=== PATIENT | female | born 1970 ===

== ENCOUNTER 2020-01-19 12:47 | Outpatient (REF) | payer MEDICAID, SELFPAY ==
--- NOTE | 2020-01-19 12:59 | US_ITS ---
EXAMINATION: MM DIAGNOSTIC DIGITAL BREAST TOMOSYNTHESIS, BILATERAL US DIAGNOSTIC ULTRASOUND BREAST, LEFT CLINICAL INFORMATION: Due for yearly exam. 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 The lifetime risk of breast cancer based on the Tyrer-Cuzick Model is 6%. COMPARISON: Mammography: 01/14/2019, 07/13/2018, 12/17/2017 (diagnostic, BI-RADS 3); targeted left breast ultrasound 01/14/2019, 07/13/2018, 12/17/2017. TECHNIQUE: Digital breast tomosynthesis is performed in both the craniocaudal and mediolateral oblique views along with computer-aided detection (CAD). Synthesized 2D images are generated from the tomosynthesis. Ultrasound left breast is targeted to the upper outer quadrant. Grayscale imaging and color Doppler are performed without and with harmonics. FINDINGS: The breasts are heterogeneously dense, which may obscure small masses (ACR BI-RADS breast composition Category c). Parenchymal pattern is similar to prior studies. There is no developing density or interval mass or architectural abnormality. No abnormal calcifications. The axilla and skin contours are unremarkable. There is stable nodule left upper outer quadrant. Ultrasound left breast demonstrates the probable fibroadenoma 2:00 position 4 cm from nipple with macrolobulated margins and overall size approximately 1.3 x 1.2 x 1.0 cm. Finding is stable from prior exams and now considered benign. Results are discussed with the patient at time of visit, using an section leader and machine setter. US/US breast LT limited IMPRESSION: 1. No mammographic evidence of malignancy. 2. 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 ASSESSMENT: BI-RADS 2: Benign RECOMMENDATION: Routine annual mammography screening. This patient's information was entered into a reminder system with a target due date for their next mammogram.
== END 2020-01-19 12:48 | disposition home or self-care (01) ==
LOC: HO.MAMMO 12:47
PROVIDERS: PCP Family Medicine; Visit Provider Advanced Practice Midwife
DX: Z12.31 Encounter for screening mammogram for malignant neoplasm of breast (principal)
CPT/HCPCS: 76642; 77062; 77066

== ENCOUNTER 2020-10-08 14:44 | Outpatient (REF) | payer MEDICAID, SELFPAY ==
--- NOTE | ~2020-10-08 | XR_ITS ---
EXAMINATION: XR KNEE, LEFT CLINICAL INFORMATION: Pain left knee. COMPARISON: None TECHNIQUE: Four views of the left knee. FINDINGS: The tricompartment joint space is normal. No visible acute fracture, dislocation or subluxation seen. No abnormal joint effusion seen. The soft tissues are normal. XR/XR knee LT 4V IMPRESSION: Unremarkable left knee exam.
== END 2020-10-08 14:45 | disposition home or self-care (01) ==
LOC: HO.XRAY 14:44
PROVIDERS: PCP Registered Nurse; Visit Provider Registered Nurse
DX: M25.562 Pain in left knee (principal)
CPT/HCPCS: 73564

== ENCOUNTER 2020-12-17 10:22 | Emergency (ER) | payer MEDICAID, SELFPAY ==
--- NOTE | ~2020-12-17 | XR_ITS ---
EXAMINATION: XR CHEST CLINICAL INFORMATION: Cough. COMPARISON: None TECHNIQUE: Frontal view of the chest was obtained. FINDINGS: No significant abnormality is noted involving the heart, lungs, mediastinum, bony thorax or soft tissues. XR/XR chest 1V IMPRESSION: No acute cardiopulmonary process.
--- NOTE | ~2020-12-17 | CT_ITS ---
EXAMINATION: CT ABDOMEN AND PELVIS WITHOUT CONTRAST CLINICAL INFORMATION: Left lower quadrant pain, rule out diverticulitis. COMPARISON: None TECHNIQUE: Multidetector volumetric imaging was performed from the superior aspect of the liver through the pubic symphysis. Sagittal and coronal reformatted images were obtained on the technologist's workstation. Lack of intravenous and oral contrast limits visceral evaluation. This CT examination was performed using dose optimization techniques as appropriate, variously including the following: *Automated exposure control *Adjustment of mA and/or kV according to patient size (this includes techniques or standardized protocols for targeted exams where dose is matched to indication/reason for exam; i.e. extremities or head) *Use of iterative reconstruction technique DLP: 493 mGy-cm FINDINGS: LUNG BASES: The visualized lung bases are unremarkable. LIVER, GALLBLADDER, AND BILIARY TREE: Unremarkable. PANCREAS: Unremarkable. SPLEEN: Unremarkable. ADRENAL GLANDS: Unremarkable. KIDNEYS AND URETERS: A few punctate nonobstructing intrarenal calculi are seen bilaterally. No hydroureteronephrosis. BLADDER: Minimally distended limiting evaluation without overt abnormality. GASTROINTESTINAL TRACT: The stomach, small bowel and appendix are unremarkable. The colon shows mild diverticulosis distally without surrounding abnormality. ABDOMINAL WALL: No significant hernia is appreciated. LYMPH NODES: No lymphadenopathy. VASCULAR: Unremarkable. PELVIC VISCERA: Mild prominence of the uterus is seen without definitive focal abnormality. Small noncalcified ovarian cysts are seen bilaterally. Surgical clips overlie the adnexa bilaterally as well. OSSEOUS STRUCTURES: L3-L4 mild degenerative disc disease and minimal grade [address]rolisthesis[address] No suspicious abnormality. CT/CT abdomen pelvis wo con IMPRESSION: 1. Mild distal colonic diverticulosis without evidence for acute diverticulitis. A causative abnormality for the patient's left lower quadrant pain was not identified. 2. Mild prominence of the uterus without overt focal abnormality. Bilateral ovarian cysts demonstrate benign features and are likely physiologic. 3. A few nonobstructing punctate intrarenal calculi without other significant abnormality. 4. L3-L4 mild spondylolysis.
[2020-12-17 11:12] VITALS: BP 122/69; PULSE 57; RESP 16; TEMP 36.7; O2SAT 96; BMI 27.3
[2020-12-17 13:17] LABS: MANUAL DIFF FLAG NO
[2020-12-17 13:21] LABS: Basophils Percent Auto 0.4 % (0-2); Eosinophils Absolute Auto 0.1 X10*3/uL (0.0-0.4); Eosinophils Percent Auto 1.2 % (0-4); Hematocrit 33.6 % (37-47); Hemoglobin 10.9 g/dl (12.0-16.0); Imm Gran Abs Auto 0.02 X10*3/uL (0.00-0.03); Imm Gran Pct Auto 0.4 % (0.0-0.4); Lymphocytes Absolute Auto 1.7 X10*3/uL (1.2-4.9); Lymphocytes Percent Auto 33.3 % (20-40); Mean Corpuscular HGB Conc 32.4 g/dl (31.0-35.0); Mean Corpuscular Hemoglobin 28.4 pg (27.0-33.0); Mean Corpuscular Volume 87.5 fL (80-98); Mean Platelet Volume 10.9 fL (9.4-12.3); Monocytes Absolute Auto 0.3 X10*3/uL (0.1-1.2); Monocytes Percent Auto 6.4 % (2-11); Neutrophils Absolute Auto 2.9 X10*3/uL (2.0-8.3); Neutrophils Percent Auto 58.3 % (45-73); Platelet Count 327 X10*3/uL (160-400); Red Blood Count 3.84 X10*6/uL (4.20-5.50); Red Cell Distribution Width 13.5 % (11.0-16.0)
[2020-12-17 13:36] LABS: Alanine Aminotransferase 11 U/L (0-31); Alkaline Phosphatase 49 U/L (39-117); Anion Gap 10 (12-20); Aspartate Amino Transferase 18 U/L (5-31); Bilirubin Direct 0.2 mg/dL (0.0-0.5); Bilirubin Total 0.6 mg/dL (0.0-1.0); Blood Urea Nitrogen 11 mg/dL (9-16); Calcium 9.5 mg/dL (8.4-10.2); Carbon Dioxide 26 mmol/L (22-29); Chloride 109 mmol/L (96-108); Creatinine Clr Calc Pharmacy 70.3; Estimated Glomerular Filt Rate > 60; Glucose Random 88 mg/dL (60-115); Lipase 17 U/L (8-78); Potassium 4.3 mmol/L (3.3-5.1); Sodium 141 mmol/L (135-145); Total Protein 7.1 g/dL (6.5-8.0)
--- NOTE | 2020-12-17 14:12 | ED_ITS ---
HPI - Nausea/Vomiting/Diarrhea General Chief complaint: Nausea/Vomiting/Diarrhea Stated complaint: lt lung pain Time Seen by Provider: 12/17/20 14:12 Source: patient and cardiac exercise specialist Mode of arrival: ambulatory Limitations: no limitations History of Present Illness HPI Narrative: 50-year-old female came in for evaluation of abdominal pain/nausea/vomiting. Patient's symptoms started 5 days ago and mostly night time, patient describes the pain as intermittent abdominal pain mostly on the left lower quadrant area, pain is dull aching, 5/10, no pain now, pain was associated with vomiting only at night time, no diarrhea, no relieving factor, no aggravating factor. Never had similar pain in the past. Patient also is complaining of intermittent chest pain for the last 3 days, pain is dull in the mid chest, with no radiation, no other associated symptoms, patient has no pain now. Related Data Home Medications Medication Instructions Recorded Confirmed albuterol sulfate 90 mcg/actuation 2 puff PO Q4-6H PRN 12/17/20 aerosol inhaler (ProAir HFA) ascorbic acid (vitamin C) 250 mg 1 tab PO DAILY 12/17/20 tablet cholecalciferol (vitamin D3) 50 1 cap PO DAILY 12/17/20 mcg (2,000 unit) capsule cyanocobalamin (vitamin B-12) 1 tab PO DAILY 12/17/20 1,000 mcg tablet diclofenac sodium 1 % topical gel 2 g TOPICAL BID 12/17/20 ferrous sulfate 325 mg (65 mg 1 tab PO DAILY 12/17/20 iron) tablet (FeroSul) tramadol 50 mg tablet 1 tab PO Q12H PRN 12/17/20 zolpidem 10 mg tablet 1 tab PO BEDTIME PRN 12/17/20 Previous Rx's Medication Instructions Recorded cefuroxime axetil 250 mg tablet 250 mg PO BID #14 tab 12/17/20 Allergies Allergy/AdvReac Type Severity Reaction Status Date / Time No Known Allergies Allergy Unverified 11/17/19 16:31 [No Known Allergies*] Review of Systems Review of Systems: All other systems are reviewed and are negative Constitutional: Reports as per HPI and Reports no additional constitutional complaints Eyes: Reports as per HPI and Reports no additional eye complaints Reports system reviewed and no additional complaints, except as documented Cardiovascular: Reports as per HPI and Reports no additional cardiovascular complaints Respiratory: Reports as per HPI and Reports no additional respiratory complaints Gastrointestinal: Reports as per HPI and Reports no additional gastrointestinal complaints Genitourinary: Reports no additional female genitourinary complaints Musculoskeletal: Reports no additional musculoskeletal complaints Skin/Breast: Reports system reviewed and no additional complaints, except as docu Psychiatric: Reports no additional psychiatric complaints Endocrine: Reports no additional endocrine complaints Hematologic/Lymphatic: Reports no additional hematologic/lymphatic complaints Allergic/Immunologic: Reports no additional allergic/immunologic complaints Reports system reviewed and no additional complaints, except as documented and Reports Abnormal speech present [facility] Social History Social History Use of substances other than those prescribed or required for medical reasons: No Advance Directives: No Physical Exam Vital Signs: Vital Signs: Last Vital Signs Temp 98.1 F 12/17/20 11:12 Pulse 81 12/17/20 15:07 Resp 18 12/17/20 15:07 BP 102/85 12/17/20 15:07 Pulse Ox 98 12/17/20 15:07 Body Mass Index 27.3 Vital signs have been reviewed as appeared to be correct. Blood pressure normal. Heart rate normal. Respiration rate normal. Temperature normal. Oxygen saturation normal. Appearance: Alert. Oriented X3. No acute distress. Head: Normal external exam. Normocephalic. Atraumatic. No Leigh signs noted. No raccoon eyes noted Eyes: PERRLA. EOMI. Conjunctiva and sclera normal. Eyelids normal. ENT: TM's Normal. Pharynx normal. Uvula midline. Moist mucous membranes. No trismus noted. No drooling noted. No muffled voice noted. Neck: Normal inspection. Neck supple. FROM. No adenopathy. Thyroid Normal. No meningeal signs. No neck mass noted. CVS: Normal heart rate and rhythm. Heart sound normal. No murmurs noted. Pulses normal throughout. Respiratory: No respiratory distress. Painless inspiration. Breath sounds normal. No wheezes/rales/rhonchi noted. Chest nontender. No accessory muscle usage noted or decreased air movement noted. Abdomen: Soft, mild tenderness in the left lower quadrant area, no guarding, no rebound. Bowel sounds normal in all 4 quadrants. No distention noted. No organomegaly noted. No visible injury noted. Back: No CVA tenderness. Full range of motion noted. Skin: Skin warm and dry. Normal skin color. Normal skin turgor. No rashes/lesions/lacerations noted. Extremities: No lower extremity edema. Extremities exhibit normal range of motion. Extremities nontender. Neuro: Oriented X 3. Cranial nerve exam: II-XII are grossly intact No motor deficit. No sensory deficit. Reflexes normal. Course Course Course Narrative: Assessment and plan. 50-year-old female came in with 3 days of left lower quadrant abdominal pain, patient also was complaining of chest pain, physical exam and CT of the abdomen and pelvis and labs are unremarkable for acute abnormality. Patient will be discharged home and follow-up with PCP. UA revealing UTI patient with minimal symptoms will start the patient on cefuroxime for 7 days and encouraged to drink plenty of fluids. MDM - Nausea/Vomiting/Diarrhea Lab Data Attestation: I reviewed the patient's lab results. Result diagrams: 12/17/20 13:12 12/17/20 13:12 Labs: Lab Results 12/17/20 12/17/20 12/17/20 Range/Units 13:12 13:12 14:57 WBC 5.0 (4.8-10.8) X10*3/uL RBC 3.84 L (4.20-5.50) X10*6/uL Hgb 10.9 L (12.0-16.0) g/dl Hct 33.6 L (37-47) % MCV 87.5 (80-98) fL MCH 28.4 (27.0-33.0) pg MCHC 32.4 (31.0-35.0) g/dl RDW 13.5 (11.0-16.0) % Plt Count 327 (160-400) X10*3/uL MPV 10.9 (9.4-12.3) fL Immature Gran % (Auto) 0.4 (0.0-0.4) % Neut % (Auto) 58.3 (45-73) % Lymph % (Auto) 33.3 (20-40) % Wilkinson % (Auto) 6.4 (2-11) % Eos % (Auto) 1.2 (0-4) % Baso % (Auto) 0.4 (0-2) % Lymph # (Auto) 1.7 (1.2-4.9) X10*3/uL Wilkinson # (Auto) 0.3 (0.1-1.2) X10*3/uL Eos # (Auto) 0.1 (0.0-0.4) X10*3/uL Baso # (Auto) 0.0 (0.0-0.2) X10*3/uL Abs Immat Gran (auto) 0.02 (0.00-0.03) X10*3/uL Absolute Neuts (auto) 2.9 (2.0-8.3) X10*3/uL Absolute Nucleated RBC 0.000 (0.0-0.012) X10*3/uL Nucleated RBC % (auto) 0.0 (0.0-0.2) /100WBC Sodium 141 (135-145) mmol/L Potassium 4.3 (3.3-5.1) mmol/L Chloride 109 H (96-108) mmol/L Carbon Dioxide 26 (22-29) mmol/L Anion Gap 10 L (12-20) BUN 11 (9-16) mg/dL Creatinine 0.84 (0.5-1.4) mg/dL Estim Creat Clear Calc 70.3 Estimated GFR > 60 Random Glucose 88 (60-115) mg/dL Calcium 9.5 (8.4-10.2) mg/dL Total Bilirubin 0.6 (0.0-1.0) mg/dL Direct Bilirubin 0.2 (0.0-0.5) mg/dL AST 18 (5-31) U/L ALT 11 (0-31) U/L Alkaline Phosphatase 49 (39-117) U/L Total Protein 7.1 (6.5-8.0) g/dL Albumin 4.0 (3.5-5.0) g/dL Lipase 17 (8-78) U/L Urine Color YELLOW Urine Appearance CLEAR Urine pH 6.0 (5.0-8.0) Ur Specific [employer] 1.020 (1.005-1.025) Urine Protein NEG (NEG-TRACE) MG/DL Urine Glucose (UA) NEG (NEG) MG/DL Urine Ketones 5 (NEG) MG/DL Urine Blood TRACE (NEG) Urine Nitrite POS H (NEG) Ur Leukocyte Esterase NEG (NEG) Urine RBC 0-2 (0) /HPF Urine WBC 5-9 H (0-4) /HPF Ur Squamous Epith Cells 1+ /LPF Urine Bacteria 3+ /LPF Urine Test (NEGATIVE) 12/17/20 Range/Units 14:57 WBC (4.8-10.8) X10*3/uL RBC (4.20-5.50) X10*6/uL Hgb (12.0-16.0) g/dl Hct (37-47) % MCV (80-98) fL MCH (27.0-33.0) pg MCHC (31.0-35.0) g/dl RDW (11.0-16.0) % Plt Count (160-400) X10*3/uL MPV (9.4-12.3) fL Immature Gran % (Auto) (0.0-0.4) % Neut % (Auto) (45-73) % Lymph % (Auto) (20-40) % Wilkinson % (Auto) (2-11) % Eos % (Auto) (0-4) % Baso % (Auto) (0-2) % Lymph # (Auto) (1.2-4.9) X10*3/uL Wilkinson # (Auto) (0.1-1.2) X10*3/uL Eos # (Auto) (0.0-0.4) X10*3/uL Baso # (Auto) (0.0-0.2) X10*3/uL Abs Immat Gran (auto) (0.00-0.03) X10*3/uL Absolute Neuts (auto) (2.0-8.3) X10*3/uL Absolute Nucleated RBC (0.0-0.012) X10*3/uL Nucleated RBC % (auto) (0.0-0.2) /100WBC Sodium (135-145) mmol/L Potassium (3.3-5.1) mmol/L Chloride (96-108) mmol/L Carbon Dioxide (22-29) mmol/L Anion Gap (12-20) BUN (9-16) mg/dL Creatinine (0.5-1.4) mg/dL Estim Creat Clear Calc Estimated GFR Random Glucose (60-115) mg/dL Calcium (8.4-10.2) mg/dL Total Bilirubin (0.0-1.0) mg/dL Direct Bilirubin (0.0-0.5) mg/dL AST (5-31) U/L ALT (0-31) U/L Alkaline Phosphatase (39-117) U/L Total Protein (6.5-8.0) g/dL Albumin (3.5-5.0) g/dL Lipase (8-78) U/L Urine Color Urine Appearance Urine pH (5.0-8.0) Ur Specific [employer] (1.005-1.025) Urine Protein (NEG-TRACE) MG/DL Urine Glucose (UA) (NEG) MG/DL Urine Ketones (NEG) MG/DL Urine Blood (NEG) Urine Nitrite (NEG) Ur Leukocyte Esterase (NEG) Urine RBC (0) /HPF Urine WBC (0-4) /HPF Ur Squamous Epith Cells /LPF Urine Bacteria /LPF Urine Test NEGATIVE (NEGATIVE) Imaging Data CT scan - abdomen: Radiologist's impression: 1. Mild distal colonic diverticulosis without evidence for acute diverticulitis. A causative abnormality for the patient's left lower quadrant pain was not identified. 2. Mild prominence of the uterus without overt focal abnormality. Bilateral ovarian cysts demonstrate benign features and are likely physiologic. 3. A few nonobstructing punctate intrarenal calculi without other significant abnormality. 4. L3-L4 mild spondylolysis. Chest x-ray: Radiologist's impression: No acute cardiopulmonary pathology. Discharge Plan Discharge Clinical Impression: Abdominal pain, UTI (urinary tract infection) Patient Disposition: Home, Self-Care Instructions: Abdominal Pain (ED) Prescriptions: New cefuroxime axetil 250 mg tablet 250 mg PO BID Qty: 14 RF: 0 No Action cyanocobalamin (vitamin B-12) 1,000 mcg tablet 1 tab PO DAILY RF: 0 tramadol 50 mg tablet 1 tab PO Q12H PRN (Reason: Pain) RF: 0 ascorbic acid (vitamin C) 250 mg tablet 1 tab PO DAILY RF: 0 ferrous sulfate [FeroSul] 325 mg (65 mg iron) tablet 1 tab PO DAILY RF: 0 zolpidem 10 mg tablet 1 tab PO BEDTIME PRN (Reason: insomnia) RF: 0 albuterol sulfate [ProAir HFA] 90 mcg/actuation HFA aerosol inhaler 2 puff PO Q4-6H PRN (Reason: Wheezing) RF: 0 diclofenac sodium 1 % gel 2 g topical BID RF: 0 cholecalciferol (vitamin D3) 50 mcg (2,000 unit) capsule 1 cap PO DAILY RF: 0 Referrals: [facility] [Primary Care Provider] - 2 days
[2020-12-17] MEDS: 0.9 % Sodium Chloride 1,000 ML 999 ML IVCONT (14:51)
[2020-12-17 15:06] LABS: Appearance Urine CLEAR; Color Urine YELLOW; Glucose Urine UA NEG (NEG); Leukocyte Esterase Urine NEG (NEG); Nitrite Urine POS (NEG); UACC Culture Trigger YES; Urine Blood TRACE (NEG); Urine Ketones 5 MG/DL (NEG); Urine Protein NEG (NEG-TRACE)
[2020-12-17 15:07] VITALS: BP 102/85; PULSE 81; RESP 18; O2SAT 98
[2020-12-17 15:08] LABS: UPreg QC Valid YES; Urine Pregnancy NEGATIVE (NEGATIVE)
[2020-12-17 15:26] LABS: Bacteria Urine 3+ /LPF; RBC Urine 0-2 /HPF (0); Squamous Epithelial Cell Urine 1+ /LPF
== END 2020-12-17 16:45 | disposition home or self-care (01) ==
PROVIDERS: Emergency Provider Emergency Medicine
DX: N39.0 Urinary tract infection, site not specified (principal); R11.2 Nausea with vomiting, unspecified; R10.9 Unspecified abdominal pain; Z79.899 Other long term (current) drug therapy
CPT/HCPCS: 36415; 71045; 74176; 80048; 80076; 81001; 81025; 83690; 85025; 87086; 96360; 99284

== ENCOUNTER 2021-01-23 15:37 | Outpatient (REF) | payer MEDICAID, SELFPAY ==
--- NOTE | ~2021-01-23 | MM_ITS ---
EXAMINATION: MM SCREENING DIGITAL BREAST TOMOSYNTHESIS, BILATERAL CLINICAL INFORMATION: Screening. Asymptomatic. The lifetime risk of breast cancer based on the Tyrer-Cuzick Model is 6%. COMPARISON: Mammography: 01/19/2020, 01/14/2019, 07/13/2018, 12/17/2017 (new baseline); ultrasound left breast 01/19/2020, 01/14/2019, 07/13/2018, 12/17/2017. TECHNIQUE: Digital breast tomosynthesis is performed in both the craniocaudal and mediolateral oblique views along with computer-aided detection (CAD). Synthesized 2D images are generated from the tomosynthesis. FINDINGS: The breasts are heterogeneously dense, which may obscure small masses (ACR BI-RADS breast composition Category c). Parenchymal pattern is similar to prior exams. There is no developing density or interval mass or architectural abnormality or abnormal calcifications. There is a stable solid macrolobulated mass upper outer quadrant left breast, likely fibroadenoma. The axilla and skin contours are unremarkable. MM/MM tomosynthesis screening BI IMPRESSION: No significant changes from prior studies. ASSESSMENT: BI-RADS 2: Benign RECOMMENDATION: Routine annual mammography screening. This patient's information was entered into a reminder system with a target due date for their next mammogram.
== END 2021-01-23 15:38 | disposition home or self-care (01) ==
LOC: HO.MAMMO 15:37
PROVIDERS: Visit Provider Nurse Practitioner Family
DX: Z12.31 Encounter for screening mammogram for malignant neoplasm of breast (principal)
CPT/HCPCS: 77063; 77067

== ENCOUNTER 2022-02-04 11:45 | Outpatient (REF) | payer MEDICAID, SELFPAY ==
--- NOTE | ~2022-02-04 | MM_ITS ---
EXAMINATION: MM SCREENING DIGITAL BREAST TOMOSYNTHESIS, BILATERAL CLINICAL INFORMATION: Screening. Asymptomatic. The lifetime risk of breast cancer based on the Tyrer-Cuzick Model is 9%. COMPARISON: Mammography: 01/23/2021, 01/19/2020, 01/14/2019, 07/13/2018, 12/17/2017 (new baseline). Ultrasound left breast 01/19/2020, 01/14/2019, 07/13/2018, 12/17/2017. TECHNIQUE: Digital breast tomosynthesis is performed in both the craniocaudal and mediolateral oblique views along with computer-aided detection (CAD). Synthesized 2D images are generated from the tomosynthesis. FINDINGS: The breasts are heterogeneously dense, which may obscure small masses (ACR BI-RADS breast composition Category c). There are no significant masses, abnormal calcifications, or other abnormalities. There are scattered shifting fibroglandular parenchymal densities related to variation in positioning. No developing density or architectural abnormality. Again, there is stable nodule mid upper outer left breast previously under ultrasound surveillance, likely fibroadenoma. The axilla and skin contours are unremarkable. No significant changes. MM/MM tomosynthesis screening BI IMPRESSION: No significant changes from prior exams. ASSESSMENT: BI-RADS 2: Benign RECOMMENDATION: Routine annual mammography screening. This patient's information was entered into a reminder system with a target due date for their next mammogram.
== END 2022-02-04 11:46 | disposition home or self-care (01) ==
LOC: HO.MAMMO 11:45
PROVIDERS: PCP Family Medicine; Visit Provider Family Medicine
DX: Z12.31 Encounter for screening mammogram for malignant neoplasm of breast (principal)
CPT/HCPCS: 77063; 77067

== ENCOUNTER 2023-02-10 11:33 | Outpatient (REF) | payer MEDICAID, SELFPAY | END 2023-02-10 11:34 | disposition home or self-care (01) | LOC: HO.MAMMO 11:33 | PROVIDERS: PCP Family Medicine; Visit Provider Family Medicine | DX: Z12.31 Encounter for screening mammogram for malignant neoplasm of breast (principal) | CPT/HCPCS: 77063; 77067 ==

== ENCOUNTER → 2023-02-10 12:00 | Outpatient (BNV) | payer MEDICAID, SELFPAY | PROVIDERS: PCP Family Medicine; Visit Provider Radiology Diagnostic Radiology | DX: Z12.31 Encounter for screening mammogram for malignant neoplasm of breast (principal) | CPT/HCPCS: 77063; 77067 ==

== ENCOUNTER 2023-02-20 09:41 | Outpatient (REF) | payer MEDICAID, SELFPAY ==
[2023-02-20 14:42] LABS: MANUAL DIFF FLAG NO
[2023-02-20 14:46] LABS: Basophils Absolute Auto 0.1 X10*3/uL (0.0-0.2); Basophils Percent Auto 1.2 % (0-2); Eosinophils Absolute Auto 0.3 X10*3/uL (0.0-0.4); Eosinophils Percent Auto 5.6 % (0-4); Hematocrit 35.2 % (37.0-47.0); Hemoglobin 11.2 g/dl (12.0-16.0); Imm Gran Abs Auto 0.01 X10*3/uL (0.00-0.03); Imm Gran Pct Auto 0.2 % (0.0-0.4); Lymphocytes Absolute Auto 1.3 X10*3/uL (1.2-4.9); Lymphocytes Percent Auto 25.7 % (20-40); Mean Corpuscular HGB Conc 31.8 g/dl (31.0-35.0); Mean Corpuscular Hemoglobin 28.1 pg (27.0-33.0); Mean Corpuscular Volume 88.4 fL (80.0-98.0); Mean Platelet Volume 12.2 fL (9.4-12.3); Monocytes Absolute Auto 0.3 X10*3/uL (0.1-1.2); Monocytes Percent Auto 6.6 % (2-11); Neutrophils Absolute Auto 3.1 x10*3/uL (2.0-8.3); Neutrophils Percent Auto 60.7 % (45-73); Platelet Count 303 X10*3/uL (160-400); Red Blood Count 3.98 X10*6/uL (4.20-5.50); Red Cell Distribution Width 14.5 % (11.0-16.0); White Blood Count 5.2 X10*3/uL (4.8-10.8)
[2023-02-20 15:10] LABS: Alanine Aminotransferase 13 U/L (0-31); Albumin Level 4.1 g/dL (3.5-5.0); Alkaline Phosphatase 51 U/L (39-117); Anion Gap 11 (12-20); Aspartate Amino Transferase 18 U/L (5-31); Bilirubin Total 0.3 mg/dL (0.0-1.0); Blood Urea Nitrogen 13 mg/dL (9-16); Calcium 9.7 mg/dL (8.4-10.2); Carbon Dioxide 24 mmol/L (22-29); Chloride 108 mmol/L (96-108); Cholesterol 184 mg/dL (<200); Estimated Glomerular Filt Rate > 60; Glucose Fasting 81 mg/dL (60-99); HDL Cholesterol 52 mg/dL (>40); Iron 113 mcg/dL (30-160); LDL Cholesterol Calculated 110 mg/dL (<100); Percent Iron Saturation 34 % (15-50); Sodium 139 mmol/L (135-145); Total Iron Binding Capacity 332 mcg/dL (228-428); Total Protein 7.5 g/dL (6.5-8.0); Triglycerides 111 mg/dL (<150); Unsaturated Iron Binding 219 ug/dL
[2023-02-20 15:16] LABS: Syphilis Screen Nonreactive (Nonreactive)
[2023-02-20 15:27] LABS: Estimated Average Glucose 105 mg/dL; Hemoglobin A1c % 5.3 % (<6.0)
[2023-02-20 15:28] LABS: Ferritin 16 ng/mL (10-250); TSH reflex Free T4 0.79 uIU/mL (0.32-4.0)
[2023-02-20 16:30] LABS: CT PCR NOT DETECTED (Not Detect.); NG PCR NOT DETECTED (Not Detect.)
[2023-02-24 19:33] LABS: HCV Log PCR <1.18 NOT DETECTED Log IU/mL (NOT DETECTED); HepC Viral Load <15 NOT DETECTED IU/mL (NOT DETECTED)
[2023-02-25 17:09] LABS: HIV RNA PCR Qn Copies Not Detected Copies/mL; HIV RNA PCR Qn Log Copies Not Detected Log cps/mL
== END 2023-02-20 09:42 | disposition home or self-care (01) ==
LOC: HO.CHCLDS 09:41
PROVIDERS: Visit Provider Registered Nurse
DX: Z00.00 Encounter for general adult medical examination without abnormal findings (principal); Z11.4 Encounter for screening for human immunodeficiency virus [HIV]
CPT/HCPCS: 0353U; 80053; 80061; 82728; 83036; 83540; 84443; 85025; 86780; 87522; 87536; 87900

== ENCOUNTER 2023-03-25 08:53 | Outpatient (AMB) | payer MEDICAID, SELFPAY ==
--- NOTE | 2023-03-25 09:04 | MHC.OFFVIS ---
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 Patient reports intermittent pain for about nine years with no previous tx. States pain is worse with getting up from a sitting position, at night with sleeping and prolong standing. Her pain is located around the anterior and posterior aspect of knee. Finds relief with lidocaine patches. 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 She states she has intermittent pain at the anterior and posterior aspect of her left knee which radiates down to her leg. Her pain is aggravated with stair use, getting up from a sitting position, prolonged standing and at night with sleeping. She finds relief with lidocaine patches. She has not had any treatment in the past. [facility] Social History (Updated 03/25/23 @ 09:20 by Mary Cardenas Raisa) Alcohol intake: never Patient Tobacco Use Status: Never used Tobacco Review of Systems Const All systems reviewed & are unremarkable except as noted in HPI and below Physical Exam Vital Signs: BMI result Body Mass Index 30.2 Const General: cooperative, healthy appearing, comfortable, no acute distress, well developed and alert Orientation/consciousness: patient oriented x3 HEENT Head: Yes normal to inspection, Yes normocephalic and Yes atraumatic Eyes General: appearance normal, both eyes and all related structures Resp Effort & Inspection: normal respiratory effort and able to speak in complete sentences Cardio Rate: regular rate Peripheral pulses: Peripheral pulses 2+ throughout GI Palpation (GI): Soft to palpation Skin Lesions: no lesions Rashes: no rashes Neuro General: patient oriented x3 Extrem Other: Left knee: Skin intact, no erythema or joint effusion. Lateral retropatellar tenderness present. Full ROM with crepitus. Negative Marianne?s. No ligamentous laxity. NVI. Results Reviewed Results Reviewed: Xrays were obtained in the office today and personally reviewed by me show mild pf and medial compartment oa Assessment & Plan Assessment & Plan (1) Patellofemoral arthritis of left knee: Code(s): M17.12 - Unilateral primary osteoarthritis, left knee (2) Valgus deformity, not elsewhere classified, left knee: Code(s): M21.062 - Valgus deformity, not elsewhere classified, left knee Plan We discussed options which include PT, NSAIDs and injections. The patient will defer on the injection today and proceed with PT and NSAIDs. If symptoms persist, the patient will contact me for an injection, otherwise, PRN. Orders: Orders XR knee standing BI Today M25.561 - Pain in right knee, M25.562 - Pain in left knee XR knee LT 2V Today M25.562 - Pain in left knee PT Evaluation and Treatment Today M17.12 - Unilateral primary osteoarthritis, left knee, M21.062 - Valgus deformity, not elsewhere classified, left knee Patient Instructions: Scribed for Alexia Garibay PA-C, by Bravo Padilla medical scientific officer, on 03/25/2023 at 9:00 AM EST. I, Alexia Garibay PA-C, have personally reviewed and agree with the information entered by the scribe. Coding Level of Care Code New Pt Level 3 (83491) Diagnoses Patellofemoral arthritis of left knee M17.12 Valgus deformity, not elsewhere classified, left knee M21.062
[2023-03-25 09:19] VITALS: BMI 30.2
== END 2023-03-25 09:46 | disposition home or self-care (01) ==
PROVIDERS: PCP Family Medicine; Visit Provider Physician Assistant
DX: M17.12 Unilateral primary osteoarthritis, left knee (principal); M21.062 Valgus deformity, not elsewhere classified, left knee
CPT/HCPCS: 99203

== ENCOUNTER 2023-03-25 13:40 | Outpatient (REF) | payer MEDICAID, SELFPAY ==
--- NOTE | ~2023-03-25 | XR_ITS ---
EXAMINATION: XR KNEE, LEFT XR KNEE AP STANDING CLINICAL INFORMATION: Pain. COMPARISON: Radiographs dated 10/08/2020. TECHNIQUE: Four views of the left knee. AP bilateral standing view of the knees was obtained. FINDINGS: No fracture or joint effusion. Alignment is anatomic. Joint spaces are maintained. No abnormal soft tissue calcification. XR/XR knee standing BI IMPRESSION: Normal left knee and AP bilateral knee radiographs.
--- NOTE | ~2023-03-25 | XR_ITS ---
EXAMINATION: XR KNEE, LEFT XR KNEE AP STANDING CLINICAL INFORMATION: Pain. COMPARISON: Radiographs dated 10/08/2020. TECHNIQUE: Four views of the left knee. AP bilateral standing view of the knees was obtained. FINDINGS: No fracture or joint effusion. Alignment is anatomic. Joint spaces are maintained. No abnormal soft tissue calcification. XR/XR knee LT 2V IMPRESSION: Normal left knee and AP bilateral knee radiographs.
== END 2023-03-25 13:41 | disposition home or self-care (01) ==
LOC: HO.HOSX 13:40
PROVIDERS: Visit Provider Physician Assistant
DX: M17.12 Unilateral primary osteoarthritis, left knee (principal); M21.062 Valgus deformity, not elsewhere classified, left knee; M25.561 Pain in right knee
CPT/HCPCS: 73560; 73565; 99212

== ENCOUNTER → 2023-03-27 13:31 | Outpatient (BNV) | payer MEDICAID, SELFPAY | PROVIDERS: PCP Registered Nurse; Visit Provider Internal Medicine Medical Oncology | DX: D64.9 Anemia, unspecified (principal) | CPT/HCPCS: 99204; 99213 ==

== ENCOUNTER 2023-04-07 09:55 | Outpatient (REF) | payer MEDICAID, SELFPAY | END 2023-04-07 09:56 | disposition home or self-care (01) | LOC: HO.MDS 09:55 | PROVIDERS: Visit Provider Internal Medicine Medical Oncology | DX: D50.9 Iron deficiency anemia, unspecified (principal) | CPT/HCPCS: 96365; J1756 ==

== ENCOUNTER 2023-04-21 13:56 | Outpatient (AMB) | payer MEDICAID, SELFPAY ==
--- NOTE | 2023-04-21 14:17 | MHC.OFFVIS ---
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 Intake Note: New Patient presents for initial visit for Renal Cyst Urology Medications: none Blood Thinner: none Coutierier Required: No Coutierier Name: ANNI ORTIZHAO Accompanied by: Self / Same As Patient Allergies tizanidine Adverse Reaction (Severe, Uncoded 04/21/23 15:21) Shakiness Medication List - Last Reconciled 04/21/23 by JARRETT Call- albuterol sulfate 90 mcg/actuation (ProAir HFA) 2 puffs PO Q4-6H PRN diclofenac sodium 1% 2 grams topical BID hydrocortisone 0.5% 0.5 appl topical BID ketotifen fumarate 0.025%(0.035%) (Eye Itch Relief) 1 drp ophthalmic (eye) BID PRN lidocaine 5% 5 patches topical DAILY naloxone 4 mg/actuation 4 mg intranasal DAILY triamcinolone acetonide 0.1% 0.1 appl topical BID zolpidem 5 mg PO BEDTIME PRN HPI HPI Comments History of Present Illness Details Ever is a very pleasant 53-year-old Ukrainian-speaking female patient of Dr. Oden. She has a PMH of hyperlipidemia and renal cyst. She presents to the office today as a new patient for renal cyst. In discussion with the patient today she reports previously following up here over 5 years agot for her longstanding history of avrenal cyst. In review of patient's chart it appears last renal ultrasound was in 2019 noting right kidney with no calculi, lesions, and or hydronephrosis. Left kidney with upper pole 1.1 x 1.2 x 1.7 cm mildly complex Bosniak 2 cyst with 3 mm wall calcification. It does not appear there is any recent renal imaging. When asked she denies having had any recent renal imaging either. Discussed at length potential causes of renal cysts and discussed further workup. She is agreeable. She otherwise denies any bothersome urinary issues or concerns. She denies urinary urgency, urinary frequency, incontinence, nocturia, hematuria, dysuria, foul smelling urine, changes to urinary stream, flank pain, fever, and or chills. She is happy with her current voiding parameters. In office urinalysis results reviewed with the patient today. She does discussed to be following up with PCP regarding ongoing bilateral hand dryness she has been experiencing. She otherwise offers no other issues or concerns at this time. [facility] Medical History High cholesterol Family History Father Prostate cancer Social History Household Members: Family Alcohol intake: never Patient Tobacco Use Status: Never used Tobacco service: No Current occupational status: unemployed Review of Systems Const All systems reviewed & are unremarkable except as noted in HPI and below Reports no additional complaints Eyes Reports no additional complaints ENT Reports no additional complaints Card Reports as per HPI Resp Reports no additional complaints GI Reports no additional complaints Reports as per HPI Musc Reports no additional complaints Skin/Breast Reports as per HPI Neuro Reports no additional complaints Psych Reports no additional complaints Endo Reports no additional complaints Blue/Lymph Reports no additional complaints Aller/Immun Reports no additional complaints Physical Exam Const General: cooperative, healthy appearing, comfortable, no acute distress, well developed, alert and awake Orientation/consciousness: patient oriented x3 Limitations: no limitations HEENT Head: Yes normal to inspection, Yes normocephalic and Yes atraumatic Ears: hearing grossly normal bilaterally Eyes General: appearance normal, both eyes and all related structures Neck Neck: Yes normal visual inspection and Yes trachea midline Chest Chest palpation & inspection: normal inspection of the chest Resp Effort & Inspection: normal respiratory effort and able to speak in complete sentences Cardio Rate: regular rate GI Inspection: Yes normal to inspection General: Yes no CVA tenderness Back/Spine/Pelvis Back: no CVA tenderness Skin General skin exam: no rashes or lesions noted Neuro General: patient oriented x3 Extrem General: Yes normal to inspection Psych Appearance: grossly normal and well kempt Mental Status: mental status grossly normal Speech and movement: Normal speech and movement present and Clear speech present Affect: normal affect Attitude: cooperative Thought process: Normal thought process present Thought content: Normal thought content present Insight: Fair insight present (Psych) Judgement: Fair judgement present (Psych) Results AMB Urinalysis, Automated UA Leukoctes 70 Miguel/uL Last Edit by Lynnette Villa CMA on 04/21/23 14:26 UA Nitrite Negative Last Edit by Lynnette Villa CMA on 04/21/23 14:26 UA Urobilinogen 0.2 mg/dL Last [facility], [facility] on 04/21/23 14:26 UA Protein 15 mg/dL Last Edit [facility], [facility] on 04/21/23 14:26 UA pH 6.0 Last Edit [facility], [facility] on 04/21/23 14:26 UA Blood 10 Silvestre/uL Last Edit by [facility], [facility] on 04/21/23 14:26 UA Specific Hemphill 1.025 Last Edit by [facility], [facility] on 04/21/23 14:26 UA Ketone Negative Last Edit by [facility], [facility] on 04/21/23 14:26 UA Bilirubin 0 mg/dL Last Edit by [facility], [facility] on 04/21/23 14:26 UA Glucose 0 mg/dL Last Edit [facility], [facility] on 04/21/23 14:26 Results Reviewed Results Reviewed: Laboratory Last Values Urine pH (Auto) 6.0 04/21/23 14:23 Specific Hemphill (Auto) 1.025 04/21/23 14:23 Urine Protein (Auto) 15 mg/dL 04/21/23 14:23 Glucose (UA)(Auto) 0 mg/dL 04/21/23 14:23 Urine Ketones (Auto) Negative 04/21/23 14:23 Urine Blood (Auto) 10 Silvestre/uL 04/21/23 14:23 Urine Nitrite (Auto) Negative 04/21/23 14:23 Urine Bilirubin (Auto) 0 mg/dL 04/21/23 14:23 Urine Urobilinogen (Auto) 0.2 mg/dL 04/21/23 14:23 Leukocyte Esterase (Auto) 70 Miguel/uL 04/21/23 14:23 Assessment & Plan Assessment & Plan (1) Renal cyst: Code(s): N28.1 - Cyst of kidney, acquired Plan In office urinalysis results reviewed with the patient today; as noted above; will send for urine cytology. Patient currently denies any bothersome urinary issues or concerns. She reports be happy with current voiding parameters. Discussed at length potential causes of renal cysts. Will obtain renal ultrasound for further assessment evaluation. Follow-up in 1-3 months with imaging to be completed prior; or sooner with any issues, concerns, and or questions. Orders: Orders AMB Urinalysis Automated Today R33.9 - Retention of urine, unspecified Urine Cytology Today N28.1 - Cyst of kidney, acquired, N39.0 - Urinary tract infection, site not specified US renal BI Today N28.1 - Cyst of kidney, acquired Patient Instructions: The patient had an opportunity to ask questions regarding the treatment plan. All questions were answered. Physical exam, labs, and imaging were discussed and reviewed in detail. As well as risks, benefits, and discussion of treatment choices. No major barriers to understanding were identified. The patient expressed understanding and agreement with the above treatment plan. The patient was made aware they should contact our office by phone for worsening of their current condition, the appearance of new symptoms, or with any questions or concerns. Compliance is encouraged with any medications and follow up testing that is ordered. It is a privilege to be allowed the opportunity to participate in? your urological care.? Again, if you have any questions or concerns If you have any questions or concerns please do not hesitate to contact me. The office is [phone]. This note is constructed using voice recognition software. While every effort has been made to ensure accuracy dramatic coach errors may have been included. Yours sincerely, POLA Call Coding Level of Care Code New Pt Level 3 (27956) Diagnoses Renal cyst N28.1
== END 2023-04-21 14:32 | disposition home or self-care (01) ==
PROVIDERS: PCP Family Medicine; Visit Provider Nurse Practitioner Family
DX: R33.9 Retention of urine, unspecified (principal); N28.1 Cyst of kidney, acquired
CPT/HCPCS: 99203

== ENCOUNTER 2023-04-21 13:56 | Outpatient (REF) | payer MEDICAID, SELFPAY ==
[2023-04-21 16:35] LABS: Urine Cytology See Pathology rpt
== END 2023-04-21 13:57 | disposition home or self-care (01) ==
LOC: HO.LAB 13:56
PROVIDERS: PCP Family Medicine; Visit Provider Nurse Practitioner Family
DX: N39.0 Urinary tract infection, site not specified (principal); N28.1 Cyst of kidney, acquired; R33.9 Retention of urine, unspecified; Z79.899 Other long term (current) drug therapy
CPT/HCPCS: 81003; 88112; 99212

== ENCOUNTER 2023-05-14 13:24 | Outpatient (REF) | payer MEDICAID, SELFPAY ==
[2023-05-23 09:18] LABS: HPV mRNA E6/E7 rflx Not Detected (Not Detected)
== END 2023-05-14 13:25 | disposition home or self-care (01) ==
LOC: HO.LNP 13:24
PROVIDERS: PCP Registered Nurse; Visit Provider Obstetrics & Gynecology
DX: Z12.4 Encounter for screening for malignant neoplasm of cervix (principal); Z11.51 Encounter for screening for human papillomavirus (HPV); N93.9 Abnormal uterine and vaginal bleeding, unspecified
CPT/HCPCS: 0353U; 83001; 83002; 84146; 84443; 84702; 85027; 87624; 88142; 99202

== ENCOUNTER 2023-05-14 13:24 | Outpatient (AMB) | payer MEDICAID, SELFPAY ==
--- NOTE | 2023-05-14 13:27 | MHC.OFFVIS ---
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 Last mammogram was in 02/21 BI-RADS 1 Last co testing was in 12/17 ascus/HPV negative PFSH Medical History Hx of tendinitis High cholesterol Surgical History Hx of tubal ligation Family History Father Prostate cancer Social History Household Members: Family Alcohol intake: never Patient Tobacco Use Status: Never used Tobacco service: No Current occupational status: unemployed Female Reproductive History Menstrual Age of Menarche: 12 Duration of menses: 8-10 days Date of last menstrual period: 04/15/23 control method: permanent sterilization Total pregnancies: 7 Full term: 7 Number of Living Children: 7 Date of last pap smear: 12/16/17 (ASCUS) History of abnormal pap smear: Yes Date of Mammogram: 02/10/23 Review of Systems Const All systems reviewed & are unremarkable except as noted in HPI and below Card Reports as per HPI Resp Reports as per HPI GI Reports as per HPI and Reports no additional complaints Reports as per HPI Physical Exam Vital Signs: BMI result Body Mass Index 29.9 Const General: cooperative, healthy appearing and comfortable Chest Chest palpation & inspection: normal inspection of the chest and normal palpation of entire chest wall Breast/axilla inspection: normal inspection of the breasts and normal inspection of the axillae Breast/axilla palpation: normal palpation of the breasts, normal palpation of the axillae and no axillary lymphadenopathy Resp Effort & Inspection: normal respiratory effort Auscultation: clear to auscultation bilaterally Percussion: percussion normal Cardio Palpation: normal PMI Rate: regular rate Rhythm: regular rhythm Heart sounds: no murmurs and no rubs Peripheral pulses: Peripheral pulses 2+ throughout GI Inspection: Yes normal to inspection Palpation (GI): Soft to palpation, nontender, no guarding, not rigid and No hepatosplenomegaly present Percussion: Yes normal to percussion Auscultation: normal bowel sounds Rectal Exam - Female: deferred General: Yes bladder normal to palpation External Female Exam: No lesion Speculum Exam - Vagina: normal appearance of the vagina, normal palpation, normal vaginal discharge and not erythematous Speculum Exam - Cervix: normal appearance of the cervix and normal palpation Bimanual exam- vagina & uterus: normal bimanual exam, normal palpation, uterine size normal, bladder normal to palpation, consistency normal and normal palpation Bimanual Exam- Adnexa, other: normal adnexae, no masses and no tenderness Assessment & Plan Assessment & Plan (1) Abnormal uterine bleeding (AUB): Code(s): N93.9 - Abnormal uterine and vaginal bleeding, unspecified Plan: Co testing done, GC and chlamydia taken CBC, TSH, prolactin, FSH/LH, HCG, and pelvic ultrasound ordered. Discussed with the patient the different causes of abnormal bleeding including thyroid disorders, uterine and ovarian pathology, endometrial hyperplasia, carcinoma and other potential causes. Discussed with the patient the work up including CBC (to r/o anemia), TSH, pelvic Ultrasound, endometrial biopsy to r/o endometrial pathology. All questions answered and the patient verbalized understanding. Instructed the patient to schedule an appointment for an endometrial biopsy in 2 weeks. Orders: Orders US pelvic and transvaginal Today N93.9 - Abnormal uterine and vaginal bleeding, unspecified TSH reflex Free T4 Today N93.9 - Abnormal uterine and vaginal bleeding, unspecified Prolactin Today N93.9 - Abnormal uterine and vaginal bleeding, unspecified Complete Blood Count no Diff Today N93.9 - Abnormal uterine and vaginal bleeding, unspecified HCG Quantitative Today N93.9 - Abnormal uterine and vaginal bleeding, unspecified Lutenizing Hormone Today N93.9 - Abnormal uterine and vaginal bleeding, unspecified Follicle Stimulating Hormone Today N93.9 - Abnormal uterine and vaginal bleeding, unspecified Coding Level of Care Code New Pt Level 3 (27816) Diagnoses Abnormal uterine bleeding (AUB) N93.9
[2023-05-14 13:39] VITALS: BP 100/66; BMI 29.9
== END 2023-05-14 15:00 | disposition home or self-care (01) ==
PROVIDERS: PCP Registered Nurse; Visit Provider Obstetrics & Gynecology
DX: N93.9 Abnormal uterine and vaginal bleeding, unspecified (principal)
CPT/HCPCS: 99203

== ENCOUNTER 2023-05-14 14:34 | Outpatient (REF) | payer MEDICAID, SELFPAY ==
[2023-05-14 15:35] LABS: Hematocrit 35.5 % (37.0-47.0); Hemoglobin 11.6 g/dl (12.0-16.0); Mean Corpuscular HGB Conc 32.7 g/dl (31.0-35.0); Mean Corpuscular Hemoglobin 28.2 pg (27.0-33.0); Mean Corpuscular Volume 86.4 fL (80.0-98.0); Mean Platelet Volume 11.3 fL (9.4-12.3); Platelet Count 298 X10*3/uL (160-400); Red Blood Count 4.11 X10*6/uL (4.20-5.50); Red Cell Distribution Width 13.3 % (11.0-16.0); White Blood Count 4.8 X10*3/uL (4.8-10.8)
[2023-05-14 16:27] LABS: HCG Quantitative < 2 mIU/mL; TSH reflex Free T4 0.97 uIU/mL (0.32-4.0)
[2023-05-14 18:34] LABS: CT PCR NOT DETECTED (Not Detect.); NG PCR NOT DETECTED (Not Detect.)
[2023-05-15 10:28] LABS: Follicle Stimulating Hormone 2.9 mIU/mL; Lutenizing Hormone 2.2 mIU/mL; Prolactin 13.2 ng/mL
== END 2023-05-14 14:35 | disposition home or self-care (01) ==
LOC: HO.LAB 14:34
PROVIDERS: Visit Provider Obstetrics & Gynecology
DX: N93.9 Abnormal uterine and vaginal bleeding, unspecified (principal)
CPT/HCPCS: 0353U; 83001; 83002; 84146; 84443; 84702; 85027

== ENCOUNTER 2023-05-21 12:22 | Outpatient (REF) | payer MEDICAID, SELFPAY | END 2023-05-21 12:23 | disposition home or self-care (01) | LOC: HO.US 12:22 | PROVIDERS: PCP Registered Nurse; Visit Provider Obstetrics & Gynecology | DX: Z13.89 Encounter for screening for other disorder (principal) ==

== ENCOUNTER 2023-06-03 12:41 | Outpatient (REF) | payer MEDICAID, SELFPAY ==
--- NOTE | ~2023-06-03 | US_ITS ---
EXAMINATION: US RETROPERITONEAL LIMITED (RENAL ONLY) CLINICAL INFORMATION: Cyst of kidney, acquired. COMPARISON: CT abdomen and pelvis 12/17/2020. Renal ultrasound 06/30/2018. Ultrasound abdomen complete 11/26/2017. TECHNIQUE: Real-time imaging of the kidneys. Limited visualization due to bowel gas. FINDINGS: RIGHT KIDNEY: 11.4 x 5.2 x 4.6 cm (SAG x AP x TRV). No hydronephrosis. No renal calculi. Renal cortical thickness is normal. Limited visualization. LEFT KIDNEY: 11.4 x 4.5 x 4.8 cm (SAG x AP x TRV). No hydronephrosis. No renal calculi. Renal cortical thickness is normal. Limited visualization. US/US renal BI IMPRESSION: No hydronephrosis. No renal calculi. Renal cortical thickness is normal. Limited visualization.
--- NOTE | ~2023-06-03 | US_ITS ---
EXAMINATION: US PELVIS CLINICAL INFORMATION: Abnormal uterine bleeding, last menstrual period one week. COMPARISON: CT abdomen and pelvis 12/17/2020. TECHNIQUE: Ultrasound of the pelvis is performed using both transabdominal and transvaginal transducers along with Doppler. Transvaginal imaging is performed due to inadequate visualization transabdominally. FINDINGS: The uterus is anteverted and measures 10.1 x 4.6 x 5.4 cm. A 0.9 x 0.6 x 0.8 cm hypoechoic uterine mass is characteristic of a fibroid. Right ovary measures 2.0 x 1.9 x 2.1 cm, volume 4.1 mL. A 0.8 x 1.0 x 0.8 cm right ovarian cyst is difficult to characterize due to limited visualization. Left ovary measures 3.2 x 2.4 x 1.4 cm, volume 5.6 mL and is best seen on transabdominal ultrasound images. Left ovarian 2.0 x 1.9 x 1.4 cm cyst difficult to fully characterize due to limited visualization, but appears simple on transabdominal ultrasound images. Nabothian cysts. Endometrial thickness is 13 mm. Endometrium appears irregular and heterogeneous in echotexture with 0.8 x 0.5 x 0.7 cm anechoic collection, possibly an endometrial cyst. US/US pelvic and transvaginal IMPRESSION: 1. Endometrial thickness is 13 mm. Endometrium appears irregular and heterogeneous in echotexture with 0.8 x 0.5 x 0.7 cm anechoic collection, possibly an endometrial cyst. Gynecologic consultation recommended to determine further management. 2. Bilateral ovarian cysts are difficult to fully characterize due to limited visualization. Recommend follow-up ultrasound in 6-8 weeks. 3. A 0.9 cm hypoechoic uterine mass is characteristic of a fibroid.
== END 2023-06-03 12:42 | disposition home or self-care (01) ==
LOC: HO.US 12:41
PROVIDERS: PCP Family Medicine; Visit Provider Nurse Practitioner Family
DX: N93.9 Abnormal uterine and vaginal bleeding, unspecified (principal); N28.1 Cyst of kidney, acquired
CPT/HCPCS: 76775; 76830; 76856

== ENCOUNTER 2023-06-24 10:46 | Outpatient (AMB) | payer MEDICAID, SELFPAY ==
--- NOTE | 2023-06-24 10:51 | MHC.OFFVIS ---
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 Follow up Mold Car Pusher Required: Yes Mold Car Pusher Language: Organ Installer Name: Michelle LAINEZ Information Interpreted: non-clinical & clinical Operating Room Surgical Technologist: Operating Room Surgical Technologist Present Accompanied by: Self / Same As Patient Allergies tizanidine Adverse Reaction (Severe, Uncoded 06/24/23 10:57) Shakiness Is last menstrual period known: Yes Last menstrual period: 12/29/19 Post menopausal: No Patient : No Do you need a note to return to daycare/school/sports/work: Yes (for surgery on thursday) HPI Comments Details: Presenting for ultrasound follow-up. Pelvic ultrasound done recently showed the following: The uterus is anteverted and measures 10.1 x 4.6 x 5.4 cm. A 0.9 x 0.6 x 0.8 cm hypoechoic uterine mass is characteristic of a fibroid. Right ovary measures 2.0 x 1.9 x 2.1 cm, volume 4.1 mL. A 0.8 x 1.0 x 0.8 cm right ovarian cyst is difficult to characterize due to limited visualization. Left ovary measures 3.2 x 2.4 x 1.4 cm, volume 5.6 mL and is best seen on transabdominal ultrasound images. Left ovarian 2.0 x 1.9 x 1.4 cm cyst difficult to fully characterize due to limited visualization, but appears simple on transabdominal ultrasound images. Nabothian cysts. Endometrial thickness is 13 mm. Endometrium appears irregular and heterogeneous in echotexture with 0.8 x 0.5 x 0.7 cm anechoic collection, possibly an endometrial cyst. [facility] Medical History Hx of tendinitis High cholesterol Surgical History Hx of tubal ligation Family History Father Prostate cancer Social History Household Members: Family Alcohol intake: never Patient Tobacco Use Status: Never used Tobacco service: No Current occupational status: unemployed Female Reproductive History Menstrual Age of Menarche: 12 Date of last menstrual period: 12/29/19 Total pregnancies: 2 Full term: 2 Review of Systems Card Reports as per HPI and Reports no additional complaints Resp Reports as per HPI and Reports no additional complaints GI Reports as per HPI and Reports no additional complaints Reports as per HPI Physical Exam Vital Signs: BMI result Body Mass Index 28.6 Const General: cooperative, healthy appearing and comfortable Resp Effort & Inspection: normal respiratory effort Auscultation: clear to auscultation bilaterally Percussion: percussion normal Cardio Palpation: normal PMI Rate: regular rate Rhythm: regular rhythm Heart sounds: no murmurs and no rubs Peripheral pulses: Peripheral pulses 2+ throughout GI Inspection: Yes normal to inspection Palpation (GI): Soft to palpation, nontender, no guarding, not rigid and No hepatosplenomegaly present Percussion: Yes normal to percussion Auscultation: normal bowel sounds Rectal Exam - Female: deferred Assessment & Plan Assessment & Plan (1) Abnormal uterine bleeding (AUB): Comment: myoma abnormal endometrium by US Code(s): N93.9 - Abnormal uterine and vaginal bleeding, unspecified Category: Medical Plan: Discussed with the patient the results of ultrasound showing abnormal irregular and heterogenous endometrium with possible endometrial cyst. Recommended to the patient that the next step is an endometrial sampling via hysteroscopy D&C possible polypectomy versus endometrial biopsy to r/o endometrial pathology including hyperplasia or cancer. All the pros and cons risks and benefits of each approach were discussed with the patient, endometrial biopsy being less invasive, office procedure with less sensitivity and inability diagnose a polyp and removal versus hysteroscopy done under anesthesia more invasive more sensitive to endometrial cancer and possibility of diagnosing and endometrial polyp with the possibility of polypectomy. All questions were answered pt verbalized understanding and decided to proceed with hysteroscopy D&C possible polypectomy/myomectomy. Discussed with the patient the procedure , all benefits and risks including but not limited to inability to complete the procedure , insufficient endometrial tissue for a complete evaluation of the endometrial cavity , bleeding, infection, possible need for blood transfusion with all its risk ( HIV,syphilis, Hepatitis, anaphylaxis shock, others..), injury to bladder, rectum, possible need for laparoscopy/laparotomy or hysterectomy. The patient verbalized understanding and signed the consent. Instructions given the patient to schedule a 2 week postoperative appointment (2) Ovarian cyst: Comment: bilateral with limited visualization by US Code(s): N83.209 - Unspecified ovarian cyst, unspecified side Category: Medical Plan: Discussed with the patient the finding on ultrasound with limited visualization of bilateral ovarian cyst, will repeat ultrasound in 6 weeks. Instructions given the patient to schedule ultrasound follow-up appointment Orders: Orders US pelvic and transvaginal 6 Weeks N93.9 - Abnormal uterine and vaginal bleeding, unspecified Coding Level of Care Code Est Pt Level 3 (26188) Diagnoses Abnormal uterine bleeding (AUB) N93.9 Ovarian cyst N83.209
[2023-06-24 10:56] VITALS: BMI 28.6
== END 2023-06-24 11:21 | disposition home or self-care (01) ==
LOC: HO.HWS 10:46
PROVIDERS: PCP Registered Nurse; Referring Provider Registered Nurse; Visit Provider Obstetrics & Gynecology
DX: N93.9 Abnormal uterine and vaginal bleeding, unspecified (principal); N83.209 Unspecified ovarian cyst, unspecified side
CPT/HCPCS: 99213

== ENCOUNTER → 2023-06-24 10:46 | Outpatient (BNVA) | payer MEDICAID, SELFPAY | PROVIDERS: PCP Registered Nurse; Visit Provider Obstetrics & Gynecology | DX: N93.9 Abnormal uterine and vaginal bleeding, unspecified (principal); N83.209 Unspecified ovarian cyst, unspecified side | CPT/HCPCS: 99212 ==

== ENCOUNTER 2023-06-29 13:27 | Outpatient (REF) | payer MEDICAID, SELFPAY | END 2023-06-29 13:28 | disposition home or self-care (01) | LOC: HO.LNP 13:27 | PROVIDERS: PCP Family Medicine; Visit Provider Nurse Practitioner Family | DX: N39.0 Urinary tract infection, site not specified (principal); N28.1 Cyst of kidney, acquired | CPT/HCPCS: 81003; 87086; 99212 ==

== ENCOUNTER 2023-06-29 13:27 | Outpatient (AMB) | payer MEDICAID, SELFPAY ==
--- NOTE | 2023-06-29 13:46 | MHC.OFFVIS ---
Intake Visit Reasons: 2m/US(set) Intake Note: Patient presents for follow up visit for Renal Cyst and ultrasound results Imagin06/03/23 Urology Medications: none Blood Thinner: none Sales And Service Technician Required: Yes Sales And Service Technician Name: ANNI ORTIZHAO Accompanied by: Self / Same As Patient Allergies tizanidine Adverse Reaction (Severe, Uncoded 06/29/23 14:22) Shakiness Medication List - Last Reconciled 06/29/23 by JARRETT Call- albuterol sulfate 90 mcg/actuation (ProAir HFA) 2 puffs PO Q4-6H PRN diclofenac sodium 1% 2 grams topical BID hydrocortisone 0.5% 0.5 appl topical BID ketotifen fumarate 0.025%(0.035%) (Eye Itch Relief) 1 drp ophthalmic (eye) BID PRN lidocaine 5% 5 patches topical DAILY naloxone 4 mg/actuation 4 mg intranasal DAILY sulfamethoxazole-trimethoprim 800-160 mg (Bactrim DS) 1 tab PO BID 7 days triamcinolone acetonide 0.1% 0.1 appl topical BID zolpidem 5 mg PO BEDTIME PRN HPI Comments Details: Ever is a very pleasant 53-year-old Slovenian-speaking female patient of Dr. Oden. She has a PMH of hyperlipidemia and renal cyst. She presents to the office today for follow-up. Of note, patient was seen approximately 2 months ago as a new patient for renal cyst at which time a renal ultrasound was ordered for further assessment evaluation. These results were reviewed with the patient today. Bilateral kidneys with no calculi or hydronephrosis noted. No renal cysts noted. In discussion with the patient today she reports to be doing and feeling well. She reports having followed up with technical writing lead/mgr recently for her abnormal bleeding and is undergoing surgical intervention with Dr. Sage patterson next week. In office urinalysis results reviewed with the patient today. 1+ leukocytes positive nitrates and microscopic hematuria noted. When asked she does report noting foul-smelling urine over the last week. Discussed sending urine today for urine culture for further assessment evaluation. She otherwise denies any bothersome urinary issues or concerns. She denies urinary urgency, urinary frequency, incontinence, nocturia, hematuria, dysuria, urine, changes to urinary stream, flank pain, fever, and or chills. She is happy with her current voiding parameters. She otherwise offers no other issues or concerns at this time. [facility]LY [facility] Medical History Hx of tendinitis High cholesterol Surgical History Hx of tubal ligation Family History Father Prostate cancer Social History Household Members: Family Alcohol intake: never Patient Tobacco Use Status: Never used Tobacco service: No Current occupational status: unemployed Female Reproductive History Menstrual Age of Menarche: 12 Review of Systems Const All systems reviewed & are unremarkable except as noted in HPI and below Reports no additional complaints Eyes Reports no additional complaints ENT Reports no additional complaints Card Reports as per HPI Resp Reports no additional complaints GI Reports no additional complaints Reports as per HPI Musc Reports no additional complaints Skin/Breast Reports as per HPI Neuro Reports no additional complaints Psych Reports no additional complaints Endo Reports no additional complaints Blue/Lymph Reports no additional complaints Aller/Immun Reports no additional complaints Physical Exam Const General: cooperative, healthy appearing, comfortable, no acute distress, well developed, alert and awake Orientation/consciousness: patient oriented x3 Limitations: no limitations HEENT Head: Yes normal to inspection, Yes normocephalic and Yes atraumatic Ears: hearing grossly normal bilaterally Eyes General: appearance normal, both eyes and all related structures Neck Neck: Yes normal visual inspection and Yes trachea midline Chest Chest palpation & inspection: normal inspection of the chest Resp Effort & Inspection: normal respiratory effort and able to speak in complete sentences Cardio Rate: regular rate GI Inspection: Yes normal to inspection General: Yes no CVA tenderness Back/Spine/Pelvis Back: no CVA tenderness Skin General skin exam: no rashes or lesions noted Neuro General: patient oriented x3 Extrem General: Yes normal to inspection Psych Appearance: grossly normal and well kempt Mental Status: mental status grossly normal Speech and movement: Normal speech and movement present and Clear speech present Affect: normal affect Attitude: cooperative Thought process: Normal thought process present Thought content: Normal thought content present Insight: Fair insight present (Psych) Judgement: Fair judgement present (Psych) Results AMB Urinalysis, Automated UA Leukoctes 70 Miguel/uL Last Edit by Gauragn Grimaldo on 06/29/23 14:00 UA Nitrite Positive Last Edit by Gaurang Grimaldo on 06/29/23 14:00 UA Urobilinogen 0.2 mg/dL Last Edit by Gaurang Grimaldo on 06/29/23 14:00 UA Protein 15 mg/dL Last Edit by Gaurang Grimaldo on 06/29/23 14:00 UA pH 6.0 Last Edit by Gaurang Grimaldo on 06/29/23 14:00 UA Blood 80 Silvestre/uL Last Edit by Gaurang Grimaldo on 06/29/23 14:00 UA Specific Hamilton 1.030 Last Edit by Gaurang Grimaldo on 06/29/23 14:00 UA Ketone Negative Last Edit by Gaurang Grimaldo on 06/29/23 14:00 UA Bilirubin 1 mg/dL Last Edit by Gaurang Grimaldo on 06/29/23 14:00 UA Glucose 0 mg/dL Last Edit by Gaurang Grimaldo on 06/29/23 14:00 Results Reviewed Results Reviewed: Laboratory Last Values Urine pH (Auto) 6.0 06/29/23 13:47 Specific Hamilton (Auto) 1.030 06/29/23 13:47 Urine Protein (Auto) 15 mg/dL 06/29/23 13:47 Glucose (UA)(Auto) 0 mg/dL 06/29/23 13:47 Urine Ketones (Auto) Negative 06/29/23 13:47 Urine Blood (Auto) 80 Silvestre/uL 06/29/23 13:47 Urine Nitrite (Auto) Positive 06/29/23 13:47 Urine Bilirubin (Auto) 1 mg/dL 06/29/23 13:47 Urine Urobilinogen (Auto) 0.2 mg/dL 06/29/23 13:47 Leukocyte Esterase (Auto) 70 Miguel/uL 06/29/23 13:47 Date of Service: 06/03/23 EXAMINATION: US RETROPERITONEAL LIMITED (RENAL ONLY) FINDINGS: RIGHT KIDNEY: 11.4 x 5.2 x 4.6 cm (SAG x AP x TRV). No hydronephrosis. No renal calculi. Renal cortical thickness is normal. Limited visualization. LEFT KIDNEY: 11.4 x 4.5 x 4.8 cm (SAG x AP x TRV). No hydronephrosis. No renal calculi. Renal cortical thickness is normal. Limited visualization. IMPRESSION: No hydronephrosis. No renal calculi. Renal cortical thickness is normal. Limited visualization. Assessment & Plan Assessment & Plan (1) Renal cyst: Code(s): N28.1 - Cyst of kidney, acquired Category: Medical (2) Complicated urinary tract infection: Code(s): N39.0 - Urinary tract infection, site not specified Category: Medical Plan In office urinalysis results reviewed with the patient today; as noted above; will send for urine culture. Call to Dr. Cazares's office message left for FYI regarding urinary tract infection as patient is scheduled for upcoming surgical procedure. Discussed, educated, and stressed the importance of drinking plenty of water daily. Start Bactrim as discussed and prescribed. Recent renal ultrasound results reviewed with the patient today; as noted above. Discussed UTI prevention with D mannose supplement, vitamin-C, increasing fluid intake, behavioral therapy with timed voiding, perineal hygiene and postcoital voiding, and management of constipation with stool softeners and increased fiber intake. Follow-up in 1 month with [facility]; or sooner with any issues, concerns, and or questions. Orders: Orders AMB Urinalysis Automated Today Z13.9 - Encounter for screening, unspecified Urine Culture Today N39.0 - Urinary tract infection, site not specified Medications: New sulfamethoxazole-trimethoprim 800-160 mg (Bactrim DS) 1 tab PO BID 14 tabs 0RF 7 days N32.81 - Overactive bladder Patient Instructions: The patient had an opportunity to ask questions regarding the treatment plan. All questions were answered. Physical exam, labs, and imaging were discussed and reviewed in detail. As well as risks, benefits, and discussion of treatment choices. No major barriers to understanding were identified. The patient expressed understanding and agreement with the above treatment plan. The patient was made aware they should contact our office by phone for worsening of their current condition, the appearance of new symptoms, or with any questions or concerns. Compliance is encouraged with any medications and follow up testing that is ordered. It is a privilege to be allowed the opportunity to participate in? your urological care.? Again, if you have any questions or concerns If you have any questions or concerns please do not hesitate to contact me. The office is [phone]. This note is constructed using voice recognition software. While every effort has been made to ensure accuracy interactive marketing strategist errors may have been included. Yours sincerely, JARRETT Call-BC Coding Level of Care Code Est Pt Level 4 (74628) Diagnoses Renal cyst N28.1 Complicated urinary tract infection N39.0
== END 2023-06-29 14:19 | disposition home or self-care (01) ==
PROVIDERS: PCP Family Medicine; Visit Provider Nurse Practitioner Family
DX: N28.1 Cyst of kidney, acquired (principal); N39.0 Urinary tract infection, site not specified
CPT/HCPCS: 99214

== ENCOUNTER 2023-07-06 11:45 | Day surgery (SDC) | payer MEDICAID, SELFPAY ==
[2023-07-02 10:05] VITALS: BMI 28.5
[2023-07-06] VITALS (8 sets, daily range): BP systolic 119–150; BP diastolic 67–86; PULSE 54–80; RESP 12–18; TEMP 36.1–36.4; O2SAT 97–100; BMI 29.3
[2023-07-06 12:43] LABS: UPreg QC Valid YES; Urine Pregnancy NEGATIVE (NEGATIVE)
[2023-07-06] MEDS: Lactated Ringers 1,000 ML 100 ML IVCONT (12:43)
--- NOTE | 2023-07-06 13:50 | P.CONAN_ITS ---
Documented by User: Tita Eric NP 07/02/23 14:04 HPI - Anesthesia Eval Consult details Narrative: 53yo F for D&C Hysteroscopy,possible myomectomy,possible polypectomy, PMFSH Active Problems Active Problems: All Active Problems Complicated urinary tract infection (Acute) Ovarian cyst (Acute) Abnormal uterine bleeding (AUB) (Acute) Renal cyst (Acute) Anemia (Acute) Valgus deformity, not elsewhere classified, left knee (Acute) Patellofemoral arthritis of left knee (Acute) Past Medical History Medical History Hx of tendinitis High cholesterol Family History Family History Father Prostate cancer Surgical History Surgical History Hx of tubal ligation Social History Social History Household Members: Family Alcohol intake: never Patient Tobacco Use Status: Never used Tobacco Use of substances other than those prescribed or required for medical reasons: No Are you DNR?: No Advance Directives: No Advance Directives Information Provided: Yes service: No Current occupational status: unemployed Meds Allergies Allergy/AdvReac Type Severity Reaction Status Date / Time tizanidine AdvReac Severe Shakiness Uncoded 07/06/23 12:16 Home Medications ?Medication ?Instructions ?Recorded ?Confirmed ?Last Taken ?Type albuterol sulfate 90 mcg/actuation 2 puff PO Q4-6H PRN Wheezing 12/17/20 05/29/23 Unknown History aerosol inhaler (ProAir HFA) naloxone 4 mg/actuation nasal spray 4 mg intranasal DAILY 03/25/23 05/29/23 Unknown History triamcinolone acetonide 0.1 % 0.1 appl topical BID 03/25/23 05/29/23 Unknown History topical cream zolpidem 5 mg tablet 5 mg PO BEDTIME PRN insomnia 03/25/23 07/06/23 07/04/23 History cetirizine 10 mg tablet 10 mg PO QAM 07/06/23 07/06/23 Unknown History Exam Height,Weight and Vital Signs: Height 5 ft 2 in Weight 70.76 kg Pertinent Lab Results Pertinent Lab Results: Laboratory Tests 05/29/23 06/17/23 12:47 12:29 WBC 4.7 L Hgb 10.6 L Hct 32.4 L Plt Count 292 Sodium 140 Potassium 3.9 Chloride 106 Carbon Dioxide 28 BUN 11 Creatinine 0.94 Assessment and Plan Assessment Anesthesia Assessment: Chart Reviewed Documented by User: Rabia Cortes DO 07/06/23 13:53 PMFSH Past Medical History Medical History Hx of tendinitis High cholesterol Family History Family History Father Prostate cancer Family history of problems with anesthesia: No Surgical History Surgical History Hx of tubal ligation History of Problems with Anesthesia: No Social History Social History Household Members: Family Alcohol intake: never Patient Tobacco Use Status: Never used Tobacco Use of substances other than those prescribed or required for medical reasons: No Are you DNR?: No Advance Directives: No Advance Directives Information Provided: Yes service: No Current occupational status: unemployed Meds Allergies Allergy/AdvReac Type Severity Reaction Status Date / Time tizanidine AdvReac Severe Shakiness Uncoded 07/06/23 12:16 Home Medications ?Medication ?Instructions ?Recorded ?Confirmed ?Last Taken ?Type albuterol sulfate 90 mcg/actuation 2 puff PO Q4-6H PRN Wheezing 12/17/20 05/29/23 Unknown History aerosol inhaler (ProAir HFA) naloxone 4 mg/actuation nasal spray 4 mg intranasal DAILY 03/25/23 05/29/23 Unknown History triamcinolone acetonide 0.1 % 0.1 appl topical BID 03/25/23 05/29/23 Unknown History topical cream zolpidem 5 mg tablet 5 mg PO BEDTIME PRN insomnia 03/25/23 07/06/23 07/04/23 History cetirizine 10 mg tablet 10 mg PO QAM 07/06/23 07/06/23 Unknown History Exam Exam Date and Time: July 06, 2023 1350 Height,Weight and Vital Signs: Height 5 ft 2 in Weight 70.76 kg Height 5 ft 2 in Weight 72.575 kg Vital Signs Temperature 97.2 F 07/06/23 12:41 Pulse Rate 67 07/06/23 12:41 Respiratory Rate 16 07/06/23 12:41 Blood Pressure 126/86 07/06/23 12:41 Pulse Oximetry 98 07/06/23 12:41 Oxygen Delivery Method Room Air 07/06/23 12:41 Temperature 97.2 F 07/06/23 12:41 Pulse Rate 67 07/06/23 12:41 Respiratory Rate 16 07/06/23 12:41 Blood Pressure 126/86 07/06/23 12:41 Pulse Oximetry 98 07/06/23 12:41 Oxygen Delivery Method Room Air 07/06/23 12:41 Airway Mallampati Class: II TM Dist: >3cm Neck ROM: Full Loose/Missing/Broken Teeth: No (fillings in multiple teeth but no loose or broken teeth) Heart: S1S2 Lungs: CTAB Assessment and Plan Assessment Anesthesia Assessment: Anesthesia Plan Discussed and Chart Reviewed Final Anesthetic Review Family History of Problems with Anesthesia: No History of Problems with Anesthesia: No NPO: Yes ASA Class: II Final Preanesthetic Review: No Changes in Pt Med Stat, Meds/Allgs Chart Reviewed, Consent Obtained/Reviewed (respiratory therapy aide at bedside for translation) and Anes Risks/Benef Reviewed Patient Risk: Low Procedure Risk: Low Anesthetic Plan Anesthetic Plan: GA and Agree w/ Assess. and Plan Disposition: Standard PACU
--- NOTE | 2023-07-06 13:58 | MHC.SHP ---
Pre-Procedural Eval Section A - 24 Hr Update-Section A only Date of Service: 07/06/23 The patient is an INPATIENT: No Changes since office visit: No Cold of Flu in the past 2 weeks, No New Medical Problems, No Changes in Medication and No Patient answered all questions The patient has been examined within 24 hours of the surgical procedure. The History & Physical has been completed within 30 days and I have reviewed it.: Yes Section B - Complete if H&P > 30 days Chief Complaint: Abnormal uterine and vaginal bleeding, unspecified Allergies: Allergies Allergy/AdvReac Type Severity Reaction Status Date / Time tizanidine AdvReac Severe Shakiness Uncoded 07/06/23 12:16 Plan Diagnosis/Plan: Unchanged I have reviewed the history and physical and performed a pertinent physical examination on my patient. No changes have occurred unless specified. Time Spent With Patient Time: Total time managing care of this patient today ____ minutes.
--- NOTE | 2023-07-06 14:31 | PM.OP ---
Brief Operative Note Date of Service: 07/06/23 Pre-op diagnosis: Abnormal uterine bleeding and abnormal endometrium by ultrasound Post-op diagnosis: same (Normal endometrial cavity) Procedure: Hysteroscopy D&C Surgeon: Duc Cazares MD Anesthesia: GLMA Was an Pin Machine Tender used for this Procedure?: No Estimated blood loss (mL): 0 Pathology: other (Endometrial Scrapping. ) Condition: stable Disposition: PACU
--- NOTE | 2023-07-06 14:32 | W.PM.OPN ---
Operative Note Operative Note Date of Service: 07/06/23 Narrative: Preop Diagnosis: Abnormal uterine bleeding and abnormal endometrium by ultrasound Operation: Diagnostic Hysteroscopy, Dilataion & Curettage Post Op Diagnosis: Normal endometrial and endocervical cavity, no evidence of pathology QBL: Minimal Anesthesia: GLMA Surgeon: Duc Cazares MD Forensic Photographer: None Complication: None Pathology: Endometrial Scrapings Procedure: The patient was put in the dorsal lithotomy position, scrubbed, and draped in the usual manner. A sterile speculum was inserted in the patient's vagina. The anterior lip of the cervix was grasped with a single tooth tenaculum. The cervix was dilated up to 5 mm, then the scope was inserted in the patient's uterus. Inspection revealed normal endocervical & endometrial cavity with no evidence of pathology. The scope was taken out of the uterine cavity , then sharp curetting was carried on with no complications. At the end of the procedure, all instruments were taken out of the patient uterine and vaginal cavity. The single tooth tenaculum was removed and homeostasis was assured using pressure. The patient tolerated the procedure well and was transferred to the PACU in a stable condition.
== END 2023-07-06 16:08 | disposition home or self-care (01) ==
PROVIDERS: PCP Registered Nurse; Visit Provider Obstetrics & Gynecology
PROC: 0UDB8ZZ Extraction of Endometrium, Via Natural or Artificial Opening Endoscopic (ICD-10-PCS; CPT 58558; principal; 2023-07-06 14:00)
DX: N93.9 Abnormal uterine and vaginal bleeding, unspecified (principal); N83.209 Unspecified ovarian cyst, unspecified side; E78.00 Pure hypercholesterolemia, unspecified; Z79.899 Other long term (current) drug therapy; Z88.8 Allergy status to other drugs, medicaments and biological substances; Z98.51 Tubal ligation status; Z56.0 Unemployment, unspecified
CPT/HCPCS: 58558; 81025; 88305; J1100; J1885; J2405; J2704; J3010

== ENCOUNTER → 2023-07-06 11:45 | Outpatient (BNV) | payer MEDICAID, SELFPAY | PROVIDERS: PCP Registered Nurse; Visit Provider Obstetrics & Gynecology | DX: N93.9 Abnormal uterine and vaginal bleeding, unspecified (principal) | CPT/HCPCS: 58558 ==

== ENCOUNTER 2023-07-15 12:00 | Outpatient (RCR) | payer MEDICAID, SELFPAY ==
[2023-06-02 13:17] VITALS: BP 131/79; PULSE 72; RESP 18; TEMP 36.6; O2SAT 100
[2023-06-02] MEDS: Iron Sucrose Complex 200 MG in 0.9 % Sodium Chloride 100 ML 440 MG IV (13:28)
[2023-06-02] MEDS: 0.9 % Sodium Chloride Flush 10 ML SYRINGE 5 ML IVFLUSH (13:46)
[2023-06-10 11:46] VITALS: BP 99/63; PULSE 77; RESP 16; TEMP 36.6; O2SAT 98
[2023-06-10] MEDS: Iron Sucrose Complex 200 MG in 0.9 % Sodium Chloride 100 ML 440 MG IV (11:56)
[2023-06-17 11:57] VITALS: BMI 28.9
[2023-06-17 11:58] VITALS: BP 105/64; PULSE 68; RESP 16; TEMP 36.6; O2SAT 98
[2023-06-17] MEDS: Iron Sucrose Complex 200 MG in 0.9 % Sodium Chloride 100 ML 440 MG IV (12:22)
--- NOTE | 2023-06-17 12:24 | HO.INF ---
Addendum entered by Lary Dumont RN 06/17/23 12:28: 12;30PM- LAB IN - BLOOD WORK DRAWN. Original Note: 12:00pm lab work in computer and lab called
[2023-06-17 12:37] LABS: Baso%MD 0.9 %; Eos%MD 3.4 %; Hematocrit 32.4 % (37.0-47.0); Hemoglobin 10.6 g/dl (12.0-16.0); IG%MD 0.2 %; Lymph%MD 28.1 %; Mean Corpuscular HGB Conc 32.7 g/dl (31.0-35.0); Mean Corpuscular Hemoglobin 28.7 pg (27.0-33.0); Mean Corpuscular Volume 87.8 fL (80.0-98.0); Mean Platelet Volume 10.9 fL (9.4-12.3); Mono%MD 5.1 %; Neut%MD 62.3 %; Platelet Count 292 X10*3/uL (160-400); Red Blood Count 3.69 X10*6/uL (4.20-5.50); Red Cell Distribution Width 13.7 % (11.0-16.0); White Blood Count 4.7 X10*3/uL (4.8-10.8)
[2023-06-17 13:18] LABS: Ferritin 203 ng/mL (10-250)
[2023-06-17 13:46] LABS: Eosinophils Absolute Manual 0.1 X10*3/uL (0.0-0.4); Eosinophils Percent Manual 3 % (0-4); Lymphocytes Absolute Manual 1.4 X10*3/uL (1.2-4.9); Lymphocytes Percent Manual 29 % (20-40); Monocytes Absolute Manual 0.1 X10*3/uL (0.1-1.2); Monocytes Percent Manual 2 % (2-11); Neutrophils Percent Manual 66 % (45-73)
[2023-06-17 13:47] LABS: Band Neutrophils Percent 0 % (3-5); Neutrophils Absolute Manual 3.1 X10*3/uL (2.0-8.3)
[2023-06-17 13:49] LABS: Platelet Estimate NORMAL (NORMAL); Platelet Morphology Comment NORMAL; RBC Morphology NORMAL
[2023-06-24] MEDS: Iron Sucrose Complex 200 MG in 0.9 % Sodium Chloride 100 ML 440 MG IV (12:37)
[2023-06-24 12:39] VITALS: BP 115/80; PULSE 68; RESP 16; TEMP 37.3; O2SAT 100
[2023-07-01 11:58] VITALS: BP 105/74; PULSE 69; RESP 18; TEMP 36.6; O2SAT 97
[2023-07-01] MEDS: Iron Sucrose Complex 200 MG in 0.9 % Sodium Chloride 100 ML 440 MG IV (12:01)
[2023-07-01] MEDS: 0.9 % Sodium Chloride Flush 10 ML SYRINGE 5 ML IVFLUSH (12:02)
[2023-07-08 12:03] VITALS: BP 122/77; PULSE 62; RESP 18; TEMP 36.2; O2SAT 99
[2023-07-08] MEDS: Iron Sucrose Complex 200 MG in 0.9 % Sodium Chloride 100 ML 440 MG IV (12:17)
[2023-07-15 11:56] VITALS: BP 121/73; PULSE 77; RESP 20; TEMP 36.6; O2SAT 98
[2023-07-15] MEDS: Iron Sucrose Complex 200 MG in 0.9 % Sodium Chloride 100 ML 440 MG IV (12:05)
[2023-07-15] MEDS: 0.9 % Sodium Chloride Flush 10 ML SYRINGE 5 ML IVFLUSH (12:21)
[2023-07-15 12:47] LABS: MANUAL DIFF FLAG NO
[2023-07-15 12:55] LABS: Basophils Percent Auto 0.9 % (0-2); Eosinophils Absolute Auto 0.2 X10*3/uL (0.0-0.4); Eosinophils Percent Auto 4.7 % (0-4); Hematocrit 32.8 % (37.0-47.0); Hemoglobin 10.7 g/dl (12.0-16.0); Imm Gran Abs Auto 0.01 X10*3/uL (0.00-0.03); Imm Gran Pct Auto 0.3 % (0.0-0.4); Lymphocytes Absolute Auto 1.1 X10*3/uL (1.2-4.9); Lymphocytes Percent Auto 31.2 % (20-40); Mean Corpuscular HGB Conc 32.6 g/dl (31.0-35.0); Mean Corpuscular Hemoglobin 28.8 pg (27.0-33.0); Mean Corpuscular Volume 88.2 fL (80.0-98.0); Mean Platelet Volume 10.9 fL (9.4-12.3); Monocytes Absolute Auto 0.2 X10*3/uL (0.1-1.2); Monocytes Percent Auto 4.7 % (2-11); Neutrophils Percent Auto 58.2 % (45-73); Platelet Count 308 X10*3/uL (160-400); Red Blood Count 3.72 X10*6/uL (4.20-5.50); Red Cell Distribution Width 13.3 % (11.0-16.0); White Blood Count 3.4 X10*3/uL (4.8-10.8)
== END 2023-07-15 13:39 | disposition home or self-care (01) ==
LOC: HO.INF 12:00
PROVIDERS: Visit Provider Internal Medicine Medical Oncology
DX: D50.9 Iron deficiency anemia, unspecified (principal)
CPT/HCPCS: 36415; 82728; 85007; 85025; 85027; 96365; 96374; J1756

== ENCOUNTER 2023-08-05 15:20 | Outpatient (REF) | payer MEDICAID, SELFPAY ==
--- NOTE | ~2023-08-05 | US_ITS ---
EXAMINATION: US PELVIS CLINICAL INFORMATION: Abnormal uterine bleeding. COMPARISON: Pelvic ultrasound 06/03/2023. TECHNIQUE: Ultrasound of the pelvis is performed using both transabdominal and transvaginal transducers along with Doppler. Transvaginal imaging is performed due to inadequate visualization transabdominally. FINDINGS: Uterus: The uterus is anteverted and measures 9.0 x 3.8 x 5.2 cm. The double wall endometrial thickness is 15 mm. The uterus is smooth in contour and has normal myometrial echogenicity. Previously seen uterine fibroid not identified on the current study. Nabothian cysts are present as is some fluid in the endometrial cavity. Adnexa: Both ovaries are visualized. There is normal color flow to the adnexa. There is no ovarian torsion. There is no pelvic ascites or fluid collection. Right ovary measures 2.7 x 2.6 x 1.8 cm for a volume of 6.6 mL. Follicular cysts are noted the largest measuring 1.7 cm. Left ovary measures 2.2 x 1.5 x 1.1 cm for a volume of 1.9 mL. US/US pelvic and transvaginal IMPRESSION: No significant abnormality is seen.
== END 2023-08-05 15:21 | disposition home or self-care (01) ==
LOC: HO.US 15:20
PROVIDERS: PCP Registered Nurse; Visit Provider Obstetrics & Gynecology
DX: N93.9 Abnormal uterine and vaginal bleeding, unspecified (principal)
CPT/HCPCS: 76830; 76856

== ENCOUNTER 2023-08-24 15:17 | Outpatient (REF) | payer MEDICAID, SELFPAY ==
[2023-08-24 17:31] LABS: Urine Cytology See Pathology rpt
== END 2023-08-24 15:18 | disposition home or self-care (01) ==
LOC: HO.LNP 15:17
PROVIDERS: PCP Family Medicine; Visit Provider Nurse Practitioner Family
DX: N28.1 Cyst of kidney, acquired (principal); N39.0 Urinary tract infection, site not specified; R31.29 Other microscopic hematuria
CPT/HCPCS: 51798; 81003; 88112; 99212

== ENCOUNTER 2023-08-24 15:17 | Outpatient (AMB) | payer MEDICAID, SELFPAY ==
--- NOTE | 2023-08-24 15:27 | A.OFFVIS_ITS ---
Intake Visit Reasons: 2m follow up Intake Note: Patient presents for follow up visit on: uti Urology Medications: none Blood Thinner: none PVR: 0ml's Payroll And Benefits Coordinator Required: Yes Payroll And Benefits Coordinator Name: [id number] Accompanied by: Self / Same As Patient Allergies tizanidine Adverse Reaction (Severe, Uncoded 08/24/23 16:44) Shakiness Medication List - Last Reconciled 08/24/23 by JARRETT Call- albuterol sulfate 90 mcg/actuation (ProAir HFA) 2 puffs PO Q4-6H PRN cetirizine 10 mg PO QAM naloxone 4 mg/actuation 4 mg intranasal DAILY triamcinolone acetonide 0.1% 0.1 appl topical BID zolpidem 5 mg PO BEDTIME PRN HPI Comments Details: Ever is a very pleasant 53-year-old German-speaking female patient of Dr. Oden. She has a PMH of hyperlipidemia and renal cyst. She presents to the office today for follow-up of her renal cysts and urinary tract infection. Of note, patient was seen approximately 2 months ago at which time urinalysis noted 1+ leukocytes and positive nitrates therefore urine was sent for urine culture. These results were reviewed with the patient today. Urine culture 06/23 100,000 cfu/ml Mixed bacterial yael characteristic of urogenital contamination. She reports having completed antibiotic therapy as prescribed during last office visit. In office urinalysis results reviewed with the patient today negative leukocytes negative nitrates. She reports in discusses at length her most recent surgical intervention with Dr. Cazares for ongoing abnormal uterine bleeding she had been experiencing. She reports to currently be on her menses however feels bleeding is significantly less than what she had been experiencing. She currently denies any bothersome urinary issues or concerns. Patient with a history of a renal cyst however most recent renal ultrasound 06/23 noted bilateral kidneys with no calculi or hydronephrosis noted. No renal cysts noted. In discussion with the patient today she reports to be doing and feeling well. In office urinalysis results reviewed with the patient today. She reports foul-smelling urine she had been experiencing has since subsided. She denies urinary urgency, urinary frequency, incontinence, nocturia, hematuria, dysuria, urine, changes to urinary stream, flank pain, fever, and or chills. She is happy with her current voiding parameters. She otherwise offers no other issues or concerns at this time. [facility] Medical History Hx of tendinitis High cholesterol Surgical History Hx of tubal ligation Family History Father Prostate cancer Social History Household Members: Family Alcohol intake: never Patient Tobacco Use Status: Never used Tobacco service: No Current occupational status: unemployed Female Reproductive History Menstrual Age of Menarche: 12 Review of Systems Const All systems reviewed & are unremarkable except as noted in HPI and below Reports no additional complaints Eyes Reports no additional complaints ENT Reports no additional complaints Card Reports as per HPI Resp Reports no additional complaints GI Reports no additional complaints Reports as per HPI Musc Reports no additional complaints Skin/Breast Reports as per HPI Neuro Reports no additional complaints Psych Reports no additional complaints Endo Reports no additional complaints Blue/Lymph Reports no additional complaints Aller/Immun Reports no additional complaints Physical Exam Const General: cooperative, healthy appearing, comfortable, no acute distress, well developed, alert and awake Orientation/consciousness: patient oriented x3 Limitations: no limitations HEENT Head: Yes normal to inspection, Yes normocephalic and Yes atraumatic Ears: hearing grossly normal bilaterally Eyes General: appearance normal, both eyes and all related structures Neck Neck: Yes normal visual inspection and Yes trachea midline Chest Chest palpation & inspection: normal inspection of the chest Resp Effort & Inspection: normal respiratory effort and able to speak in complete sentences Cardio Rate: regular rate GI Inspection: Yes normal to inspection General: Yes no CVA tenderness Back/Spine/Pelvis Back: no CVA tenderness Skin General skin exam: no rashes or lesions noted Neuro General: patient oriented x3 Extrem General: Yes normal to inspection Psych Appearance: grossly normal and well kempt Mental Status: mental status grossly normal Speech and movement: Normal speech and movement present and Clear speech present Affect: normal affect Attitude: cooperative Thought process: Normal thought process present Thought content: Normal thought content present Insight: Fair insight present (Psych) Judgement: Fair judgement present (Psych) Office Procedures Post Void Residual Post Residual Void Post Void Residual (PVR): 0 [id number] Void Residual by ultrasound Results AMB Urinalysis, Automated UA Leukoctes 0 Miguel/uL Last Edit by Gaurang Grimaldo on 08/24/23 15:55 UA Nitrite Negative Last Edit by [employer] Grimaldo on 08/24/23 15:55 UA Urobilinogen 0.2 mg/dL Last Edit by Gaurang Grimaldo on 08/24/23 15:55 UA Protein 15 mg/dL Last Edit by [employer] Grimaldo on 08/24/23 15:55 UA pH 7.5 Last Edit by [employer] on 08/24/23 15:55 UA Blood 80 Silvestre/uL Last Edit by [employer] on 08/24/23 15:55 UA Specific [place] 1.010 Last Edit by [employer]ina [employer] on 08/24/23 15:55 UA Ketone Negative Last Edit by [employer] on 08/24/23 15:55 UA Bilirubin 0 mg/dL Last Edit by [employer] on 08/24/23 15:55 UA Glucose 0 mg/dL Last Edit by [employer] on 08/24/23 15:55 Results Reviewed Results Reviewed: Laboratory Last Values Urine pH (Auto) 7.5 08/24/23 15:50 Specific [place] (Auto) 1.010 08/24/23 15:50 Urine Protein (Auto) 15 mg/dL 08/24/23 15:50 Glucose (UA)(Auto) 0 mg/dL 08/24/23 15:50 Urine Ketones (Auto) Negative 08/24/23 15:50 Urine Blood (Auto) 80 Silvestre/uL 08/24/23 15:50 Urine Nitrite (Auto) Negative 08/24/23 15:50 Urine Bilirubin (Auto) 0 mg/dL 08/24/23 15:50 Urine Urobilinogen (Auto) 0.2 mg/dL 08/24/23 15:50 Leukocyte Esterase (Auto) 0 Miguel/uL 08/24/23 15:50 Assessment & Plan Assessment & Plan (1) Complicated urinary tract infection: Code(s): N39.0 - Urinary tract infection, site not specified Category: Medical (2) Renal cyst: Code(s): N28.1 - Cyst of kidney, acquired Category: Medical (3) Microscopic hematuria: Code(s): R31.29 - Other microscopic hematuria Category: Medical Plan In office urinalysis results reviewed with the patient today; as noted above; will send for urine cytology. Discussed at length potential causes of microscopic hematuria however patient reports currently being on her menses. She currently denies any bothersome urinary issues or concerns. PVR 0 mL. Discussed UTI prevention with D mannose supplement, vitamin-C, increasing fluid intake, behavioral therapy with timed voiding, perineal hygiene and postcoital voiding, and management of constipation with stool softeners and increased fiber intake. She is happy with her current voiding parameters. Continue to follow-up with manager web. Follow-up in 3 months; or sooner with any issues, concerns, and or questions. Orders: Orders Urine Cytology Today N28.1 - Cyst of kidney, acquired, N39.0 - Urinary tract infection, site not specified, Z13.9 - Encounter for screening, unspecified AMB Urinalysis Automated Today Z13.9 - Encounter for screening, unspecified AMB Post Void Residual by ultrasound Today N39.0 - Urinary tract infection, site not specified Patient Instructions: The patient had an opportunity to ask questions regarding the treatment plan. All questions were answered. Physical exam, labs, and imaging were discussed and reviewed in detail. As well as risks, benefits, and discussion of treatment choices. No major barriers to understanding were identified. The patient expressed understanding and agreement with the above treatment plan. The patient was made aware they should contact our office by phone for worsening of their current condition, the appearance of new symptoms, or with any questions or concerns. Compliance is encouraged with any medications and follow up testing that is ordered. It is a privilege to be allowed the opportunity to participate in? your urological care.? Again, if you have any questions or concerns If you have any questions or concerns please do not hesitate to contact me. The office is [phone]. This note is constructed using voice recognition software. While every effort has been made to ensure accuracy corner bead operator errors may have been included. Yours sincerely, POLA Call Coding Level of Care Code Est Pt Level 4 (27947) Diagnoses Complicated urinary tract infection N39.0 Renal cyst N28.1 Microscopic hematuria R31.29 CPT Codes Post Residual Void - PVR CPT Code: 73084-Hayf Void Residual by ultrasound ([id number]) Time Spent (min) 25
== END 2023-08-24 16:18 | disposition home or self-care (01) ==
PROVIDERS: PCP Family Medicine; Visit Provider Nurse Practitioner Family
DX: N39.0 Urinary tract infection, site not specified (principal); N28.1 Cyst of kidney, acquired; R31.29 Other microscopic hematuria; Z13.9 Encounter for screening, unspecified
CPT/HCPCS: 99214

== ENCOUNTER 2023-09-24 14:07 | Outpatient (AMB) | payer MEDICAID, SELFPAY ==
--- NOTE | 2023-09-24 14:11 | MHC.OFFVIS ---
Vital Signs 09/24/23 14:11 Height 5 ft 1 in Weight 158 lb 11.725 oz BMI 30.0 Intake Visit Reasons: Ultrasound follow up/DO NOT RS Network Security Consultant Required: Yes Network Security Consultant Language: Supervisor [employer] Services: Network Security Consultant Present (in person) Network Security Consultant Name: Michelle LAINEZ Information Interpreted: non-clinical & clinical Accompanied by: Self / Same As Patient Allergies tizanidine Adverse Reaction (Severe, Uncoded 09/24/23 14:15) Shakiness Post menopausal: Yes HPI Comments Details: Presenting for repeat follow-up ultrasound since last ultrasound showed bilateral ovarian cyst difficult to characterize due to lack of visualization, repeat ultrasound done recently showed the following: Uterus: The uterus is anteverted and measures 9.0 x 3.8 x 5.2 cm. The double wall endometrial thickness is 15 mm. The uterus is smooth in contour and has normal myometrial echogenicity. Previously seen uterine fibroid not identified on the current study. Nabothian cysts are present as is some fluid in the endometrial cavity. Adnexa: Both ovaries are visualized. There is normal color flow to the adnexa. There is no ovarian torsion. There is no pelvic ascites or fluid collection. Right ovary measures 2.7 x 2.6 x 1.8 cm for a volume of 6.6 mL. Follicular cysts are noted the largest measuring 1.7 cm. The patient is doing well with no complaints, underwent hysteroscopy D&C in 07/23, which showed normal intrauterine cavity with no evidence of pathology. D&C pathology showed the following: Endometrium, curettage: Inactive endometrium; negative for atypia or hyperplasia The following workup was done.: H&H= 11.1/34.5 TSH, prolactin, hCG, GC and chlamydia were negative. FSH/LH in the premenopausal range Co testing was done was negative. Mammogram was done in 02/21 was BI-RADS 1. [facility] Medical History Hx of tendinitis High cholesterol Surgical History Hx of tubal ligation Family History Father Prostate cancer Social History Household Members: Family Alcohol intake: never Patient Tobacco Use Status: Never used Tobacco service: No Current occupational status: unemployed Female Reproductive History Menstrual Age of Menarche: 12 Review of Systems Const All systems reviewed & are unremarkable except as noted in HPI and below Reports as per HPI and Reports no additional complaints GI Reports no additional complaints Reports no additional complaints Physical Exam Vital Signs: BMI result Body Mass Index 30.0 Assessment & Plan Assessment & Plan (1) Abnormal uterine bleeding (AUB): Code(s): N93.9 - Abnormal uterine and vaginal bleeding, unspecified Category: Medical Plan: Discussed with the patient the results of the work up done and options of treatment including Lysteda, BCP's, Mirena IUD, endometrial ablation and hysterectomy. All pros, cons, risks and benefits if each option was discussed with the patient and the patient decided to think about it and get back to us. All questions answered the patient verbalized understanding. Coding Level of Care Code Est Pt Level 3 (24853) Diagnoses Abnormal uterine bleeding (AUB) N93.9
== END 2023-09-24 14:30 | disposition home or self-care (01) ==
LOC: HO.HWS 14:07
PROVIDERS: PCP Family Medicine; Visit Provider Obstetrics & Gynecology
DX: N93.9 Abnormal uterine and vaginal bleeding, unspecified (principal)
CPT/HCPCS: 99213

== ENCOUNTER → 2023-09-24 14:07 | Outpatient (BNVA) | payer MEDICAID, SELFPAY | PROVIDERS: PCP Family Medicine; Visit Provider Obstetrics & Gynecology | DX: N93.9 Abnormal uterine and vaginal bleeding, unspecified (principal) | CPT/HCPCS: 99212 ==

== ENCOUNTER 2023-10-09 09:36 | Outpatient (REF) | payer MEDICAID, SELFPAY ==
[2023-10-15 15:39] LABS: Aldolase 2.7 U/L (<=8.1)
== END 2023-10-09 09:37 | disposition home or self-care (01) ==
LOC: HO.HHCL 09:36
PROVIDERS: Visit Provider Internal Medicine
DX: M72.1 Knuckle pads (principal)
CPT/HCPCS: 36415; 82085; 82550

== ENCOUNTER → 2023-11-20 19:30 | Outpatient (REF) | payer MEDICAID, SELFPAY | LOC: HO.SL 19:30 | PROVIDERS: PCP Family Medicine; Visit Provider Registered Nurse | DX: Z13.89 Encounter for screening for other disorder (principal) ==

== ENCOUNTER 2024-01-14 14:26 | Outpatient (AMB) | payer MEDICAID, SELFPAY ==
--- NOTE | 2024-01-14 15:30 | A.OFFVIS_ITS ---
Intake Visit Reasons: 3m follow up Intake Note: Patient presents for follow up visit on: microscopic hematuria, renal cyst, and complicated uti Urology Medications: none Blood Thinner: none PVR: 0ml's Insole And Outsole Splitter Required: Yes Insole And Outsole Splitter Services: Insole And Outsole Splitter Present Insole And Outsole Splitter Name: [id number] Accompanied by: Self / Same As Patient Allergies tizanidine Adverse Reaction (Severe, Uncoded 01/14/24 15:56) Shakiness Medication List - Last Reconciled 01/14/24 by JARRETT Call- albuterol sulfate 90 mcg/actuation (ProAir HFA) 2 puffs PO Q4-6H PRN cetirizine 10 mg PO QAM naloxone 4 mg/actuation 4 mg intranasal DAILY triamcinolone acetonide 0.1% 0.1 appl topical BID zolpidem 5 mg PO BEDTIME PRN HPI Comments Details: Ever is a very pleasant 53-year-old Tunisian-speaking female patient of Dr. Oden. She has a PMH of hyperlipidemia and renal cyst. She presents to the office today for follow-up of her renal cysts and urinary tract infection. In discussion with the patient today she denies any bothersome urinary issues or concerns. She does however discuss her ongoing gynecological issues. She reports having had recent surgical intervention with Dr. Sage patterson and continues with abnormal bleeding. She does report concentrated urine at times. We discussed importance of adequate hydration in relation to urological health as well as all overall health and well being. In office urinalysis results reviewed with the patient today. PH 6.0. Patient with a history of a renal cyst however most recent renal ultrasound 06/23 noted bilateral kidneys with no calculi or hydronephrosis noted. No renal cysts noted. She denies urinary urgency, urinary frequency, incontinence, nocturia, gross/visible hematuria, dysuria, urine, changes to urinary stream, flank pain, fever, and or chills. She is happy with her current voiding parameters. Reviewed UA - persistant Microscopic hematuria. I discussed reasons for blood in the urine may include but are not limited to kidney stones, cancer in the urinary tract, kidney stone disease or inflammatory conditions of the urinary tract. I have discussed workup to include cystoscopy evaluation. Urine cytology 08/23 Negative for high-grade urothelial carcinoma. She otherwise offers no other issues or concerns at this time. [facility] Medical History Hx of tendinitis High cholesterol Surgical History Hx of tubal ligation Family History Father Prostate cancer Social History Household Members: Family Alcohol intake: never Patient Tobacco Use Status: Never used Tobacco service: No Current occupational status: unemployed Female Reproductive History Menstrual Age of Menarche: 12 Review of Systems Const All systems reviewed & are unremarkable except as noted in HPI and below Reports no additional complaints Eyes Reports no additional complaints ENT Reports no additional complaints Card Reports as per HPI Resp Reports no additional complaints GI Reports no additional complaints Reports as per HPI Musc Reports no additional complaints Skin/Breast Reports as per HPI Neuro Reports no additional complaints Psych Reports no additional complaints Endo Reports no additional complaints Blue/Lymph Reports no additional complaints Aller/Immun Reports no additional complaints Physical Exam Const General: cooperative, healthy appearing, comfortable, no acute distress, well developed, alert and awake Orientation/consciousness: patient oriented x3 Limitations: no limitations HEENT Head: Yes normal to inspection, Yes normocephalic and Yes atraumatic Ears: hearing grossly normal bilaterally Eyes General: appearance normal, both eyes and all related structures Neck Neck: Yes normal visual inspection and Yes trachea midline Chest Chest palpation & inspection: normal inspection of the chest Resp Effort & Inspection: normal respiratory effort and able to speak in complete sentences Cardio Rate: regular rate GI Inspection: Yes normal to inspection General: Yes no CVA tenderness Back/Spine/Pelvis Back: no CVA tenderness Skin General skin exam: no rashes or lesions noted Neuro General: patient oriented x3 Extrem General: Yes normal to inspection Psych Appearance: grossly normal and well kempt Mental Status: mental status grossly normal Speech and movement: Normal speech and movement present and Clear speech present Affect: normal affect Attitude: cooperative Thought process: Normal thought process present Thought content: Normal thought content present Insight: Fair insight present (Psych) Judgement: Fair judgement present (Psych) Office Procedures Post Void Residual Post Residual Void Post Void Residual (PVR): 0 [id number] Void Residual by ultrasound Results AMB Urinalysis, Automated UA Leukoctes 0 Miguel/uL Last Edit by Gaurang Grimaldo on 01/14/24 16:03 UA Nitrite Last Edit by Gaurang Grimaldo on 01/14/24 16:03 UA Urobilinogen 0.2 mg/dL Last Edit by Gaurang Grimaldo on 01/14/24 16:03 UA Protein 15 mg/dL Last Edit by Gaurang Grimaldo on 01/14/24 16:03 UA pH 6.0 Last Edit by Gaurang Grimaldo on 01/14/24 16:03 UA Blood 80 Silvestre/uL Last Edit by Gaurang Grimaldo on 01/14/24 16:03 UA Specific [place] 1.015 Last Edit by Gaurang Grimaldo on 01/14/24 16:03 UA Ketone Negative Last Edit by Gaurang Grimaldo on 01/14/24 16:03 UA Bilirubin 0 mg/dL Last Edit by Gaurang Grimaldo on 01/14/24 16:03 UA Glucose 0 mg/dL Last Edit by Gaurang Grimaldo on 01/14/24 16:03 Results Reviewed Results Reviewed: Laboratory Last Values Urine pH (Auto) 6.0 01/14/24 16:02 Specific [place] (Auto) 1.015 01/14/24 16:02 Urine Protein (Auto) 15 mg/dL 01/14/24 16:02 Glucose (UA)(Auto) 0 mg/dL 01/14/24 16:02 Urine Ketones (Auto) Negative 01/14/24 16:02 Urine Blood (Auto) 80 Silvestre/uL 01/14/24 16:02 Urine Bilirubin (Auto) 0 mg/dL 01/14/24 16:02 Urine Urobilinogen (Auto) 0.2 mg/dL 01/14/24 16:02 Leukocyte Esterase (Auto) 0 Miguel/uL 01/14/24 16:02 Assessment & Plan Assessment & Plan (1) Renal cyst: Code(s): N28.1 - Cyst of kidney, acquired Category: Medical (2) Microscopic hematuria: Code(s): R31.29 - Other microscopic hematuria Category: Medical Plan In office urinalysis results reviewed with the today; as noted above. PVR 0ml's We discussed at length potential causes of microscopic hematuria as well as further workup to include imaging and in office cystoscopy. She currently denies any bothersome urinary issues or concerns. She reports be happy with current voiding parameters. Will continue with surveillance monitoring microscopic hematuria at this time per patient request. Will obtain retroperitoneal ultrasound 6 months. Follow-up in 6 months with imaging; or sooner with any issues, concerns, and or questions. Orders: Orders AMB Urinalysis Automated 01/14/24 Z13.9 - Encounter for screening, unspecified US retroperitoneal comp 6 Months N28.1 - Cyst of kidney, acquired, R31.29 - Other microscopic hematuria AMB Post Void Residual by ultrasound 01/14/24 N39.0 - Urinary tract infection, site not specified Patient Instructions: The patient had an opportunity to ask questions regarding the treatment plan. All questions were answered. Physical exam, labs, and imaging were discussed and reviewed in detail. As well as risks, benefits, and discussion of treatment choices. No major barriers to understanding were identified. The patient expressed understanding and agreement with the above treatment plan. The patient was made aware they should contact our office by phone for worsening of their current condition, the appearance of new symptoms, or with any questions or concerns. Compliance is encouraged with any medications and follow up testing that is ordered. It is a privilege to be allowed the opportunity to participate in? your urological care.? Again, if you have any questions or concerns If you have any questions or concerns please do not hesitate to contact me. The office is [phone]. This note is constructed using voice recognition software. While every effort has been made to ensure accuracy machine quilt stuffer errors may have been included. Yours sincerely, POLA Call Coding Level of Care Code Est Pt Level 3 (06545) Diagnoses Renal cyst N28.1 Microscopic hematuria R31.29 CPT Codes Post Residual Void - PVR CPT Code: 68881-Lbjf Void Residual by ultrasound ([id number])
== END 2024-01-14 15:57 | disposition home or self-care (01) ==
PROVIDERS: PCP Family Medicine; Visit Provider Nurse Practitioner Family
DX: N28.1 Cyst of kidney, acquired (principal); R31.29 Other microscopic hematuria
CPT/HCPCS: 99213

== ENCOUNTER → 2024-01-14 14:26 | Outpatient (BNVA) | payer MEDICAID, SELFPAY | PROVIDERS: PCP Family Medicine; Visit Provider Nurse Practitioner Family | DX: N28.1 Cyst of kidney, acquired (principal); R31.29 Other microscopic hematuria; N39.0 Urinary tract infection, site not specified | CPT/HCPCS: 51798; 81003; 99212 ==

== ENCOUNTER 2024-02-16 11:17 | Outpatient (REF) | payer MEDICAID, SELFPAY | END 2024-02-16 11:18 | disposition home or self-care (01) | LOC: HO.MAMMO 11:17 | PROVIDERS: PCP Family Medicine; Visit Provider Family Medicine | DX: Z12.31 Encounter for screening mammogram for malignant neoplasm of breast (principal) | CPT/HCPCS: 77063; 77067 ==

== ENCOUNTER → 2024-02-16 11:30 | Outpatient (BNV) | payer MEDICAID, SELFPAY | PROVIDERS: PCP Family Medicine; Visit Provider Internal Medicine | DX: Z12.31 Encounter for screening mammogram for malignant neoplasm of breast (principal) | CPT/HCPCS: 77063; 77067 ==

== ENCOUNTER → 2024-04-04 08:45 | Outpatient (BNV) | payer MEDICAID, SELFPAY | PROVIDERS: PCP Family Medicine; Visit Provider Internal Medicine | DX: N63.13 Unspecified lump in the right breast, lower outer quadrant (principal) | CPT/HCPCS: 76642; 77061; 77065 ==

== ENCOUNTER 2024-05-19 14:26 | Outpatient (AMB) | payer MEDICAID, SELFPAY ==
--- NOTE | 2024-05-19 14:33 | A.OFFVIS_ITS ---
Vital Signs 05/19/24 14:40 Height 5 ft 1 in Weight 165 lb 8 oz BMI 31.3 BP 118/69 Blood Pressure Location Rt brachial Position Sitting Pulse 69 Intake Visit Reasons: mass of right breast (fibroadenoma) Intake Note: This patient presents for mass of right breast (fibroadenoma). Pt c/o; reports she has a cyst on the left breast, reports fibroadenoma right breast. Imagin04/04/2024: Breast US 04/04/2024: MM additional view Caustic Plant Worker Required: Yes Caustic Plant Worker Language: Coding Manager Services: Caustic Plant Worker Present Caustic Plant Worker Name: Karen Information Interpreted: non-clinical & clinical Accompanied by: Self / Same As Patient Allergies tizanidine Adverse Reaction (Severe, Uncoded 05/19/24 14:41) Shakiness Medication List - Last Reconciled 05/19/24 by Nikolai Luciano MD albuterol sulfate 90 mcg/actuation (ProAir HFA) 2 puffs PO Q4-6H PRN cetirizine 10 mg PO QAM naloxone 4 mg/actuation 4 mg intranasal DAILY tramadol 50 mg PO Q12H PRN triamcinolone acetonide 0.1% 0.1 appl topical BID zolpidem 5 mg PO BEDTIME PRN HPI HPI mass of right breast (fibroadenoma): Details: 54-year-old female referred for a fibroadenoma seen on an ultrasound. She had a mammogram last 02/19/2024 showing asymmetry the right breast. She was recalled for targeted mammogram and ultrasound. There was note of a hypoechoic well- circumscribed mass, about 30 mm in the right breast in the 8 o'clock position consistent with a fibroadenoma. She was therefore referred to me She denies any palpable mass. She denies any significant complaints with regards to the breasts Her menarche was at age of 12. Her 1st was at age of 15. She had 7 pregnancies. She still has her periods. She denies any strong family history of breast cancer. [facility] Medical History (Updated 05/19/24 @ 14:52 by Nikolai Luciano MD) Fibroadenoma Hx of tendinitis High cholesterol Surgical History Hx of tubal ligation Family History Father Prostate cancer Social History Household Members: Family Alcohol intake: never Patient Tobacco Use Status: Never used Tobacco service: No Current occupational status: unemployed Female Reproductive History Menstrual Age of Menarche: 12 Total pregnancies: 7 Review of Systems Const Denies chills and Denies fever(s) Card Denies chest pain, Denies dyspnea and Denies dyspnea on exertion Resp Denies cough, Denies dyspnea and Denies dyspnea on exertion GI Denies hematochezia and Denies change in bowel habits Denies hematuria Musc Denies back pain and Denies limited range of motion Neuro Denies focal weakness and Denies convulsions Psych Denies depression and Denies mood swings Physical Exam Vital Signs: Last Vital Signs Pulse 69 05/19/24 14:40 BP 118/69 05/19/24 14:40 BMI result Body Mass Index 31.3 Const General: comfortable and no acute distress Orientation/consciousness: patient oriented x3 Neck Neck: Yes no lymphadenopathy Chest Other: No palpable breast masses, no nipple or skin changes, no axillary lymphadenopathy Resp Auscultation: clear to auscultation bilaterally Cardio Rhythm: regular rhythm GI Palpation (GI): Soft to palpation, nontender and no guarding Neuro General: patient oriented x3 Assessment & Plan Assessment & Plan (1) Fibroadenoma: Code(s): D24.9 - Benign neoplasm of unspecified breast Category: Medical Plan: She has imaging studies showing what appears to be a fibroadenoma on the right breast. I am unable to palpate this. I explained this finding to her. I discussed the option of proceeding with a biopsy but she says that she does not want this. I therefore told her that I would recommend repeating her ultrasound in about 6 months. She is comfortable with this plan. She just did not seem to be a above average risk for breast cancer. I told her that she can call the office once she needs the repeat imaging studies done. Coding Level of Care Code New Pt Level 3 (85918) Diagnoses Fibroadenoma D24.9
[2024-05-19 14:40] VITALS: BP 118/69; PULSE 69; BMI 31.3
--- OUTSIDE RECORDS SUMMARY | 2024-05-19 17:03 | XMS_ITS | Encounter Summary ---
Author Organization [employer] Address [address] [place] [address] Care Team Providers Care Tong Setter Name Role Phone Maribell Alanis Primary Care Provider [phone] Reason for Visit * Reason Onset Date Comments Appointment Request 12/04/2023 Encounter Details Date Type Department Care Team ([facility] st Contact Info) Description 12/04/2023 Telephone [facility] [address] [place] [address] Maribell Alanis FNP [address] [place] [address] Appointment Request Social History Tobacco Use Types Packs/Day Years Used Date Smoking Tobacco: Never Passive Smoke Exposure: Never Smokeless Tobacco: Never Alcohol Use Standard Drinks/Week Comments Never 0 (1 standard drink = 0.6 oz pur e alcohol) Depression Answer Date Recorded Patient Health Questionnaire-9 Score 8 07/22/2023 Patient Health Questionnaire-9 Score 8 07/22/2023 Last PHQ-9: Questionnaire Data Not on file 0 07/22/2023 Housing Stability Answer Date Recorded What is your housing situation today? I have abbie mays 10/21/[address] you li ve. Do you have problems with any of the following? None of the above 10/21/2023 Food Insecurity Answer Date Recorded Within the past 12 months, y ou worried that your food would run out before you got money to buy more: Never True 10/21/2023 Within the past 12 months,th e food you bought just didn't last and you didn't have enough money to get more: Never True Transportation Answer Date Recorded In the past 12 months, has l ack of transportation kept you from medical appts, meetings, work or from getting things needed for daily living? No 10/21/2023 Utilities Answer Date Recorded In the past 12 months, has t he electric, gas, oil or water company threatened to shut off services in your home? No 10/21/2023 Depression Answer Date Recorded Patient Health Questionnaire-2 Score 2 07/22/2023 Internet Access Answer Date Recorded Internet Access Q1 Yes 11/02/2023 Internet Access Q2 Not on file 11/02/2023 Comments Unknown Sex and Gender Information Value Date Recorded Sex Assigned at Female 12/30/2021 10:15 AM EDT Legal Sex Female 10:15 AM EDT Gender Identity Female 12/30/2021 10:15 AM EDT Sexual Orientation Straight 12/30/2021 10 :15 AM EDT documented as of this encounter Miscellaneous Notes * Telephone Encounter - Brad León - 12/04/2023 11:36 AM EDT Tc from patient calling to cancel appt and would like to reschedule documented in this encounter Plan of Treatment Upcoming Encounters Date Type Department Care Team (Late st Contact Info) Description 06/01/2024 9:00 AM EDT Office Visit [facility] [address] [place] [address] Maribell Alanis FNP [address] [place] [address] 07/26/2024 2:00 PM EDT Office Visit [facility] OPT[facility] [address] [place] [address] Keagan, Shae, OD [address] [place] [address] documented as of this encounter Visit Diagnoses Not on filedocumented in this encounter Additional Health Concerns Assessment Noted Time PHQ-9 Depression Total Score: 8 07/22/19 24 9:06 AM EDT documented as of this encounter Care Teams Tong Setter Relationship Specialty Start Date End Date Maribell Alanis FNP [address] [place] [address] PCP - General Family Medicine 08/14/21 documented as of this encounter
--- OUTSIDE RECORDS SUMMARY | 2024-05-19 17:03 | XMS_ITS | Encounter Summary ---
Author Organization [employer] Address [address] [facility] [address] [place] [address] Care Team Providers Care Hotel General Manager Name Role Phone Evarick Maribell FARIAS Primary Care Provider Reason for Visit * Reason Comments Med Refill Encounter Details Date Type Department Care Team (Late Contact Info) Description 09/11/2022 Refill [facility] [address] [place], [place] [phone] Maribell Alanis FNP [address] [place], [place] [id number] Social History Tobacco Use Types Packs/Day Years Used Date Smoking Tobacco: Never Passive Smoke Exposure: Never Smokeless Tobacco: Never Alcohol Use Standard Drinks/Week Comments Never 0 (1 standard drink = 0.6 oz pur e alcohol) Depression Answer Date Recorded Patient Health Questionnaire-9 Score 14 07/29/2022 Depression Answer Date Recorded Patient Health Questionnaire-2 Score 4 07/29/2022 Comments Unknown Sex and Gender Information Value Date Recorded Sex Assigned at Female 12/30/2021 10:15 AM EDT Legal Sex Female 10:15 AM EDT Gender Identity Female 12/30/2021 10:15 AM EDT Sexual Orientation Straight 12/30/2021 10 :15 AM EDT COVID-19 Exposure Response Date Recorded In the last 10 days, have yo u been in contact with someone who was confirmed or suspected to have Coronavirus/COVID-19? No / Unsure 08/21/2022 9:00 AM EDT documented as of this encounter Plan of Treatment Upcoming Encounters Date Type Department Care Team ([facility] Contact Info) Description 06/01/2024 9:00 AM EDT Office Visit [facility] [address] [place] [address] Maribell Alanis FNP [address] [place] [address] 07/26/2024 2:00 PM EDT Office Visit [facility] OPTOMETRY [address] [place] [address] Keagan, Shae, OD [address] [place] [address] documented as of this encounter Visit Diagnoses Not on filedocumented in this encounter Additional Health Concerns Assessment Noted Time PHQ-9 Depression Total Score: 14 023 9:20 AM EDT documented as of this encounter Care Teams Hotel General Manager Relationship Specialty Start Date End Date Maribell lAanis FNP [address] [place] [address] PCP - General Family Medicine 08/14/21 documented as of this encounter
--- OUTSIDE RECORDS SUMMARY | 2024-05-19 17:03 | XMS_ITS | Encounter Summary ---
Author Organization [employer] Address [address] [facility] [address] [place] [address] Care Team Providers Care Traffic Control Signaler Name Role Phone Maribell Alanis PROTECTIVE SIGNAL REPAIRER HELPER Primary Care Provider [phone] Reason for Visit * Reason Comments Med Refill Encounter Details Date Type Department Care Team ([facility] st Contact Info) Description 08/24/2023 Refill [facility] MED[facility]INE [address] [place] [address] Name, MD Varun [address] [place] [address] Insomnia, unspecified type Social History Tobacco Use Types Packs/Day Years [...] housing situation today? I have abbie mays 12/07/[address] you li ve. Do you have problems with any of the following? Pests such as bugs, ants, or mice 12/07/2022 Food Insecurity Answer Date Recorded Within the past 12 months, y ou worried that your food would run out before you got money to buy more: Never True 01/03/2023 Within the past 12 months,th e food you bought just didn't last and you didn't have enough money to get more: Never True 05/2022 Transportation Answer Date Recorded In the past 12 months, has l ack of transportation kept you from medical appts, meetings, work or from getting things needed for daily living? No 01/03/2023 Utilities Answer Date Recorded In the past 12 months, has t he electric, gas, oil or water company threatened to shut off services in your home? No 01/03/2023 Depression Answer Date Recorded Patient Health Questionnaire-2 Score 2 07/22/2023 Comments Unknown Sex and Gender Information Value [...] Description 06/01/2024 9:00 AM EDT Office Visit [facility]INE [address] [place] [address] Maribell Alanis FNP [address] [place] [address] 07/26/2024 2:00 PM EDT Office Visit [facility] OPTOMETRY [address] [place] [address] Keagan, Shae, OD [address] [place] [address] documented as of this encounter Visit Diagnoses Diagnosis Insomnia, unspecified type documented in this encounter Additional Health Concerns Assessment Noted Time PHQ-9 Depression Total Score: 8 07/22/19 24 9:06 AM EDT documented as of this encounter Care Teams Traffic Control Signaler Relationship Specialty Start Date End Date Maribell Alanis FNP [address] [place] [address] PCP - General Family Medicine 08/14/21 documented as of this encounter
--- OUTSIDE RECORDS SUMMARY | 2024-05-19 17:04 | XMS_ITS | Encounter Summary ---
Author Organization [employer] Address [address] [facility] [address] [place] [id number] Care Team Providers Care Process Treater Name Role Phone Mariblel Alanis Primary Care Provider [phone] Reason for Visit * Reason Onset Date Comments Med Refill 04/26/2024 Encounter Details Date Type Department Care Team ([facility] st Contact Info) Description 04/26/2024 Telephone [facility] MEDICINE [address] [place] [address] Maribell Alanis FNP [address] [place] [address] Med Refill Social History Tobacco Use Types Packs/Day Years [...] encounter Miscellaneous Notes * Telephone Encounter - Curly Pavon - 04/26/2024 9:46 AM EST TC from pt requesting medication refill. Medications needing refill : traMADol (Ultram) 50 MG tablet zolpidem (Ambien) 5 MG tablet To be sent to: [facility] documented in this encounter Plan of Treatment Upcoming Encounters Date Type Department Care Team (Late st Contact Info) Description 06/01/2024 9:00 AM EDT Office Visit [facility] MED[facility]INE [address] [place] [address] Maribell Alanis FNP [address] [place] [address] 07/26/2024 2:00 PM EDT Office Visit [facility] OPTOMETRY [address] [place] [address] Keagan, Shae, OD [address] [place] [address] documented as of this encounter Visit Diagnoses Not on filedocumented in this encounter Additional Health Concerns Assessment Noted Time PHQ-9 Depression Total Score: 8 07/22/19 24 9:06 AM EDT documented as of this encounter Care Teams Process Treater Relationship Specialty Start Date End Date Maribell Alanis FNP [address] [place] [address] PCP - General Family Medicine 08/14/21 documented as of this encounter
--- OUTSIDE RECORDS SUMMARY | 2024-05-19 17:04 | XMS_ITS | Encounter Summary ---
Author Organization [employer] Address [address] [facility] [address] [place] [address] Care Team Providers Care Facepiece Line Supervisor Name Role Phone Maribell Alanis MACHINE STRAP BUCKLER Primary Care Provider [phone] Reason for Visit * Reason Onset Date Comments Med Refill 04/26/2024 Encounter Details Date Type Department Care Team ([facility] st Contact Info) Description 04/26/2024 Refill [facility] [address] [place] [address] Ana Duque, RN [address] [place] [address] Insomnia, unspecified type; Bulging of intervertebral disc between L4 and L5 Social History Tobacco Use Types Packs/Day Years [...] Description 06/01/2024 9:00 AM EDT Office Visit [facility] [address] [place] [address] Maribell Alanis FNP [address] [place] [address] 07/26/2024 2:00 PM EDT Office Visit [facility] [address] [place] [address] Keagan, Shae, OD [address] [place] [address] documented as of this encounter Visit Diagnoses Diagnosis Insomnia, unspecified type Bulging of intervertebral disc between L4 and L5 documented in this encounter Additional Health Concerns Assessment Noted Time PHQ-9 Depression Total Score: 8 07/22/19 24 9:06 AM EDT documented as of this encounter Care Teams Facepiece Line Supervisor Relationship Specialty Start Date End Date Maribell Alanis FNP [address] [place] [address] PCP - General Family Medicine 08/14/21 documented as of this encounter
--- OUTSIDE RECORDS SUMMARY | 2024-05-19 17:04 | XMS_ITS | Clinical Summary ---
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 tomosynthesis. Limited right breast ultrasound. FINDINGS: The breasts are heterogeneously dense, which may obscure small masses (ACR BI-RADS breast composition Category c). Asymmetry in the inferior right breast on MLO view does not persist on additional imaging projections. Asymmetry in the retroareolar region slightly superior right breast on MLO view persists is a circumscribed oval mass. No suspicious calcifications or other abnormal findings. Targeted color Doppler ultrasound scanning from 2-5 o'clock demonstrates normal fibronodular breast tissue. Targeted color Doppler ultrasound demonstrates a hypoechoic oval circumscribed solid mass at 8:00 3 cm from nipple measuring 10 x 6 x 13 mm which correlates with the oval mass on mammography. MM/MM tomosynthesis added views R IMPRESSION: Circumscribed oval hypoechoic mass measuring up to 13 mm at 8:00 in the right breast on ultrasound. Ultrasound guided core needle biopsy versus 6 month follow-up ultrasound were offered to the patient. Patient prefers six-month follow-up right breast ultrasound at this time. ASSESSMENT: BI-RADS BI-RADS 3 - Probably benign finding(s) - 6 month follow-up suggested RECOMMENDATION: 6 Month F/U Results were provided to the patient at time of visit by the technologist. This patient's information was entered into a reminder system with a target due date for their next mammogram. Electronically signed by: Ale Damon DO 04/04/2024 09:46 AM [facility] Dictated By: Ale Damon DO Signed By: <Electronically signed by Ale Damon DO in OV> 04/04/24 0946 DD/ 0842 TD/TT: 04/04/24 0853 Orderlies Teacher: us Jamee Oden DO IMG BI PROCEDURES Final Resu lt * Pap Smear (05/14/2023 2:15 PM EDT) 05/14/2023 2:15 PM EDT 05/15/2023 9:00 AM EDT Narrative [facility] - 05/26/2023 10:17 AM EDT ----- ------- Name: AlvaroEver ?Age/Sex: 53/F ? : 1970 Unit#: [id number] ?? Attend Dr: Duc Cazares MD ?Re05/14/23 ?Status: DEP REF ? Location: HO.LNP ?Disch: ? ----- ------- SPEC : [id number] ? RECD: 05/15/23-899 ? STATUS: ??SOUT ? REQ NUM: [id number] ? GOSIA: 05/14/23-630 ? SUBM DR: Duc Cazares MD ? ENTERED: ??05/15/23-946 ?SP TYPE: Pap Smr ?OTHR DR: Maribell Alanis ? ORDERED: ??Pap Smear ? Interpretation ?? Satisfactory for evaluation. ?? No endocervical cells seen. ?? Fungal organisms consistent with [place] species. ?? Moderate inflammation. ?? Negative for intraepithelial lesion or malignancy. ?HPV mRNA E6/E7: ?NOT DETECTED ? This assay detects E6/E7 viral messenger RNA (mRNA) from 14 high-risk HPV types (16, 18, ?? 31, 33, 35, 39, 45, 51, 52, 56, 58, 59, 66, 68) ?? HPV testing performed by [facility], [place], [place]. ??See reference laboratory ?? portion of the EMR for entire report. ?Clinical Information LMP: Unknown date Previous PAP test: 2018, Unknown findings Other history: Abnormal uterine and vaginal bleeding ? Material Received ?? ThinPrep-Cervical Copies To: ?? Maribell Alanis ?? [address] [facility] ?? [place] [address] ?? [phone] ?? Duc Cazares MD ?? [address] [place] [address] [address]. [address] ?? [place] [address] ?? [phone] ----- ------- Signed (signature on file) Carla ROMÁN Oakes (ASCP) 05/26/23 1017 ? ----- ------- ? END OF REPORT ? us Generic External Data Provider LAB CYTOLOGY MARYE ANGELICA Final Result [facility] [address] [place] [phone] * (ABNORMAL) HPV mRNA E6/E7 (12/15/2017 2:12 PM EDT) Pathologist [facility] HPV mRNA E6/E7 DETECTED (AA) NOT DETECTED [facility] Comment: This test was performed using the APTIMA(R) HPV Assay ([employer] This assay detects E6/E7 viral messenger RNA (mRNA) from 14 high-risk HPV types (16,18,31,33,35,39,45,51, 52,56,58,59,66,68). For additional information please refer to: http://education.FireDrillMe.Financial Fairy Tales/faq/BAW559z1 (This link is being provided for informational/ educational purposes only.) The analytical performance characteristics of this assay have been determined by [facility] [place], [place]. The modifications have not been cleared or approved by the FDA. This assay has been validated pursuant to the CLIA regulations and is used for clinical purposes. Test Performed by [facility], [facility] [place], [address] [place] [address] Brodie Koenig M.D., Ph.D., Director of Laboratories , CLIA [id number] Please note: ??Effective 11/12/2015, HPV testing will be performed using [employer]'s APTIMA test which targets mRNA. Detecting mRNA instead of DNA, as in older methods, offers significant improvements in specificity. 12/15/2017 2:12 PM EDT us Lesia Ramon CNM HISTORICAL/NON ORDERABLE LABS Final Result [facility] [address] from Last 3 Months or Most Recently Relevant to Health Maintenance Insurance [facility] C3 DENTAL-[facility] MEDICAID STAND ADULT Care Teams Shoe Worker Relationship Specialty Start Date End Date Maribell Alanis FNP [address] [place] [address] PCP - General Family Medicine 08/14/21
--- OUTSIDE RECORDS SUMMARY | 2024-05-19 17:04 | XMS_ITS | Encounter Summary ---
Author Organization [employer] Address [address] [facility] 7t [place] [address] Care Team Providers Care Sheet Metal Fabricator Name Role Phone Maribell Alanis REGIONAL CLINICAL DIRECTOR Primary Care Provider [phone] Encounter Details Date Type Department Care Team ([facility] st Contact Info) Description 05/13/2024 Population Health Risk Score [facility] (C3) Department [address] [facility] [address] [place] [phone] Provider, Population Health Generic Social History Tobacco Use Types Packs/Day Years [...] Description 06/01/2024 9:00 AM EDT Office Visit [facility] 230 [place] [address] Maribell Alanis FNP [address] [place] [address] 07/26/2024 2:00 PM EDT Office Visit [facility] [address] [place] [address] Keagan, Shae, OD 230 [place] [address] documented as of this encounter Visit Diagnoses Not on filedocumented in this encounter Additional Health Concerns Assessment Noted Time PHQ-9 Depression Total Score: 8 07/22/19 24 9:06 AM EDT documented as of this encounter Care Teams Sheet Metal Fabricator Relationship Specialty Start Date End Date Maribell Alanis FNP [address] [place] [address] PCP - General Family Medicine 08/14/21 documented as of this encounter
== END 2024-05-19 14:50 | disposition home or self-care (01) ==
LOC: HO.HGS 14:27
PROVIDERS: PCP Family Medicine; Visit Provider Surgery
DX: D24.9 Benign neoplasm of unspecified breast (principal)
CPT/HCPCS: 99203

== ENCOUNTER → 2024-05-19 14:26 | Outpatient (BNVA) | payer MEDICAID, SELFPAY | PROVIDERS: PCP Family Medicine; Visit Provider Surgery | DX: D24.1 Benign neoplasm of right breast (principal) | CPT/HCPCS: 99202 ==

== ENCOUNTER 2024-06-01 09:44 | Outpatient (REF) | payer MEDICAID, SELFPAY ==
--- OUTSIDE RECORDS SUMMARY | 2024-06-01 11:04 | XMS_ITS | Encounter Summary ---
Author Organization [employer] Address [address] [facility] 7t [place] [address] Care Team Providers Care Materials Tech Name Role Phone Maribell Alanis Primary Care Provider [phone] Reason for Visit * Reason Onset Date Comments Appointment Request 12/04/2023 Encounter Details Date Type Department Care Team ([facility] st Contact Info) Description 12/04/2023 Telephone [facility] [address] [place] [address] Maribell Alanis FNP [address] [place] [address] Appointment Request Social History Tobacco Use Types [...] Care Team (Late st Contact Info) Description 07/26/2024 2:00 PM EDT Office Visit [facility]RY [address] [place] [address] Keagan, Shae, OD 230 [place] [address] 08/24/2024 9:15 AM EDT Office Visit [facility] [address] [place] [address] Maribell Alanis FNP [address] [place] [address] documented as of this encounter Visit Diagnoses Not on filedocumented in this encounter Additional Health Concerns Assessment Noted Time PHQ-9 Depression Total Score: 8 07/22/19 24 9:06 AM EDT documented as of this encounter Care Teams Materials Tech Relationship Specialty Start Date End Date Maribell Alanis FNP [address] [place] [address] PCP - General Family Medicine 08/14/21 documented as of this encounter
--- OUTSIDE RECORDS SUMMARY | 2024-06-01 11:04 | XMS_ITS | Encounter Summary ---
Author Organization [employer] Address [address] [facility] 7t [place] [address] Care Team Providers Care Recreation Counselor Name Role Phone Maribell Alanis Primary Care Provider [phone] Reason for Visit * Reason Comments Care Coordination CHW outreach for SDO H food needs-referral completed Encounter Details Date Type Department Care Team (Latest Contact Info) Description 06/01/2024 Patient Outreach [facility] [address] [place] [address] Maribell Alanis FNP [address] [place] [address] Care Coordination (CHW outreach for SDOH food needs-referral completed /) Social History Tobacco Use Types Packs/Day Years [...] AM EDT documented as of this encounter Progress Notes * Harry Terry - 06/01/2024 9:40 AM EDT CHW Harry Terry, placed outbound call to patient for assistance with SDOH as a referral was received by the provider. Patient's name and were confirmed. Patient screened positive for the following SDOH food insecurities. Patient states family in on SNAP program at this time. CHW referral patient to the local list of pantries in the area for help. PT-1 requested was send out in behalf of patient for futures appt. Patient verbalizes understanding, and able to agree with plan to follow up.Patient educated on extended clinic hours on Mondays through Wednesdays, and Walk-In Urgent Care Located in [facility]. Patient provided with after-hours line for [facility], , which offer night time triage service and option to transfer to carbon sequestration plant operator provider if needed. documented in this encounter Plan of Treatment Upcoming Encounters Date Type Department Care Team (Late st Contact Info) Description 07/26/2024 2:00 PM EDT Office Visit [facility] OPTOMETRY [address] [place] [address] Keagan, Shae, OD [address] [place] [address] 08/24/2024 9:15 AM EDT Office Visit [facility] MEDICINE [address] [place] [address] Maribell Alanis FNP [address] [place] [address] documented as of this encounter Visit Diagnoses Not on filedocumented in this encounter Additional Health Concerns Assessment Noted Time PHQ-9 Depression Total Score: 8 07/22/19 24 9:06 AM EDT documented as of this encounter Care Teams Recreation Counselor Relationship Specialty Start Date End Date Maribell Alanis FNP [address] [place] [address] PCP - General Family Medicine 08/14/21 documented as of this encounter
--- OUTSIDE RECORDS SUMMARY | 2024-06-01 11:04 | XMS_ITS | Encounter Summary ---
Author Organization [employer] Address [address] [facility] 7t [place] [address] Care Team Providers Care Center Director Name Role Phone Maribell Alanis Primary Care Provider [phone] Reason for Visit * Reason Onset Date Comments Med Refill 04/26/2024 Encounter Details Date Type Department Care Team ([facility] st Contact Info) Description 04/26/2024 Telephone [facility]INE [address] [place] [address] Maribell Alanis FNP [address] [place] [address] Med Refill Social History Tobacco Use Types [...] 5 MG tablet To be sent to: [facility] documented in this encounter Plan of Treatment Upcoming Encounters Date Type Department Care Team (Late st Contact Info) Description 07/26/2024 2:00 PM EDT Office Visit [facility] OPTOMETRY [address] [place] [address] Keagan, Shae, OD [address] [place] [address] 08/24/2024 9:15 AM EDT Office Visit [facility] MED[facility]INE [address] [place] [address] Maribell Alanis, JARRETT [address] [place] [address] documented as of this encounter Visit Diagnoses Not on filedocumented in this encounter Additional Health Concerns Assessment Noted Time PHQ-9 Depression Total Score: 8 07/22/19 24 9:06 AM EDT documented as of this encounter Care Teams Center Director Relationship Specialty Start Date End Date Maribell Alanis FNP [address] [place] [address] PCP - General Family Medicine 08/14/21 documented as of this encounter
--- OUTSIDE RECORDS SUMMARY | 2024-06-01 11:04 | XMS_ITS | Encounter Summary ---
Author Organization [employer] Address [address] [facility] 7t [place] [address] Care Team Providers Care Editorial Cartoonist Name Role Phone Maribell Alanis MOLECULAR PATHOLOGIST Primary Care Provider [phone] Reason for Visit * Reason Comments Med Refill Encounter Details Date Type Department Care Team ([facility] st Contact Info) Description 08/24/2023 Refill [facility] MED[facility] [address] [place] [address] Name, MD Varun [address] [place] [address] Insomnia, unspecified type Social History Tobacco Use [...] Description 07/26/2024 2:00 PM EDT Office Visit [facility] OPTOMETRY [address] [place] [address] Keagan, Shae, OD [address] [place] [address] 08/24/2024 9:15 AM EDT Office Visit [facility] MEDICINE [address] [place] [address] Maribell Alanis FNP [address] [place] [address] documented as of this encounter Visit Diagnoses Diagnosis Insomnia, unspecified type documented in this encounter Additional Health Concerns Assessment Noted Time PHQ-9 Depression Total Score: 8 07/22/19 24 9:06 AM EDT documented as of this encounter Care Teams Editorial Cartoonist Relationship Specialty Start Date End Date Maribell Alanis FNP [address] [place] [address] PCP - General Family Medicine 08/14/21 documented as of this encounter
--- OUTSIDE RECORDS SUMMARY | 2024-06-01 11:04 | XMS_ITS | Encounter Summary ---
Author Organization [employer] Address [address] [facility] 7t [place] [address] Care Team Providers Care Jewelry Mechanic Name Role Phone Maribell Alanis FUR GRADER Primary Care Provider [phone] Encounter Details Date Type Department Care Team (Latest Contact Info) Description 06/01/2024 Travel Social History Tobacco Use Types Packs/Day Years [...] Description 07/26/2024 2:00 PM EDT Office Visit [facility] OPTOMETRY [address] [place] [address] Keagan, Shae, OD [address] [place] [address] 08/24/2024 9:15 AM EDT Office Visit [facility] MEDICINE [address] [place] [address] Maribell Alanis FNP [address] [place] [address] documented as of this encounter Visit Diagnoses Not on filedocumented in this encounter Additional Health Concerns Assessment Noted Time PHQ-9 Depression Total Score: 8 07/22/19 24 9:06 AM EDT documented as of this encounter Care Teams Jewelry Mechanic Relationship Specialty Start Date End Date Maribell Alanis FNP [address] [place] [address] PCP - General Family Medicine 08/14/21 documented as of this encounter
--- OUTSIDE RECORDS SUMMARY | 2024-06-01 11:04 | XMS_ITS | Encounter Summary ---
Author Organization [employer] Address [address] [facility] 7t [place] [address] Care Team Providers Care Drywall Stripper Helper Name Role Phone Maribell Alanis Primary Care Provider [phone] Reason for Visit * Reason Onset Date Comments Chart Prep 05/31/2024 Encounter Details Date Type Department Care Team ([facility] Contact Info) Description 05/31/2024 Telephone [facility] [address] [place], [place] [phone] Maribell Alanis FNP [address] [place] [address] Chart Prep Social History Tobacco Use Types Packs/Day Years [...] encounter Miscellaneous Notes * Telephone Encounter - Sue Mcgarry [place] - 05/31/2024 11:25 AM EDT Chart Prep Labs: not done Images: done Vaccines due: yes Referrals: complete Screenings: colonoscopy and mammogram Overdue care gaps: SBIRT and PHQ-9 documented in this encounter Plan of Treatment Upcoming Encounters Date Type Department Care Team (Late st Contact Info) Description 07/26/2024 2:00 PM EDT Office Visit [facility] OPTOMETRY [address] [place] [address] Keagan, Shae, OD [address] [place] [address] 08/24/2024 9:15 AM EDT Office Visit [facility] [address] [place] [address] Maribell Alanis, JARRETT [address] [place] [address] documented as of this encounter Visit Diagnoses Not on filedocumented in this encounter Additional Health Concerns Assessment Noted Time PHQ-9 Depression Total Score: 8 07/22/19 24 9:06 AM EDT documented as of this encounter Care Teams Drywall Stripper Helper Relationship Specialty Start Date End Date Maribell Alanis FNP [address] [place] [address] PCP - General Family Medicine 08/14/21 documented as of this encounter
--- OUTSIDE RECORDS SUMMARY | 2024-06-01 11:04 | XMS_ITS | Encounter Summary ---
Author Organization [employer] [facility] Address [address] [place] [address] [address] [place] [address] Care Team Providers Care Drafting Layout Man Name Role Phone Maribell Alnais Primary Care Provider [phone] Reason for Referral * Consultation (Routine) - Authorized Specialty Diagnoses / Procedures Referred By [employer] t Referred To Contact Dentist / Dentistry Diagnoses Healthcare maintenance Maribell Alanis FNP [address] [place] [address] Phone: tel: fax: [facility] [address] [place] [address] Phone: tel: fax: Referral ID Status Reason Start Date Expiration Date Visits Requested Visits Authorized [id number] Authorized Consult and Treat 06/01/2024 06/01/2025 1 1 Reason for Visit * Reason Comments Follow-up Encounter Details Date Type Department Care Team (Latest Contact Info) Description 06/01/2024 9:00 AM EDT Office Visit [facility] [address] [place] [address] Maribell Alanis FNP [address] [place] [address] Seasonal allergies (Primary Dx); Healthcare maintenance; Knuckle pads on dorsal aspect of multiple metacarpophalangeal and interphalangeal joints; Complex renal cyst Social History Tobacco Use Types Packs/Day Years [...] AM EDT documented as of this encounter Last Filed Vital Signs Vital Sign Reading Time Taken Comments Blood Pressure 109/73 06/01/2024 8:58 AM EDT Pulse 68 06/01/2024 8:58 AM EDT Temperature 36.1 ??C (97 ??F) 06/01/2024 8:58 AM EDT Respiratory Rate 20 06/01/2024 8:58 AM EDT Oxygen Saturation 96% 06/01/2024 8:58 AM EDT Inhaled Oxygen Concentration - - Weight 75.9 kg (167 lb 6 oz) 06/01/2024 8:58 AM EDT Height 154.9 cm (5' 1 ) 06/01/2024 8:58 AM EDT Body Mass Index 31.63 06/01/2024 8:58 AM EDT documented in this encounter Miscellaneous Notes * Assessment & Plan Note - JARRETT Resendez - 06/01/2024 9:43 AM EDTAssociated Problem(s): Healthcare maintenance Declines PCV20 today, will consider next appt * Assessment & Plan Note - JARRETT Resendez - 06/01/2024 9:40 AM EDTAssociated Problem(s): Complex renal cyst 06/03/23: US renal ordered by Violette Rojas. No hydronephrosis. No renal calculi. Renal cortical thickness is normal. Limited visualization. Next US due approx June 2024 through Urology documented in this encounter Plan of Treatment Upcoming Encounters Date Type Department Care Team (Late st Contact Info) Description 07/26/2024 2:00 PM EDT Office Visit [facility] OPTOMETRY [address] [place] [address] Keagan, Shae, OD [address] [place] [address] 08/24/2024 9:15 AM EDT Office Visit [facility] [address] [place] [address] Maribell Alanis FNP [address] [place] [address] Scheduled Orders Name Type Priority Associated Diagnoses Orde r Schedule Lipid Panel, Standard Lab Routine Healthcare maintenance Expected: 06/01/2024 (Approximate), Expires: 06/01/2025 Comprehensive Metabolic Panel Lab Routine Healthcare maintenance Expected: 06/01/2024 (Approximate), Expires: 06/01/2025 TSH W/Reflex to FT4 Lab Routine Healthcare maintenance Expected: 06/01/2024 (Approximate), Expires: 06/01/2025 Ferritin Lab Routine Healthcare maintenance Expected: 06/01/2024, Expires: 06/01/2025 CBC auto differential Lab Routine Healthcare maintenance Expected: 06/01/2024 (Approximate), Expires: 06/01/2025 Iron And Total Iron Binding Capacity Lab Routine Healthcare maintenance Expected: 06/01/2024, Expires: 06/01/2025 Scheduled Referrals Name Type Priority Associated Diagnoses Orde r Schedule Referral to [facility] Dental Outpatient Referral Routine Healthcare maintenance Expected: 06/01/2024 (Approximate), Expires: 06/01/2025 documented as of this encounter Visit Diagnoses Diagnosis Seasonal allergies- Primary Allergic rhinitis, cause unspecified Healthcare maintenance Knuckle pads on dorsal aspect of multiple metacarpophalangeal and interphalangeal joints Complex renal cyst Other specified congenital cystic kidney disease documented in this encounter Additional Health Concerns Assessment Noted Time PHQ-9 Depression Total Score: 8 07/22/19 24 9:06 AM EDT documented as of this encounter Care Teams Drafting Layout Man Relationship Specialty Start Date End Date Maribell Alanis FNP [address] [place] [address] PCP - General Family Medicine 08/14/21 documented as of this encounter
--- OUTSIDE RECORDS SUMMARY | 2024-06-01 11:04 | XMS_ITS | Clinical Summary ---
Author Organization [employer] Address [address] [facility] 7t [place] [address] Care Team Providers Care Filter Press Tender Name Role Phone Maribell Alanis JARRETT Primary Care Provider [phone] Allergies No known active allergies Medications * This document contains information received from the source organization and may not represent a complete record from that organization. lidocaine (Lidoderm) 5 % patchIndications:Pain Apply 1 patch topically Once per day. Remove & discard patch within 12 hours or as directed by MD. 30 patch 11 Active Diclofenac Sodium 1 % gelIndications:Pain APPLY 2 GRAMS TO AFFECTED AREA(S) 2-3 times DAILY NEEDED FOR PAIN 100 g 11 Active albuterol (Ventolin HFA) 108 (90 Base) MCG/ACT inhaler INHALE 2 PUFFS BY MOUTH EVERY 4 TO 6 HOURS NEEDED 18 g 11 Active cetirizine (ZyrTEC) 10 MG tabletIndications:Sea zoila [...] if needed for severe pain. 15 tablet Active Ketotifen Fumarate 0.035 % solutionIndications:S easonal allergies Administer 1 drop into both eyes if needed in the morning and at bedtime (allergy symptoms or itching). 10 mL 3 025 Active betamethasone, augmented, (Diprolene) 0.05 % ointmentIndications:K nuckle pads on dorsal aspect of multiple metacarpophalangeal and interphalangeal joints Apply topically 2 times daily. Up to 1 week 50 g 2 025 Active betamethasone, augmented, (Diprolene) 0.05 % ointmentIndications:K nuckle pads on dorsal aspect of multiple metacarpophalangeal and interphalangeal joints Apply topically 2 times daily. 50 g 024 2024 Discontinued( Reorder (will not trigger notification to Pharmacy)) Ketotifen Fumarate 0.035 % solutionIndications:S easonal allergies Administer 1 drop into both eyes if needed in the morning and at bedtime (allergy symptoms or itching). 10 mL 3 024 2024 Discontinued( Reorder (will not trigger notification to Pharmacy)) Active Problems Problem Noted Date Diagnosed Date Abnormal uterine bleeding (AUB) 10/21/2023 Assessment & Plan (10/21/2023 6:09 AM EDT): Following with [facility] CLINICAL INFORMATICS SPECIALIST - Dr. Cazares Pelvic US 06/03/23 that [...] Plan (07/22/2023 6:20 AM EDT): Following with [facility] Ortho Per consult in Mar 2023, plan for physical therapy and NSAIDs, declined injection Anemia 07/22/2023 Overview (07/22/2023): Following with [facility] Heme/Onc for normocytic normochromic anemia with iron deficiency Assessment & Plan (10/22/2023 7:39 AM EDT): - Recieved IV Iron, stopped PO iron - Referred to CLINICAL INFORMATICS SPECIALIST for eval menorrhagia and GI for screening colonoscopy - Recent B, will check current levels Assessment & Plan (07/25/2023 11:34 AM EDT): - Started IV Iron, stopped PO iron - Referred to CLINICAL INFORMATICS SPECIALIST for eval menorrhagia and GI for screening colonoscopy Vitreomacular adhesion, 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 No hydronephrosis. No renal calculi. Renal cortical thickness is normal. Limited visualization. Next US due approx June 2024 through Urology Assessment & Plan (07/22/2023 6:26 AM EDT): 06/03/23: US renal ordered by Violette Rojas. No hydronephrosis. No renal calculi. Renal cortical thickness is normal. Limited visualization. Healthcare maintenance 09/28/2022 Overview (06/01/2024): Optometry: [facility] Pap: 05/14/23 NILM, HPV neg (Dr. Cazares) Mammo: BIRADS 3 in Apr 2024, repeat 6 mo Colonoscopy: referral to GI placed 10/21/23 Dental: referral to [facility] Dental placed 07/22/23 Assessment & Plan (06/01/2024 9:43 AM EDT): Declines PCV20 today, will consider next appt Dermatitis 09/28/2022 Assessment & Plan (02/21/2023 10:12 [...] be also referred to Ind. Therapy in [facility]. I encouraged her to reach out [...] is resilience and willing to engage in MH services. PLAN: 1. Follow up with [facility]: Not recommended for follow-up 2. Patient goal is engage in MH services to address anxiety sxs 3. Behavioral Recommendations a. Ind. Therapy b. Practicing coping mechanisms discussed c. Will reach out for support as needed. Chronic pain of left ankle 06/27/2022 Left wrist pain 06/27/2022 Seasonal allergies 06/27/2022 Overview (06/01/2024): Continues with cetirizine 10mg PO daily PRN allergies Ketotifen eye drops PRN Bulging of intervertebral disc between L4 and [...] Encounters Date Type Department Care Team Description 06/01/2024 9:00 AM EDT Office Visit [facility] MEDICINE [address] [place] [phone] Maribell Alanis FNP Seasonal allergies (Primary Dx); Healthcare maintenance; Knuckle pads on dorsal aspect of multiple metacarpophalangeal and interphalangeal joints; Complex renal cyst 06/01/2024 Patient Outreach [facility] MEDICINE [address] [place] [address] Maribell Alanis FNP Care Coordination (CHW outreach for SDOH food needs-referral completed /) 06/01/2024 Travel 05/31/2024 Telephone [facility] CHC MED & PEDS [address] [place] [address] Maribell Alanis FNP Chart Prep 05/26/2024 Travel 05/26/2024 Telephone [facility] MED & PEDS [address] [place] [address] Maribell Alanis FNP Annual Exam 05/23/2024 Patient Outreach [facility] MED & PEDS [address] [place], [place] [phone] Maribell Alanis FNP Pre-visit Planning (SDOH Screening negative and Tobacco screening negative) 05/13/2024 Population Health Risk Score Community [facility] () Department [address] [place] [id number] Provider, Population Health Generic 04/26/2024 Refill [facility] MED & PEDS [address] [place], [place] [phone] Ana Duque RN Insomnia, unspecified type; Bulging of intervertebral disc between L4 and L5 04/26/2024 Telephone [facility] MEDICINE [address], [place] [phone] Maribell Alanis FNP Med Refill 04/04/2024 Orders Only [facility] MEDICINE [address], [place] [phone] Jamee Oden DO from Last 3 Months [...] Mass Index 31.63 06/01/2024 8:58 AM EDT Plan of Treatment Upcoming Encounters Date Type Department Care Team (Late st Contact Info) Description 07/26/2024 2:00 PM EDT Office Visit [facility] OPTOMETRY [address] [place] [address] Keagan, Shae, OD [address] [place] [address] 08/24/2024 9:15 AM EDT Office Visit [facility] MEDICINE [address] [place] [address] Maribell Alanis, REFERRAL AGENT [address] [place] [address] Health Maintenance Due Date Last Done Comments CT Colonography 1971 Colonoscopy 1971 Colorectal Cancer Screening 1971 FIT DNA/Cologuard 1971 FIT 1971 FOBT 1971 Sigmoidoscopy 1971 Alcohol/Substance Use Screening 1983 Hepatitis A Vaccines (2 of 2 - Risk 2-dose series) 09/02/2018 03/05/2018 Pneumococcal Vaccine: 50+ Years (1 of 1 - PCV) 2021 Zoster Vaccines (1 of 2) 2021 Depression Screening 07/21/2024 07/22/2023, 07/22/19 Influenza Vaccine (#1) 2024 Postp oned from 11/01/2023 (Patient Refused) Diagnostic Breast Imaging 10/02/20242024, 02/04/2022, 01/14/2019, Additional history exists SDOH Screening 05/23/2025 05/23/2024 COVID-19 Vaccine ( season) 2025 Postponed from 11/01/2023 (Patient Refused) Tobacco Screening 06/01/2025 06/01/2024 DTaP/Tdap/Td Vaccines (2 - Td or Tdap) [...] PAP SMEAR Routine 05/14/2023 2:15 PM EDT [facility] HISTORICAL HPV MRNA E6/E7 Routine 12/15/2017 2:12 PM EDT from Last 3 Months or Most Recently Relevant to Health Maintenance Results * BI US Breast Limited Right (04/04/2024 9:15 AM EST) Anatomical Region Laterality Modality Breast Right Ultrasound 04/04/2024 9:15 AM EST Narrative 04/04/2024 9:49 AM EST ? [facility] ? [address] ?[place] [address] ? Ultrasound Report ? Signed ? Patient: Ever John ?MR#: [id number] ?? 1 ? : 1970 ?Acct:[id number] ? Age/Sex: 54 / F ?ADM Date: 04/04/24 ? Loc: HO.MAMMO ? Attending Dr: Jamee Oden DO ? Ordering Physician: Jamee Oden DO ?? Date of Service: 04/04/24 ?? Procedure(s): US breast RT limited mamm only ?? Accession Number(s): [id number] ? cc: Jamee Oden DO ? EXAMINATION: [...] in OV> ? 04/04/24 0946 ? DD/ 0915 ? TD/TT: 04/04/24 0938 ? Arabic Professor: ? Procedure Note Crow, Image - 04/04/2024 [facility] [address] [place] [address] Ultrasound Report Signed Patient: Beau John#: [id number] 1 : 1970Acct:[id number] Age/Sex: 54 / FADM Date: 04/04/24 Loc: HO.MAMMO Attending Dr: Jamee Oden DO Ordering Physician: Jamee Oden DO Date of Service: 04/04/24 Procedure(s): US breast RT limited mamm only Accession Number(s): [id number] cc: Jamee Oden DO EXAMINATION: MM DIAGNOSTIC [...] in OV> 04/04/2446 DD/ 4 TD/TT: 04/04/24937 Arabic Professor: us Jamee Oden DO IMG US PROCEDURES Final Resu lt * BI Mammogram Diagnostic Tomosynthesis added right (04/04/2024 8:42 AM EST) Anatomical Region Laterality Modality Breast Left Mammography 04/04/2024 8:42 AM EST Narrative 04/04/2024 9:49 AM EST ? [facility] ? [address] ?[place] [address] ? Mammography Report ? Signed ? Patient: John,Ever ?MR#: [id number] ?? 1 ? : 1970 ?Acct:[id number] ? Age/Sex: 54 / F ?ADM Date: 04/04/ ? Loc: HO.MAMMO ? Attending Dr: Jamee Oden DO ? Ordering Physician: Akshat,Jamee A DO ? Results: 3.6MProbably Benign Finding - Short 6 M F/U ?? Suggested ? Date of Service: 04/04/24 ?Follow Up: 6 Month F/U ? Procedure(s): MM tomosynthesis added views R ?? Accession Number(s): [id number] ? cc: Jamee Oden DO ? EXAMINATION: [...] ??Ale Damon DO ??04/04/2024 09:46 AM EST ? Dictated By: ?Ale Damon DO ? Signed By: ?<Electronically signed by Ale Damon, DO in OV> ? 04/04/24 0946 ? DD/ ? TD/TT: 04/04/2453 ? Arabic Professor: ? Procedure Note Crow, Zenia - 04/04/2024 [facility] [address] [place] [address] Mammography Report Signed Patient: Beau John#: [id number] 1 : 1970Acct:[id number] Age/Sex: 54 / FADM Date: 04/04/24 Loc: HO.MAMMO Attending Dr: Jamee Oden DO Ordering Physician: Jamee Oden DO Results: 3.6MProbably Benign Finding - Short 6 M F/U Suggested Date of Service: 04/04/24Follow Up: 6 Month F/U Procedure(s): MM tomosynthesis added views R Accession Number(s): [id number] cc: Jamee Oden DO EXAMINATION: MM DIAGNOSTIC [...] by: Ale Damon DO 04/04/2024 09:46 AM [facility] Dictated By: Ale Damon DO Signed By: <Electronically signed by Ale Damon DO in OV> 04/04/24 0946 DD/ 0842 TD/TT: 04/04/24 0853 Arabic Professor: us Jamee Oden DO IMG BI PROCEDURES Final Resu lt * Pap Smear (05/14/2023 2:15 PM EDT) 05/14/2023 2:15 PM EDT 05/15/2023 9:00 AM EDT [facility] - 05/26/2023 10:17 AM EDT ----- ------- Name: Ever John ?Age/Sex: 53/F ? : 1970 Unit#: [id number] ?? Attend Dr: Duc Cazares MD ?Re05/14/23 ?Status: DEP REF ? Location: HO.LNP ?Disch: ? ----- ------- SPEC : [id number] ? RECD: 05/15/23 ? STATUS: ??SOUT ? REQ NUM: [id number] ? GOSIA: 05/14/23-1233 ? SUBM DR: Duc Cazares MD ? ENTERED: ??05/15/23 ?SP TYPE: Pap Smr ?OTHR DR: Maribell Alanis REFERRAL AGENT ? ORDERED: ??Pap Smear ? Interpretation ?? [...] 66, 68) ?? HPV testing performed by [employer], [place], [place]. ??See reference laboratory ?? portion of the EMR for entire report. ?Clinical Information LMP: Unknown date Previous PAP test: 2018, Unknown findings Other history: Abnormal uterine and vaginal bleeding ? Material Received ?? ThinPrep-Cervical Copies To: ?? Maribell Alanis ?? [address] [facility] ?? [place] [address] ?? [phone] ?? Duc Cazares MD ?? [address] [place] [address] Dr. [facility] ?? [place] [address] ?? [phone] ----- ------- Signed (signature on file) ROMÁN Joaquin (ASCP) 05/26/23 1017 ? ----- ------- ? END OF REPORT ? us Generic External Data Provider LAB CYTOLOGY MARYE ANGELICA Final Result [facility] [address] [place] [phone] * (ABNORMAL) HPV mRNA E6/E7 (12/15/2017 2:12 PM EDT) HPV mRNA E6/E7 DETECTED (AA) NOT DETECTED [facility] Comment: This test was performed using the APTIMA(R) HPV Assay ([employer] This assay detects E6/E7 viral messenger RNA (mRNA) from 14 high-risk HPV types (16,18,31,33,35,39,45,51, 52,56,58,59,66,68). For additional information please refer to: http://education.[employer].DragonWave/faq/MZC725a9 (This link is being provided for informational/ educational purposes only.) The analytical performance characteristics of this assay have been determined by [employer] [place], [place]. The modifications have not been cleared or approved by the FDA. This assay has been validated pursuant to the CLIA regulations and is used for clinical purposes. Test Performed by [facility], [facility], [address] [facility], [place], [place] Brodie Koenig M.D., Ph.D., Director of Laboratories , CLIA [id number] Please note: ??Effective 11/12/2015, HPV testing will be performed using [employer]'s APTIMA test which targets mRNA. Detecting mRNA instead of DNA, as in older methods, offers significant improvements in specificity. 12/15/2017 2:12 PM EDT Lesia Ramon CNM HISTORICAL/NON ORDERABLE LABS Final Result [facility] [address] from Last 3 Months or Most Recently Relevant to Health Maintenance Insurance [facility] C3 DENTAL-[facility] MEDICAID STAND ADULT Care Teams Filter Press Tender Relationship Specialty Start Date End Date Maribell Alanis FNP [address] [place] [address] PCP - General Family Medicine 08/14/21
--- OUTSIDE RECORDS SUMMARY | 2024-06-01 11:04 | XMS_ITS | Encounter Summary ---
Author Organization [employer] [facility] [facility] Address [address] [facility] [address] [place] [address] Care Team Providers Care Product Development Consultant Name Role Phone Maribell Alanis Primary Care Provider [phone] Reason for Visit * Reason Comments Med Refill Encounter Details Date Type Department Care Team ([facility] Contact Info) Description 09/11/2022 Refill [facility] MEDICINE [address] [place] [address] Maribell Alanis FNP [address] [place] [address] Social History Tobacco Use Types Packs/Day Years [...] Upcoming Encounters Date Type Department Care Team ([facility] Contact Info) Description 07/26/2024 2:00 PM EDT Office Visit [facility] OPTOMETRY [address] [place] [address] Keagan, Shae, OD [address] [place] [address] 08/24/2024 9:15 AM EDT Office Visit [facility] MEDICINE [address] [place] [address] Maribell Alanis FNP [address] [place] [address] documented as of this encounter Visit Diagnoses Not on filedocumented in this encounter Additional Health Concerns Assessment Noted Time PHQ-9 Depression Total Score: 14 023 9:20 AM EDT documented as of this encounter Care Teams Product Development Consultant Relationship Specialty Start Date End Date Maribell Alanis FNP [address] [place] [address] PCP - General Family Medicine 08/14/21 documented as of this encounter
[2024-06-01 11:35] LABS: MANUAL DIFF FLAG NO
[2024-06-01 11:38] LABS: Basophils Percent Auto 0.8 % (0-2); Eosinophils Absolute Auto 0.2 X10*3/uL (0.0-0.4); Eosinophils Percent Auto 3.9 % (0-4); Hematocrit 34.7 % (37.0-47.0); Hemoglobin 11.1 g/dl (12.0-16.0); Imm Gran Abs Auto 0.01 X10*3/uL (0.00-0.03); Imm Gran Pct Auto 0.2 % (0.0-0.4); Lymphocytes Absolute Auto 1.7 X10*3/uL (1.2-4.9); Lymphocytes Percent Auto 32.6 % (20-40); Mean Corpuscular Hemoglobin 27.8 pg (27.0-33.0); Mean Platelet Volume 11.4 fL (9.4-12.3); Monocytes Absolute Auto 0.3 X10*3/uL (0.1-1.2); Monocytes Percent Auto 6.6 % (2-11); Neutrophils Absolute Auto 2.9 x10*3/uL (2.0-8.3); Neutrophils Percent Auto 55.9 % (45-73); Platelet Count 328 X10*3/uL (160-400); Red Blood Count 3.99 X10*6/uL (4.20-5.50); Red Cell Distribution Width 13.5 % (11.0-16.0); White Blood Count 5.2 X10*3/uL (4.8-10.8)
[2024-06-01 12:14] LABS: Alanine Aminotransferase 20 U/L (0-31); Alkaline Phosphatase 55 U/L (39-117); Anion Gap 12 (12-20); Aspartate Amino Transferase 26 U/L (5-31); Bilirubin Total 0.3 mg/dL (0.0-1.0); Blood Urea Nitrogen 13 mg/dL (9-16); Calcium 9.6 mg/dL (8.4-10.2); Carbon Dioxide 27 mmol/L (22-29); Chloride 107 mmol/L (96-108); Cholesterol 182 mg/dL (<200); Estimated Glomerular Filt Rate > 60; Ferritin 212 ng/mL (10-250); Glucose Random 87 mg/dL (60-115); HDL Cholesterol 44 mg/dL (>40); Iron 95 mcg/dL (30-160); LDL Cholesterol Calculated 111 mg/dL (<100); Percent Iron Saturation 36 % (15-50); Potassium 4.5 mmol/L (3.3-5.1); Sodium 141 mmol/L (135-145); Total Iron Binding Capacity 265 mcg/dL (228-428); Total Protein 7.2 g/dL (6.5-8.0); Triglycerides 136 mg/dL (<150); Unsaturated Iron Binding 170 ug/dL
[2024-06-01 12:21] LABS: TSH reflex Free T4 1.07 uIU/mL (0.32-4.0)
== END 2024-06-01 09:45 | disposition home or self-care (01) ==
LOC: HO.HHCL 09:44
PROVIDERS: Internal Medicine Medical Oncology; Visit Provider Registered Nurse
DX: Z00.00 Encounter for general adult medical examination without abnormal findings (principal); D64.9 Anemia, unspecified
CPT/HCPCS: 36415; 80053; 80061; 82728; 83540; 84443; 85025

== ENCOUNTER 2024-07-07 14:16 | Outpatient (REF) | payer MEDICAID, SELFPAY ==
--- NOTE | ~2024-07-07 | US_ITS ---
EXAMINATION: US KIDNEY BILATERAL HISTORY: R31.29 - Other microscopic hematuria TECHNIQUE: Real-time grayscale ultrasound imaging of the kidneys was performed and images were reviewed. COMPARISON: Comparison is made with the prior examination dated 06/03/2023. FINDINGS: Right kidney: The right kidney measures 11.3 x 4.9 x 4.5 cm. Renal parenchymal echotexture and thickness are normal. There are no masses. There is no hydronephrosis or renal calculi. Left Kidney: The left kidney measures 11.4 x 4.5 x 4.3 cm. Renal parenchymal echotexture and thickness are normal. There are no masses. There is no hydronephrosis or renal calculi. US/US renal BI IMPRESSION: Unremarkable renal ultrasound. Electronically signed by: Giovanny Gallegos MD 07/07/2024 02:56 PM EDT
--- OUTSIDE RECORDS SUMMARY | 2024-07-07 15:07 | XMS_ITS | Encounter Summary ---
Author Organization [employer] Address [address] [facility] 7t [place] [address] Care Team Providers Care Softwood Faller Name Role Phone Maribell Alanis Primary Care Provider [phone] Reason for Visit * Reason Comments Med Refill Encounter Details Date Type Department Care Team (Late Contact Info) Description 09/11/2022 Refill [facility] MEDICINE [address] [place] [address] Maribell Alanis FNP [address] [place] [address] Social History Tobacco Use Types Packs/Day Years [...] Encounters Date Type Department Care Team (Late Contact Info) Description 07/26/2024 2:00 PM EDT Office Visit [facility] OPTOMETRY [address] [place] [address] Keagan, Shae, OD [address] [place] [address] 08/24/2024 9:15 AM EDT Office Visit [facility] MEDICINE [address] [place] [address] Maribell Alanis FNP [address] [place] [address] documented as of this encounter Visit Diagnoses Not on filedocumented in this encounter Additional Health Concerns Assessment Noted Time PHQ-9 Depression Total Score: 14 023 9:20 AM EDT documented as of this encounter Care Teams Softwood Faller Relationship Specialty Start Date End Date Maribell Alanis FNP [address] [place] [address] PCP - General Family Medicine 08/14/21 documented as of this encounter
--- OUTSIDE RECORDS SUMMARY | 2024-07-07 15:07 | XMS_ITS | Encounter Summary ---
Author Organization [employer] Address [address] [facility] 7t [place] [address] Care Team Providers Care Customer Agent Name Role Phone Maribell Alanis JARRETT Primary Care Provider [phone] Encounter Details Date Type Department Care Team ([facility] Contact Info) Description 07/07/2024 Orders Only [facility] External Provider, [facility] Social History Tobacco Use Types Packs/Day Years [...] Description 07/26/2024 2:00 PM EDT Office Visit [facility] OPTOMETRY [address] [place] [address] Keagan, Shae, OD [address] [place] [address] 08/24/2024 9:15 AM EDT Office Visit [facility] MEDICINE [address] [place] [address] Maribell Alanis, DIGITAL MARKETING STRATEGIST [address] [place] [address] documented as of this encounter Procedures Procedure Name Priority Date/Time Associated Diagnosis Comments US RENAL BI Routine 07/07/2024 2:35 PM EDT documented in this encounter Results * US RENAL BI (07/07/2024 2:35 PM EDT) Anatomical Region Laterality Modality Abdomen Ultrasound 07/07/2024 2:35 PM EDT Narrative 07/07/2024 2:59 PM EDT ? [facility] ?[address] ?[place] [address] ? Ultrasound Report ? Signed ? Patient: John,Ever ?MR#: [id number] ?? 1 ? : 1970 ?Acct:[id number] ? Age/Sex: 54 / F ?ADM Date: 05/08/25 ? Loc: HO.US ? Attending Dr: Violette ESCALONA ? Ordering Physician: Violette Rojas ?? Date of Service: 07/07/24 ?? Procedure(s): US renal BI ?? Accession Number(s): [id number] ? cc: Jamee Oden DO; Violette Rojas ? EXAMINATION: ??US KIDNEY BILATERAL ? HISTORY: R31.29 - Other microscopic hematuria ? TECHNIQUE: Real-time grayscale ultrasound imaging of the kidneys was ?? performed and images were reviewed. ? COMPARISON: Comparison is made with the prior examination dated ?? 06/03/2023. ? FINDINGS: ? Right kidney: ??The right kidney measures 11.3 x 4.9 x 4.5 cm. ??Renal ?? parenchymal echotexture and thickness are normal. ??There are no masses. ?? There is no hydronephrosis or renal calculi. ? Left Kidney: ??The left kidney measures 11.4 x 4.5 x 4.3 cm. ??Renal ?? parenchymal echotexture and thickness are normal. ??There are no masses. ?? There is no hydronephrosis or renal calculi. ? US/US renal BI ?? IMPRESSION: ? Unremarkable renal ultrasound. ? Electronically signed by: ??Giovanny Gallegos MD ??07/07/2024 02:56 PM EDT ? Dictated By: ?Giovanny Gallegos MD ? Signed By: ?<Electronically signed by Giovanny Gallegos MD in OV> ?07/07/24 1456 ? DD/ 1435 ? TD/TT: 07/07/24 1438 ? Service Support Representative: ? Procedure Note Zenia Maria - 07/07/[address] [address] Ultrasound Report Signed Patient: Beau John#: [id number] 1 : 1970Acct:[id number] Age/Sex: 54 / FADM Date: 07/07/24 Loc: HO.US Attending Dr: Violette ESCALONA Ordering Physician: Violette Rojas Date of Service: 07/07/24 Procedure(s): US renal BI Accession Number(s): [id number] cc: Jamee Oden DO; Violette Rojas DIGITAL MARKETING STRATEGIST- EXAMINATION: US KIDNEY BILATERAL HISTORY: R31.29 - Other microscopic hematuria TECHNIQUE: Real-time grayscale ultrasound imaging of the kidneys was performed and images were reviewed. COMPARISON: Comparison is made with the prior examination dated 06/03/2023. FINDINGS: Right kidney: The right kidney measures 11.3 x 4.9 x 4.5 cm. Renal parenchymal echotexture and thickness are normal. There are no masses. There is no hydronephrosis or renal calculi. Left Kidney: The left kidney measures 11.4 x 4.5 x 4.3 cm. Renal parenchymal echotexture and thickness are normal. There are no masses. There is no hydronephrosis or renal calculi. US/US renal BI IMPRESSION: Unremarkable renal ultrasound. Electronically signed by: Giovanny Gallegos MD 07/07/2024 02:56 PM EDT Dictated By: Giovanny Gallegos MD Signed By: <Electronically signed by Giovanny Gallegos MD in OV> 07/07/24 1456 DD/ 1435 TD/TT: 07/07/24 1438 Service Support Representative: [facility] External Provider IMG US PROCEDURES Edited Result - Final documented in this encounter Visit Diagnoses Not on filedocumented in this encounter Additional Health Concerns Assessment Noted Time PHQ-9 Depression Total Score: 8 07/22/19 24 9:06 AM EDT documented as of this encounter Care Teams Customer Agent Relationship Specialty Start Date End Date Maribell Alanis FNP [address] [place] [address] PCP - General Family Medicine 08/14/21 documented as of this encounter
--- OUTSIDE RECORDS SUMMARY | 2024-07-07 15:07 | XMS_ITS | Encounter Summary ---
Author Organization [employer] Address [address] [facility] 7t [place] [address] Care Team Providers Care Dictaphone Operator Name Role Phone Maribell Alanis Primary Care Provider [phone] Reason for Visit * Reason Onset Date Comments Appointment Request 12/04/2023 Encounter Details Date Type Department Care Team ([facility] st Contact Info) Description 12/04/[address] [facility] MEDICINE [address] [place] [address] Maribell Alanis FNP [address] [place] [address] Appointment Request Social History Tobacco Use Types [...] Description 07/26/2024 2:00 PM EDT Office Visit [facility] OPTOMETRY [address] [place] [address] Keagan, Shae, OD [address] [place] [address] 08/24/2024 9:15 AM EDT Office Visit [facility] MEDICINE [address] [place] [address] Maribell Alanis FNP [address] [place] [address] documented as of this encounter Visit Diagnoses Not on filedocumented in this encounter Additional Health Concerns Assessment Noted Time PHQ-9 Depression Total Score: 8 07/22/19 24 9:06 AM EDT documented as of this encounter Care Teams Dictaphone Operator Relationship Specialty Start Date End Date Maribell Alanis FNP [address] [place] [address] PCP - General Family Medicine 08/14/21 documented as of this encounter
--- OUTSIDE RECORDS SUMMARY | 2024-07-07 15:07 | XMS_ITS | Encounter Summary ---
Author Organization [employer] Address [address] [facility] 7t [place] [address] Care Team Providers Care Signal Wirer Name Role Phone Maribell Alanis Primary Care Provider [phone] Reason for Visit * Reason Onset Date Comments Med Refill 04/26/2024 Encounter Details Date Type Department Care Team ([facility] st Contact Info) Description 04/26/2024 Telephone [facility] [address] [place] [address] Maribell Alanis FNP [address] [place] [address] Med Refill Social History Tobacco Use Types [...] 5 MG tablet To be sent to: [facility] documented in this encounter Plan of Treatment Upcoming Encounters Date Type Department Care Team (Late st Contact Info) Description 07/26/2024 2:00 PM EDT Office Visit [facility] [address] [place] [address] Keagan, Shae, OD [address] [place] [address] 08/24/2024 9:15 AM EDT Office Visit [facility] [address] [place] [address] Maribell Alanis FNP [address] [place] [address] documented as of this encounter Visit Diagnoses Not on filedocumented in this encounter Additional Health Concerns Assessment Noted Time PHQ-9 Depression Total Score: 8 07/22/19 24 9:06 AM EDT documented as of this encounter Care Teams Signal Wirer Relationship Specialty Start Date End Date Maribell Alanis FNP [address] [place] [phone] PCP - General Family Medicine 08/14/21 documented as of this encounter
--- OUTSIDE RECORDS SUMMARY | 2024-07-07 15:07 | XMS_ITS | Clinical Summary ---
Author Organization [employer] Address 75 [facility] 7t [place] [address] Care Team Providers Care Residential Lawn Specialist Name Role Phone Maribell Alanis JARRETT Primary Care Provider [phone] Allergies No known active allergies Medications * This document contains information received from the source organization and may not represent a complete record from that organization. lidocaine (Lidoderm) 5 % patchIndications:Pain Apply 1 patch topically Once per day. Remove & discard patch within 12 hours or as directed by MD. 30 patch 11 10/21/19 24 Active Diclofenac Sodium 1 % gelIndications:Pain APPLY 2 GRAMS TO AFFECTED AREA(S) 2-3 times DAILY NEEDED FOR PAIN 100 g 11 10/21/19 24 Active albuterol (Ventolin HFA) 108 (90 Base) MCG/ACT inhaler INHALE 2 PUFFS BY MOUTH EVERY 4 TO 6 HOURS NEEDED 18 g 11 10/21/19 24 Active cetirizine (ZyrTEC) 10 MG tabletIndications:Seas onal allergies Take 1 tablet (10 mg) by mouth Once per day. 90 tablet 3 10/21/19 24 Active Ketotifen Fumarate 0.035 % solutionIndications:Se asonal allergies Administer 1 drop into both eyes if needed in the morning and at bedtime (allergy symptoms or itching). 10 mL 3 06/02/19 25 Active betamethasone, augmented, (Diprolene) 0.05 % ointmentIndications:Kn uckle pads on dorsal aspect of multiple metacarpophalangeal and interphalangeal joints Apply topically 2 times daily. Up to 1 week 50 g 2 06/02/19 25 Active traMADol (Ultram) 50 MG tabletIndications:Bulg ing of intervertebral disc between L4 and L5 TAKE 1 TABLET BY MOUTH EVERY TWELVE HOURS NEEDED FOR SEVERE PAIN 15 tablet 06/08/19 25 Active zolpidem (Ambien) 5 MG tabletIndications:Inso mnia, unspecified type TAKE 1 TABLET BY MOUTH AT BEDTIME NEEDED FOR SLEEP 28 tablet 06/08/19 25 Active Active Problems Problem Noted Date Diagnosed Date Abnormal uterine bleeding (AUB) 10/21/2023 Assessment & Plan (10/21/2023 6:09 AM EDT): Following with [facility] - Dr. Cazares Pelvic US 06/03/23 that [...] Plan (07/22/2023 6:20 AM EDT): Following with [facility] Per consult in Mar 2023, plan for physical therapy and NSAIDs, declined injection Anemia 07/22/2023 Overview (07/22/2023): Following with [facility]e/Onc for normocytic normochromic anemia with iron deficiency Assessment & Plan (10/22/2023 7:39 AM EDT): - Recieved IV Iron, stopped PO iron - Referred to [facility] for eval menorrhagia and GI for screening colonoscopy - Recent B, will check current levels Assessment & Plan (07/25/2023 11:34 AM EDT): - Started IV Iron, stopped PO iron - Referred to [facility] for eval menorrhagia and GI for screening colonoscopy Vitreomacular adhesion, 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 Healthcare maintenance 09/28/2022 Overview (06/01/2024): Optometry: [facility] Pap: 05/14/23 NILM, HPV neg (Dr. Cazares) Mammo: BIRADS 3 in Apr 2024, repeat 6 mo Colonoscopy: referral to GI placed 10/21/23 Dental: referral to [facility] Dental placed 07/22/23 Assessment & Plan (06/01/2024 [...] be also referred to Ind. Therapy in [facility]. I encouraged her to reach out [...] in services. PLAN: 1. Follow up with [facility] [place]: Not recommended for follow-up 2. Patient goal [...] Encounters Date Type Department Care Team Description 07/07/2024 Orders Only [facility] External Provider, [facility] 06/09/2024 Telephone [facility] [address] [place] [address] [phone] Maribell Alanis FNP 06/06/2024 Refill [facility] [address] [place], [place] [phone] Maribell Alanis FNP Bulging of intervertebral disc between L4 and L5; Insomnia, unspecified type 06/01/2024 9:00 AM EDT Office Visit [address] [address] Maribell Alanis FNP Seasonal allergies (Primary Dx); Healthcare maintenance; Knuckle pads on dorsal aspect of multiple metacarpophalangeal and interphalangeal joints; Complex renal cyst 06/01/2024 Orders Only GENERIC EXTERNAL DATA DEPARTMENT Provider, Generic External Data 06/01/2024 Patient Outreach [facility] [address] [place] [phone] Maribell Alanis FNP Care Coordination (CHW outreach for SDOH food needs-referral completed /) 06/01/2024 Travel 05/31/2024 Telephone [facility] [address] [place], [place] [phone] Maribell Alanis FNP Chart Prep 05/26/2024 Travel 05/26/2024 Telephone [facility] [address] [place], [place] [phone] Maribell Alanis FNP Annual Exam 05/23/2024 Patient Outreach [facility] [address] [place] [address] Maribell Alanis FNP Pre-visit Planning (SDOH Screening negative and Tobacco screening negative) 05/13/2024 Population Health Risk Score [facility] ([facility]) Department [address] [place] [phone] Provider, Population Health Generic 04/26/2024 Refill [facility] [address] [place] [address] Ana Duque, GIL Insomnia, unspecified type; Bulging of intervertebral disc between L4 and L5 04/26/2024 Telephone [facility] [address] [place], [place] [phone] Maribell Alanis FNP Med Refill from Last 3 Months Immunizations Name Administration [...] Description 07/26/2024 2:00 PM EDT Office Visit [facility] OPTOMETRY [address] [place] [address] Keagan, Shae, OD [address] [place] [address] 08/24/2024 9:15 AM EDT Office Visit [facility] [address] [place] [address] Maribell Alanis, TELECASTING TECHNICIAN [address] [place] [address] Health Maintenance Due Date Last Done Comments CT Colonography 1970 Colonoscopy 1971 Colorectal Cancer Screening 1971 Dental Oral Exam 1970 Dental Prophylaxis 1971 Dental X-Ray: Bitewings 1971 Dental X-Ray: Full Mouth 1971 FIT DNA/Cologuard 1971 FIT 1971 FOBT [...] SDOH Screening 05/23/2025 05/23/2024 COVID-19 Vaccine ( - season) 2025 Postponed from 11/01/2023 (Patient Refused) [...] RENAL BI Routine 07/07/2024 2:35 PM EDT FERRITIN Routine 06/01/2024 9:48 AM EDT COMPREHENSIVE METABOLIC PANEL Routine 06/01/2024 9:48 AM EDT CBC WITH AUTO DIFFERENTIAL Routine 06/01/2024 9:48 AM EDT IRON AND TOTAL IRON BINDING CAPACITY Routine 06/01/2024 9:48 AM EDT Healthcare maintenance TSH W/REFLEX TO FT4 Routine 06/01/2024 9 :48 AM EDT Healthcare maintenance LIPID PANEL, STANDARD Routine 06/01/2024 9:48 AM EDT Healthcare maintenance BI US BREAST LIMITED RIGHT Routine 04/04/2024 9:15 AM EST PAP SMEAR Routine 05/14/2023 2:15 PM EDT ZZZ HISTORICAL HPV MRNA E6/E7 Routine 12/15/2017 2:12 PM EDT from Last 3 Months or Most Recently Relevant to Health Maintenance Results * US RENAL BI (07/07/2024 2:35 PM EDT) Anatomical Region Laterality Modality Abdomen Ultrasound 07/07/2024 2:35 PM EDT Narrative 07/07/2024 2:59 PM EDT ? [facility] ?[address] ?[place] [address] ? Ultrasound Report ? Signed ? Patient: John,Ever ?MR#: [id number] ?? 1 ? : 1970 ?Acct:[id number] ? Age/Sex: 54 / F ?ADM Date: 05/08/25 ? Loc: HO.US ? Attending Dr: Violette ESCALONA ? Ordering Physician: Violette Rojas ?? Date of Service: 07/07/24 ?? Procedure(s): US renal BI ?? Accession Number(s): [id number] ? cc: Jamee Oden DO; Violette Rojas [...] DD/ 1435 ? TD/TT: 07/07/24 1438 ? Senior Water/Wastewater Engineer: ? Procedure Note Zenia Maria - 07/07/[address] [address] Ultrasound Report Signed Patient: Beau John#: [id number] 1 : 1970Acct:[id number] Age/Sex: 54 / FADM Date: 07/07/24 Loc: HO. Attending Dr: Violette ESCALONA Ordering Physician: Violette Rojas Date of Service: 07/07/24 Procedure(s): US renal BI Accession Number(s): [id number] cc: Jamee OdenViolette [facility] EXAMINATION: US KIDNEY BILATERAL HISTORY: R31.29 - [...] 07/07/24 1456 DD/ 1435 TD/TT: 07/07/24 1438 Senior Water/Wastewater Engineer: us [facility] External Provider IMG US PROCEDURES Edited Result - Final * TSH W/Reflex to FT4 (06/01/2024 9:48 AM EDT) TSH reflex Free T4 1.07 0.32 - 4.0 uIU/mL [facility] Blood Venous blood specimen / Unknown 06/01/2024 9:48 AM EDT 06/01/2024 11:32 AM EDT [address] [facility] LAB BLOOD ORDERABLES Final Res ult [facility] [address] [place] [phone] * (ABNORMAL) CBC auto differential (06/01/2024 9:48 AM EDT) White Blood Count 5.2 4.8 - 10.8 X10*3/uL [facility] Red Blood Count 3.99(L) 4.20 - 5.50 X10*6/uL [facility] Hemoglobin 11.1(L) 12.0 - 16.0 g/dl [facility] Hematocrit 34.7(L) 37.0 - 47.0 % [facility] Mean Corpuscular Volume 87.0 80.0 - 98.0 fL [facility] Mean Corpuscular Hemoglobin 27.8 27.0 - 33.0 pg [facility] Mean Corpuscular HGB Conc 32.0 31.0 - 35.0 g/dl [facility] Red Cell Distribution Width 13.5 11.0 - 16.0 % [facility] Platelet Count 328 160 - 400 X10*3/uL [facility] Mean Platelet Volume 11.4 9.4 - 12.3 fL [facility] Neutrophils Percent Auto 55.9 45 - 73 % [facility] Imm Gran Pct Auto 0.2 0.0 - 0.4 % [facility] Lymphocytes Percent Auto 32.6 20 - 40 % [facility] Monocytes Percent Auto 6.6 2 - 11 % [facility] Eosinophils Percent Auto 3.9 0 - 4 % [facility] Basophils Percent Auto 0.8 0 - 2 % [facility] NRBC Pct Auto 0.0 0.0 - 0.2 /100WBC [facility] Neutrophils Absolute Auto 2.9 2.0 - 8.3 x10*3/uL [facility] Imm Gran Abs Auto 0.01 0.00 - 0.03 X10*3/uL [facility] Lymphocytes Absolute Auto 1.7 1.2 - 4.9 X10*3/uL [facility] Monocytes Absolute Auto 0.3 0.1 - 1.2 X10*3/uL [facility] Eosinophils Absolute Auto 0.2 0.0 - 0.4 X10*3/uL [facility] Basophils Absolute Auto 0.0 0.0 - 0.2 X10*3/uL [facility] NRBC Abs Auto 0.000 0.0 - 0.012 X10*3/uL [facility] 06/01/2024 9:48 AM EDT 06/01/2024 11:32 AM EDT us Generic External Data Provider LAB BLOOD ORDERAB LES Final Result Performing Organization Address City/[facility]/ZIP Co de Phone Number [facility] [address] [place] [phone] * Iron And Total Iron Binding Capacity (06/01/2024 9:48 AM EDT) Iron 95 30 - 160 mcg/dL [facility] Total Iron Binding Capacity 265 228 - 428 mcg/dL [facility] Percent Iron Saturation 36 15 - 50 % [facility] Unsaturated Iron Binding 170 ug/dL [facility] Blood Venous blood specimen / Unknown 06/01/2024 9:48 AM EDT 06/01/2024 11:32 AM EDT us Maribell Alanis TELECASTING TECHNICIAN LAB BLOOD ORDERABLES Final Res ult Performing Organization Address [facility] Co de Phone Number [facility] [address] [place] [phone] * Ferritin (06/01/2024 9:48 AM EDT) Ferritin 212 10 - 250 ng/mL [facility] 06/01/2024 9:48 AM EDT 06/01/2024 11:32 AM EDT us Generic External Data Provider LAB BLOOD ORDERAB LES Final Result Performing Organization Address [facility] Co de Phone Number [facility] [address] [place] [phone] * (ABNORMAL) Lipid Panel, Standard (06/01/2024 9:48 AM EDT) Triglycerides 136 <150 mg/dL [facility] Comment:Desirable Triglyceri de: less than 150 mg/dLBorderline High Triglyceride 150-199 mg/dLHigh Triglyceride: 200-499 mg/dLVery High Triglyceride: greater than or equal to 5OO mg/dL Cholesterol 182 <200 mg/dL [facility] Comment:Desirable Cholestero l: less than 200 mg/dLBorderline High Cholesterol: 200-239 mg/dLHigh Cholesterol: greater than 239 mg/dL LDL Cholesterol Calculated 111(H) <100 mg/dL [facility] Comment:Desirable LDL: less than 100 mg/dLNear Optimal/Above Optimal LDL: 110- 129 mg/dLBorderline High LDL: 130-159 mg/dLHigh LDL: 160-189 mg/dLVery High LDL: greater than or equal to 190 mg/dL HDL Cholesterol 44 >40 mg/dL [facility] Comment:Desirable HDL: great er than 40 mg/dL Note: This HDL assay may give artificially low results in patients with liver disease. Blood Venous blood specimen / Unknown 06/01/2024 9:48 AM EDT 06/01/2024 11:32 AM EDT us Maribell Alanis TELECASTING TECHNICIAN LAB BLOOD ORDERABLES Final Res ult [facility] [address] [place] [address] [phone] * Comprehensive Metabolic Panel (06/01/2024 9:48 AM EDT) Sodium 141 135 - 145 mmol/L [facility] Potassium 4.5 3.3 - 5.1 mmol/L [facility] Chloride 107 96 - 108 mmol/L [facility] Carbon Dioxide 27 22 - 29 mmol/L [facility] Anion Gap 12 12 - 20 [facility] Urea Nitrogen (BUN) 13 9 - 16 mg/dL [facility] Creatinine, Serum 0.78 0.5 - 1.4 mg/dL [facility] Estimated Glomerular Filt Rate >60 [facility] Comment:Chronic Kidney Disea se: Estimated GFR < 60 mL/min/1.87z8Hekqno Kidney Disease: Estimated GFR < 15 mL/min/1.73m2 Glucose 87 60 - 115 mg/dL [facility] Calcium 9.6 8.4 - 10.2 mg/dL [facility] Bilirubin, Total 0.3 0.0 - 1.0 mg/dL [facility] Aspartate Amino Transferase 26 5 - 31 U/L [facility] Alanine Aminotransferase 20 0 - 31 U/L [facility] Total Protein 7.2 6.5 - 8.0 g/dL [facility] Albumin Level 4.0 3.5 - 5.0 g/dL [facility] Alkaline Phosphatase 55 39 - 117 U/L [facility] 06/01/2024 9:48 AM EDT 06/01/2024 11:32 AM EDT us Generic External Data Provider LAB BLOOD ORDERAB LES Final Result Performing Organization Address City/State/[facility] Co de Phone Number [facility] [address] [place] [phone] * BI US Breast Limited Right (04/04/2024 9:15 AM EST) Anatomical Region Laterality Modality Breast Right Ultrasound 04/04/2024 9:15 AM EST Narrative 04/04/2024 9:49 AM EST ? [facility] ? [address] ?[place] [address] ? Ultrasound Report ? Signed ? Patient: John,Ever ?MR#: [id number] ?? 1 ? : 1970 ?Acct:[id number] ? Age/Sex: 54 / F ?ADM Date: 02/03/25 ? Loc: HO.MAMMO ? Attending Dr: Jamee Oden DO ? Ordering Physician: Jamee Oden DO ?? Date of Service: 04/04/24 ?? Procedure(s): US breast RT limited mamm only ?? Accession Number(s): [id number] ? cc: Jamee Oden DO ? EXAMINATION: [...] by Ale Damon, DO in OV> ? 04/04/24945 ? DD/ ? TD/TT: 04/04/24 0938 ? Senior Water/Wastewater Engineer: ? Procedure Note Donotuseinterpreter, Image - 04/04/2024 Tereza [facility] [address] [place] [address] Ultrasound Report Signed Patient: Beau John#: [id number] 1 : 1970Acct:[id number] Age/Sex: 54 / FADM Date: 04/04/24 Loc: HO.MAMMO Attending Dr: Jamee Oden DO Ordering Physician: Jamee Oden DO Date of Service: 04/04/24 Procedure(s): US breast RT limited mamm only Accession Number(s): [id number] cc: Jamee Oden DO EXAMINATION: MM DIAGNOSTIC [...] Ale Damon DO 04/04/2024 09:46 AM EST RP Dictated By: Ale Damon DO Signed By: <Electronically signed by Ale Damon DO in OV> 04/04/2446 DD/ 4 TD/TT: 04/04/24937 Senior Water/Wastewater Engineer: us Jamee Oden DO IMG US PROCEDURES Final Resu lt * Pap Smear (05/14/2023 2:15 PM EDT) 05/14/2023 2:15 PM EDT 05/15/2023 9:00 AM EDT [facility] - 05/26/2023 10:17 AM EDT ----- ------- Name: Ever John ?Age/Sex: 53/F ? : 1970 Unit#: [id number] ?? Attend Dr: Duc Cazares MD ?Re05/14/23 ?Status: DEP REF ? Location: HO.LNP ?Disch: ? ----- ------- SPEC : [id number] ? RECD: 05/15/23 ? STATUS: ??SOUT ? REQ NUM: [id number] ? GOSIA: 05/14/23 ? SUBM DR: Duc Cazares MD ? ENTERED: ??05/15/23 ?SP TYPE: Pap Smr ?OTHR DR: Maribell Alanis TELECASTING TECHNICIAN ? ORDERED: ??Pap Smear ? Interpretation ?? [...] 66, 68) ?? HPV testing performed by [facility], [place], [place]. ??See reference laboratory ?? portion of the EMR for entire report. ?Clinical Information LMP: Unknown date Previous PAP test: 2018, Unknown findings Other history: Abnormal uterine and vaginal bleeding ? Material Received ?? ThinPrep-Cervical Copies To: ?? Maribell Alanis TELECASTING TECHNICIAN ?? [address] [facility] ?? [place] [address] ?? [phone] ?? Duc Cazares MD ?? [address] [facility] [address] [facility] ?? [place] [address] ?? [phone] ----- ------- Signed (signature on file) ROMÁN Joaquin (ASCP) 05/26/23 1017 ? ----- ------- ? END OF REPORT ? us Generic External Data Provider LAB CYTOLOGY ALAINA DOMINGUEZ Final Result [facility] [address] [place] [phone] [phone] * (ABNORMAL) HPV mRNA E6/E7 (12/15/2017 2:12 PM EDT) HPV mRNA E6/E7 DETECTED (AA) NOT DETECTED [facility] Comment: This test was performed using the APTIMA(R) HPV Assay ([employer] This assay detects E6/E7 viral messenger RNA (mRNA) from 14 high-risk HPV types (16,18,31,33,35,39,45,51, 52,56,58,59,66,68). For additional information please refer to: http://education.[employer]faq/QUI425k7 (This link is being provided for informational/ educational purposes only.) The analytical performance characteristics of this assay have been determined by [employer] [place], [place]. The modifications have not been cleared or approved by the FDA. This assay has been validated pursuant to the CLIA regulations and is used for clinical purposes. Test Performed by [facility], [facility], [address] [place] [address] Brodie Koenig M.D., Ph.D., Director of Laboratories , CLIA [id number] Please note: ??Effective 11/12/2015, HPV testing will be performed using [employer]'s APTIMA test which targets mRNA. Detecting mRNA instead of DNA, as in older methods, offers significant improvements in specificity. 12/15/2017 2:12 PM EDT us Lesia Ramon CNM HISTORICAL/NON ORDERABLE LABS Final Result [facility] [address] from Last 3 Months or Most Recently Relevant to Health Maintenance Insurance [email or web address] MEDICAID STAND ADULT Care Teams Residential Lawn Specialist Relationship Specialty Start Date End Date Maribell Alanis FNP [address] [place] [address] PCP - General Family Medicine 08/14/21
--- OUTSIDE RECORDS SUMMARY | 2024-07-07 15:07 | XMS_ITS | Encounter Summary ---
Author Organization [employer] Address [address] [facility] 7t [place] [address] Care Team Providers Care Dry Roaster Name Role Phone Maribell Alanis RAVELER Primary Care Provider [phone] Reason for Visit * Reason Comments Med Refill Encounter Details Date Type Department Care Team (Late st Contact Info) Description 08/24/2023 Refill [facility] [address] [place], [place] [phone] Name, MD Varun [address] [place] [address] Insomnia, unspecified type Social History Tobacco Use [...] Description 07/26/2024 2:00 PM EDT Office Visit [facility] [address] [place] [address] Keagan, Shae, OD [address] [place] [address] 08/24/2024 9:15 AM EDT Office Visit [facility] [address] [place] [address] Maribell Alanis FNP [address] [place] [address] documented as of this encounter Visit Diagnoses Diagnosis Insomnia, unspecified type documented in this encounter Additional Health Concerns Assessment Noted Time PHQ-9 Depression Total Score: 8 07/22/19 24 9:06 AM EDT documented as of this encounter Care Teams Dry Roaster Relationship Specialty Start Date End Date Maribell Alanis FNP [address] [place] [address] PCP - General Family Medicine 08/14/21 documented as of this encounter
== END 2024-07-07 14:17 | disposition home or self-care (01) ==
LOC: HO.US 14:16
PROVIDERS: PCP Family Medicine; Visit Provider Nurse Practitioner Family
DX: R31.29 Other microscopic hematuria (principal); N28.1 Cyst of kidney, acquired
CPT/HCPCS: 76775

== ENCOUNTER → 2024-07-07 14:19 | Outpatient (BNV) | payer MEDICAID, SELFPAY | PROVIDERS: PCP Family Medicine; Visit Provider Radiology Diagnostic Radiology | DX: R31.29 Other microscopic hematuria (principal) | CPT/HCPCS: 76775 ==

== ENCOUNTER 2024-07-13 14:18 | Outpatient (AMB) | payer MEDICAID, SELFPAY ==
--- NOTE | 2024-07-13 14:21 | A.OFFVIS_ITS ---
Intake Visit Reasons: 6m/US/PVR Intake Note: Pt presents to the office today for a 6 month follow up/US/PVR PVR:15mL [employer] Specialist Services: [employer] Specialist Present [employer] Specialist Name: [id number] Ruth Kaiser tizanidine Adverse Reaction (Severe, Uncoded 07/13/24 14:36) Shakiness Medication List - Last Reconciled 07/13/24 by POLA Call albuterol sulfate 90 mcg/actuation (ProAir HFA) 2 puffs PO Q4-6H PRN cetirizine 10 mg PO QAM naloxone 4 mg/actuation 4 mg intranasal DAILY tramadol 50 mg PO Q12H PRN triamcinolone acetonide 0.1% 0.1 appl topical BID zolpidem 5 mg PO BEDTIME PRN HPI Comments Details: Ever is a very pleasant 54-year-old [place]er-speaking female patient of Dr. Oden. She has a PMH of hyperlipidemia and renal cyst. She presents to the office today for follow-up of her renal cysts and urinary tract infection. In discussion with the patient today she reports to be doing and feeling well. She denies having had any bothersome urinary issues since her last office visit here. She does however report ongoing lower back pain. Recent renal imaging results were reviewed with the patient today 07/24 bilateral kidneys are normal in echotexture and thickness. There are no renal masses, hydronephrosis, renal calculi noted. Unremarkable renal ultrasound. In office urinalysis results reviewed with the patient today. 1+ microscopic hematuria noted. We did discuss decrease in microscopic hematuria since last office visit as patient had previously had 2+ and 3+ microscopic hematuria. Previous urine cytologies 04/25 & 08/23 Negative for high-grade urothelial carcinoma. She denies urinary urgency, urinary frequency, incontinence, nocturia, gross/visible hematuria, dysuria, urine, changes to urinary stream, flank pain, fever, and or chills. She is happy with her current voiding parameters. I discussed reasons for blood in the urine may include but are not limited to kidney stones, cancer in the urinary tract, kidney stone disease or inflammatory conditions of the urinary tract. I have discussed workup to include cystoscopy evaluation. She otherwise offers no other issues or concerns at this time. [facility] Medical History Fibroadenoma Hx of tendinitis High cholesterol Surgical History Hx of tubal ligation Family History Father Prostate cancer Social History Household Members: Family Alcohol intake: never Patient Tobacco Use Status: Never used Tobacco service: No Current occupational status: unemployed Female Reproductive History Menstrual Age of Menarche: 12 Review of Systems Const All systems reviewed & are unremarkable except as noted in HPI and below Reports no additional complaints Eyes Reports no additional complaints ENT Reports no additional complaints Card Reports as per HPI Resp Reports no additional complaints GI Reports no additional complaints Reports as per HPI Musc Reports no additional complaints Skin/Breast Reports as per HPI Neuro Reports no additional complaints Psych Reports no additional complaints Endo Reports no additional complaints Blue/Lymph Reports no additional complaints Aller/Immun Reports no additional complaints Physical Exam Const General: cooperative, healthy appearing, comfortable, no acute distress, well developed, alert and awake Orientation/consciousness: patient oriented x3 Limitations: no limitations HEENT Head: Yes normal to inspection, Yes normocephalic and Yes atraumatic Ears: hearing grossly normal bilaterally Eyes General: appearance normal, both eyes and all related structures Neck Neck: Yes normal visual inspection and Yes trachea midline Chest Chest palpation & inspection: normal inspection of the chest Resp Effort & Inspection: normal respiratory effort and able to speak in complete sentences Cardio Rate: regular rate GI Inspection: Yes normal to inspection General: Yes no CVA tenderness Back/Spine/Pelvis Back: no CVA tenderness Skin General skin exam: no rashes or lesions noted Neuro General: patient oriented x3 Extrem General: Yes normal to inspection Psych Appearance: grossly normal and well kempt Mental Status: mental status grossly normal Speech and movement: Normal speech and movement present and Clear speech present Affect: normal affect Attitude: cooperative Thought process: Normal thought process present Thought content: Normal thought content present Insight: Fair insight present (Psych) Judgement: Fair judgement present (Psych) Office Procedures Post Void Residual Post Residual Void Post Void Residual (PVR): 15 60122-Gwam Void Residual by ultrasound Results AMB Urinalysis, Automated UA Leukoctes 500 Miguel/uL Last Edit by Liz Krishna CMA on 07/13/24 14:33 UA Nitrite Negative Last Edit by Liz Krishna, VASU on 07/13/24 14:33 UA Urobilinogen 0.2 mg/dL Last Edit by Liz Krishna, VASU on 07/13/24 14: UA Protein 15 mg/dL Last Edit by Liz Krishna, VASU on 07/13/24 14:33 UA pH 6.0 Last Edit by Liz Krishna, VASU on 07/13/24 14: UA Blood 25 Silvestre/uL Last Edit by Liz Krishna, VASU on 07/13/24 14:33 UA Specific [place] 1.020 Last Edit by Liz Krishna, VASU on 07/13/24 14: UA Ketone Positive Last Edit by Liz Krishna, VASU on 07/13/24 14: UA Bilirubin 0 mg/dL Last Edit by Liz Krishna, VASU on 07/13/24 14: UA Glucose 0 mg/dL Last Edit by Liz Krishna, VASU on 07/13/24 14:33 Results Reviewed Results Reviewed: Laboratory Last Values Urine pH (Auto) 6.0 07/13/24 14: Specific [place] (Auto) 1.020 07/13/24 14: Urine Protein (Auto) 15 mg/dL 07/13/24 14: Glucose (UA)(Auto) 0 mg/dL 07/13/24 14: Urine Ketones (Auto) Positive 07/13/24 14: Urine Blood (Auto) 25 Silvestre/uL 07/13/24 14: Urine Nitrite (Auto) Negative 07/13/24: Urine Bilirubin (Auto) 0 mg/dL 07/13/24 14: Urine Urobilinogen (Auto) 0.2 mg/dL 07/13/24 14: Leukocyte Esterase (Auto) 500 Miguel/uL 07/13/24 14:25 Date of Service: 07/07/24 Procedure(s): US renal BI FINDINGS: Right kidney: The right kidney measures 11.3 x 4.9 x 4.5 cm. Renal parenchymal echotexture and thickness are normal. There are no masses. There is no hydronephrosis or renal calculi. Left Kidney: The left kidney measures 11.4 x 4.5 x 4.3 cm. Renal parenchymal echotexture and thickness are normal. There are no masses. There is no hydronephrosis or renal calculi. IMPRESSION: Unremarkable renal ultrasound. Assessment & Plan Assessment & Plan (1) Microscopic hematuria: Code(s): R31.29 - Other microscopic hematuria Category: Medical (2) Renal cyst: Code(s): N28.1 - Cyst of kidney, acquired Category: Medical Plan In office urinalysis results reviewed with the patient today; as noted above; will send for urine cytology. Recent renal imaging results reviewed with the patient today; as noted above. Will continue with surveillance monitoring. She currently denies any bothersome urinary issues. She reports be happy with current voiding parameters. Will obtain renal ultrasound in 6 months. Follow-up in 6 months with imaging to be completed prior; or sooner with any issues, concerns, and or questions. Orders: Orders AMB Post Void Residual by ultrasound Today N39.0 - Urinary tract infection, site not specified Urine Cytology Today R31.29 - Other microscopic hematuria AMB Urinalysis Automated Today R31.29 - Other microscopic hematuria US renal BI 6 Months N20.0 - Calculus of kidney Patient Instructions: The patient had an opportunity to ask questions regarding the treatment plan. All questions were answered. Physical exam, labs, and imaging were discussed and reviewed in detail. As well as risks, benefits, and discussion of treatment choices. No major barriers to understanding were identified. The patient expressed understanding and agreement with the above treatment plan. The patient was made aware they should contact our office by phone for worsening of their current condition, the appearance of new symptoms, or with any questions or concerns. Compliance is encouraged with any medications and follow up testing that is ordered. It is a privilege to be allowed the opportunity to participate in? your urological care.? Again, if you have any questions or concerns If you have any questions or concerns please do not hesitate to contact me. The office is [phone]. This note is constructed using voice recognition software. While every effort has been made to ensure accuracy potato spotter errors may have been included. Yours sincerely, POLA Call Coding Level of Care Code Est Pt Level 3 (83958) Diagnoses Microscopic hematuria R31.29 Renal cyst N28.1 CPT Codes Post Residual Void - PVR CPT Code: 49930-Htwf Void Residual by ultrasound ([id number])
--- OUTSIDE RECORDS SUMMARY | 2024-07-13 14:22 | XMS_ITS | Encounter Summary ---
Author Organization [employer] Address [address] [facility] [address] [place] [address] Care Team Providers Care Licensing Director Name Role Phone Maribell Alanis Primary Care Provider [phone] Reason for Visit * Reason Comments Med Refill Encounter Details Date Type Department Care Team (Late Contact Info) Description 09/11/2022 Refill [facility] MEDICINE [address] [place] [address] Maribell Alanis FNP [address] [place] [address] Social History Tobacco Use Types Packs/Day Years [...] Description 07/26/2024 2:00 PM EDT Office Visit [facility] OPTOMETRY [address] [place] [address] Keagan, Shae, OD [address] [place] [address] 08/24/2024 9:15 AM EDT Office Visit [facility] MEDICINE [address] [place] [address] Maribell Alanis FNP [address] [place] [address] documented as of this encounter Visit Diagnoses Not on filedocumented in this encounter Additional Health Concerns Assessment Noted Time PHQ-9 Depression Total Score: 14 023 9:20 AM EDT documented as of this encounter Care Teams Licensing Director Relationship Specialty Start Date End Date Maribell Alanis FNP [address] [place] [address] PCP - General Family Medicine 08/14/21 documented as of this encounter
--- OUTSIDE RECORDS SUMMARY | 2024-07-13 14:22 | XMS_ITS | Encounter Summary ---
Author Organization [employer] Address [address] [facility] [address] [place] [address] Care Team Providers Care Interface Developer Name Role Phone Maribell Alanis ANALYTICS LEAD Primary Care Provider [phone] Reason for Visit * Reason Comments Med Refill Encounter Details Date Type Department Care Team (Late st Contact Info) Description 08/24/2023 Refill [facility] MEDICINE [address] [place], [place] [id number] Name, MD Varun [address] [place] [address] Insomnia, unspecified type Social History Tobacco Use [...] Description 07/26/2024 2:00 PM EDT Office Visit [facility] OPTOMETRY [address] [place] [address] Keagan, Shae, OD [address] [place] [address] 08/24/2024 9:15 AM EDT Office Visit [facility] MEDICINE [address] [place] [address] Maribell Alanis FNP [address] [place] [address] documented as of this encounter Visit Diagnoses Diagnosis Insomnia, unspecified type documented in this encounter Additional Health Concerns Assessment Noted Time PHQ-9 Depression Total Score: 8 07/22/19 24 9:06 AM EDT documented as of this encounter Care Teams Interface Developer Relationship Specialty Start Date End Date Maribell Alanis FNP [address] [place] [address] PCP - General Family Medicine 08/14/21 documented as of this encounter
--- OUTSIDE RECORDS SUMMARY | 2024-07-13 14:22 | XMS_ITS | Encounter Summary ---
Author Organization [employer] Address [address] [facility] [address] [place] [address] Care Team Providers Care Shingle Weaver Name Role Phone Maribell Alanis Primary Care Provider [phone] Reason for Visit * Reason Onset Date Comments Med Refill 04/26/2024 Encounter Details Date Type Department Care Team ([facility] st Contact Info) Description 04/26/2024 Telephone [facility] MEDICINE [address] [place] [address] Maribell Alanis FNP [address] [place] [address] Med Refill Social History Tobacco Use Types [...] 5 MG tablet To be sent to: [facility] documented in this encounter Plan of Treatment Upcoming Encounters Date Type Department Care Team (Late st Contact Info) Description 07/26/2024 2:00 PM EDT Office Visit [facility] OPTOMETRY [address] [place] [address] Keagan, Shae, OD [address] [place] [address] 08/24/2024 9:15 AM EDT Office Visit [facility] MEDICINE [address] [place] [address] Maribell Alanis FNP [address] [place] [address] documented as of this encounter Visit Diagnoses Not on filedocumented in this encounter Additional Health Concerns Assessment Noted Time PHQ-9 Depression Total Score: 8 07/22/19 24 9:06 AM EDT documented as of this encounter Care Teams Shingle Weaver Relationship Specialty Start Date End Date Maribell Alanis FNP [address] [place] [address] PCP - General Family Medicine 08/14/21 documented as of this encounter
--- OUTSIDE RECORDS SUMMARY | 2024-07-13 14:22 | XMS_ITS | Encounter Summary ---
Author Organization [employer] Address [address] [facility] [address] [place] [address] Care Team Providers Care Disability Benefits Specialist Name Role Phone Maribell Alanis Primary Care Provider [phone] Reason for Visit * Reason Onset Date Comments Appointment Request 12/04/2023 Encounter Details Date Type Department Care Team ([facility] st Contact Info) Description 12/04/2023 Telephone [facility] MEDICINE [address] [place] [address] Maribell Alanis FNP [address] [place] [address] Appointment Request Social History Tobacco Use Types [...] Description 07/26/2024 2:00 PM EDT Office Visit [facility] OPTOMETRY [address] [place] [address] Keagan, Shae, OD [address] [place] [address] 08/24/2024 9:15 AM EDT Office Visit [facility] MEDICINE [address] [place] [address] Maribell Alanis FNP [address] [place] [address] documented as of this encounter Visit Diagnoses Not on filedocumented in this encounter Additional Health Concerns Assessment Noted Time PHQ-9 Depression Total Score: 8 07/22/19 24 9:06 AM EDT documented as of this encounter Care Teams Disability Benefits Specialist Relationship Specialty Start Date End Date Maribell Alanis FNP [address] [place] [address] PCP - General Family Medicine 08/14/21 documented as of this encounter
--- OUTSIDE RECORDS SUMMARY | 2024-07-13 14:22 | XMS_ITS | Clinical Summary ---
Author Organization [employer] Address [address] [facility] 7t [place] [address] Care Team Providers Care Job Change Crew Member Name Role Phone Maribell Alanis JARRETT Primary Care Provider [phone] Allergies No known active allergies Medications * [...] Plan (10/21/2023 6:09 AM EDT): [facility] with [facility] OF INSTITUTIONAL SALES - Dr. Cazares Pelvic US 06/03/23 that [...] Plan (07/22/2023 6:20 AM EDT): Following with [facility] Per consult in Mar 2023, plan for physical therapy and NSAIDs, declined injection Anemia 07/22/2023 Overview (07/22/2023): Following with [facility] Heme/Onc for normocytic normochromic anemia with iron deficiency Assessment & Plan (10/22/2023 7:39 AM EDT): - Recieved IV Iron, stopped PO iron - Referred to DIRECTOR OF INSTITUTIONAL SALES for eval menorrhagia and GI for screening colonoscopy - Recent B, will check current levels Assessment & Plan (07/25/2023 11:34 AM EDT): - Started IV Iron, stopped PO iron - Referred to DIRECTOR OF INSTITUTIONAL SALES for eval menorrhagia and GI for screening colonoscopy Vitreomacular adhesion, 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 Healthcare maintenance 09/28/2022 Overview (06/01/2024): Optometry: [facility] Eye Care Pap: 05/14/23 NILM, HPV neg (Dr. Cazares) Mammo: BIRADS 3 in Apr 2024, repeat 6 mo Colonoscopy: referral to GI placed 10/21/23 Dental: referral to [facility] Dental placed 07/22/23 Assessment & Plan (06/01/2024 [...] be also referred to Ind. Therapy in [facility]. I encouraged her to reach out [...] in services. PLAN: 1. Follow up with [facility]: Not recommended for follow-up 2. Patient goal [...] Department Care Team Description 07/07/2024 Orders Only [facility] External Provider, [facility] 06/09/2024 Telephone [facility] MEDICINE [address] [place] [address] [phone] Maribell Alanis FNP 06/06/2024 Refill [facility] MED & PEDS [address] [place], [place] [phone] Maribell Alanis FNP Bulging of intervertebral disc between L4 and L5; Insomnia, unspecified type 06/01/2024 9:00 AM EDT Office Visit [address] [address] Maribell Alanis FNP Seasonal allergies (Primary Dx); Healthcare maintenance; Knuckle pads on dorsal aspect of multiple metacarpophalangeal and interphalangeal joints; Complex renal cyst 06/01/2024 Orders Only GENERIC EXTERNAL DATA DEPARTMENT Provider, Generic External Data 06/01/2024 Patient Outreach [facility] MEDICINE [address] [place] [phone] Maribell Alanis FNP Care Coordination (CHW outreach for SDOH food needs-referral completed /) 06/01/2024 Travel 05/31/2024 Telephone [facility] MED & PEDS [address] [place], [place] [phone] Maribell Alanis FNP Chart Prep 05/26/2024 Travel 05/26/2024 Telephone [facility] MED & PEDS [address] [place], [place] [phone] Maribell Alanis FNP Annual Exam 05/23/2024 Patient Outreach [facility] MED & PEDS [address] [place] [address] Maribell Alanis FNP Pre-visit Planning (SDOH Screening negative and Tobacco screening negative) 05/13/2024 Population Health Risk Score Community Care [facility] (C3) Department [address] [place] [phone] Provider, Population Health Generic 04/26/2024 Refill [facility] MED [facility] PEDS [address] [place] [address] Ana Duque, GIL Insomnia, unspecified type; Bulging of intervertebral disc between L4 and L5 04/26/2024 Telephone [facility] MEDICINE [address] [place], [place] [phone] Maribell Alanis FNP Med Refill from Last 3 Months Immunizations Immunization Administration Dates Next Due Hep A, Adult [...] Description 07/26/2024 2:00 PM EDT Office Visit [facility] OPTOMETRY [address] [place] [address] Keagan, Shae, OD [address] [place] [address] 08/24/2024 9:15 AM EDT Office Visit [facility] MEDICINE [address] [place] [address] Maribell Alanis, HIGH PRESSURE CLEANER [address] [place] [address] Health Maintenance Due Date Last Done Comments [...] EDT Narrative 07/07/2024 2:59 PM EDT ? [facility] ?[address] ?[place] [address] ? Ultrasound Report ? Signed ? Patient: John,Ever ?MR#: [id number] ?? 1 ? : 1970 ?Acct:[id number] ? Age/Sex: 54 / F ?ADM Date: 05/08/25 ? Loc: HO.US ? Attending Dr: Violette ESCALONA ? Ordering Physician: Violette Rojas ?? Date of Service: 07/07/24 ?? Procedure(s): US renal BI ?? Accession Number(s): [id number] ? cc: Jamee Oden DO; Violette Rojas [...] DD/ 1435 ? TD/TT: 07/07/24 1438 ? Cleaning Team Member: ? Procedure Note Zenia Maria - 07/07/[address] [address] Ultrasound Report Signed Patient: Beau John#: [id number] 1 : 1970Acct:[id number] Age/Sex: 54 / FADM Date: 07/07/24 Loc: HO. Attending Dr: Violette ESCALONA Ordering Physician: Violette Rojas Date of Service: 07/07/24 Procedure(s): US renal BI Accession Number(s): [id number] cc: Jamee OdenViolette [facility] EXAMINATION: US KIDNEY BILATERAL HISTORY: R31.29 - [...] 07/07/24 1456 DD/ 1435 TD/TT: 07/07/24 1438 Cleaning Team Member: us [facility] External Provider IMG US PROCEDURES Edited Result - Final * TSH W/Reflex to FT4 (06/01/2024 9:48 AM EDT) TSH reflex Free T4 1.07 0.32 - 4.0 uIU/mL [facility] Blood Venous blood specimen / Unknown 06/01/2024 9:48 AM EDT 06/01/2024 11:32 AM EDT Maribell Alanis [facility] BLOOD ORDERABLES Final Res ult [facility] [address] [place] [phone] * (ABNORMAL) CBC auto differential (06/01/2024 9:48 AM EDT) White Blood Count 5.2 4.8 - 10.8 X10*3/uL [facility] Red Blood Count 3.99(L) 4.20 - 5.50 X10*6/uL [facility] Hemoglobin 11.1(L) 12.0 - 16.0 g/dl [facility] Hematocrit 34.7(L) 37.0 - 47.0 % [facility] Mean Corpuscular Volume 87.0 80.0 - 98.0 fL [facility] Mean Corpuscular Hemoglobin 27.8 27.0 - 33.0 pg [facility] Mean Corpuscular HGB Conc 32.0 31.0 - 35.0 g/dl [facility] Red Cell Distribution Width 13.5 11.0 - 16.0 % [facility] Platelet Count 328 160 - 400 X10*3/uL [facility] Mean Platelet Volume 11.4 9.4 - 12.3 fL [facility] Neutrophils Percent Auto 55.9 45 - 73 % [facility] Imm Gran Pct Auto 0.2 0.0 - 0.4 % [facility] Lymphocytes Percent Auto 32.6 20 - 40 % [facility] Monocytes Percent Auto 6.6 2 - 11 % [facility] Eosinophils Percent Auto 3.9 0 - 4 % [facility] Basophils Percent Auto 0.8 0 - 2 % [facility] NRBC Pct Auto 0.0 0.0 - 0.2 /100WBC [facility] Neutrophils Absolute Auto 2.9 2.0 - 8.3 x10*3/uL [facility] Imm Gran Abs Auto 0.01 0.00 - 0.03 X10*3/uL [facility] Lymphocytes Absolute Auto 1.7 1.2 - 4.9 X10*3/uL [facility] Monocytes Absolute Auto 0.3 0.1 - 1.2 X10*3/uL [facility] Eosinophils Absolute Auto 0.2 0.0 - 0.4 X10*3/uL [facility] Basophils Absolute Auto 0.0 0.0 - 0.2 X10*3/uL [facility] NRBC Abs Auto 0.000 0.0 - 0.012 X10*3/uL [facility] 06/01/2024 9:48 AM EDT 06/01/2024 11:32 AM EDT us Generic External Data Provider LAB BLOOD ORDERAB LES Final Result Performing Organization Address City/[facility]/ZIP Co de Phone Number [facility] [address] [place] [phone] * Iron And Total Iron Binding Capacity (06/01/2024 9:48 AM EDT) Iron 95 30 - 160 mcg/dL [facility] Total Iron Binding Capacity 265 228 - 428 mcg/dL [facility] Percent Iron Saturation 36 15 - 50 % [facility] Unsaturated Iron Binding 170 ug/dL [facility] Blood Venous blood specimen / Unknown 06/01/2024 9:48 AM EDT 06/01/2024 11:32 AM EDT us Maribell Alanis HIGH PRESSURE CLEANER LAB BLOOD ORDERABLES Final Res ult Performing Organization Address [facility] Co de Phone Number [facility] [address] [place] [phone] * Ferritin (06/01/2024 9:48 AM EDT) Ferritin 212 10 - 250 ng/mL [facility] 06/01/2024 9:48 AM EDT 06/01/2024 11:32 AM EDT us Generic External Data Provider LAB BLOOD ORDERAB LES Final Result Performing Organization Address [facility] Co de Phone Number [facility] [address] [place] [phone] * (ABNORMAL) Lipid Panel, Standard (06/01/2024 9:48 AM EDT) Triglycerides 136 <150 mg/dL [facility] Comment:Desirable Triglyceri de: less than 150 mg/dLBorderline High Triglyceride 150-199 mg/dLHigh Triglyceride: 200-499 mg/dLVery High Triglyceride: greater than or equal to 5OO mg/dL Cholesterol 182 <200 mg/dL [facility] Comment:Desirable Cholestero l: less than 200 mg/dLBorderline High Cholesterol: 200-239 mg/dLHigh Cholesterol: greater than 239 mg/dL LDL Cholesterol Calculated 111(H) <100 mg/dL [facility] Comment:Desirable LDL: less than 100 mg/dLNear Optimal/Above Optimal LDL: 110- 129 mg/dLBorderline High LDL: 130-159 mg/dLHigh LDL: 160-189 mg/dLVery High LDL: greater than or equal to 190 mg/dL HDL Cholesterol 44 >40 mg/dL [facility] Comment:Desirable HDL: great er than 40 mg/dL Note: This HDL assay may give artificially low results in patients with liver disease. Blood Venous blood specimen / Unknown 06/01/2024 9:48 AM EDT 06/01/2024 11:32 AM EDT us Maribell Alanis HIGH PRESSURE CLEANER LAB BLOOD ORDERABLES Final Res ult [facility] [address] [place] [address] [phone] * Comprehensive Metabolic Panel (06/01/2024 9:48 AM EDT) Sodium 141 135 - 145 mmol/L [facility] Potassium 4.5 3.3 - 5.1 mmol/L [facility] Chloride 107 96 - 108 mmol/L [facility] Carbon Dioxide 27 22 - 29 mmol/L [facility] Anion Gap 12 12 - 20 [facility] Urea Nitrogen (BUN) 13 9 - 16 mg/dL [facility] Creatinine, Serum 0.78 0.5 - 1.4 mg/dL [facility] Estimated Glomerular Filt Rate >60 [facility] Comment:Chronic Kidney Disea se: Estimated GFR < 60 mL/min/1.43f9Bpnkfl Kidney Disease: Estimated GFR < 15 mL/min/1.73m2 Glucose 87 60 - 115 mg/dL [facility] Calcium 9.6 8.4 - 10.2 mg/dL [facility] Bilirubin, Total 0.3 0.0 - 1.0 mg/dL [facility] Aspartate Amino Transferase 26 5 - 31 U/L [facility] Alanine Aminotransferase 20 0 - 31 U/L [facility] Total Protein 7.2 6.5 - 8.0 g/dL [facility] Albumin Level 4.0 3.5 - 5.0 g/dL [facility] Alkaline Phosphatase 55 39 - 117 U/L [facility] 06/01/2024 9:48 AM EDT 06/01/2024 11:32 AM EDT us Generic External Data Provider LAB BLOOD ORDERAB LES Final Result Performing Organization Address City/State/[facility] Co de Phone Number [facility] [address] [place] [phone] * BI US Breast Limited Right (04/04/2024 9:15 AM EST) Anatomical Region Laterality Modality Breast Right Ultrasound 04/04/2024 9:1 5 AM EST Narrative 04/04/2024 9:49 AM EST ? [facility] ? [address] ?[place] [address] ? Ultrasound Report ? Signed ? Patient: John,Ever ?MR#: [id number] ?? 1 ? : 1970 ?Acct:[id number] ? Age/Sex: 54 / F ?ADM Date: 02/03/25 ? Loc: HO.MAMMO ? Attending Dr: Jamee Oden DO ? Ordering Physician: Jamee Oden DO ?? Date of Service: 04/04/24 ?? Procedure(s): US breast RT limited mamm only ?? Accession Number(s): [id number] ? cc: Jamee Oden DO ? EXAMINATION: [...] ? DD/ ? TD/TT: 04/04/24 0938 ? Cleaning Team Member: ? Procedure Note Donotuseinterpreter, Image - 04/04/2024 Tere[facility] [address] [place] [address] Ultrasound Report Signed Patient: Beau John#: [id number] 1 : 1970Acct:[id number] Age/Sex: 54 / FADM Date: 04/04/24 Loc: HO.MAMMO Attending Dr: Jamee Oden DO Ordering Physician: Jamee Oden DO Date of Service: 04/04/24 Procedure(s): US breast RT limited mamm only Accession Number(s): [id number] cc: Jamee Oden DO EXAMINATION: MM DIAGNOSTIC [...] in OV> 04/04/2446 DD/ 4 TD/TT: 04/04/24937 Cleaning Team Member: us Jamee Oden DO IMG US PROCEDURES Final Resu lt * Pap Smear (05/14/2023 2:15 PM EDT) 05/14/2023 2:15 PM EDT 05/15/2023 9:00 AM EDT [facility] - 05/26/2023 10:17 AM EDT ----- ------- Name: Ever John ?Age/Sex: 53/F ? : 1970 Unit#: [id number] ?? Attend Dr: Duc Cazares MD ?Re05/14/23 ?Status: DEP REF ? Location: HO.LNP ?Disch: ? ----- ------- SPEC : [id number] ? RECD: 05/15/23 ? STATUS: ??SOUT ? REQ NUM: [id number] ? GOSIA: 05/14/23 ? SUBM DR: Duc Cazares MD ? ENTERED: ??05/15/23 ?SP TYPE: Pap Smr ?OTHR DR: Maribell Alanis HIGH PRESSURE CLEANER ? ORDERED: ??Pap Smear ? Interpretation ?? [...] 66, 68) ?? HPV testing performed by [facility], [place], [place]. ??See reference laboratory ?? portion of the EMR for entire report. ?Clinical Information LMP: Unknown date Previous PAP test: 2018, Unknown findings Other history: Abnormal uterine and vaginal bleeding ? Material Received ?? ThinPrep-Cervical Copies To: ?? Maribell Alanis HIGH PRESSURE CLEANER ?? [address] [facility] ?? [place] [address] ?? [phone] ?? Duc Cazares MD ?? [address] [facility] [address] [facility] ?? [place] [address] ?? [phone] ----- ------- Signed (signature on file) ROMÁN Joaquin (ASCP) 05/26/23 1017 ? ----- ------- ? END OF REPORT ? us Generic External Data Provider LAB CYTOLOGY ALAINA DOMINGUEZ Final Result [facility] [address] [place] [phone] * (ABNORMAL) HPV mRNA E6/E7 (12/15/2017 2:12 PM EDT) HPV mRNA E6/E7 DETECTED (AA) NOT DETECTED [facility] Comment: This test was performed using the APTIMA(R) HPV Assay ([employer] This assay detects E6/E7 viral messenger RNA (mRNA) from 14 high-risk HPV types (16,18,31,33,35,39,45,51, 52,56,58,59,66,68). For additional information please refer to: http://education.WeLab/faq/VNV796t5 (This link is being provided for informational/ educational purposes only.) The analytical performance characteristics of this assay have been determined by [employer] [place], [place]. The modifications have not been cleared or approved by the FDA. This assay has been validated pursuant to the CLIA regulations and is used for clinical purposes. Test Performed by [facility], [facility], [address] [place] [address] Brodie Koenig M.D., Ph.D., Director of Laboratories , CLIA [id number] Please note: ??Effective 11/12/2015, HPV testing will be performed using [employer]'s APTIMA test which targets mRNA. Detecting mRNA instead of DNA, as in older methods, offers significant improvements in specificity. 12/15/2017 2:12 PM EDT us Lesia Ramon CNM HISTORICAL/NON ORDERABLE LABS Final Result [facility] [address] from Last 3 Months or Most Recently Relevant to Health Maintenance Insurance [facility] ST[facility] ADULT Care Teams Job Change Crew Member Relationship Specialty Start Date End Date Maribell Alanis FNP [address] [place] [phone] PCP - General Family Medicine 08/14/21
== END 2024-07-13 14:51 | disposition home or self-care (01) ==
LOC: HO.HUSH 14:19
PROVIDERS: PCP Family Medicine; Visit Provider Nurse Practitioner Family
DX: R31.29 Other microscopic hematuria (principal); N28.1 Cyst of kidney, acquired
CPT/HCPCS: 99213

== ENCOUNTER 2024-07-13 14:18 | Outpatient (REF) | payer MEDICAID, SELFPAY ==
--- OUTSIDE RECORDS SUMMARY | 2024-07-13 14:49 | XMS_ITS | Encounter Summary ---
Author Organization [employer] Address [address] [facility] 7t [place] [address] Care Team Providers Care Travel Guide Name Role Phone Maribell Alanis Primary Care Provider [phone] Reason for Visit * Reason Onset Date Comments Med Refill 04/26/2024 Encounter Details Date Type Department Care Team ([facility] st Contact Info) Description 04/26/2024 Telephone [facility] MEDICINE [address] [place] [address] Maribell Alanis FNP [address] [place] [address] Med Refill Social History Tobacco Use Types [...] 5 MG tablet To be sent to: [facility] documented in this encounter Plan of Treatment Upcoming Encounters Date Type Department Care Team (Late st Contact Info) Description 07/26/2024 2:00 PM EDT Office Visit [facility] OPTOMETRY [address] [place] [address] Keagan, Shae, OD [address] [place] [address] 08/24/2024 9:15 AM EDT Office Visit [facility] MEDICINE [address] [place] [address] Maribell Alanis FNP [address] [place] [address] documented as of this encounter Visit Diagnoses Not on filedocumented in this encounter Additional Health Concerns Assessment Noted Time PHQ-9 Depression Total Score: 8 07/22/19 24 9:06 AM EDT documented as of this encounter Care Teams Travel Guide Relationship Specialty Start Date End Date Maribell Alanis FNP [address] [place] [phone] PCP - General Family Medicine 08/14/21 documented as of this encounter
--- OUTSIDE RECORDS SUMMARY | 2024-07-13 14:49 | XMS_ITS | Encounter Summary ---
Author Organization [employer] Address [address] [facility] [address] [place] [address] Care Team Providers Care Sorting Livestock Worker Name Role Phone Maribell Alanis RESIDENT SERVICES SUPERVISOR Primary Care Provider [phone] Reason for Visit * Reason Comments Med Refill Encounter Details Date Type Department Care Team (Late st Contact Info) Description 08/24/2023 Refill [facility] MEDICINE [address] [place], [place] [phone] Name, MD Varun [address] [place] [address] Insomnia, unspecified type Social History Tobacco Use [...] Description 07/26/2024 2:00 PM EDT Office Visit [facility] OPTOMETRY [address] [place] [address] Keagan, Shae, OD [address] [place] [address] 08/24/2024 9:15 AM EDT Office Visit [facility] MEDICINE [address] [place] [address] Maribell Alanis FNP [address] [place] [address] documented as of this encounter Visit Diagnoses Diagnosis Insomnia, unspecified type documented in this encounter Additional Health Concerns Assessment Noted Time PHQ-9 Depression Total Score: 8 07/22/19 24 9:06 AM EDT documented as of this encounter Care Teams Sorting Livestock Worker Relationship Specialty Start Date End Date Maribell Alanis FNP [address] [place] [address] PCP - General Family Medicine 08/14/21 documented as of this encounter
--- OUTSIDE RECORDS SUMMARY | 2024-07-13 14:49 | XMS_ITS | Clinical Summary ---
Author Organization [employer] Address [address] [facility] 7t [place] [address] Care Team Providers Care Pediatric Np Name Role Phone Maribell Alanis JARRETT Primary Care Provider [phone] Allergies No known active allergies Medications * [...] Plan (10/21/2023 6:09 AM EDT): Following with [facility] - Dr. Cazares Pelvic US 06/03/23 that [...] Plan (07/22/2023 6:20 AM EDT): Following with [facility] Ortho Per consult in Mar 2023, plan for physical therapy and NSAIDs, declined injection Anemia 07/22/2023 Overview (07/22/2023): Following with [facility] Heme/Onc for normocytic normochromic anemia with iron deficiency Assessment & Plan (10/22/2023 7:39 AM EDT): - Recieved IV Iron, stopped PO iron - Referred to [facility] for eval menorrhagia and GI for screening colonoscopy - Recent B, will check current levels Assessment & Plan (07/25/2023 11:34 AM EDT): - Started IV Iron, stopped PO iron - Referred to [facility] for eval menorrhagia and GI for screening colonoscopy Vitreomacular adhesion, 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 Healthcare maintenance 09/28/2022 Overview (06/01/2024): Optometry: [facility] Eye Care Pap: 05/14/23 NILM, HPV neg (Dr. Cazares) Mammo: BIRADS 3 in Apr 2024, repeat 6 mo Colonoscopy: referral to GI placed 10/21/23 Dental: referral to [facility] Dental placed 07/22/23 Assessment & Plan (06/01/2024 [...] be also referred to Ind. Therapy in [facility]. I encouraged her to reach out for [...] in services. PLAN: 1. Follow up with [facility]: Not recommended for follow-up 2. Patient goal [...] Department Care Team Description 07/07/2024 Orders Only External Provider, [facility] 06/09/2024 Telephone [facility] MEDICINE [address] [place] [address] [phone] Maribell Alanis FNP 06/06/2024 Refill [facility] MED [facility]EDS [address] [place], [place] [phone] Maribell Alanis FNP Bulging of intervertebral disc between L4 and L5; Insomnia, unspecified type 06/01/2024 9:00 AM EDT Office Visit [address] [address] Maribell Alanis FNP Seasonal allergies (Primary Dx); Healthcare maintenance; Knuckle pads on dorsal aspect of multiple metacarpophalangeal and interphalangeal joints; Complex renal cyst 06/01/2024 Orders Only GENERIC EXTERNAL DATA DEPARTMENT Provider, Generic External Data 06/01/2024 Patient Outreach [facility] MEDICINE [address] [place] [phone] Maribell Alanis FNP Care Coordination (CHW outreach for SDOH food needs-referral completed /) 06/01/2024 Travel 05/31/2024 Telephone [facility] [address] [place], [place] [phone] Maribell Alanis FNP Chart Prep 05/26/2024 Travel 05/26/2024 Telephone [facility] [address] [place], [place] [phone] Maribell Alanis FNP Annual Exam 05/23/2024 Patient Outreach [facility] MED & PEDS [address] [place] [address] Maribell Alanis FNP Pre-visit Planning (SDOH Screening negative and Tobacco screening negative) 05/13/2024 Population Health Risk Score Community Care [facility] ([facility]) Department [address] [place] [phone] Provider, Population Health Generic 04/26/2024 Refill [facility] [address] [place] [address] Ana Duque, GIL Insomnia, unspecified type; Bulging of intervertebral disc between L4 and L5 04/26/2024 Telephone [facility] MEDICINE [address] [place], [place] [phone] aMribell Alanis FNP Med Refill from Last 3 [...] Description 07/26/2024 2:00 PM EDT Office Visit [facility] OPTOMETRY [address] [place] [address] Keagan, Shae, OD [address] [place] [address] 08/24/2024 9:15 AM EDT Office Visit [facility] MEDICINE [address] [place] [address] Maribell Alanis, OPTICAL INSTRUMENT ASSEMBLER [address] [place] [address] Health Maintenance Due Date Last Done Comments [...] EDT Narrative 07/07/2024 2:59 PM EDT ? [facility] ?[address] ?[place] [address] ? Ultrasound Report ? Signed ? Patient: John,Ever ?MR#: [id number] ?? 1 ? : 1970 ?Acct:[id number] ? Age/Sex: 54 / F ?ADM Date: 05/08/25 ? Loc: HO.US ? Attending Dr: Violette ESCALONA ? Ordering Physician: Violette Rojas ?? Date of Service: 07/07/24 ?? Procedure(s): US renal BI ?? Accession Number(s): [id number] ? cc: Jamee Oden DO; Violette Rojas [...] DD/ 1435 ? TD/TT: 07/07/24 1438 ? Cabinet Mounter: ? Procedure Note Zenia Maria - 07/07/[address] [address] Ultrasound Report Signed Patient: Beau John#: [id number] 1 : 1970Acct:[id number] Age/Sex: 54 / FADM Date: 07/07/24 Loc: HO. Attending Dr: Violette ESCALONA Ordering Physician: Violette Rojas Date of Service: 07/07/24 Procedure(s): US renal BI Accession Number(s): [id number] cc: Jamee OdenViolette [facility] EXAMINATION: US KIDNEY BILATERAL HISTORY: R31.29 - [...] 07/07/24 1456 DD/ 1435 TD/TT: 07/07/24 1438 Cabinet Mounter: us [facility] External Provider IMG US PROCEDURES Edited Result - Final * TSH W/Reflex to FT4 (06/01/2024 9:48 AM EDT) TSH reflex Free T4 1.07 0.32 - 4.0 uIU/mL LABS Blood Venous blood specimen / Unknown 06/01/2024 9:48 AM EDT 06/01/2024 11:32 AM EDT Maribell Alanis [facility] LAB BLOOD ORDERABLES Final Res ult LABS [address] [place] [phone] * (ABNORMAL) CBC auto differential (06/01/2024 9:48 AM EDT) White Blood Count 5.2 4.8 - 10.8 X10*3/uL LABS Red Blood Count 3.99(L) 4.20 - 5.50 X10*6/uL LABS Hemoglobin 11.1(L) 12.0 - 16.0 g/dl LABS Hematocrit 34.7(L) 37.0 - 47.0 % LABS Mean Corpuscular Volume 87.0 80.0 - 98.0 fL LABS Mean Corpuscular Hemoglobin 27.8 27.0 - 33.0 pg LABS Mean Corpuscular HGB Conc 32.0 31.0 - 35.0 g/dl LABS Red Cell Distribution Width 13.5 11.0 - 16.0 % LABS Platelet Count 328 160 - 400 X10*3/uL LABS Mean Platelet Volume 11.4 9.4 - 12.3 fL LABS Neutrophils Percent Auto 55.9 45 - 73 % LABS Imm Gran Pct Auto 0.2 0.0 - 0.4 % LABS Lymphocytes Percent Auto 32.6 20 - 40 % LABS Monocytes Percent Auto 6.6 2 - 11 % LABS Eosinophils Percent Auto 3.9 0 - 4 % LABS Basophils Percent Auto 0.8 0 - 2 % LABS NRBC Pct Auto 0.0 0.0 - 0.2 /100WBC LABS Neutrophils Absolute Auto 2.9 2.0 - 8.3 x10*3/uL LABS Imm Gran Abs Auto 0.01 0.00 - 0.03 X10*3/uL LABS Lymphocytes Absolute Auto 1.7 1.2 - 4.9 X10*3/uL LABS Monocytes Absolute Auto 0.3 0.1 - 1.2 X10*3/uL LABS Eosinophils Absolute Auto 0.2 0.0 - 0.4 X10*3/uL LABS Basophils Absolute Auto 0.0 0.0 - 0.2 X10*3/uL LABS NRBC Abs Auto 0.000 0.0 - 0.012 X10*3/uL LABS 06/01/2024 9:48 AM EDT 06/01/2024 11:32 AM EDT us Generic External Data Provider LAB BLOOD ORDERAB LES Final Result Performing Organization Address City/[facility]/ZIP Co de Phone Number LABS [address] [place] [phone] * Iron And Total Iron Binding Capacity (06/01/2024 9:48 AM EDT) Iron 95 30 - 160 mcg/dL LABS Total Iron Binding Capacity 265 228 - 428 mcg/dL LABS Percent Iron Saturation 36 15 - 50 % LABS Unsaturated Iron Binding 170 ug/dL LABS Blood Venous blood specimen / Unknown 06/01/2024 9:48 AM EDT 06/01/2024 11:32 AM EDT us Maribell Alanis OPTICAL INSTRUMENT ASSEMBLER LAB BLOOD ORDERABLES Final Res ult Performing Organization Address [facility] Co de Phone Number LABS [address] [place] [phone] * Ferritin (06/01/2024 9:48 AM EDT) Ferritin 212 10 - 250 ng/mL LABS 06/01/2024 9:48 AM EDT 06/01/2024 11:32 AM EDT us Generic External Data Provider LAB BLOOD ORDERAB LES Final Result Performing Organization Address [facility] Co de Phone Number LABS [address] [place] [phone] * (ABNORMAL) Lipid Panel, Standard (06/01/2024 9:48 AM EDT) Triglycerides 136 <150 mg/dL [facility] LABS Comment:Desirable Triglyceri de: less than 150 mg/dLBorderline High Triglyceride 150-199 mg/dLHigh Triglyceride: 200-499 mg/dLVery High Triglyceride: greater than or equal to 5OO mg/dL Cholesterol 182 <200 mg/dL LABS Comment:Desirable Cholestero l: less than 200 mg/dLBorderline High Cholesterol: 200-239 mg/dLHigh Cholesterol: greater than 239 mg/dL LDL Cholesterol Calculated 111(H) <100 mg/dL LABS Comment:Desirable LDL: less than 100 mg/dLNear Optimal/Above Optimal LDL: 110- 129 mg/dLBorderline High LDL: 130-159 mg/dLHigh LDL: 160-189 mg/dLVery High LDL: greater than or equal to 190 mg/dL HDL Cholesterol 44 >40 mg/dL [facility] LABS Comment:Desirable HDL: great er than 40 mg/dL Note: This HDL assay may give artificially low results in patients with liver disease. Blood Venous blood specimen / Unknown 06/01/2024 9:48 AM EDT 06/01/2024 11:32 AM EDT us Maribell Alanis OPTICAL INSTRUMENT ASSEMBLER LAB BLOOD ORDERABLES Final Res ult LABS [address] [place] [address] [phone] * Comprehensive Metabolic Panel (06/01/2024 9:48 AM EDT) Sodium 141 135 - 145 mmol/L LABS Potassium 4.5 3.3 - 5.1 mmol/L LABS Chloride 107 96 - 108 mmol/L LABS Carbon Dioxide 27 22 - 29 mmol/L LABS Anion Gap 12 12 - 20 LABS Urea Nitrogen (BUN) 13 9 - 16 mg/dL LABS Creatinine, Serum 0.78 0.5 - 1.4 mg/dL LABS Estimated Glomerular Filt Rate >60 LABS Comment:Chronic Kidney Disea se: Estimated GFR < 60 mL/min/1.47a3Moaavp Kidney Disease: Estimated GFR < 15 mL/min/1.73m2 Glucose 87 60 - 115 mg/dL LABS Calcium 9.6 8.4 - 10.2 mg/dL LABS Bilirubin, Total 0.3 0.0 - 1.0 mg/dL LABS Aspartate Amino Transferase 26 5 - 31 U/L LABS Alanine Aminotransferase 20 0 - 31 U/L LABS Total Protein 7.2 6.5 - 8.0 g/dL LABS Albumin Level 4.0 3.5 - 5.0 g/dL LABS Alkaline Phosphatase 55 39 - 117 U/L LABS 06/01/2024 9:48 AM EDT 06/01/2024 11:32 AM EDT us Generic External Data Provider LAB BLOOD ORDERAB LES Final Result Performing Organization Address City/State/[facility] Co de Phone Number LABS [address] [place] [phone] * BI US Breast Limited Right (04/04/2024 9:15 AM EST) Anatomical Region Laterality Modality Breast Right Ultrasound 04/04/2024 9:1 5 AM EST Narrative 04/04/2024 9:49 AM EST ? [facility] [place] ? [address] ?[place] [address] ? Ultrasound Report ? Signed ? Patient: John,Ever ?MR#: [id number] ?? 1 ? : 1970 ?Acct:[id number] ? Age/Sex: 54 / F ?ADM Date: 02/03/25 ? Loc: HO.MAMMO ? Attending Dr: Jamee Oden DO ? Ordering Physician: Jamee Oden DO ?? Date of Service: 04/04/24 ?? Procedure(s): US breast RT limited mamm only ?? Accession Number(s): [id number] ? cc: Jamee Oden DO ? EXAMINATION: [...] ? DD/ ? TD/TT: 04/04/24 0938 ? Cabinet Mounter: ? Procedure Note Donotuseinterpreter, Image - 04/04/2024 Tereza [facility]'s [address] [place] [address] Ultrasound Report Signed Patient: Beau John#: [id number] 1 : 1970Acct:[id number] Age/Sex: 54 / FADM Date: 04/04/24 Loc: HO.MAMMO Attending Dr: Jamee Oden DO Ordering Physician: Jamee Oden DO Date of Service: 04/04/24 Procedure(s): US breast RT limited mamm only Accession Number(s): [id number] cc: Jamee Oden DO EXAMINATION: MM DIAGNOSTIC [...] in OV> 04/04/2446 DD/ 4 TD/TT: 04/04/24937 Cabinet Mounter: us Jamee Oden DO IMG US PROCEDURES Final Resu lt * Pap Smear (05/14/2023 2:15 PM EDT) 05/14/2023 2:15 PM EDT 05/15/2023 9:00 AM EDT [facility] LABS - 05/26/2023 10:17 AM EDT ----- ------- Name: Ever John ?Age/Sex: 53/F ? : 1970 Unit#: [id number] ?? Attend Dr: Duc Cazares MD ?Re05/14/23 ?Status: DEP REF ? Location: HO.LNP ?Disch: ? ----- ------- SPEC : [id number] ? RECD: 05/15/23 ? STATUS: ??SOUT ? REQ NUM: [id number] ? GOSIA: 05/14/23 ? SUBM DR: Duc Cazares MD ? ENTERED: ??05/15/23 ?SP TYPE: Pap Smr ?OTHR DR: Maribell Alanis OPTICAL INSTRUMENT ASSEMBLER ? ORDERED: ??Pap Smear ? Interpretation ?? [...] 66, 68) ?? HPV testing performed by [facility], [place], [place]. ??See reference laboratory ?? portion of the EMR for entire report. ?Clinical Information LMP: Unknown date Previous PAP test: 2018, Unknown findings Other history: Abnormal uterine and vaginal bleeding ? Material Received ?? ThinPrep-Cervical Copies To: ?? Maribell Alanis OPTICAL INSTRUMENT ASSEMBLER ?? [address] [facility] ?? [place] [address] ?? [phone] ?? Duc Cazares MD ?? [address] [facility] [address] [facility] [address] [facility] ?? [place] [address] ?? [phone] ----- ------- Signed (signature on file) ROMÁN Joaquin (ASCP) 05/26/23 1017 ? ----- ------- ? END OF REPORT ? us Generic External Data Provider LAB CYTOLOGY ALAINA DOMINGUEZ Final Result LABS [address] [place] [phone] * (ABNORMAL) HPV mRNA E6/E7 (12/15/2017 2:12 PM EDT) HPV mRNA E6/E7 DETECTED (AA) NOT DETECTED [facility] Comment: This test was performed using the APTIMA(R) HPV Assay ([employer] This assay detects E6/E7 viral messenger RNA (mRNA) from 14 high-risk HPV types (16,18,31,33,35,39,45,51, 52,56,58,59,66,68). For additional information please refer to: http://education.PharmaGen/faq/QQW524p2 (This link is being provided for informational/ educational purposes only.) The analytical performance characteristics of this assay have been determined by [employer] [place], [place]. The modifications have not been cleared or approved by the FDA. This assay has been validated pursuant to the CLIA regulations and is used for clinical purposes. Test Performed by [email or web address], [facility], [address] [place] [address] Brodie Koenig M.D., Ph.D., Director of Laboratories , CLIA [id number] Please note: ??Effective 11/12/2015, HPV testing will be performed using [employer]'s APTIMA test which targets mRNA. Detecting mRNA instead of DNA, as in older methods, offers significant improvements in specificity. 12/15/2017 2:12 PM EDT us Lesia Ramon CNM HISTORICAL/NON ORDERABLE LABS Final Result [facility] [address] from Last 3 Months or Most Recently Relevant to Health Maintenance Insurance [facility] STAND ADULT Care Teams Pediatric Np Relationship Specialty Start Date End Date Maribell Alanis FNP [address] [place] [phone] PCP - General Family Medicine 08/14/21
--- OUTSIDE RECORDS SUMMARY | 2024-07-13 14:49 | XMS_ITS | Encounter Summary ---
Author Organization [employer] Address [address] [facility] 7t [place] [address] Care Team Providers Care Pre School Teacher Name Role Phone Maribell Alanis Primary Care Provider [phone] Reason for Visit * Reason Onset Date Comments Appointment Request 12/04/2023 Encounter Details Date Type Department Care Team ([facility] st Contact Info) Description 12/04/2023 Telephone [facility] MEDICINE [address] [place] [address] Maribell Alanis FNP [address] [place] [address] Appointment Request Social History Tobacco Use Types [...] Description 07/26/2024 2:00 PM EDT Office Visit [facility] OPTOMETRY [address] [place] [address] Keagan, Shae, OD [address] [place] [address] 08/24/2024 9:15 AM EDT Office Visit [facility] MEDICINE [address] [place] [address] Maribell Alanis FNP [address] [place] [address] documented as of this encounter Visit Diagnoses Not on filedocumented in this encounter Additional Health Concerns Assessment Noted Time PHQ-9 Depression Total Score: 8 07/22/19 24 9:06 AM EDT documented as of this encounter Care Teams Pre School Teacher Relationship Specialty Start Date End Date Maribell Alanis FNP [address] [place] [address] PCP - General Family Medicine 08/14/21 documented as of this encounter
--- OUTSIDE RECORDS SUMMARY | 2024-07-13 14:49 | XMS_ITS | Encounter Summary ---
Author Organization [employer] Address [address] [facility] 7t [place] [address] Care Team Providers Care Carbonizer Tester Name Role Phone Maribell Alanis Primary Care Provider [phone] Reason for Visit * Reason Comments Med Refill Encounter Details Date Type Department Care Team (Late Contact Info) Description 09/11/2022 Refill [facility] MEDICINE [address] [place] [address] Maribell Alanis FNP [address] [place] [address] Social History Tobacco Use Types Packs/Day Years [...] Description 07/26/2024 2:00 PM EDT Office Visit [facility] OPTOMETRY [address] [place] [address] Keagan, Shae, OD [address] [place] [address] 08/24/2024 9:15 AM EDT Office Visit [facility] MEDICINE [address] [place] [address] Maribell Alanis FNP [address] [place] [address] documented as of this encounter Visit Diagnoses Not on filedocumented in this encounter Additional Health Concerns Assessment Noted Time PHQ-9 Depression Total Score: 14 023 9:20 AM EDT documented as of this encounter Care Teams Carbonizer Tester Relationship Specialty Start Date End Date Maribell Alanis FNP [address] [place] [address] PCP - General Family Medicine 08/14/21 documented as of this encounter
[2024-07-13 16:35] LABS: Urine Cytology See Pathology rpt
== END 2024-07-13 14:19 | disposition home or self-care (01) ==
LOC: HO.LAB 14:18
PROVIDERS: PCP Family Medicine; Visit Provider Nurse Practitioner Family
DX: R31.29 Other microscopic hematuria (principal); N28.1 Cyst of kidney, acquired
CPT/HCPCS: 51798; 81003; 88112; 99212

== ENCOUNTER 2024-08-05 15:11 | Outpatient (REF) | payer MEDICAID, SELFPAY ==
--- NOTE | ~2024-08-05 | US_ITS ---
EXAMINATION: US PELVIS LIMITED (BLADDER) CLINICAL INFORMATION: Calculus of kidney. COMPARISON: Ultrasound kidney 07/07/2024 TECHNIQUE: Real-time imaging of the bladder. FINDINGS: BLADDER: Well distended and normal. Bilateral ureteral jets are demonstrated. Prevoid bladder volume is 260 mL. Postvoid bladder volume is 22 mL. There is no bladder wall thickening. US/US bladder IMPRESSION: Small post void residual bladder volume of 32 mL. Normal bilateral ureteral jets seen. No echogenic stones or wall thickening. Electronically signed by: Augusto Henderson MD 08/08/2024 07:20 AM EDT
--- OUTSIDE RECORDS SUMMARY | 2024-08-05 15:13 | XMS_ITS | Encounter Summary ---
Author Organization [employer] Address [address] [facility] 7t [place] [address] Care Team Providers Care Relations Director Name Role Phone Maribell Alanis JARRETT Primary Care Provider [phone] Reason for Visit * Reason Comments Med Refill Encounter Details Date Type Department Care Team ([facility] st Contact Info) Description 08/24/2023 Refill [facility] MEDICINE [address] [place], [place] [phone] Name, MD Varun [address] [place] [address] Insomnia, unspecified type Social History Tobacco Use [...] Care Team (Late st Contact Info) Description 08/24/2024 9:15 AM EDT Office Visit [facility] MEDICINE [address] [place] [address] Maribell Alanis FNP [address] [place] [address] documented as of this encounter Visit Diagnoses Diagnosis Insomnia, unspecified type documented in this encounter Additional Health Concerns Assessment Noted Time PHQ-9 Depression Total Score: 8 07/22/19 24 9:06 AM EDT documented as of this encounter Care Teams Relations Director Relationship Specialty Start Date End Date Maribell Alanis FNP [address] [place] [address] PCP - General Family Medicine 08/14/21 documented as of this encounter
== END 2024-08-05 15:12 | disposition home or self-care (01) ==
LOC: HO.US 15:11
PROVIDERS: PCP Family Medicine; Visit Provider Nurse Practitioner Family
DX: N20.0 Calculus of kidney (principal)
CPT/HCPCS: 76857

== ENCOUNTER → 2024-08-05 15:14 | Outpatient (BNV) | payer MEDICAID, SELFPAY | PROVIDERS: PCP Family Medicine; Visit Provider Radiology Diagnostic Radiology | DX: N20.0 Calculus of kidney (principal) | CPT/HCPCS: 76857 ==

== ENCOUNTER 2024-09-15 15:30 | Outpatient (REF) | payer MEDICAID, SELFPAY ==
--- NOTE | ~2024-09-15 | XR_ITS ---
EXAMINATION: XR HAND, RIGHT CLINICAL INFORMATION: right hand pain COMPARISON: None available. TECHNIQUE: PA, lateral, and oblique views of the right hand. FINDINGS: The bones and soft tissues are normal. No fracture. Alignment is anatomic. Joint spaces are maintained. No erosions or soft tissue calcifications. XR/XR hand RT min 3V IMPRESSION: Unremarkable right hand x-ray Electronically signed by: Eduard Callahan MD 09/15/2024 05:49 PM EDT
[2024-09-15 15:52] LABS: MANUAL DIFF FLAG NO
[2024-09-15 15:55] LABS: Hematocrit 31.5 % (37.0-47.0); Hemoglobin 10.4 g/dl (12.0-16.0); Imm Gran Abs Auto 0.02 X10*3/uL (0.00-0.03); Imm Gran Pct Auto 0.4 % (0.0-0.4); Lymphocytes Absolute Auto 1.8 X10*3/uL (1.2-4.9); Mean Corpuscular HGB Conc 33.0 g/dl (31.0-35.0); Mean Corpuscular Hemoglobin 28.0 pg (27.0-33.0); Mean Corpuscular Volume 84.7 fL (80.0-98.0); NRBC Abs Auto 0.000 X10*3/uL (0.0-0.012); NRBC Pct Auto 0.0 /100WBC (0.0-0.2); Platelet Count 299 X10*3/uL (160-400); Red Blood Count 3.72 X10*6/uL (4.20-5.50); White Blood Count 5.2 X10*3/uL (4.8-10.8)
--- OUTSIDE RECORDS SUMMARY | 2024-09-15 16:08 | XMS_ITS | Encounter Summary ---
Author Organization [employer] Address [address] [facility] 7t [place] [address] Care Team Providers Care Multimedia Educational Specialist Name Role Phone Maribell Alanis JARRETT Primary Care Provider [phone] Reason for Visit * Reason Comments Med Refill Encounter Details Date Type Department Care Team ([facility] Contact Info) Description 08/24/2023 Refill [facility] MEDICINE [address] [place] [address] Name, MD Varun [address] [place] [address] Insomnia, unspecified type Social History Tobacco Use [...] enough money to get more: Never True 11/ 05/2022 Transportation Answer Date Recorded In the [...] Care Team (Late st Contact Info) Description 11/04/2024 3:15 PM EDT Office Visit [facility] MED & PEDS [address] [place] [address] Maribell Alanis FNP [address] [place] [address] documented as of this encounter Visit Diagnoses Diagnosis Insomnia, unspecified type documented in this encounter Additional Health Concerns Assessment Noted Time PHQ-9 Depression Total Score: 8 07/22/19 24 9:06 AM EDT documented as of this encounter Care Teams Multimedia Educational Specialist Relationship Specialty Start Date End Date Maribell Alanis FNP [address] [place] [address] PCP - General Family Medicine 08/14/21 documented as of this encounter
[2024-09-15 16:18] LABS: Alanine Aminotransferase 23 U/L (0-31); Albumin Level 4.1 g/dL (3.5-5.0); Alkaline Phosphatase 63 U/L (39-117); Anion Gap 11 (12-20); Aspartate Amino Transferase 22 U/L (5-31); Blood Urea Nitrogen 17 mg/dL (9-16); Calcium 9.0 mg/dL (8.4-10.2); Carbon Dioxide 27 mmol/L (22-29); Chloride 110 mmol/L (96-108); Estimated Glomerular Filt Rate 41; Potassium 3.9 mmol/L (3.3-5.1); Sodium 144 mmol/L (135-145); Total Protein 7.1 g/dL (6.5-8.0)
[2024-09-15 16:32] LABS: Ferritin 178 ng/mL (10-250)
== END 2024-09-15 15:31 | disposition home or self-care (01) ==
LOC: HO.XRAY 15:30
PROVIDERS: Absent Provider Internal Medicine Medical Oncology; PCP Registered Nurse; Visit Provider Internal Medicine
DX: D64.9 Anemia, unspecified (principal); M25.50 Pain in unspecified joint; G89.29 Other chronic pain; M79.641 Pain in right hand
CPT/HCPCS: 36415; 73130; 80053; 82728; 85025

== ENCOUNTER → 2024-09-15 15:51 | Outpatient (BNV) | payer MEDICAID, SELFPAY | PROVIDERS: Absent Provider Internal Medicine Medical Oncology; PCP Registered Nurse; Visit Provider Radiology Diagnostic Radiology | DX: M79.641 Pain in right hand (principal) | CPT/HCPCS: 73130 ==

== ENCOUNTER 2024-10-05 12:44 | Outpatient (REF) | payer MEDICAID, SELFPAY ==
--- NOTE | ~2024-10-05 | US_ITS ---
EXAMINATION: US DIAGNOSTIC ULTRASOUND BREAST, RIGHT CLINICAL INFORMATION: 6 month follow-up for hypoechoic oval solid mass in the right breast on ultrasound 8:00.. COMPARISON: Comparison is made with relevant prior imaging. TECHNIQUE: Ultrasound of the breast is performed with real-time almanza scale imaging and color Doppler. FINDINGS: Targeted color Doppler ultrasound of the right breast 8:00 3 cm from the nipple again demonstrates a hypoechoic oval parallel circumscribed solid mass measuring 13 x 10 x 5 mm not significantly changed from prior ultrasound. Results are discussed with the patient at time of visit. US/US breast RT limited mamm only IMPRESSION: Hypoechoic oval circumscribed solid mass at 8:00 3 cm from the nipple in the right breast not significantly changed from prior ultrasound 6 months ago. Probably benign. Recommend 6 month follow-up for further evaluation of stability. ASSESSMENT: BI-RADS 3: Probably Benign RECOMMENDATION: Diagnostic ultrasound in 6 months. This patient's information was entered into a reminder system with a target due date for their next mammogram. Electronically signed by: Ale Damon DO 10/05/2024 01:43 PM EDT
--- OUTSIDE RECORDS SUMMARY | 2024-10-05 13:15 | XMS_ITS | Encounter Summary ---
Author Organization [employer] Address [address] [facility] 7t [place] [address] Care Team Providers Care Food Products Sales Representative Name Role Phone Maribell Alanis JARRETT Primary Care Provider [phone] Reason for Visit * Reason Comments Med Refill Encounter Details Date Type Department Care Team ([facility] Contact Info) Description 08/24/2023 Refill [facility] MEDICINE [address] [place] [address] Name, MD Varun [address] [place] [address] Insomnia, unspecified type Social History Tobacco Use [...] Description 11/04/2024 3:15 PM EDT Office Visit [facility] MED & PEDS [address] [place] [address] Maribell Alanis FNP [address] [place] [address] documented as of this encounter Visit Diagnoses Diagnosis Insomnia, unspecified type documented in this encounter Additional Health Concerns Assessment Noted Time PHQ-9 Depression Total Score: 8 07/22/19 24 9:06 AM EDT documented as of this encounter Care Teams Food Products Sales Representative Relationship Specialty Start Date End Date Maribell Alanis FNP [address] [place] [address] PCP - General Family Medicine 08/14/21 documented as of this encounter
== END 2024-10-05 12:45 | disposition home or self-care (01) ==
LOC: HO.MAMMO 12:44
PROVIDERS: PCP Internal Medicine; Visit Provider Family Medicine
DX: N63.13 Unspecified lump in the right breast, lower outer quadrant (principal)
CPT/HCPCS: 76642

== ENCOUNTER → 2024-10-05 13:00 | Outpatient (BNV) | payer MEDICAID, SELFPAY | PROVIDERS: PCP Internal Medicine; Visit Provider Internal Medicine | DX: N63.11 Unspecified lump in the right breast, upper outer quadrant (principal) | CPT/HCPCS: 76642 ==

== ENCOUNTER 2024-11-30 13:49 | Outpatient (AMB) | payer MEDICAID, SELFPAY ==
[2024-11-30 13:58] VITALS: BP 118/62; PULSE 68; O2SAT 100; BMI 33.6
--- NOTE | 2024-11-30 13:58 | MHC.OFFVIS ---
Vital Signs 11/30/24 13:58 Height 5 ft 1 in Weight 178 lb BMI 33.6 BP 118/62 Blood Pressure Location Lt radial Position Sitting Pulse 68 Pulse Source Pulse Oximeter Pulse Oximetry (%) 100 Oxygen Delivery Method Room Air Intake Visit Reasons: [place] screening. Dr. Jacobo pt. Intake Note: New pt for colo and egd screening per anemia hx. Referred by Dr. Jacobo. CC: C.O. GERD, intermittent constipation w/o evidence of hematochezia or melena, anemia which she is receiving infusions for. No additional concerns at this time. No pertinent surgical or FMHx. Public Health Training Assistant Required: Yes Public Health Training Assistant Services: Public Health Training Assistant Present Public Health Training Assistant Name: Anne-Marie [id number] Amira Berry [place] [place] Information Interpreted: clinical only Accompanied by: Self / Same As Patient Allergies tizanidine Adverse Reaction (Unknown, Verified 11/30/24 13:59) Involuntary Spasms HPI HPI [place] screening. Dr. Jacobo pt.: Details: 54 year old? female with past medical history of GERD, fibroadenoma, ovarian cyst, arthritis, anemia is here today for pre colonoscopy screening.? Patient was sent to us by Dr. Jacobo.? This is her first colonoscopy screening.? Patient reports acid reflux. At night time patient feels like acid is coming up all the way to her throat. Patient denies any nausea or vomiting. Currently she is not taking any PPI and would rather wait to take anything.? Denies any family history of gastrointestinal disease or CRC.? Denies history of difficulty with sedation or anesthesia in the past.? Negative for history of sleep apnea.? Denies any history of cardiac, renal, pulmonary, or hepatic disease.?? History of hepatitis-C in 2016, patient was treated.? Patient is not on any anticoagulation. [facility] Medical History (Updated 11/30/24 @ 14:31 by Martine Duvall [facility]) GERD (gastroesophageal reflux disease) Fibroadenoma Hx of tendinitis High cholesterol Surgical History Hx of tubal ligation Family History Father Prostate cancer Social History Household Members: Family Alcohol intake: never Patient Tobacco Use Status: Never used Tobacco service: No Current occupational status: unemployed Female Reproductive History Menstrual Age of Menarche: 12 Review of Systems Const Denies weight gain and Denies weight loss ENT Reports no additional complaints, Denies dysphagia and Denies odynophagia Card Reports no additional complaints Resp Reports no additional complaints GI Reports abdominal pain (Epigastric), Denies belching, Denies melena, Reports bloating, Denies change in bowel habits, Reports constipation (Occasional), Denies dysphagia, Denies excessive flatus, Denies dyspepsia, Reports heartburn, Denies diarrhea, Denies loose stools, Denies nausea, Denies odynophagia and Denies vomiting Reports no additional complaints Musc Reports no additional complaints Neuro Reports no additional complaints Psych Reports no additional complaints Endo Reports no additional complaints Physical Exam Vital Signs: Last Vital Signs Pulse 68 11/30/24 13:58 BP 118/62 11/30/24 13:58 Pulse Ox 100 11/30/24 13:58 Oxygen Delivery Method Room Air 11/30/24 13:58 BMI result Body Mass Index 33.6 Const General: healthy appearing, no acute distress and well developed Nutritional Appearance: well nourished and obese Orientation/consciousness: patient oriented x3 Resp Effort & Inspection: normal respiratory effort, able to speak in complete sentences, no tracheal deviation and symmetric chest movement Auscultation: clear to auscultation bilaterally Cardio Rate: regular rate GI Inspection: Yes normal to inspection, No distended and Yes obesity Palpation (GI): Soft to palpation, not firm, nontender and No hepatosplenomegaly present Auscultation: normal bowel sounds General: Yes no CVA tenderness Back/Spine/Pelvis Back: no CVA tenderness Skin General skin exam: elasticity normal, turgor normal and dry skin Neuro General: patient oriented x3 Psych Appearance: grossly normal Mental Status: mental status grossly normal Assessment & Plan Assessment & Plan (1) Screen for colon cancer: Code(s): Z12.11 - Encounter for screening for malignant neoplasm of colon (2) GERD (gastroesophageal reflux disease): Code(s): K21.9 - Gastro-esophageal reflux disease without esophagitis Category: Medical Qualifiers: Esophagitis presence: esophagitis presence not specified Qualified Code(s): K21.9 - Gastro-esophageal reflux disease without esophagitis (3) Postprandial epigastric pain: Code(s): R10.13 - Epigastric pain Plan Patient denies any cardiac or respiratory symptoms.? Patient reports acid reflux, will check for H pylori. Reports also epigastric pain sometimes severe. Patient is declining any PPI or H2 satish at this time. Will send patient for endoscopy to rule out gastritis, duodenitis, esophagitis, H pylori, Preston's. Denies any issues with anesthesia in the past.? Denies any history of sleep apnea.? No history infectious diseases in the past or present.? Not on any anticoagulation therapy.? No family or personal history of colon cancer or polyps.? Patient denies melena, hematochezia, unintentional weight loss or ribbon like stools.? Discussed at length the pre-procedure,? prep, diet & medications as well as what to expect prior, during and after the procedure.?? Stressed the importance of good bowel prep.? Recommended the use of Vaseline or Calmoseptine OTC & baby wipes with bowel movements to promote comfort.? ?Patient verbalizes understanding and agrees to plan of care.? She was given the opportunity to ask questions and all questions answered.? We will see her after the procedure.? Orders: Orders H Pylori Breath Test Today K21.9 - Gastro-esophageal reflux disease without esophagitis Referrals GI Procedure Notification K21.9 - Gastro-esophageal reflux disease without esophagitis, Z12.11 - Encounter for screening for malignant neoplasm of colon Medications: New bisacodyl (Dulcolax (bisacodyl)) 10 mg (2 x 5 mg) PO BEDTIME 180 tabs 4RF polyethylene glycol 3350 (Miralax) As directed by gastroenterology department at [facility] 238 grams PO ONCE 238 grams 0RF Z12.11 - Encounter for screening for malignant neoplasm of colon Coding Level of Care Code New Pt Level 3 (32462) Diagnoses Screen for colon cancer Z12.11 Gastroesophageal reflux disease, unspecified whether esophagitis present K21.9 Esophagitis presence: esophagitis presence not specified Postprandial epigastric pain R10.13 Time Spent (min) 45 Comment 35 minute spent with patient and additional 10 minutes spent reviewing her records
--- OUTSIDE RECORDS SUMMARY | 2024-11-30 15:06 | XMS_ITS | Encounter Summary ---
Author Organization [employer] Address [address] [place] [address] Care Team Providers Care Upper Lining Cementer Name Role Phone Maribell Alanis Primary Care Provider [phone] Reason for Visit * Reason Comments Med Refill Encounter Details Date Type Department Care Team ([facility] [address] Contact Info) Description 09/11/2022 Refill [facility] [address] [place] [address] Maribell Alanis FNP [address] [place] [address] Social History Tobacco Use Types Packs/Day Years [...] Upcoming Encounters Date Type Department Care Team ([facility] [address] Contact Info) Description 12/06/2024 3:00 PM EDT Clinical Support [facility] [address] [place] [address] Ana Duque, RN [address] [place] [address] documented as of this encounter Visit Diagnoses Not on filedocumented in this encounter Additional Health Concerns Assessment Noted Time PHQ-9 Depression Total Score: 14 023 9:20 AM EDT documented as of this encounter Care Teams Upper Lining Cementer Relationship Specialty Start Date End Date Maribell Alanis FNP [address] [place] [address] PCP - General Family Medicine 08/14/21 documented as of this encounter
--- OUTSIDE RECORDS SUMMARY | 2024-11-30 15:06 | XMS_ITS | Encounter Summary ---
Author Organization [employer] Address [address] [place] [address] Care Team Providers Care Concrete Fence Builder Name Role Phone Maribell Alanis JARRETT Primary Care Provider [phone] Encounter Details Date Type Department Care Team ([facility] st Contact Info) Description 09/16/2024 Orders Only [facility] [address] [place], [place] [id number] Alaina Mendieta MD [address] [place] [address] Social History Tobacco Use Types Packs/Day Years [...] Upcoming Encounters Date Type Department Care Team ([facility] st Contact Info) Description 12/06/2024 3:00 PM EDT Clinical Support [facility] [address] [place] [address] Ana Duque, RN [address] [place] [address] documented as of this encounter Visit Diagnoses Not on filedocumented in this encounter Additional Health Concerns Assessment Noted Time PHQ-9 Depression Total Score: 8 07/22/19 24 9:06 AM EDT documented as of this encounter Care Teams Concrete Fence Builder Relationship Specialty Start Date End Date Maribell Alanis FNP [address] [place] [address] PCP - General Family Medicine 08/14/21 documented as of this encounter
--- OUTSIDE RECORDS SUMMARY | 2024-11-30 15:06 | XMS_ITS | Clinical Summary ---
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 felt unable to move, was at bed and unable to stand or move Medications * This document contains information received from the source organization and may not represent a complete record from that organization. cetirizine (ZyrTEC) 10 MG tabletIndications:Sea zoila allergies Take 1 tablet (10 mg) by mouth Once per day. 90 tablet 3 024 Active Ketotifen Fumarate 0.035 % solutionIndications:S easonal allergies Administer 1 drop into both eyes if needed in the morning and at bedtime (allergy symptoms or itching). 10 mL 3 025 Active clobetasol (Temovate) 0.05 % ointmentIndications:P ain of right hand Apply topically 2 times daily. 45 g 025 Active Ventolin HFA 108 (90 Base) MCG/ACT inhaler INHALE 2 PUFFS BY MOUTH EVERY 4 TO 6 HOURS NEEDED 18 g 11 025 Active zolpidem (Ambien) 5 MG tabletIndications:Ins omnia, unspecified type Take 1 tablet (5 mg) by mouth if needed at bedtime for sleep. 28 tablet 025 Active traMADol (Ultram) 50 MG tabletIndications:Bul ging of intervertebral disc between L4 and L5 Take 1 tablet (50 mg) by mouth every 12 (twelve) hours if needed for severe pain. 15 tablet Active lidocaine (Lidoderm) 5 % patchIndications:Pain APPLY 1 PATCH TOPICALLY TO SKIN, LEAVE ON FOR 12 HOURS AND OFF FOR 12 HOURS DIRECTED 30 patch 11 025 Active Diclofenac Sodium 1 % gelIndications:Pain APPLY 2 GRAMS TO AFFECTED AREA(S) 2 TO 3 TIMES PER DAY NEEDED FOR PAIN 100 g 11 025 Active betamethasone, augmented, (Diprolene) 0.05 % ointmentIndications:K nuckle pads on dorsal aspect of multiple metacarpophalangeal and interphalangeal joints APPLY TOPICALLY TO THE AFFECTED AREA(S) TWICE DAILY DIRECTED FOR UP TO 7 DAYS 50 g 1 Active lidocaine (Lidoderm) 5 % patchIndications:Pain Apply 1 patch topically Once per day. Remove & discard patch within 12 hours or as directed by MD. 30 patch 11 024 2024 Discontinued Diclofenac Sodium 1 % gelIndications:Pain APPLY 2 GRAMS TO AFFECTED AREA(S) 2-3 times DAILY NEEDED FOR PAIN 100 g 11 024 2024 Discontinued betamethasone, augmented, (Diprolene) 0.05 % ointmentIndications:K nuckle pads on dorsal aspect of multiple metacarpophalangeal and interphalangeal joints Apply topically 2 times daily. Up to 1 week 50 g 2 025 2024 Discontinued zolpidem (Ambien) 5 MG tabletIndications:Ins omnia, unspecified type TAKE 1 TABLET BY MOUTH AT BEDTIME NEEDED FOR SLEEP 28 tablet 025 2024 Discontinued( Reorder (will not trigger notification to Pharmacy)) traMADol (Ultram) 50 MG tabletIndications:Bul ging of intervertebral disc between L4 and L5 TAKE 1 TABLET BY MOUTH EVERY TWELVE HOURS NEEDED FOR SEVERE PAIN 15 tablet 025 2024 Discontinued( Reorder (will not trigger notification to Pharmacy)) Active Problems Problem Noted Date Diagnosed Date Microscopic hematuria 11/06/2024 Overview (11/06/2024): Following with [facility] - [facility] [place] Urine cytology neg for high-grade urothelial carcinoma June 2024: normal/unremarkable renal US July 2024: US Bladder -normal bilateral ureteral jets seen. No echogenic stones or wall thickening. 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 Cazares Pelvic US 06/03/23 that [...] Plan (07/22/2023 6:20 AM EDT): Following with [facility] Ortho Per consult in Mar 2023, plan for physical therapy and NSAIDs, declined injection Anemia 07/22/2023 Overview (07/22/2023): Following with [facility] Heme/Onc for normocytic normochromic anemia with iron deficiency Assessment & Plan (11/06/2024 7:18 PM EDT): - Consult August 2024 - plan for repeat IV iron. Encouraged to check with D[facility] GRINDER if endometrial ablation is an option. - Referred to [facility] for eval menorrhagia and GI for screening colonoscopy Assessment & Plan (10/22/2023 7:39 AM EDT): - Recieved IV Iron, stopped PO iron - Referred to D[facility] GR[facility] for eval menorrhagia and GI for screening colonoscopy - Recent HMB, will check current levels Assessment & Plan (07/25/2023 11:34 AM EDT): - Started IV Iron, stopped PO iron - Referred to D[facility] GR[facility] for eval menorrhagia and GI for screening colonoscopy Vitreomacular adhesion, left eye 03/12/2023 Complex renal cyst 02/21/2023 Overview (08/24/2024): Following with [facility] (EDIS Rojas) June 2024: no renal masses identified on renal US Assessment & Plan (06/01/2024 9:40 AM EDT): [...] normal. Limited visualization. Healthcare maintenance 09/28/2022 Overview (11/06/2024): Optometry: [facility] Pap: 05/14/23 NILM, HPV neg (Dr. Cazares) Mammo: BIRADS 3 in Sep 2024, due for repeat in 6 mo Colonoscopy: referral to GI placed 10/21/23 Dental: referral to [facility] Dental placed 07/22/23 Assessment & Plan (06/01/2024 [...] Assessment & Plan (09/28/2022 12:11 PM EDT): Use triamcinolone 0.1% cream BID for one week on knuckles of right hand Encouraged use of topical emollient as well Follow up with any persistence or worsening of symptoms Insomnia 08/02/2022 Assessment & Plan (11/06/2024 7:31 PM EDT): Continues with Ambien, but at 5mg [...] trying to re-initiate sleep. Assessment & Plan (10/22/2023 7:40 AM EDT): [...] Assessment & Plan (02/21/2023 9:58 AM EST): Discussed indication of Nyquil, not intended to be used as sleep aid. Shared decision making to restart Ambien, but at 5mg dose PRN. Reviewed med safety and SE, advised of importance of not combining with opioids Continue with sleep hygiene interventions such as: [...] Assessment & Plan (09/19/2022 8:38 AM EDT): Continues on ambien 10mg nightly PRN. Reviewed med safety and SE, advised of importance of not combining with opioids Encouraged to discuss with therapist when established Continue with sleep hygiene interventions such as: [...] Assessment & Plan (08/29/2022 7:49 PM EDT): Continues on ambien 10mg nightly PRN. Reviewed med safety and SE, advised of importance of not combining with opioids Encouraged to discuss with therapist when established Continue with sleep hygiene interventions such as: [...] therapy and recommended and gave contact information [facility] for OP therapy. Provided education around integrated medicine and the options of follow up BE's as needed. Provided contact information should questions or concerns arise. Plan: Ever will engage in effective coping mechanisms discussed in session. She will be also referred to Ind. Therapy in [facility]. I encouraged her to reach out for [...] MH services. PLAN: 1. Follow up with [facility]: Not recommended for follow-up 2. Patient goal [...] L4-L5 small annular disc Assessment & Plan (11/06/2024 7:31 PM EDT): Continues with tramadol 50mg BID PRN, reviewed med use and safety Goal to use sparingly and try to incorporate other methods of pain relief. Cont lidocaine patches PRN Assessment & Plan (10/22/2023 7:39 AM EDT): [...] Encounters Date Type Department Care Team Description 11/22/2024 Refill [facility] MEDICINE [address] [place] [address] [phone] Phalen, Maribell, MERCERIZING RANGE FEEDER Knuckle pads on dorsal aspect of multiple metacarpophalangeal and interphalangeal joints 11/07/2024 Travel 11/07/2024 Telephone [facility] [address] [place] [address] Ana Duque RN 11/04/2024 3:15 PM EDT Office Visit [facility] [address] [place] [address] Phalen Maribell, MERCERIZING RANGE FEEDER Rash of multiple digits of both hands (Primary Dx); Polyarthralgia; History of hepatitis C; Insomnia, unspecified type; Bulging of intervertebral disc between L4 and L5; Iron deficiency anemia, unspecified iron deficiency anemia type; Healthcare maintenance; Microscopic hematuria; Long-term current use of opiate analgesic 11/04/2024 Refill [facility] MEDICINE [address] [place] [address] PhalMaribell cabrera, MERCERIZING RANGE FEEDER Pain 11/04/2024 Travel 10/28/2024 Travel 10/05/2024 Orders Only [facility] MEDICINE [address] [place] [phone] Jamee Oden DO 09/16/2024 Results Follow-Up [facility] [address] [place] [address] Alaina Mendieta MD XR Hand 3+ Views Right 09/16/2024 Orders Only [facility] [address] [place] [address] Alaina Mendieta MD 09/15/2024 3:00 PM EDT Office Visit [facility] [address] [place] [address] Alaina Mendieta MD Chronic pain of multiple joints (Primary Dx); Pain of right hand; Skin rash 09/15/2024 Refill [facility] MEDICINE [address] [place] [address] Toño Alanisle, MERCERIZING RANGE FEEDER Insomnia, unspecified type; Bulging of intervertebral disc between L4 and L5 09/15/2024 Orders Only GENERIC EXTERNAL DATA DEPARTMENT Provider, Generic External Data 09/15/2024 Travel 09/15/2024 Telephone [facility] MED[facility]INE [address] [place] [address] Maribell Alanis FNP Nurse Triage from Last 3 Months Immunizations Immunization Administration Dates Next Due Hep A, Adult 03/05/2018 Hep B, adult 03/05/2018,12/11/2017,11/13/2017 Tdap 09/21/2015 Family History Medical History Relation Name Comments Pancreatic cancer Father Relation Name Status Comments Father Social History Tobacco Use Types Packs/Day Years [...] Sign Reading Time Taken Comments Blood Pressure 114/74 11/04/2024 3:22 PM EDT Pulse 77 11/04/2024 3:22 PM EDT Temperature 36.8 C (98.2 F) 11/04/2024 3:22 PM EDT Respiratory Rate 20 11/04/2024 3:22 PM EDT Oxygen Saturation 99% 09/15/2024 2:34 PM EDT Inhaled Oxygen Concentration - - Weight 76.2 kg (168 lb) 11/04/2024 3:22 PM EDT Height 154.9 cm (5' 1 ) 09/15/2024 2:34 PM EDT Body Mass Index 31.74 09/15/2024 2:34 PM EDT Plan of Treatment Upcoming Encounters Date Type Department Care Team ([facility] st Contact Info) Description 12/06/2024 3:00 PM EDT Clinical Support [facility]S [address] [place] [address] Ana Duque, RN [address] [place] [address] Health Maintenance Due Date Last Done Comments [...] 2) 2021 Depression Screening 07/21/2024 07/22/2023, 07/22/19 24 COVID-19 Vaccine ( - season) 2024 Influenza Vaccine (#1) 2024 Diagnostic Breast Imaging 04/07/20252024, 04/04/2024, 02/04/2022, Additional history exists Mammogram 04/07/2025 10/05/2024, 04/2024, 02/16/2024, Additional history exists SDOH Screening 05/23/2025 05/23/2024 Tobacco Screening 09/15/2025 09/15/2024 DTaP/Tdap/Td Vaccines (2 - Td or Tdap) 09/20/2025 09/21/2015 Disability Screening 10/28/2025 10/28/2024 Cervical Cancer Screening 05/13/2028 HPV/Cotest 05/13/2028 12/15/2017, [...] patient's age to complete this topic Meningococcal B Vaccine Aged Out No l onger eligible based on patient's age to complete [...] Comments BI US BREAST LIMITED RIGHT Routine 10/05/2024 1:22 PM EDT XR HAND 3+ VIEWS RIGHT Routine 4:00 PM EDT Chronic pain of multiple joints Pain of right hand FERRITIN Routine 09/15/2024 3:49 PM EDT COMPREHENSIVE METABOLIC PANEL Routine 09/15/2024 3:49 PM EDT CBC WITH AUTO DIFFERENTIAL Routine 09/15/2024 3:49 PM EDT PAP SMEAR Routine 05/14/2023 2:15 PM EDT ZZZ HISTORICAL HPV MRNA E6/E7 Routine 12/15/2017 2:12 PM EDT from Last 3 Months or Most Recently Relevant to Health Maintenance Results * BI US Breast Limited Right (10/05/2024 1:22 PM EDT) Anatomical Region Laterality Modality Breast Right Ultrasound 10/05/2024 1:22 PM EDT Narrative 10/05/2024 1:46 PM EDT [facility] [address] [place], [place] [address] Ultrasound Report Signed Patient: Ever John MR#: [id number] 1 : 1970 Acct:[id number] Age/Sex: 54 / F ADM Date: 10/05/24 Loc: NICOLE Attending Dr: Jamee Oden DO Ordering Physician: Jamee Oden DO Date of Service: 10/05/24 Procedure(s): US breast RT limited mamm only Accession Number(s): [id number] cc: Alaina Mendieta MD; Jamee Oden DO EXAMINATION: US DIAGNOSTIC ULTRASOUND BREAST, RIGHT CLINICAL INFORMATION: 6 month follow-up for hypoechoic oval solid mass in the right breast on ultrasound 8:00.. COMPARISON: Comparison is made with relevant prior imaging. TECHNIQUE: Ultrasound of the breast is performed with real-time almanza scale imaging and color Doppler. FINDINGS: Targeted color Doppler ultrasound of the right breast 8:00 3 cm from the nipple again demonstrates a hypoechoic oval parallel circumscribed solid mass measuring 13 x 10 x 5 mm not significantly changed from prior ultrasound. Results are discussed with the patient at time of visit. US/US breast RT limited mamm only IMPRESSION: Hypoechoic oval circumscribed solid mass at 8:00 3 cm from the nipple in the right breast not significantly changed from prior ultrasound 6 months ago. Probably benign. Recommend 6 month follow-up for further evaluation of stability. ASSESSMENT: BI-RADS 3: Probably Benign RECOMMENDATION: Diagnostic ultrasound in 6 months. This patient's information was entered into a reminder system with a target due date for their next mammogram. Electronically signed by: Ale Damon DO 10/05/2024 01:43 PM EDT Dictated By: Ale Damon DO Signed By: <Electronically signed by Ale Damon DO in OV> 10/05/24 1343 DD/ 1322 TD/TT: 10/05/24 1338 Surveillance Agent: Procedure Note Donotuseinterpreter, Image - 10/05/2024 [facility] [address] [place] [address] Ultrasound Report Signed Patient: Beau John#: [id number] 1 : 1970Acct:[id number] Age/Sex: 54 / FADM Date: 10/05/24 Loc: NICOLE Attending Dr: Jamee Oden DO Ordering Physician: Jamee Oden DO Date of Service: 10/05/24 Procedure(s): US breast RT limited mamm only Accession Number(s): [id number] cc: Alaina Mendieta MD; Jamee Oden DO EXAMINATION: US DIAGNOSTIC ULTRASOUND BREAST, RIGHT CLINICAL INFORMATION: 6 month follow-up for hypoechoic oval solid mass in the right breast on ultrasound 8:00.. COMPARISON: Comparison is made with relevant prior imaging. TECHNIQUE: Ultrasound of the breast is performed with real-time almanza scale imaging and color Doppler. FINDINGS: Targeted color Doppler ultrasound of the right breast 8:00 3 cm from the nipple again demonstrates a hypoechoic oval parallel circumscribed solid mass measuring 13 x 10 x 5 mm not significantly changed from prior ultrasound. Results are discussed with the patient at time of visit. US/US breast RT limited mamm only IMPRESSION: Hypoechoic oval circumscribed solid mass at 8:00 3 cm from the nipple in the right breast not significantly changed from prior ultrasound 6 months ago. Probably benign. Recommend 6 month follow-up for further evaluation of stability. ASSESSMENT: BI-RADS 3: Probably Benign RECOMMENDATION: Diagnostic ultrasound in 6 months. This patient's information was entered into a reminder system with a target due date for their next mammogram. Electronically signed by: Ale Damon DO 10/05/2024 01:43 PM EDT RP Dictated By: Ale Damon DO Signed By: <Electronically signed by Ale Damon DO in OV> 10/05/24 1343 DD/ 1322 TD/TT: 10/05/24 1338 Surveillance Agent: us Jamee Oden DO IMG US PROCEDURES Final Resu lt * XR Hand 3+ Views Right (09/15/2024 4:00 PM EDT) Anatomical Region Laterality Modality Upper Extremities, Hand Right Radiogra phic Imaging 09/15/2024 4:00 PM EDT Narrative 09/15/2024 5:52 PM EDT [place] [address] XRay Report Signed Patient: Ever John MR#: [id number] 1 : 1970 Acct:[id number] Age/Sex: 54 / F ADM Date: 09/15/24 Loc: REE Attending Dr: Alaina Mendieta MD Ordering Physician: Alaina Mendieta MD Date of Service: 09/15/24 Procedure(s): XR hand RT min 3V Accession Number(s): [id number] cc: Alaina Mendieta MD; Maribell Alanis MERCERIZING RANGE FEEDER EXAMINATION: XR HAND, RIGHT CLINICAL INFORMATION: right hand pain COMPARISON: None available. TECHNIQUE: PA, lateral, and oblique views of the right hand. FINDINGS: The bones and soft tissues are normal. No fracture. Alignment is anatomic. Joint spaces are maintained. No erosions or soft tissue calcifications. XR/XR hand RT min 3V IMPRESSION: Unremarkable right hand x-ray Electronically signed by: Eduard Callahan MD 09/15/2024 05:49 PM EDT RP Dictated By: Eduard Callahan MD Signed By: <Electronically signed by Eduard Callahan MD in OV> 09/15/241748 DD/ 1600 TD/TT: 09/15/24 161 Surveillance Agent: Procedure Note Crow, Image - 09/15/2024 [place] [address] XRay Report Signed Patient: Beau John#: [id number] 1 : 1970Acct:[id number] Age/Sex: 54 / FADM Date: 09/15/24 Loc: HO.XRAY Attending Dr: Alaina Mendieta MD Ordering Physician: Alaina Mendieta MD Date of Service: 09/15/24 Procedure(s): XR hand RT min 3V Accession Number(s): [id number] cc: Alaina Mendieta MD; Maribell Alanis MERCERIZING RANGE FEEDER EXAMINATION: XR HAND, RIGHT CLINICAL INFORMATION: right hand pain COMPARISON: None available. TECHNIQUE: PA, lateral, and oblique views of the right hand. FINDINGS: The bones and soft tissues are normal. No fracture. Alignment is anatomic. Joint spaces are maintained. No erosions or soft tissue calcifications. XR/XR hand RT min 3V IMPRESSION: Unremarkable right hand x-ray Electronically signed by: Eduard Callahan MD 09/15/2024 05:49 PM EDT Dictated By: Eduard Callahan MD Signed By: <Electronically signed by Eduard Callahan MD in OV> 09/15/24 174 DD/ 1600 TD/TT: 09/15/24 161 Surveillance Agent: Alaina Mendieta MD IMG XR PROCEDURES Edited Re sult - Final * (ABNORMAL) CBC auto differential (09/15/2024 3:49 PM EDT) White Blood Count 5.2 4.8 - 10.8 X10*3/uL [facility] Red Blood Count 3.72(L) 4.20 - 5.50 X10*6/uL [facility] Hemoglobin 10.4(L) 12.0 - 16.0 g/dl [facility] Hematocrit 31.5(L) 37.0 - 47.0 % [facility] Mean Corpuscular Volume 84.7 80.0 - 98.0 fL [facility] Mean Corpuscular Hemoglobin 28.0 27.0 - 33.0 pg [facility] Mean Corpuscular HGB Conc 33.0 31.0 - 35.0 g/dl [facility] Red Cell Distribution Width 13.3 11.0 - 16.0 % [facility] Platelet Count 299 160 - 400 X10*3/uL [facility] Mean Platelet Volume 10.5 9.4 - 12.3 fL [facility] Neutrophils Percent Auto 55.1 45 - 73 % [facility] Imm Gran Pct Auto 0.4 0.0 - 0.4 % [facility] Lymphocytes Percent Auto 34.4 20 - 40 % [facility] Monocytes Percent Auto 7.4 2 - 11 % [facility] Eosinophils Percent Auto 2.1 0 - 4 % [facility] Basophils Percent Auto 0.6 0 - 2 % [facility] NRBC Pct Auto 0.0 0.0 - 0.2 /100WBC [facility] Neutrophils Absolute Auto 2.9 2.0 - 8.3 x10*3/uL [facility] Imm Gran Abs Auto 0.02 0.00 - 0.03 X10*3/uL [facility] Lymphocytes Absolute Auto 1.8 1.2 - 4.9 X10*3/uL [facility] Monocytes Absolute Auto 0.4 0.1 - 1.2 X10*3/uL [facility] Eosinophils Absolute Auto 0.1 0.0 - 0.4 X10*3/uL [facility] Basophils Absolute Auto 0.0 0.0 - 0.2 X10*3/uL [facility] NRBC Abs Auto 0.000 0.0 - 0.012 X10*3/uL [facility] 09/15/2024 3:49 PM EDT 09/15/2024 3:50 PM EDT us Generic External Data Provider LAB BLOOD ORDERAB LES Final Result Performing Organization Address City/[facility]/ZIP Co de Phone Number [facility] [address] [place] [address] [phone] * Ferritin (09/15/2024 3:49 PM EDT) Ferritin 178 10 - 250 ng/mL [facility] 09/15/2024 3:49 PM EDT 09/15/2024 3:50 PM EDT Generic External Data Provider LAB BLOOD ORDERAB LES Final Result Performing Organization Address [facility] Co de Phone Number [facility] [address] [place] [address] [phone] * (ABNORMAL) Comprehensive Metabolic Panel (09/15/2024 3:49 PM EDT) Sodium 144 135 - 145 mmol/L [facility] Potassium 3.9 3.3 - 5.1 mmol/L [facility] Chloride 110(H) 96 - 108 mmol/L [facility] Carbon Dioxide 27 22 - 29 mmol/L [facility] Anion Gap 11(L) 12 - 20 [facility] Urea Nitrogen (BUN) 17(H) 9 - 16 mg/dL [facility] Creatinine, Serum 1.35 0.5 - 1.4 mg/dL [facility] Estimated Glomerular Filt Rate 41 [facility] Comment:Chronic Kidney Disea se: Estimated GFR < 60 mL/min/1.56w5Xcfatc Kidney Disease: Estimated GFR < 15 mL/min/1.73m2 Glucose 99 60 - 115 mg/dL [facility] Calcium 9.0 8.4 - 10.2 mg/dL [facility] Bilirubin, Total 0.2 0.0 - 1.0 mg/dL [facility] Aspartate Amino Transferase 22 5 - 31 U/L [facility] Alanine Aminotransferase 23 0 - 31 U/L [facility] Total Protein 7.1 6.5 - 8.0 g/dL [facility] Albumin Level 4.1 3.5 - 5.0 g/dL [facility] Alkaline Phosphatase 63 39 - 117 U/L [facility] 09/15/2024 3:49 PM EDT 09/15/2024 3:50 PM EDT us Generic External Data Provider LAB BLOOD ORDERAB LES Final Result [facility] [address] [place] [phone] * Pap Smear (05/14/2023 2:15 PM EDT) 05/14/2023 2:15 PM EDT 05/15/2023 9:00 AM EDT Sergio [facility] - 05/26/2023 10:17 AM EDT ----- ------- Name: AlvaroEver Age/Sex: 53/F : 1970 Unit#: [id number] Attend Dr: Duc Cazares MD Re05/14/23 Status: DEP REF Location: HOYaritzaLNP Disch: ----- ------- SPEC : [id number] RECD: 05/15/23 STATUS: SYLVIA DIEGO NUM: [id number] GOSIA: 05/14/231415 [facility] DR: uDc Cazares MD ENTERED: 05/15/23 SP TYPE: Pap Smr OTHR DR: Maribell Alanis ORDERED: Pap Smear Interpretation Satisfactory for evaluation. No endocervical cells seen. Fungal organisms consistent with [place] species. Moderate inflammation. Negative for intraepithelial lesion or malignancy. HPV mRNA E6/E7: NOT DETECTED This assay detects E6/E7 viral messenger RNA (mRNA) from 14 high-risk HPV types (16, 18, 31, 33, 35, 39, 45, 51, 52, 56, 58, 59, 66, 68) HPV testing performed by [employer], [place], [place]. See reference laboratory portion of the EMR for entire report. Clinical Information LMP: Unknown date Previous PAP test: 2017, Unknown findings Other history: Abnormal uterine and vaginal bleeding Material Received ThinPrep-Cervical Copies To: Maribell Alanis [address] [place] [phone] Duc Cazares MD [address] [place] [phone] ----- ------- Signed (signature on file) ROMÁN Joaquin (ASC) 05/26/23 1017 ----- ------- END OF REPORT us Generic External Data Provider LAB CYTOLOGY ALAINA DOMINGUEZ Final Result [facility] [address] [place] [address] [phone] * (ABNORMAL) HPV mRNA E6/E7 (12/15/2017 2:12 PM EDT) HPV mRNA E6/E7 DETECTED (AA) NOT DETECTED [facility] Comment: This test was performed using the APTIMA(R) HPV Assay ([employer] This assay detects E6/E7 viral messenger RNA (mRNA) from 14 high-risk HPV types (16,18,31,33,35,39,45,51, 52,56,58,59,66,68). For additional information please refer to: http://education.Mapp/faq/SCK157q1 (This link is being provided for informational/ educational purposes only.) The analytical performance characteristics of this assay have been determined by [facility] [place], [place]. The modifications have not been cleared or approved by the FDA. This assay has been validated pursuant to the CLIA regulations and is used for clinical purposes. Test Performed by [facility], [facility] [place], [address] [place] [address] Brodie Koenig M.D., Ph.D., Director of Laboratories , CLIA [id number] Please note: Effective 11/12/2015, HPV testing will be performed using [employer] APTIMA test which targets mRNA. Detecting mRNA instead of DNA, as in older methods, offers significant improvements in specificity. 12/15/2017 2:12 PM EDT us Lesia Ramon CNM HISTORICAL/NON ORDERABLE LABS Final Result [facility] [address] from Last 3 Months or Most Recently Relevant to Health Maintenance [place] [facility] AD[facility] Care Teams Beef Cattle Farm Manager Relationship Specialty Start Date End Date Maribell Alanis FNP [address] [place] [address] PCP - General Family Medicine 08/14/21
--- OUTSIDE RECORDS SUMMARY | 2024-11-30 15:06 | XMS_ITS | Encounter Summary ---
Author Organization [employer] Address [address] [facility] 7t [place] [address] Care Team Providers Care Anthropologist Physical Name Role Phone Maribell Alanis Primary Care Provider Reason for Visit * Reason Onset Date Comments Appointment Request 12/04/2023 Encounter Details Date Type Department Care Team ([facility] st Contact Info) Description 12/04/2023 Telephone [facility] MEDICINE [address] [place] [address] Maribell Alanis FNP [address] [place] [address] Appointment Request Social History Tobacco Use Types [...] Care Team (Late st Contact Info) Description 12/06/2024 3:00 PM EDT Clinical Support [facility] MED & PEDS 505 [place] [address] Ana Duque, RN 505 [place] [address] documented as of this encounter Visit Diagnoses Not on filedocumented in this encounter Additional Health Concerns Assessment Noted Time PHQ-9 Depression Total Score: 8 07/22/19 24 9:06 AM EDT documented as of this encounter Care Teams Anthropologist Physical Relationship Specialty Start Date End Date Maribell Alanis FNP [address] [place] [address] PCP - General Family Medicine 08/14/21 documented as of this encounter
--- OUTSIDE RECORDS SUMMARY | 2024-11-30 15:06 | XMS_ITS | Encounter Summary ---
Author Organization [employer] Address [address] [facility] 7t [place] [address] Care Team Providers Care Maintenance Machinist Name Role Phone Maribell Alanis JARRETT Primary Care Provider [phone] Reason for Visit * Reason Comments Med Refill Encounter Details Date Type Department Care Team ([facility] Contact Info) Description 08/24/2023 Refill [facility] MEDICINE [address] [place] [address] Name, MD Varun [address] [place] [address] Insomnia, unspecified type Social History Tobacco Use [...] Description 12/06/2024 3:00 PM EDT Clinical Support [facility] MED & PEDS [address] [place] [address] Ana Duque, GIL 505 [place] [address] documented as of this encounter Visit Diagnoses Diagnosis Insomnia, unspecified type documented in this encounter Additional Health Concerns Assessment Noted Time PHQ-9 Depression Total Score: 8 07/22/19 24 9:06 AM EDT documented as of this encounter Care Teams Maintenance Machinist Relationship Specialty Start Date End Date Maribell Alanis FNP [address] [place] [address] PCP - General Family Medicine 08/14/21 documented as of this encounter
== END 2024-11-30 14:38 | disposition home or self-care (01) ==
LOC: HO.HGI 13:50
PROVIDERS: PCP Internal Medicine; Visit Provider Nurse Practitioner Family
DX: Z01.818 Encounter for other preprocedural examination (principal); Z12.11 Encounter for screening for malignant neoplasm of colon; K21.9 Gastro-esophageal reflux disease without esophagitis; R10.13 Epigastric pain
CPT/HCPCS: 99203

== ENCOUNTER 2024-11-30 13:49 | Outpatient (REF) | payer MEDICAID, SELFPAY ==
--- OUTSIDE RECORDS SUMMARY | 2024-12-01 14:00 | XMS_ITS | Encounter Summary ---
Author Organization [employer] Address [address] [facility] 7t [place] [address] Care Team Providers Care Wallpaper Inspector Name Role Phone Maribell Alanis JARRETT Primary Care Provider [phone] Reason for Visit * Reason Comments Med Refill Encounter Details Date Type Department Care Team ([facility] Contact Info) Description 08/24/2023 Refill [facility] MEDICINE [address] [place] [address] Name, MD Varun [address] [place] [address] Insomnia, unspecified type Social History Tobacco Use [...] Description 12/06/2024 3:00 PM EDT Clinical Support [facility] MED & PEDS [address] [place] [address] Ana Duque, GIL [address] [place] [address] documented as of this encounter Visit Diagnoses Diagnosis Insomnia, unspecified type documented in this encounter Additional Health Concerns Assessment Noted Time PHQ-9 Depression Total Score: 8 07/22/19 24 9:06 AM EDT documented as of this encounter Care Teams Wallpaper Inspector Relationship Specialty Start Date End Date Maribell Alanis FNP [address] [place] [address] PCP - General Family Medicine 08/14/21 documented as of this encounter
--- OUTSIDE RECORDS SUMMARY | 2024-12-01 14:01 | XMS_ITS | Encounter Summary ---
Author Organization [employer] Address [address] [facility] 7t [place] [address] Care Team Providers Care Safety Security Officer Name Role Phone Mraibell Alanis JARRETT Primary Care Provider [phone] Encounter Details Date Type Department Care Team ([facility] st Contact Info) Description 09/16/2024 Orders Only [facility] CH[facility] MED & PEDS [address] [place], [place] [phone] Alaina Mendieta MD 505 [place] [address] Social History Tobacco Use Types Packs/Day Years [...] Upcoming Encounters Date Type Department Care Team ([facility] st Contact Info) Description 12/06/2024 3:00 PM EDT Clinical Support [facility] MED & PEDS [address] [place] [address] Ana Duque, RN 505 [place] [address] documented as of this encounter Visit Diagnoses Not on filedocumented in this encounter Additional Health Concerns Assessment Noted Time PHQ-9 Depression Total Score: 8 07/22/19 24 9:06 AM EDT documented as of this encounter Care Teams Safety Security Officer Relationship Specialty Start Date End Date Maribell Alanis FNP [address] [place] [address] PCP - General Family Medicine 08/14/21 documented as of this encounter
--- OUTSIDE RECORDS SUMMARY | 2024-12-01 14:01 | XMS_ITS | Encounter Summary ---
Author Organization [employer] Address 75 [facility] 7t [place] [address] Care Team Providers Care Mineral Wool Insulation Supervisor Name Role Phone Maribell Alanis Primary Care Provider [phone] Reason for Visit * Reason Comments Med Refill Encounter Details Date Type Department Care Team ([facility] Contact Info) Description 09/11/2022 Refill [facility] MEDICINE [address] [place] [address] Maribell Alanis FNP 505 [place] [address] Social History Tobacco Use Types Packs/Day Years [...] Encounters Date Type Department Care Team ([facility] Contact Info) Description 12/06/2024 3:00 PM EDT Clinical Support [facility] MED & PEDS 505 [place] [address] Ana Duque, RN 505 [place] [address] documented as of this encounter Visit Diagnoses Not on filedocumented in this encounter Additional Health Concerns Assessment Noted Time PHQ-9 Depression Total Score: 14 023 9:20 AM EDT documented as of this encounter Care Teams Mineral Wool Insulation Supervisor Relationship Specialty Start Date End Date Maribell Alanis FNP [address] [place] [address] PCP - General Family Medicine 08/14/21 documented as of this encounter
--- OUTSIDE RECORDS SUMMARY | 2024-12-01 14:01 | XMS_ITS | Encounter Summary ---
Author Organization [employer] Address 75 [facility] 7t [place] [address] Care Team Providers Care Chief Lock Tender Operator Name Role Phone Maribell Alanis Primary Care Provider [phone] Reason for Visit * Reason Onset Date Comments Appointment Request 12/04/2023 Encounter Details Date Type Department Care Team ([facility] st Contact Info) Description 12/04/2023 Telephone [facility] MEDICINE 230 [place] [address] Maribell Alanis FNP 505 [place] [address] Appointment Request Social History Tobacco Use Types [...] Description 12/06/2024 3:00 PM EDT Clinical Support [facility] CH[facility] MED & PEDS 505 [place] [address] Ana Duque, RN 505 [place] [address] documented as of this encounter Visit Diagnoses Not on filedocumented in this encounter Additional Health Concerns Assessment Noted Time PHQ-9 Depression Total Score: 8 07/22/19 24 9:06 AM EDT documented as of this encounter Care Teams Chief Lock Tender Operator Relationship Specialty Start Date End Date Maribell Alanis FNP [address] [place] [address] PCP - General Family Medicine 08/14/21 documented as of this encounter
--- OUTSIDE RECORDS SUMMARY | 2024-12-01 14:01 | XMS_ITS | Clinical Summary ---
Author Organization [employer] Address 75 [facility] 7t [place] [address] Care Team Providers Care Light Adjuster Name Role Phone EvaMaribell cabrera JARRETT Primary Care Provider [phone] Allergies Active Allergy Reactions Criticality Noted Date [...] Microscopic hematuria 11/06/2024 Overview (11/06/2024): Following with [facility] - DE[facility] STUDENTS [place] Urine cytology neg for high-grade urothelial carcinoma June 2024: normal/unremarkable renal US July 2024: US Bladder -normal bilateral ureteral jets seen. No echogenic stones or wall thickening. 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 Cazares Pelvic US 06/03/23 that [...] Plan (07/22/2023 6:20 AM EDT): Following with [facility] Ortho Per consult in Mar 2023, plan for physical therapy and NSAIDs, declined injection Anemia 07/22/2023 Overview (07/22/2023): Following with [facility] Heme/Onc for normocytic normochromic anemia with iron deficiency Assessment & Plan (11/06/2024 7:18 PM EDT): - Consult August 2024 - plan for repeat IV iron. Encouraged to check with NURSE CASE MANAGER if endometrial ablation is an option. - Referred to NURSE CASE MANAGER for eval menorrhagia and GI for screening colonoscopy Assessment & Plan (10/22/2023 7:39 AM EDT): - Recieved IV Iron, stopped PO iron - Referred to NURSE CASE MANAGER for eval menorrhagia and GI for screening colonoscopy - Recent HMB, will check current levels Assessment & Plan (07/25/2023 11:34 AM EDT): - Started IV Iron, stopped PO iron - Referred to NURSE CASE MANAGER for eval menorrhagia and GI for screening colonoscopy Vitreomacular adhesion, left eye 03/12/2023 Complex renal cyst 02/21/2023 Overview (08/24/2024): Following with [facility] Urology (EDIS Rojas) June 2024: no renal [...] visualization. Healthcare maintenance 09/28/2022 Overview (11/06/2024): Optometry: [facility] Pap: 05/14/23 NILM, HPV neg (Dr. Cazares) Mammo: BIRADS 3 in Sep 2024, due for repeat in 6 mo Colonoscopy: referral to GI placed 10/21/23 Dental: referral to [facility] Dental placed 07/22/23 Assessment & Plan [...] therapy and recommended and gave contact information [facility] for OP therapy. Provided education around integrated medicine and the options of follow up BE's as needed. Provided contact information should questions or concerns arise. Plan: Ever will engage in effective coping mechanisms discussed in session. She will be also referred to Ind. Therapy in [facility]. I encouraged her to reach [...] MH services. PLAN: 1. Follow up with [facility]: Not recommended for follow-up 2. Patient goal [...] Type Department Care Team Description 11/22/2024 Refill [facility] MEDICINE [address] [place] [phone] Phalen, Maribell, SENIOR MANAGER Knuckle pads on dorsal aspect of multiple metacarpophalangeal and interphalangeal joints 11/07/2024 Travel 11/07/2024 Telephone [facility] MED [facility] PEDS [address] [place] [address] Ana Duque RN 11/04/2024 3:15 PM EDT Office Visit [facility] [address] [place] [address] Phalen Maribell, SENIOR MANAGER Rash of multiple digits of both hands (Primary Dx); Polyarthralgia; History of hepatitis C; Insomnia, unspecified type; Bulging of intervertebral disc between L4 and L5; Iron deficiency anemia, unspecified iron deficiency anemia type; Healthcare maintenance; Microscopic hematuria; Long-term current use of opiate analgesic 11/04/2024 Refill [facility] MEDICINE [address] [place] [address] PhalMaribell cabrera, SENIOR MANAGER Pain 11/04/2024 Travel 10/28/2024 Travel 10/05/2024 Orders Only [facility] MEDICINE [address] [place] [address] Jamee Oden DO 09/16/2024 Results Follow-Up [facility] [address] [place] [address] Alaina Mendieta MD XR Hand 3+ Views Right 09/16/2024 Orders Only [facility] [address] [place] [address] Alaina Mendieta MD 09/15/2024 3:00 PM EDT Office Visit [facility] [address] [place] [address] Alaina Mendieta MD Chronic pain of multiple joints (Primary Dx); Pain of right hand; Skin rash 09/15/2024 Refill [facility] MED[facility]INE [address] [place] [address] Toño Alanisle, SENIOR MANAGER Insomnia, unspecified type; Bulging of intervertebral disc between L4 and L5 09/15/2024 Orders Only GENERIC EXTERNAL DATA DEPARTMENT Provider, Generic External Data 09/15/2024 Travel 09/15/2024 Telephone [facility] MEDICINE [address] [place] [address] Maribell Alanis FNP Nurse Triage from Last [...] Upcoming Encounters Date Type Department Care Team ([facility] st Contact Info) Description 12/06/2024 3:00 PM EDT Clinical Support [facility] CH[facility] MED & PEDS [address] [place] [address] Ana Duque, RN 505 [place] [address] Health Maintenance Due Date Last Done Comments [...] PM EDT Narrative 10/05/2024 1:46 PM EDT [facility] [address] [place], [place] [address] Ultrasound Report Signed Patient: Ever John MR#: [id number] 1 : 1970 Acct:[id number] Age/Sex: 54 / F ADM Date: 10/05/24 Loc: NICOLE Attending Dr: Jamee Oden DO Ordering Physician: Jamee Oden DO Date of Service: 10/05/24 Procedure(s): US breast RT limited mamm only Accession Number(s): [id number] cc: Alaina Mendieta MD; Jamee Oden DO [...] 10/05/24 1343 DD/ 1322 TD/TT: 10/05/24 1338 Test Fixture Designer: Procedure Note Donotuseinterpreter, Image - 10/05/2024 [facility] [address] [place] [address] Ultrasound Report Signed Patient: Beau John#: [id number] 1 : 1970Acct:[id number] Age/Sex: 54 / FADM Date: 10/05/24 Loc: NICOLE Attending Dr: Jamee Oden DO Ordering Physician: Jamee Oden DO Date of Service: 10/05/24 Procedure(s): US breast RT limited mamm only Accession Number(s): [id number] cc: Alaina Mendieta MD; Jamee Oden DO [...] 10/05/24 1343 DD/ 1322 TD/TT: 10/05/24 1338 Test Fixture Designer: us Jamee Oden DO IMG US PROCEDURES Final Resu lt * XR Hand 3+ Views Right (09/15/2024 4:00 PM EDT) Anatomical Region Laterality Modality Upper Extremities, Hand Right Radiogra phic Imaging 09/15/2024 4:00 PM EDT Narrative 09/15/2024 5:52 PM EDT [place] [address] XRay Report Signed Patient: Ever John MR#: [id number] 1 : 1970 Acct:[id number] Age/Sex: 54 / F ADM Date: 09/15/24 Loc: REE Attending Dr: Alaina Mendieta MD Ordering Physician: Alaina Mendieta MD Date of Service: 09/15/24 Procedure(s): XR hand RT min 3V Accession Number(s): [id number] cc: Alaina Mendieta MD; Maribell Alanis SENIOR MANAGER EXAMINATION: XR HAND, RIGHT CLINICAL INFORMATION: right [...] OV> 09/15/241748 DD/ 1600 TD/TT: 09/15/24 161 Test Fixture Designer: Procedure Note Crow, Image - 09/15/2024 [place] [address] XRay Report Signed Patient: Beau John#: [id number] 1 : 1970Acct:[id number] Age/Sex: 54 / FADM Date: 09/15/24 Loc: HO.XRAY Attending Dr: Alaina Mendieta MD Ordering Physician: Alaina Mendieta MD Date of Service: 09/15/24 Procedure(s): XR hand RT min 3V Accession Number(s): [id number] cc: Alaina Mendieta MD; Maribell Alanis SENIOR MANAGER EXAMINATION: XR HAND, RIGHT CLINICAL INFORMATION: right [...] 09/15/24 174 DD/ 1600 TD/TT: 09/15/24 161 Test Fixture Designer: Alaina Mendieta MD IMG XR PROCEDURES Edited Re sult - Final * (ABNORMAL) CBC auto differential (09/15/2024 3:49 PM EDT) White Blood Count 5.2 4.8 - 10.8 X10*3/uL [facility] Red Blood Count 3.72(L) 4.20 - 5.50 X10*6/uL [facility] Hemoglobin 10.4(L) 12.0 - 16.0 g/dl [facility] Hematocrit 31.5(L) 37.0 - 47.0 % [facility] Mean Corpuscular Volume 84.7 80.0 - 98.0 fL [facility] Mean Corpuscular Hemoglobin 28.0 27.0 - 33.0 pg [facility] Mean Corpuscular HGB Conc 33.0 31.0 - 35.0 g/dl [facility] Red Cell Distribution Width 13.3 11.0 - 16.0 % [facility] Platelet Count 299 160 - 400 X10*3/uL [facility] Mean Platelet Volume 10.5 9.4 - 12.3 fL [facility] Neutrophils Percent Auto 55.1 45 - 73 % [facility] Imm Gran Pct Auto 0.4 0.0 - 0.4 % [facility] Lymphocytes Percent Auto 34.4 20 - 40 % [facility] Monocytes Percent Auto 7.4 2 - 11 % [facility] Eosinophils Percent Auto 2.1 0 - 4 % [facility] Basophils Percent Auto 0.6 0 - 2 % [facility] NRBC Pct Auto 0.0 0.0 - 0.2 /100WBC [facility] Neutrophils Absolute Auto 2.9 2.0 - 8.3 x10*3/uL [facility] Imm Gran Abs Auto 0.02 0.00 - 0.03 X10*3/uL [facility] Lymphocytes Absolute Auto 1.8 1.2 - 4.9 X10*3/uL [facility] Monocytes Absolute Auto 0.4 0.1 - 1.2 X10*3/uL [facility] Eosinophils Absolute Auto 0.1 0.0 - 0.4 X10*3/uL [facility] Basophils Absolute Auto 0.0 0.0 - 0.2 X10*3/uL [facility] NRBC Abs Auto 0.000 0.0 - 0.012 X10*3/uL [facility] 09/15/2024 3:49 PM EDT 09/15/2024 3:50 PM EDT us Generic External Data Provider LAB BLOOD ORDERAB LES Final Result Performing Organization Address City/[facility]/ZIP Co de Phone Number [facility] [address] [place] [address] [phone] * Ferritin (09/15/2024 3:49 PM EDT) Ferritin 178 10 - 250 ng/mL [facility] 09/15/2024 3:49 PM EDT 09/15/2024 3:50 PM EDT Generic External Data Provider LAB BLOOD ORDERAB LES Final Result Performing Organization Address [facility] Co de Phone Number [facility] [address] [place] [address] [phone] * (ABNORMAL) Comprehensive Metabolic Panel (09/15/2024 3:49 PM EDT) Sodium 144 135 - 145 mmol/L [facility] Potassium 3.9 3.3 - 5.1 mmol/L [facility] Chloride 110(H) 96 - 108 mmol/L [facility] Carbon Dioxide 27 22 - 29 mmol/L [facility] Anion Gap 11(L) 12 - 20 [facility] Urea Nitrogen (BUN) 17(H) 9 - 16 mg/dL [facility] Creatinine, Serum 1.35 0.5 - 1.4 mg/dL [facility] Estimated Glomerular Filt Rate 41 [facility] Comment:Chronic Kidney Disea se: Estimated GFR < 60 mL/min/1.83i7Zsqred Kidney Disease: Estimated GFR < 15 mL/min/1.73m2 Glucose 99 60 - 115 mg/dL [facility] Calcium 9.0 8.4 - 10.2 mg/dL [facility] Bilirubin, Total 0.2 0.0 - 1.0 mg/dL [facility] Aspartate Amino Transferase 22 5 - 31 U/L [facility] Alanine Aminotransferase 23 0 - 31 U/L [facility] Total Protein 7.1 6.5 - 8.0 g/dL [facility] Albumin Level 4.1 3.5 - 5.0 g/dL [facility] Alkaline Phosphatase 63 39 - 117 U/L [facility] 09/15/2024 3:49 PM EDT 09/15/2024 3:50 PM EDT us Generic External Data Provider LAB BLOOD ORDERAB LES Final Result [facility] [address] [place] [phone] * Pap Smear (05/14/2023 2:15 PM EDT) 05/14/2023 2:15 PM EDT 05/15/2023 9:00 AM EDT Sergio [facility] - 05/26/2023 10:17 AM EDT ----- ------- Name: AlvaroEver Age/Sex: 53/F : 1970 Unit#: [id number] Attend Dr: Duc Cazares MD Re05/14/23 Status: DEP REF Location: HOYaritzaLNP Disch: ----- ------- SPEC : [id number] RECD: 05/15/23 STATUS: SYLVIA DIEGO NUM: [id number] GOSIA: 05/14/231415 [facility] DR: Duc Cazares MD ENTERED: 05/15/23 SP TYPE: Pap [...] 59, 66, 68) HPV testing performed by [employer], [place], [place]. See reference laboratory portion of the EMR for entire report. Clinical Information LMP: Unknown date Previous PAP test: 2017, Unknown findings Other history: Abnormal uterine and vaginal bleeding Material Received ThinPrep-Cervical Copies To: Maribell Alanis [address] [place] [phone] Duc Cazares MD [address] [place] [phone] ----- ------- Signed (signature on file) ROMÁN Joaquin (ASC) 05/26/23 1017 ----- ------- END OF REPORT us Generic External Data Provider LAB CYTOLOGY ALAINA DOMINGUEZ Final Result [facility] [address] [place] [address] [phone] * (ABNORMAL) HPV mRNA E6/E7 (12/15/2017 2:12 PM EDT) HPV mRNA E6/E7 DETECTED (AA) NOT DETECTED [facility] Comment: This test was performed using the APTIMA(R) HPV Assay ([email or web address] This assay detects E6/E7 viral messenger RNA (mRNA) from 14 high-risk HPV types (16,18,31,33,35,39,45,51, 52,56,58,59,66,68). For additional information please refer to: http://education.[employer]/faq/OQS231q9 (This link is being provided for informational/ educational purposes only.) The analytical performance characteristics of this assay have been determined by [employer] [place], [place]. The modifications have not been cleared or approved by the FDA. This assay has been validated pursuant to the CLIA regulations and is used for clinical purposes. Test Performed by [facility], [facility] [place], [address] [place] [address] Brodie Koenig M.D., Ph.D., Director of Laboratories , CLIA [id number] Please note: Effective 11/12/2015, HPV testing will be performed using [employer] APTIMA test which targets mRNA. Detecting mRNA instead of DNA, as in older methods, offers significant improvements in specificity. 12/15/2017 2:12 PM EDT us Lesia Ramon CNM HISTORICAL/NON ORDERABLE LABS Final Result [facility] [address] from Last 3 Months or Most Recently Relevant to Health Maintenance Insurance [place] ST[facility] ADULT Care Teams Light Adjuster Relationship Specialty Start Date End Date Maribell Alanis FNP [address] [place] [address] PCP - General Family Medicine 08/14/21
== END 2024-11-30 13:50 | disposition home or self-care (01) ==
LOC: HO.LNP 13:49
PROVIDERS: PCP Internal Medicine; Visit Provider Nurse Practitioner Family
DX: Z12.11 Encounter for screening for malignant neoplasm of colon (principal); K21.9 Gastro-esophageal reflux disease without esophagitis; R10.13 Epigastric pain
CPT/HCPCS: 83013; 99212

== ENCOUNTER 2024-12-01 15:03 | Outpatient (AMB) | payer MEDICAID, SELFPAY ==
--- NOTE | 2024-12-01 15:23 | A.OFFVIS_ITS ---
Intake Visit Reasons: Heavy bleeding Intake Note: Patient experiencing heavy menstral cycles, lasting more then 7 days. Associate Research Scientist Required: Yes Associate Research Scientist Language: Appliances Sample Maker Services: Associate Research Scientist Present (zlien) Associate Research Scientist Name: Yelena [id number] Information Interpreted: clinical only Paste Up Copy Camera Operator: Paste Up Copy Camera Operator Present (Zoraida) Accompanied by: Self / Same As Patient Allergies tizanidine Adverse Reaction (Unknown, Verified 11/30/24 13:59) Involuntary Spasms HPI Comments Details: Presenting complaining of heavy irregular menstrual cycles associated with passage of blood clots Last Co testing in 05/23 was negative Last mammogram in 04/26 was BI-RADS 3, breast ultrasound in 10/24 BI-RADS 3 PFSH Medical History GERD (gastroesophageal reflux disease) Fibroadenoma Hx of tendinitis High cholesterol Surgical History Hx of tubal ligation Family History Father Prostate cancer Social History Household Members: Family Alcohol intake: never Patient Tobacco Use Status: Never used Tobacco service: No Current occupational status: unemployed Female Reproductive History Menstrual Age of Menarche: 12 control method: none Review of Systems Const All systems reviewed & are unremarkable except as noted in HPI and below Card Reports as per HPI Resp Reports as per HPI GI Reports as per HPI and Reports no additional complaints Reports as per HPI Physical Exam Const General: cooperative, healthy appearing and comfortable Chest Chest palpation & inspection: normal inspection of the chest and normal palpation of entire chest wall Breast/axilla inspection: normal inspection of the breasts and normal inspection of the axillae Breast/axilla palpation: normal palpation of the breasts, normal palpation of the axillae and no axillary lymphadenopathy Resp Effort & Inspection: normal respiratory effort Auscultation: clear to auscultation bilaterally Percussion: percussion normal Cardio Palpation: normal PMI Rate: regular rate Rhythm: regular rhythm Heart sounds: no murmurs and no rubs Peripheral pulses: Peripheral pulses 2+ throughout GI Inspection: Yes normal to inspection Palpation (GI): Soft to palpation, nontender, no guarding, not rigid and No hepatosplenomegaly present Percussion: Yes normal to percussion Auscultation: normal bowel sounds Rectal Exam - Female: deferred General: Yes bladder normal to palpation External Female Exam: No lesion Speculum Exam - Vagina: normal appearance of the vagina, normal palpation, normal vaginal discharge and not erythematous Speculum Exam - Cervix: normal appearance of the cervix and normal palpation Bimanual exam- vagina & uterus: normal bimanual exam, normal palpation, uterine size normal, bladder normal to palpation, consistency normal and normal palpation Bimanual Exam- Adnexa, other: normal adnexae, no masses and no tenderness Assessment & Plan Assessment & Plan (1) Abnormal uterine bleeding (AUB): Code(s): N93.9 - Abnormal uterine and vaginal bleeding, unspecified Category: Medical Plan: GC and chlamydia taken CBC, TSH, HCG, FSH/LH and pelvic ultrasound ordered. Discussed with the patient the different causes of abnormal bleeding including thyroid disorders, uterine and ovarian pathology, endometrial hyperplasia, carcinoma and other potential causes. Discussed with the patient the work up including CBC (to r/o anemia), TSH, FSH/LH, pelvic Ultrasound, endometrial biopsy to r/o endometrial pathology. All questions answered and the patient verbalized understanding. Instructed the patient to schedule an appointment for an endometrial biopsy in 2 weeks. Orders: Orders TSH reflex Free T4 Today N93.9 - Abnormal uterine and vaginal bleeding, unspecified Complete Blood Count no Diff Today N93.9 - Abnormal uterine and vaginal bl eeding, unspecified Follicle Stimulating Hormone Today N93.9 - Abnormal uterine and vaginal bleeding, unspecified US pelvic and transvaginal Today N93.9 - Abnormal uterine and vaginal bleeding, unspecified HCG Quantitative Today N93.9 - Abnormal uterine and vaginal bleeding, unspecified Lutenizing Hormone Today N93.9 - Abnormal uterine and vaginal bleeding, unspecified Coding Level of Care Code Est Pt Level 3 (24812) Diagnoses Abnormal uterine bleeding (AUB) N93.9
== END 2024-12-01 15:54 | disposition home or self-care (01) ==
LOC: HO.HWS 15:03
PROVIDERS: PCP Internal Medicine; Visit Provider Obstetrics & Gynecology
DX: N93.9 Abnormal uterine and vaginal bleeding, unspecified (principal)
CPT/HCPCS: 99213

== ENCOUNTER 2024-12-01 15:03 | Outpatient (REF) | payer MEDICAID, SELFPAY ==
[2024-12-01 17:28] LABS: Hematocrit 34.1 % (37.0-47.0); Hemoglobin 11.3 g/dl (12.0-16.0); Mean Corpuscular HGB Conc 33.1 g/dl (31.0-35.0); Mean Corpuscular Hemoglobin 27.8 pg (27.0-33.0); Mean Corpuscular Volume 83.8 fL (80.0-98.0); NRBC Abs Auto 0.000 X10*3/uL (0.0-0.012); NRBC Pct Auto 0.0 /100WBC (0.0-0.2); Platelet Count 343 X10*3/uL (160-400); Red Blood Count 4.07 X10*6/uL (4.20-5.50); White Blood Count 6.1 X10*3/uL (4.8-10.8)
[2024-12-02 04:43] LABS: Follicle Stimulating Hormone 52.5 mIU/mL
[2024-12-02 05:54] LABS: ~HepC Num1 12.95 S/CO (0.00-0.79); ~Hepatitis C Antibody Reactive (Nonreactive)
[2024-12-02 09:07] LABS: CT PCR NOT DETECTED (Not Detect.); NG PCR NOT DETECTED (Not Detect.)
[2024-12-05 12:04] LABS: Anti Nuclear Antibody Screen NEGATIVE (NEGATIVE)
[2024-12-06 21:06] LABS: HCV Log PCR <1.18 NOT DETECTED Log IU/mL (NOT DETECTED); HepC Viral Load <15 NOT DETECTED IU/mL (NOT DETECTED)
== END 2024-12-01 15:04 | disposition home or self-care (01) ==
LOC: HO.LAB 15:03
PROVIDERS: Registered Nurse; PCP Internal Medicine; Visit Provider Obstetrics & Gynecology
DX: N93.9 Abnormal uterine and vaginal bleeding, unspecified (principal); M25.50 Pain in unspecified joint; Z20.2 Contact with and (suspected) exposure to infections with a predominantly sexual mode of transmission; Z11.59 Encounter for screening for other viral diseases; Z86.19 Personal history of other infectious and parasitic diseases; Z98.51 Tubal ligation status
CPT/HCPCS: 36415; 83001; 83002; 84443; 84702; 85027; 85652; 86038; 86140; 86431; 86803; 87491; 87522; 87591; 99212

== ENCOUNTER 2024-12-01 16:14 | Outpatient (REF) | payer MEDICAID, SELFPAY | END 2024-12-01 16:15 | disposition home or self-care (01) | LOC: HO.LNP 16:14 | PROVIDERS: Visit Provider Obstetrics & Gynecology | DX: Z13.89 Encounter for screening for other disorder (principal) ==

== ENCOUNTER 2024-12-30 14:55 | Outpatient (REF) | payer MEDICAID, SELFPAY | END 2024-12-30 14:56 | disposition home or self-care (01) | LOC: HO.LNP 14:55 | PROVIDERS: PCP Internal Medicine; Visit Provider Obstetrics & Gynecology | DX: N93.9 Abnormal uterine and vaginal bleeding, unspecified (principal) | CPT/HCPCS: 58100; 88305 ==

== ENCOUNTER 2024-12-30 14:55 | Outpatient (AMB) | payer MEDICAID, SELFPAY ==
--- OUTSIDE RECORDS SUMMARY | 2024-12-30 15:20 | XMS_ITS | Encounter Summary ---
Author Organization [employer] Address [address] [place] [address] 7 [place] [address] Care Team Providers Care Grapple Yarder Operator Name Role Phone Maribell Alanis JARRETT Primary Care Provider [phone] Encounter Details Date Type Department Care Team ([facility] st Contact Info) Description 12/05/2024 Results Follow-Up [facility] CH[facility] MED & PEDS [address] [place], [place] [phone] Alaina Mendieta MD [address] [place] [address] Rheumatoid Factor, C-reactive Protein, Sed Rate by Modified [place], Additional followed-up results: 2 Social History Tobacco Use Types Packs/Day Years [...] your housing situation today? I have abbie sing 10/21/[address] you li [...] as of this encounter Miscellaneous Notes * Result Encounter Note - Alaina Mendieta MD - 12/05/2024 9:16 PM EDT FYI. Sent to me by mistake. documented in this encounter Plan of Treatment Not on file documented as of this encounter Visit Diagnoses Not on filedocumented in this encounter Additional Health Concerns Assessment Noted Time PHQ-9 Depression Total Score: 8 07/22/19 24 9:06 AM EDT documented as of this encounter Care Teams Grapple Yarder Operator Relationship Specialty Start Date End Date Maribell Alanis FNP [address] [place] [phone] PCP - General Family Medicine 08/14/21 documented as of this encounter
--- OUTSIDE RECORDS SUMMARY | 2024-12-30 15:20 | XMS_ITS | Encounter Summary ---
Author Organization [employer] Address [address] [facility] 7t [place] [address] Care Team Providers Care Milk Vendor Name Role Phone Maribell Alanis Primary Care Provider [phone] Reason for Visit * Reason Comments Med Refill Encounter Details Date Type Department Care Team ([facility] Contact Info) Description 09/11/2022 Refill [facility] MEDICINE [address] [place] [address] Maribell Alanis FNP [address] [place] [address] Social History Tobacco Use Types Packs/Day Years [...] as of this encounter Plan of Treatment Not on file documented as of this encounter Visit Diagnoses Not on filedocumented in this encounter Additional Health Concerns Assessment Noted Time PHQ-9 Depression Total Score: 14 023 9:20 AM EDT documented as of this encounter Care Teams Milk Vendor Relationship Specialty Start Date End Date Maribell Alanis FNP [address] [place] [phone] PCP - General Family Medicine 08/14/21 documented as of this encounter
--- OUTSIDE RECORDS SUMMARY | 2024-12-30 15:20 | XMS_ITS | Encounter Summary ---
Author Organization [employer] Address [address] [facility] 7t [place] [address] Care Team Providers Care Line Erector Name Role Phone Maribell Alanis Primary Care Provider [phone] Reason for Visit * Reason Onset Date Comments Appointment Request 12/04/2023 Encounter Details Date Type Department Care Team ([facility] Contact Info) Description 12/04/2023 Telephone [facility] MEDICINE [address] [place] [address] Maribell Alanis FNP [address] [place] [address] Appointment Request Social History Tobacco Use Types [...] documented as of this encounter Care Teams Line Erector Relationship Specialty Start Date End Date Maribell Alanis FNP [address] [place] [phone] PCP - General Family Medicine 08/14/21 documented as of this encounter
--- OUTSIDE RECORDS SUMMARY | 2024-12-30 15:20 | XMS_ITS | Encounter Summary ---
Author Organization [employer] Address [address] [facility] 7t [place] [address] Care Team Providers Care Moisture Machine Tender Name Role Phone Maribell Alanis JARRETT Primary Care Provider Encounter Details Date Type Department Care Team ([facility] Contact Info) Description 09/16/2024 Orders Only [facility] CHC MED & PEDS [address] [place], [place] [phone] Alaina Mendieta MD [address] [place] [address] Social History Tobacco Use Types Packs/Day Years [...] documented as of this encounter Care Teams Moisture Machine Tender Relationship Specialty Start Date End Date Maribell Alanis FNP [address] [place] [phone] PCP - General Family Medicine 08/14/21 documented as of this encounter
--- OUTSIDE RECORDS SUMMARY | 2024-12-30 15:20 | XMS_ITS | Encounter Summary ---
Author Organization [employer] Address [address] [place] [address] 7t [place] [address] Care Team Providers Care Health Coach Name Role Phone Maribell Alanis JARRETT Primary Care Provider [phone] Encounter Details Date Type Department Care Team ([facility] Contact Info) Description 12/07/2024 Results Follow-Up [facility] CHC MED & PEDS [address] [place], [place] [phone] Alaina Mendieta MD [address] [place] [address] CBC, TSH with Reflex to Free T4, hCG, Total, Quantitative, Additional followed-up results: 4 Social History Tobacco Use Types Packs/Day Years [...] documented as of this encounter Care Teams Health Coach Relationship Specialty Start Date End Date Maribell Alanis FNP [address] [place] [address] PCP - General Family Medicine 08/14/21 documented as of this encounter
--- OUTSIDE RECORDS SUMMARY | 2024-12-30 15:20 | XMS_ITS | Encounter Summary ---
Author Organization [employer] Address [address] [facility] 7t [place] [address] Care Team Providers Care Professor Of Archaeology Name Role Phone Maribell Alanis Primary Care Provider [phone] Encounter Details Date Type Department Care Team ([facility] Contact Info) Description 12/02/2024 Orders Only [facility] CHC MED & PEDS [address] [place], [place] [phone] Maribell Alanis FNP [address] [place], [place] [phone] Social History Tobacco Use Types Packs/Day Years [...] documented as of this encounter Care Teams Professor Of Archaeology Relationship Specialty Start Date End Date Maribell Alains FNP [address] [place] [phone] PCP - General Family Medicine 08/14/21 documented as of this encounter
--- OUTSIDE RECORDS SUMMARY | 2024-12-30 15:20 | XMS_ITS | Encounter Summary ---
Author Organization [employer] Address [address] [facility] 7t [place] [address] Care Team Providers Care Fire Crew Worker Name Role Phone Maribell Alanis JARRETT Primary Care Provider Reason for Visit * Reason Comments Med Refill Encounter Details Date Type Department Care Team ([facility] Contact Info) Description 08/24/2023 Refill [facility] MEDICINE [address] [place] [address] Name, MD Varun [address] [place] [address] Insomnia, unspecified type Social History Tobacco Use [...] documented as of this encounter Care Teams Fire Crew Worker Relationship Specialty Start Date End Date Maribell Alanis FNP [address] [place] [address] PCP - General Family Medicine 08/14/21 documented as of this encounter
--- OUTSIDE RECORDS SUMMARY | 2024-12-30 15:21 | XMS_ITS | Clinical Summary ---
Author Organization [employer] Address [address] [facility] [address] [place] [address] Care Team Providers Care Building Coordinator Name Role Phone EvaMaribell cabrera JARRETT Primary Care Provider [phone] Allergies Active Allergy Reactions Criticality Noted Date Comments Tizanidine High 07/23/2023 Other Reaction(s): Shakiness Pt. felt unable to move, was at bed and unable to stand or move Medications * This document contains information received from the source organization and may not represent a complete record from that organization. cetirizine (ZyrTEC) 10 MG tabletIndications:Seas onal allergies Take 1 tablet (10 mg) by mouth Once per day. 90 tablet 3 10/21/19 24 Active Ketotifen Fumarate 0.035 % solutionIndications:Se asonal allergies Administer 1 drop into both eyes if needed in the morning and at bedtime (allergy symptoms or itching). 10 mL 3 06/02/19 25 Active clobetasol (Temovate) 0.05 % ointmentIndications:Pa in of right hand Apply topically 2 times daily. 45 g 09/16/19 25 Active Ventolin HFA 108 (90 Base) MCG/ACT inhaler INHALE 2 PUFFS BY MOUTH EVERY 4 TO 6 HOURS NEEDED 18 g 11 09/17/19 25 Active zolpidem (Ambien) 5 MG tabletIndications:Inso mnia, unspecified type Take 1 tablet (5 mg) by mouth if needed at bedtime for sleep. 28 tablet 11/05/19 25 Active traMADol (Ultram) 50 MG tabletIndications:Bulg ing of intervertebral disc between L4 and L5 Take 1 tablet (50 mg) by mouth every 12 (twelve) hours if needed for severe pain. 15 tablet 11/05/19 25 Active lidocaine (Lidoderm) 5 % patchIndications:Pain APPLY 1 PATCH TOPICALLY TO SKIN, LEAVE ON FOR 12 HOURS AND OFF FOR 12 HOURS DIRECTED 30 patch 11 11/08/19 25 Active Diclofenac Sodium 1 % gelIndications:Pain APPLY 2 GRAMS TO AFFECTED AREA(S) 2 TO 3 TIMES PER DAY NEEDED FOR PAIN 100 g 11 11/08/19 25 Active betamethasone, augmented, (Diprolene) 0.05 % ointmentIndications:Kn uckle pads on dorsal aspect of multiple metacarpophalangeal and interphalangeal joints APPLY TOPICALLY TO THE AFFECTED AREA(S) TWICE DAILY DIRECTED FOR UP TO 7 DAYS 50 g 1 11/24/19 25 Active Active Problems Problem Noted Date Diagnosed Date Microscopic hematuria 11/06/2024 Overview (11/06/2024): [facility] with [facility] [place] HAMMAD Rojas Urine cytology neg for high-grade urothelial carcinoma June 2024: normal/unremarkable renal US July 2024: US Bladder -normal bilateral ureteral jets seen. No echogenic stones or wall thickening. 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 Cazares Pelvic US 06/03/23 that [...] Plan (07/22/2023 6:20 AM EDT): Following with [facility] Per consult in Mar 2023, plan for physical therapy and NSAIDs, declined injection Anemia 07/22/2023 Overview (07/22/2023): Following with [facility] for normocytic normochromic anemia with iron deficiency Assessment & Plan (11/06/2024 7:18 PM EDT): - Consult August 2024 - plan for repeat IV iron. Encouraged to check with [facility] if endometrial ablation is an option. - Referred to [facility] for eval menorrhagia and GI for screening colonoscopy Assessment & Plan (10/22/2023 7:39 AM EDT): - Recieved IV Iron, stopped PO iron - Referred to [facility] for eval menorrhagia and GI for screening colonoscopy - Recent B, will check current levels Assessment & Plan (07/25/2023 11:34 AM EDT): - Started IV Iron, stopped PO iron - Referred to [facility] for eval menorrhagia and GI for screening colonoscopy Vitreomacular adhesion, left eye 03/12/2023 Complex renal cyst 02/21/2023 Overview (08/24/2024): Following with [facility] (EDIS Rojas) June 2024: no renal [...] visualization. Healthcare maintenance 09/28/2022 Overview (11/06/2024): Optometry: [facility] Pap: 05/14/23 NILM, HPV neg (Dr. Cazares) Mammo: BIRADS 3 in Sep 2024, due for repeat in 6 mo Colonoscopy: referral to GI placed 10/21/23 Dental: referral to [facility] Dental placed 07/22/23 Assessment & Plan [...] be also referred to Ind. Therapy in [facility]. I encouraged her to reach [...] services. PLAN: 1. Follow up with [facility]: Not recommended for follow-up 2. Patient goal [...] Resolved Date Kidney stone 12/19/2020 09/19/2022 Encounters * This document contains information received from the source organization and may not represent a complete record from that organization. Date Type Department Care Team Description 12/23/2024 1:45 PM EDT Office Visit [address] [address] Silvia Gonzalez NP Rash of multiple digits of both hands (Primary Dx); Chronic right-sided low back pain without sciatica; Depression with anxiety; Dietary counseling; Exercise counseling 12/23/[address] [address] Silvia Gonzalez NP Xray order faxed [place] [facility] 12/23/2024 Travel 12/22/[address] [address] Maribell Alanis FNP CHARTPREP 12/07/2024 Results Follow-Up [facility] [address] [place] [address] Alaina Mendieta MD CBC, TSH with Reflex to Free T4, hCG, Total, Quantitative, Additional followed-up results: 4 12/06/2024 Telephone [facility] [address] [place] [address] Ana Duque RN 12/05/2024 Results Follow-Up [facility] [address] [place] [address] Alaina Mendieta MD Rheumatoid Factor, C-reactive Protein, Sed Rate by Modified Chacorta, Janell followed-up results: 2 12/02/2024 Results Follow-Up [facility] [address] [place] [address] Melba Hoover, GIL Helicobacter pylori, Urea Breath Test 12/02/2024 Orders Only [facility] [address] [place] [address] Maribell Alanis [employer] MANAGER 12/01/2024 Orders Only GENERIC EXTERNAL DATA DEPARTMENT Provider, Generic External Data 11/30/2024 Orders Only GENERIC EXTERNAL DATA DEPARTMENT Provider, Generic External Data 11/22/[address] [address] Maribell Alanis FNP Knuckle pads on dorsal aspect of multiple metacarpophalangeal and interphalangeal joints 11/07/2024 Travel 11/07/2024 Telephone [facility] [address] [place] [address] Ana Duque RN 11/04/2024 3:15 PM EDT Office Visit [facility] [address] [place] [address] Maribell Alanis, [employer] MANAGER Rash of multiple digits of both hands (Primary Dx); Polyarthralgia; History of hepatitis C; Insomnia, unspecified type; Bulging of intervertebral disc between L4 and L5; Iron deficiency anemia, unspecified iron deficiency anemia type; Healthcare maintenance; Microscopic hematuria; Long-term current use of opiate analgesic 11/04/2024 Refill [facility] [address] [place] [phone] Maribell Alanis FNP Pain 11/04/2024 Travel 10/28/2024 Travel 10/05/2024 Orders Only [facility] [address] [place] [phone] Jamee Oden DO from Last 3 Months Immunizations Immunization Administration [...] Answer Date Recorded Patient Health Questionnaire-9 Score 11 12/23/2024 Patient Health Questionnaire-9 Score 11 12/23/2024 Last PHQ-9: Questionnaire Data Not on file 1 Housing Stability Answer Date Recorded What is [...] Answer Date Recorded Patient Health Questionnaire-2 Score 3 12/23/2024 Internet Access Answer Date Recorded Internet Access [...] Sign Reading Time Taken Comments Blood Pressure 122/78 12/23/2024 1:50 PM EDT Pulse 90 12/23/2024 1:50 PM EDT Temperature 36.6 C (97.9 F) 12/23/2024 1:50 PM EDT Respiratory Rate 16 12/23/2024 1:50 PM EDT Oxygen Saturation 99% 12/23/2024 1:50 PM EDT Inhaled Oxygen Concentration - - Weight 75.5 kg (166 lb 8 oz) 12/23/2024 1:50 PM EDT Height 157.4 cm (5' 1.96 ) 12/23/2024 1:50 PM ED T Body Mass Index 30.49 12/23/2024 1:50 PM EDT Plan of Treatment Health Maintenance Due Date Last Done Comments CT Colonography 1970 Colonoscopy 1970 Colorectal Cancer Screening 1970 Dental Oral Exam 1970 Dental Prophylaxis 1971 Dental X-Ray: Bitewings 1971 Dental X-Ray: Full Mouth 1971 FIT DNA/Cologuard 1971 FIT 1971 FOBT 1970 Sigmoidoscopy 1970 Hepatitis A Vaccines (2 of 2 - Risk 2-dose series) 09/02/2018 03/05/2018 Pneumococcal Vaccine: 50+ Years (1 of 1 - PCV) 2021 Zoster Vaccines (1 of 2) 2021 COVID-19 Vaccine (1 - season) 2024 Influenza Vaccine (#1) 2024 Diagnostic Breast Imaging 04/07/20252024, 04/04/2024, 02/04/2022, Additional history exists Mammogram 04/07/2025 10/05/2024, 020 04/2024, 02/16/2024, Additional history exists SDOH Screening 05/23/2025 05/23/2024 Depression Monitoring 06/23/2025 12/23/2024, 025 DTaP/Tdap/Td Vaccines (2 - Td or Tdap) 09/20/2025 09/21/2015 Disability Screening 10/28/2025 10/28/2024 Alcohol/Substance Use Screening 12/23/2025 12/23/2024 Tobacco Screening 12/23/2025 12/23/2024 Cervical Cancer Screening 05/13/2028 HPV/Cotest 05/13/2028 12/15/2017, [...] Procedure Name Priority Date/Time Associated Diagnosis Comments HEPATITIS C VIRAL RNA, QUANTITATIVE, REAL-TIME PCR Routine 12/01/2024 4:25 PM EDT LH Routine 12/01/2024 4:25 PM EDT FSH Routine 12/01/2024 4:25 PM EDT HCG, TOTAL, QN Routine 12/01/2024 4:25 PM EDT TSH W/REFLEX TO FT4 Routine 12/01/2024 4 :25 PM EDT CBC Routine 12/01/2024 4:25 PM EDT HEPATITIS C AB W/REFL TO HCV RNA, QN, PCR Routine 12/01/2024 4:25 PM EDT History of hepatitis C TAN SCREEN, IFA, W/REFL TITER AND PATTERN Routine 12/01/2024 4:25 PM EDT Polyarthralgia SED RATE BY MODIFIED WESTERGREN Routine 12/01/2024 4:25 PM EDT Polyarthralgia C-REACTIVE PROTEIN Routine 12/01/2024 4: 25 PM EDT Polyarthralgia RHEUMATOID FACTOR Routine 12/01/2024 4:2 5 PM EDT Polyarthralgia CHLAMYDIA/N. GONORRHOEAE RNA, TMA, UROGENITAL Routine 12/01/2024 3:03 PM EDT HELICOBACTER PYLORI, UREA BREATH TEST Routine 11/30/2024 2:45 PM EDT BI US BREAST LIMITED RIGHT Routine 10/05/2024 1:22 PM EDT PAP SMEAR Routine 05/14/2023 2:15 PM EDT ZZZ HISTORICAL HPV MRNA E6/E7 Routine 12/15/2017 2:12 PM EDT from Last 3 Months or Most Recently Relevant to Health Maintenance Results * TSH with Reflex to Free T4 (12/01/2024 4:25 PM EDT) TSH reflex Free T4 0.90 0.32 - 4.0 uIU/mL [facility] 12/01/2024 4:25 PM EDT 12/01/2024 4:25 PM EDT us Generic External Data Provider LAB BLOOD ORDERAB LES Final Result [facility] [address] [place] [phone] * Hepatitis C Viral RNA, Quantitative, Real-Time PCR (12/01/2024 4:25 PM EDT) Hepatitis C Viral Load <15 NOT DETECTED NOT DETECTED IU/mL [facility] HCV Log PCR <1.18 NOT DETECTED NOT DETECTED Log IU/mL [facility] Comment:For additional infor marita, please refer tohttp://education.[employer]faq/IFY32g6(This link is being provided for informational/educational purposes only.)THIS TEST WAS PERFORMED AT:[employer] [place] [phone] BLAKE MD 12/01/2024 4:25 PM EDT 12/02/2024 9:24 AM EDT us Generic External Data Provider LAB BLOOD ORDERAB LES Final Result Performing Organization Address [facility] de Phone Number [facility] [address] [place] [phone] * (ABNORMAL) Hepatitis C Antibody with Reflex to HCV, RNA, Quantitative, Real- Time PCR (12/01/2024 4:25 PM EDT) Hepatitis C Antibody Reactive( A) Nonreactive [facility] Comment:Presumptive evidence of antibodies to HCV. Blood Venous blood specimen / Unknown 12/01/2024 4:25 PM EDT 12/01/2024 4:25 PM EDT Maribell Alanis [employer] MANAGER LAB BLOOD ORDERABLES Final Res ult Performing Organization Address [facility] de Phone Number [facility] [address] [place] [phone] * (ABNORMAL) Sed Rate by Modified Kaiserergren (12/01/2024 4:25 PM EDT) Erythrocyte Sedimentation Rate 34(H) 0 - 20 MM/HR [facility] Comment:Patients with polycy themia and many hemoglobin abnormalitiesmay have depressed sed rates whereas patients with anemiamay have elevated sed rates. Blood Venous blood specimen / Unknown 12/01/2024 4:25 PM EDT 12/01/2024 4:25 PM EDT Maribell Alanis [employer] MANAGER LAB BLOOD ORDERABLES Final Res ult Performing Organization Address [facility]/State/ZIP Co de Phone Number [facility] [address] [place] [phone] * (ABNORMAL) CBC (12/01/2024 4:25 PM EDT) White Blood Count 6.1 4.8 - 10.8 X10*3/uL [facility] Red Blood Count 4.07(L) 4.20 - 5.50 X10*6/uL [facility] Hemoglobin 11.3(L) 12.0 - 16.0 g/dl [facility] Hematocrit 34.1(L) 37.0 - 47.0 % [facility] Mean Corpuscular Volume 83.8 80.0 - 98.0 fL [facility] Mean Corpuscular Hemoglobin 27.8 27.0 - 33.0 pg [facility] Mean Corpuscular HGB Conc 33.1 31.0 - 35.0 g/dl [facility] Red Cell Distribution Width 14.0 11.0 - 16.0 % [facility] Platelet Count 343 160 - 400 X10*3/uL [facility] Mean Platelet Volume 11.2 9.4 - 12.3 fL [facility] NRBC Pct Auto 0.0 0.0 - 0.2 /100WBC [facility] NRBC Abs Auto 0.000 0.0 - 0.012 X10*3/uL [facility] 12/01/2024 4:25 PM EDT 12/01/2024 4:25 PM EDT us Generic External Data Provider LAB BLOOD ORDERAB LES Final Result [facility] [address] [place] [phone] * Rheumatoid Factor (12/01/2024 4:25 PM EDT) Pathologist [facility] Rheumatoid Factor <13.0 <15.0 IU/mL [facility] Blood Venous blood specimen / Unknown 12/01/2024 4:25 PM EDT 12/01/2024 4:25 PM EDT us Maribell Alanis [facility] LAB BLOOD ORDERABLES Final Res ult Performing Organization Address City/[facility]/ZIP Co de Phone Number [facility] [address] [place] [phone] * C-reactive Protein (12/01/2024 4:25 PM EDT) C Reactive Protein 0.13 < or = 0.50 mg/dL [facility] Blood Venous blood specimen / Unknown 12/01/2024 4:25 PM EDT 12/01/2024 4:25 PM EDT us Maribell Alanis [facility] LAB BLOOD ORDERABLES Final Res ult Performing Organization Address [facility] de Phone Number [facility] [address] [place] [phone] * TAN Screen,IFA, with Reflex to Titer and Pattern (12/01/2024 4:25 PM EDT) Pathologist [facility] Anti Nuclear Antibody Screen NEGATIVE NEGATIVE [facility] Comment:TAN IFA is a first l ine screen for detecting thepresence of up to approximately 150 autoantibodies invarious autoimmune diseases. A negative TAN IFA resultsuggests an TAN-associated autoimmune disease is notpresent at this time, but is not definitive. If thereis high clinical suspicion for Sjogren's syndrome,testing for anti-SS-A/Ro antibody should be considered.Anti-Syeda-1 antibody should be considered for clinicallysuspected inflammatory myopathies.AC-0: NegativeInternational Consensus on TAN Patterns(https://doi.org/10.1515/ouji-1601-5923)For additional information, please refer tohttp://education.[employer]/faq/SCP218(This link is being provided for informational/educational purposes only.)THIS TEST WAS PERFORMED AT:[employer] [place] [phone] BLAKE MD TAN Titer TNP [facility] TAN Pattern TNP [facility] TAN Titer 2 TNP [facility] TAN Pattern 2 TNP [facility] TAN TITER 3 TNP [facility] TAN PATTERN 3 TNP [facility] Blood Venous blood specimen / Unknown 12/01/2024 4:25 PM EDT 12/01/2024 4:25 PM EDT us Maribell Alanis [employer] MANAGER LAB BLOOD ORDERABLES Final Res ult Performing Organization Address [facility]/ZIP Co de Phone Number [facility] [address] [place] [phone] * hCG, Total, Quantitative (12/01/2024 4:25 PM EDT) HCG Quantitative <2 mIU/mL [facility] Comment:Weeks post LMP Appro ximate hCG(Last Menstrual Period) Range (mIU/ml)3 - 4 weeks 9 - 1304 - 5 weeks 75 - 2,6005 - 6 weeks 850 - 20,8006 - 7 weeks 4000 - 100,2007 - 12 weeks 11,500 - 289,54279 - 16 weeks 18,300 - 137,36773 - 29 weeks (2nd trimester) 1,400 - 53,94690 - 41 weeks (3rd trimester) 940 - 60,000The Pagan B- hCG assay is used for the early detection ofpregnancy; it cannot be used to diagnose any conditionunrelated to . If a B-hCG level is not supportedby the clinical evidence, results should be confirmed by analternative method (qualitative urine hCG, for example). 12/01/2024 4:25 PM EDT 12/01/2024 4:25 PM EDT us Generic External Data Provider LAB BLOOD ORDERAB LES Final Result Performing Organization Address [facility]/ZIP Co de Phone Number [facility] [address] [place] [phone] * LH (12/01/2024 4:25 PM EDT) Lutenizing Hormone 31.8 mIU/mL [facility] Comment:Reference Range Foll icular Phase 1.9-12.5 Mid-Cycle Peak 8.7-76.3 Luteal Phase 0.5-16.9 Postmenopausal 10.0-54.7THIS TEST WAS PERFORMED AT:[facility] [address] [phone] BLAKE MD 12/01/2024 4:25 PM EDT 12/01/2024 4:25 PM EDT Generic External Data Provider LAB BLOOD ORDERAB LES Final Result Performing Organization Address [facility] Co de Phone Number [facility] [address] [place] [phone] * FSH (12/01/2024 4:25 PM EDT) Pathologist [facility] Follicle Stimulating Hormone 52.5 mIU/mL [facility] Comment:Reference Range Foll icular Phase 2.5-10.2 Mid-cycle Peak 3.1-17.7 Luteal Phase 1.5- 9.1 Postmenopausal 23.0-116.3THIS TEST WAS PERFORMED AT:[facility] [address] [phone] BLAKE MD 12/01/2024 4:25 PM EDT 12/01/2024 4:25 PM EDT Generic External Data Provider LAB BLOOD ORDERAB LES Final Result Performing Organization Address [facility]/ZIP Co de Phone Number [facility] [address] [place] [phone] * Chlamydia/N. Gonorrhoeae RNA, TMA, Urogenitial (12/01/2024 3:03 PM EDT) [facility] PCR NOT DETECTED Not Detect. [facility] Comment:A not detected test result does not exclude the possibilityof infection because test results can be affected byimproper specimen collection, concurrent antibiotic therapy,or the number of organisms in the specimen which may bebelow the sensitivity of the test. As with many diagnostictests, results from the Xpert CT/NG assay should beinterpreted in conjunction with other laboratory andclinical data available to the clinician.Xpert CT/NG performance has not been evaluated in patientsless than 14 years of age. The assay should not be used forthe evaluationof suspected sexual abuse or for other medico-legalindications. Additional testing is recommended in anycircumstance when false positive or false negative resultscould lead to adverse medical, social or psychologicalconsequences. NG PCR NOT DETECTED Not Detect. [facility] Comment:A not detected test result does not exclude the possibilityof infection because test results can be affected byimproper specimen collection, concurrent antibiotic therapy,or the number of organisms in the specimen which may bebelow the sensitivity of the test. As with many diagnostictests, results from the Xpert CT/NG assay should beinterpreted in conjunction with other laboratory andclinical data available to the clinician.Xpert CT/NG performance has not been evaluated in patientsless than 14 years of age. The assay should not be used forthe evaluationof suspected sexual abuse or for other medico-legalindications. Additional testing is recommended in anycircumstance when false positive or false negative resultscould lead to adverse medical, social or psychologicalconsequences. 12/01/2024 3:03 PM EDT 12/01/2024 4:43 PM EDT us Generic External Data Provider LAB MICROBIOLOGY - GENERAL ORDERABLES Final Result [facility] [address] [place] [address] [phone] * Helicobacter pylori, Urea Breath Test (11/30/2024 2:45 PM EDT) H. pylori Breath Test Positive Negative [facility] Comment:Antimicrobials, prot on pump inhibitors and bismuthpreparations are known to suppress H. pylori. Ingestingthese medications within two weeks prior to performing thebreath test may produce negative test results. A positiveresult is still clinically valid. 11/30/2024 2:45 PM EDT 12/01/2024 12:35 PM EDT us Generic External Data Provider LAB BODY FLUIDS A ND STOOLS ORDERABLES Final Result [facility] [address] [place] [phone] * BI US Breast Limited Right (10/05/2024 1:22 PM EDT) Anatomical Region Laterality Modality Breast Right Ultrasound 10/05/2024 1:22 PM EDT Narrative 10/05/2024 1:46 PM EDT [address] [place] [address] Ultrasound Report Signed Patient: Ever John MR#: [id number] 1 : 1970 Acct:[id number] Age/Sex: 54 / F ADM Date: 10/05/24 Loc: HO.MAMMO Attending Dr: Jamee Oden DO Ordering Physician: Jamee Oden DO Date of Service: 10/05/24 Procedure(s): US breast RT limited mamm only Accession Number(s): [id number] cc: Alaina Mendieta MD; Jamee Oden DO [...] 10/05/24 1343 DD/ 1322 TD/TT: 10/05/24 1338 Processor Grain: Procedure Note Donotuseinterpreter, Image - 10/05/2024 [facility] [address] [place] [address] Ultrasound Report Signed Patient: Beau John#: [id number] 1 : 1970Acct:[id number] Age/Sex: 54 / FADM Date: 10/05/24 Loc: HO.MAMMO Attending Dr: Jamee Oden DO Ordering Physician: Jamee Oden DO Date of Service: 10/05/24 Procedure(s): US breast RT limited mamm only Accession Number(s): [id number] cc: Alaina Mendieta MD; Jamee Oden DO [...] 10/05/24 1343 DD/ 1322 TD/TT: 10/05/24 1338 Processor Grain: us Jamee Oden DO IMG US PROCEDURES Final Resu lt * Pap Smear (05/14/2023 2:15 PM EDT) 05/14/2023 2:15 PM EDT 05/15/2023 9:00 AM EDT [facility] - 05/26/2023 10:17 AM EDT ----- ------- Name: Ever John Age/Sex: 53/F : 1970 Unit#: [id number] Attend Dr: Duc Cazares MD Re05/14/23 Status: DEP REF Location: HO.LNP Disch: ----- ------- SPEC : [id number] RECD: 05/15/23 STATUS: SYLVIA DIEGO NUM: [id number] GOSIA: 05/14/23-1414 [facility] DR: Duc Cazares MD ENTERED: 05/15/23 SP [...] 59, 66, 68) HPV testing performed by [facility], [place], [place]. See reference laboratory portion of the EMR for entire report. Clinical Information LMP: Unknown date Previous PAP test: 2017, Unknown findings Other history: Abnormal uterine and vaginal bleeding Material Received ThinPrep-Cervical Copies To: Maribell Alanis [address] [place] [address] Duc Cazares MD [address] [place], [place] [address] [address] [address] ----- ------- Signed (signature on file) ROMÁN Joaquin (ASCP) 05/26/23 1017 ----- ------- END OF REPORT us Generic External Data Provider LAB CYTOLOGY ORDE RABLES Final Result [facility] [address] [place] [address] [phone] * (ABNORMAL) HPV mRNA E6/E7 (12/15/2017 2:12 PM EDT) HPV mRNA E6/E7 DETECTED (AA) NOT DETECTED [facility] Comment: This test was performed using the APTIMA(R) HPV Assay ([employer] This assay detects E6/E7 viral messenger RNA (mRNA) from 14 high-risk HPV types (16,18,31,33,35,39,45,51, 52,56,58,59,66,68). For additional information please refer to: http://education.[employer]faq/DTX624d7 (This link is being provided for informational/ educational purposes only.) The analytical performance characteristics of this assay have been determined by [employer] [place]. The modifications have not been cleared or approved by the FDA. This assay has been validated pursuant to the CLIA regulations and is used for clinical purposes. Test Performed by [facility], [facility], [address] [place] [address] Brodie Koenig M.D., Ph.D., Director of Laboratories , CLIA [id number] Please note: Effective 11/12/2015, HPV testing will be performed using [employer] APTIMA test which targets mRNA. Detecting mRNA instead of DNA, as in older methods, offers significant improvements in specificity. 12/15/2017 2:12 PM EDT us Lesia Ramon CNM HISTORICAL/NON ORDERABLE LABS Final Result [facility] [address] from Last 3 Months or Most Recently Relevant to Health Maintenance Insurance [facility] MEDICAID STAND ADULT Care Teams Building Coordinator Relationship Specialty Start Date End Date Maribell Alanis FNP [address] [place] [id number] PCP - General Family Medicine 08/14/21
--- NOTE | 2024-12-30 15:30 | MHC.OFFVIS ---
Intake Visit Reasons: EMB Gang Mower Operator Required: Yes Gang Mower Operator Language: Put In Beat Adjuster Services: Gang Mower Operator Present (in person) Gang Mower Operator Name: Michelle LAINEZ Information Interpreted: non-clinical & clinical Button Tufter: Button Tufter Present (Michelle LAINEZ) Accompanied by: Self / Same As Patient Allergies tizanidine Adverse Reaction (Unknown, Verified 12/30/24 15:41) Involuntary Spasms HPI Comments Details: Presenting for EMB [facility] Medical History GERD (gastroesophageal reflux disease) Fibroadenoma Hx of tendinitis High cholesterol Surgical History Hx of tubal ligation Family History Father Prostate cancer Social History Household Members: Family Alcohol intake: never Patient Tobacco Use Status: Never used Tobacco service: No Current occupational status: unemployed Female Reproductive History Menstrual Age of Menarche: 12 Office Procedures Endometrial Biopsy Details: The patient was counseled regarding the indication and benefits of endometrial sampling to rule out endometrial pathology including not limited to endometrial hyperplasia or endometrial cancer and others; The alternatives (Either do nothing vs. hysteroscopy D&C) & the risks were discussed with the patient including but not limited: pain, uterine perforation, bleeding, infection, possible injury to bladder, bowel, ureter, possible need for blood transfusion with all its possible risks. The patient verbalized understanding all questions answered and signed consent. Urine test done in the office was negative The patient was placed into the dorsal lithotomy position; a speculum was inserted in the vagina. Using aseptic technique for the procedure, the cervix was cleansed with Betadine. The anterior lip of the cervix was grasped with a single tooth tenaculum. The uterus was sounded to 7 cm with a 4 mm Pipelle was used. Tissues samples were obtained and placed in formalin, in a patient labeled container and sent to the pathology department. At the end of the procedure, there was minimal bleeding noted The patient tolerated the procedure well and was discharged in good condition with the following instructions: Nothing in the vagina until the bleeding stops. No sex until the bleeding stops, to call if any of the following occurs: fever (>100.4), flu-like symptoms, abdominal pain, heavy bleeding, four smelling vaginal discharge. The patient was instructed to schedule a Follow up appointment in 2 weeks to discuss pathology results of the biopsy and treatment options. This note was generated with a voice recognition program. Some errors may have been overlooked during the review of this note. Sometimes these errors may affect the content or meaning of a given sentence. [id number] Biopsy Assessment & Plan Assessment & Plan (1) Abnormal uterine bleeding (AUB): Code(s): N93.9 - Abnormal uterine and vaginal bleeding, unspecified Category: Medical Plan: EMB done, see procedure note Orders: Orders AMB Endometrial Biopsy Today N93.9 - Abnormal uterine and vaginal bleeding, unspecified Coding Level of Care Code Procedure Only Diagnoses Abnormal uterine bleeding (AUB) N93.9 CPT Codes Endometrial Biopsy - CPT: 24079-[id number] Biopsy ([id number])
== END 2024-12-30 15:57 | disposition home or self-care (01) ==
LOC: HO.HWS 14:56
PROVIDERS: PCP Internal Medicine; Visit Provider Obstetrics & Gynecology
DX: N93.9 Abnormal uterine and vaginal bleeding, unspecified (principal)
CPT/HCPCS: 58100

== ENCOUNTER 2025-01-06 14:15 | Outpatient (RCR) | payer MEDICAID, SELFPAY ==
[2024-11-18 14:26] VITALS: BP 116/74; PULSE 74; RESP 16; TEMP 36.4; O2SAT 97
[2024-11-25 14:24] VITALS: BP 116/57; PULSE 83; RESP 16; TEMP 36.9; O2SAT 97
[2024-12-02 14:20] VITALS: BP 119/69; PULSE 72; RESP 16; TEMP 36.6; O2SAT 96
[2024-12-09 14:33] VITALS: BP 112/70; PULSE 66; RESP 18; TEMP 36.4
[2024-12-09 15:26] LABS: Hematocrit 33.2 % (37.0-47.0); Hemoglobin 10.5 g/dl (12.0-16.0); Mean Corpuscular HGB Conc 31.6 g/dl (31.0-35.0); Mean Corpuscular Hemoglobin 27.3 pg (27.0-33.0); Mean Corpuscular Volume 86.2 fL (80.0-98.0); NRBC Abs Auto 0.000 X10*3/uL (0.0-0.012); NRBC Pct Auto 0.0 /100WBC (0.0-0.2); Platelet Count 302 X10*3/uL (160-400); Red Blood Count 3.85 X10*6/uL (4.20-5.50); White Blood Count 4.6 X10*3/uL (4.8-10.8)
[2024-12-09 17:26] LABS: Ferritin 904 ng/mL (10-250)
[2024-12-16 14:26] VITALS: BP 116/70; PULSE 80; RESP 16; TEMP 36.7; O2SAT 98
[2024-12-23 15:12] VITALS: BP 138/82; PULSE 68; RESP 16; TEMP 36.5; O2SAT 100
[2024-12-30 14:27] VITALS: BP 107/72; PULSE 74; RESP 16; TEMP 36.6; O2SAT 98
[2025-01-06 14:22] VITALS: BP 105/71; PULSE 72; RESP 16; TEMP 36.9; O2SAT 97
[2025-01-06 14:35] LABS: Hematocrit 34.8 % (37.0-47.0); Hemoglobin 11.1 g/dl (12.0-16.0); Mean Corpuscular HGB Conc 31.9 g/dl (31.0-35.0); Mean Corpuscular Hemoglobin 27.4 pg (27.0-33.0); Mean Corpuscular Volume 85.9 fL (80.0-98.0); NRBC Abs Auto 0.000 X10*3/uL (0.0-0.012); NRBC Pct Auto 0.0 /100WBC (0.0-0.2); Platelet Count 308 X10*3/uL (160-400); Red Blood Count 4.05 X10*6/uL (4.20-5.50); White Blood Count 4.4 X10*3/uL (4.8-10.8)
[2025-01-06 15:06] LABS: Ferritin 922 ng/mL (10-250)
== END 2025-01-06 14:46 | disposition home or self-care (01) ==
LOC: HO.INF 14:15
PROVIDERS: Visit Provider Internal Medicine Medical Oncology
DX: D64.9 Anemia, unspecified (principal)
CPT/HCPCS: 36415; 82728; 85027; 96365; J1756

== ENCOUNTER 2025-01-20 14:45 | Outpatient (REF) | payer MEDICAID, SELFPAY ==
--- NOTE | ~2025-01-20 | XR_ITS ---
EXAMINATION: XR LUMBOSACRAL SPINE CLINICAL INFORMATION: chronic back pain COMPARISON: None available. TECHNIQUE: Three views of the lumbosacral spine. FINDINGS: 5 lumbar type vertebral bodies. No evidence of acute fracture or subluxation. Vertebral body heights are maintained. No suspicious bony lesions. Multilevel endplate osteophytes. Disc spaces are relatively maintained. Facet degeneration in the lower lumbar spine. SI joints are symmetric, intact. Phleboliths in the pelvis. XR/XR lumbar spine 2-3V IMPRESSION: Mild lumbar spondylosis. Electronically signed by: Yeison Monahan MD 01/20/2025 05:03 PM CAROL
--- NOTE | ~2025-01-20 | US_ITS ---
EXAMINATION: US PELVIS, COMPLETE CLINICAL INFORMATION: N93.9 - Abnormal uterine and vaginal bleeding, unspecified COMPARISON: Ultrasound 08/05/2023 TECHNIQUE: Transabdominal and transvaginal imaging was performed. FINDINGS: LMP: October Uterus is anteverted and anteflexed , measuring 6.7 x 2.5 x 4.8 cm. No focal uterine lesion. Nabothian cysts in the cervix. Endometrial thickness 0.3 cm. Right ovary measures 1.9 x 1.3 x 1.4 cm. Volume 1.8 mL. Left ovary measures 2 x 1.4 x 1.5 cm. Volume 2.2 mL. Bilateral ovaries appear unremarkable on the transabdominal evaluation. The ovaries were only visualized on the transabdominal evaluation. No significant free fluid in the cul-de-sac. US/US pelvic and transvaginal IMPRESSION: No significant abnormality demonstrated by pelvic ultrasound. Electronically signed by: Yeison Monahan MD 01/20/2025 04:55 PM EST
--- OUTSIDE RECORDS SUMMARY | 2025-01-20 14:59 | XMS_ITS | Encounter Summary ---
Author Organization [employer] Address [address] [facility] 7t [place] [address] Care Team Providers Care Expanded Function Dental Assistant Name Role Phone Maribell Alanis Primary Care Provider [phone] Reason for Visit * Reason Comments Med Refill Encounter Details Date Type Department Care Team ([facility] Contact Info) Description 09/11/2022 Refill [facility] [address] [place] [address] Maribell Alanis FNP [address] [place] [address] Social History Tobacco Use Types Packs/Day Years [...] documented as of this encounter Care Teams Expanded Function Dental Assistant Relationship Specialty Start Date End Date Maribell Alanis FNP [address] [place] [phone] PCP - General Family Medicine 08/14/21 documented as of this encounter
--- OUTSIDE RECORDS SUMMARY | 2025-01-20 14:59 | XMS_ITS | Encounter Summary ---
Author Organization [employer] Address [address] [place] [address] 7 [place] [address] Care Team Providers Care Choirmaster Name Role Phone Maribell Alanis JARRETT Primary Care Provider [phone] Encounter Details Date Type Department Care Team ([facility] st Contact Info) Description 12/05/2024 Results Follow-Up [facility] MED & PEDS [address] [place] [address] Alaina Mendieta MD [address] [place] [address] Rheumatoid Factor, C-reactive Protein, Sed Rate by [...] documented as of this encounter Care Teams Choirmaster Relationship Specialty Start Date End Date Maribell Alanis FNP [address] [place] [phone] PCP - General Family Medicine 08/14/21 documented as of this encounter
--- OUTSIDE RECORDS SUMMARY | 2025-01-20 14:59 | XMS_ITS | Encounter Summary ---
Author Organization [employer] Address [address] [facility] [address]t [place] [address] Care Team Providers Care Agricultural Economics Professor Name Role Phone Maribell Alanis JARRETT Primary Care Provider [phone] Reason for Visit * Reason Comments Med Refill Encounter Details Date Type Department Care Team ([facility] [address] Contact Info) Description 08/24/2023 Refill [facility] [address] [place] [address] Name, MD Varun [address] [place] [address] Insomnia, unspecified type Social History Tobacco Use [...] documented as of this encounter Care Teams Agricultural Economics Professor Relationship Specialty Start Date End Date Maribell Alanis FNP [address] [place] [address] PCP - General Family Medicine 08/14/21 documented as of this encounter
--- OUTSIDE RECORDS SUMMARY | 2025-01-20 14:59 | XMS_ITS | Encounter Summary ---
Author Organization [employer] Address [address] [facility] 7t [place] [address] Care Team Providers Care Concrete Gun Operator Name Role Phone Maribell Alanis JARRETT Primary Care Provider [phone] Encounter Details Date Type Department Care Team ([facility] Contact Info) Description 09/16/2024 Orders Only [facility] MED & PEDS [address] [place], [place] [phone] Alaina Mendieta MD [address] [place] [address] Social History Tobacco Use Types Packs/Day Years [...] as of this encounter Care Teams Concrete Gun Operator Relationship Specialty Start Date End Date Maribell Alanis FNP [address] [place] [address] PCP - General Family Medicine 08/14/21 documented as of this encounter
--- OUTSIDE RECORDS SUMMARY | 2025-01-20 14:59 | XMS_ITS | Encounter Summary ---
Author Organization [employer] Address [address] [facility] 7t [place] [address] Care Team Providers Care Mandrel Maker Name Role Phone Maribell Alanis Primary Care Provider [phone] Encounter Details Date Type Department Care Team ([facility] Contact Info) Description 12/02/2024 Orders Only [facility] CH[facility] MED & PEDS [address] [place], [place] [phone] Maribell Alanis FNP [address] [place], [place] [phone] Social History Tobacco Use Types Packs/Day Years [...] documented as of this encounter Care Teams Mandrel Maker Relationship Specialty Start Date End Date Maribell Alanis FNP [address] [place] [phone] PCP - General Family Medicine 08/14/21 documented as of this encounter
--- OUTSIDE RECORDS SUMMARY | 2025-01-20 14:59 | XMS_ITS | Encounter Summary ---
Author Organization [employer] Address [address] [facility] [address]t [place] [address] Care Team Providers Care Door Hanger Name Role Phone Maribell Alanis JARRETT Primary Care Provider [phone] Encounter Details Date Type Department Care Team ([facility] Contact Info) Description 01/03/2025 Results Follow-Up [facility] CH[facility] MED & PEDS [address] [place], [place] [phone] Alaina Mendieta MD [address] [place] [address] Hematoxylin and Eosin Stain Social History Tobacco Use Types Packs/Day Years [...] Encounter Note - Alaina Mendieta MD - 01/03/2025 1:12 PM EST FYI documented in this encounter Plan of Treatment Not on file documented as of this encounter Visit Diagnoses Not on filedocumented in this encounter Additional Health Concerns Assessment Noted Time PHQ-9 Depression Total Score: 11 025 1:53 PM EDT documented as of this encounter Care Teams Door Hanger Relationship Specialty Start Date End Date Maribell Alanis FNP [address] [place] [address] PCP - General Family Medicine 08/14/21 documented as of this encounter
--- OUTSIDE RECORDS SUMMARY | 2025-01-20 14:59 | XMS_ITS | Encounter Summary ---
Author Organization [employer] Address [address] [place] [address] 7t [place] [address] Care Team Providers Care Power Lineman Name Role Phone Maribell Alanis JARRETT Primary Care Provider Encounter Details Date Type Department Care Team ([facility] Contact Info) Description 12/07/2024 Results Follow-Up [facility] CH[facility] MED & PEDS [address] [place], [place] [phone] Alaina Mendieta MD [address] [place] [address] CBC, TSH with Reflex to Free T4, [...] documented as of this encounter Care Teams Power Lineman Relationship Specialty Start Date End Date Maribell Alanis FNP [address] [place] [address] PCP - General Family Medicine 08/14/21 documented as of this encounter
--- OUTSIDE RECORDS SUMMARY | 2025-01-20 15:00 | XMS_ITS | Clinical Summary ---
Author Organization [employer] Address [address] [facility] [address] [place] [address] Care Team Providers Care Buyer Renter Name Role Phone EvaMaribell cabrera JARRETT Primary Care Provider [phone] Allergies Active Allergy Reactions Criticality Noted Date [...] Microscopic hematuria 11/06/2024 Overview (11/06/2024): Following with [facility] Urology - HAMMAD Rojas Urine cytology neg for high-grade urothelial carcinoma June 2024: normal/unremarkable renal US July 2024: US Bladder -normal bilateral ureteral jets seen. No echogenic stones or wall thickening. 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 Cazares Pelvic US 06/03/23 [...] Plan (07/22/2023 6:20 AM EDT): Following with [facility] Ortho Per consult in Mar 2023, plan for physical therapy and NSAIDs, declined injection Anemia 07/22/2023 Overview (07/22/2023): Following with [facility] Heme/Onc for normocytic normochromic anemia with iron deficiency Assessment & Plan (11/06/2024 7:18 PM EDT): - Consult August 2024 - plan for repeat IV iron. Encouraged to check with IT SECURITY PROJECT MANAGER if endometrial ablation is an option. - Referred to IT SECURITY PROJECT MANAGER for eval menorrhagia and GI for screening colonoscopy Assessment & Plan (10/22/2023 7:39 AM EDT): - Recieved IV Iron, stopped PO iron - Referred to IT SECURITY PROJECT MANAGER for eval menorrhagia and GI for screening colonoscopy - Recent B, will check current levels Assessment & Plan (07/25/2023 11:34 AM EDT): - Started IV Iron, stopped PO iron - Referred to IT SECURITY PROJECT MANAGER for eval menorrhagia and GI for screening colonoscopy Vitreomacular adhesion, left eye 03/12/2023 Complex renal cyst 02/21/2023 Overview (08/24/2024): Following with [facility] Urology (EDIS Rojas) June 2024: no renal [...] visualization. Healthcare maintenance 09/28/2022 Overview (11/06/2024): Optometry: [facility] Pap: 05/14/23 NILM, HPV neg (Dr. Cazares) Mammo: BIRADS 3 in Sep 2024, due for repeat in 6 mo Colonoscopy: referral to GI placed 10/21/23 Dental: referral to [facility] Dental placed 07/22/23 Assessment & Plan [...] be also referred to Ind. Therapy in [facility]. I encouraged her to reach out [...] organization. Date Type Department Care Team Description 01/06/[address] [address] Hali Carrillo LPN Error (VOID this visit) 01/04/[address] [address] Maribell Alanis FNP 01/03/2025 Results Follow-Up [facility] [address] [place], [place] [phone] Alaina Mendieta MD Hematoxylin and Eosin Stain 12/30/2024 Orders Only GENERIC EXTERNAL DATA DEPARTMENT Provider, Generic External Data 12/23/2024 1:45 PM EDT Office Visit [address] [address] Silvia Gonzalez NP Rash of multiple digits of both hands (Primary Dx); Chronic right-sided low back pain without sciatica; Depression with anxiety; Dietary counseling; Exercise counseling 12/23/[address] [address] Silvia Gonzalez NP Xray order faxed to [facility] 12/23/2024 Travel 12/22/[address] [phone] Phalen, Maribell, WIRE COMMUNICATIONS ENGINEER CHARTPREP 12/07/2024 Results Follow-Up [facility] [address] [place] [address] Alaina Mendieta MD CBC, TSH with Reflex to Free T4, hCG, Total, Quantitative, Additional followed-up results: 4 12/06/2024 Telephone [facility] [address] [place] [address] Ana Duque, GIL 12/05/2024 Results Follow-Up [facility] [address] [place] [address] Alaina Mendieta MD Rheumatoid Factor, C-reactive Protein, Sed Rate by Modified Westergren, Additional followed-up results: 2 12/02/2024 Results Follow-Up [facility] [address] [place] [address] Melba Hoover RN Helicobacter pylori, Urea Breath Test 12/02/2024 Orders Only [facility] [address] [place] [address] Phalrick Maribell, WIRE COMMUNICATIONS ENGINEER 12/01/2024 Orders Only GENERIC EXTERNAL DATA DEPARTMENT Provider, Generic External Data 11/30/2024 Orders Only GENERIC EXTERNAL DATA DEPARTMENT Provider, Generic External Data 11/22/2024 Refill [facility] [address] [place] [address] Phalen Maribell, WIRE COMMUNICATIONS ENGINEER Knuckle pads on dorsal aspect of multiple metacarpophalangeal and interphalangeal joints 11/07/2024 Travel 11/07/2024 Telephone [facility] [address] [place] [address] Ana Duque, GIL 11/04/2024 3:15 PM EDT Office Visit [facility] [address] [place] [address] Phalrick Maribell, WIRE COMMUNICATIONS ENGINEER Rash of multiple digits of both hands (Primary Dx); Polyarthralgia; History of hepatitis C; Insomnia, unspecified type; Bulging of intervertebral disc between L4 and L5; Iron deficiency anemia, unspecified iron deficiency anemia type; Healthcare maintenance; Microscopic hematuria; Long-term current use of opiate analgesic 11/04/2024 Refill [facility] [address] [place] [address] Maribell Alanis FNP Pain 11/04/2024 Travel 10/28/2024 Travel from Last 3 Months Immunizations Immunization Administration [...] Dental Prophylaxis 1970 Dental X-Ray: Bitewings 1971 FIT DNA/Cologuard 1970 FIT 1970 FOBT 1970 Sigmoidoscopy 1970 Hepatitis A Vaccines (2 of 2 - Risk 2-dose series) 09/02/2018 03/05/2018 Pneumococcal Vaccine: 50+ Years (1 of 1 - PCV) 2021 RSV Patients and Patients Aged 60 years or older (1 - Risk 50-74 years 1-dose series) 2021 Zoster Vaccines (1 of 2) 2021 COVID-19 Vaccine (1 - season) 2024 Influenza Vaccine (#1) 2024 Diagnostic Breast Imaging 04/07/20252024, 04/04/2024, 02/04/2022, Additional history exists Mammogram 04/07/2025 10/05/2024, 02/0 04/2024, 04/04/2024, Additional history exists SDOH Screening 05/23/2025 05/23/2024 Depression Monitoring 06/23/2025 12/23/2024, 025 DTaP/Tdap/Td Vaccines (2 - Td or Tdap) 09/20/2025 09/21/2015 Disability Screening 10/28/2025 10/28/2024 Alcohol/Substance Use Screening 12/23/2025 12/23/2024 Tobacco Screening 12/23/2025 12/23/2024 Dental X-Ray: Full Mouth 09/24/2027 09/22/2024 Cervical Cancer Screening 05/13/2028 HPV/Cotest 05/13/2028 12/15/2017, 09/24/2016 Pap Smear 05/13/2028 05/14/2023 Hepatitis B Vaccines Completed 03/05/2018, 12/11/2017, 11/13/2017 [...] Procedure Name Priority Date/Time Associated Diagnosis Comments HEMATOXYLIN AND EOSIN STAIN Routine 12/30/2024 3:48 PM EDT HEPATITIS C VIRAL RNA, QUANTITATIVE, REAL-TIME PCR [...] Recently Relevant to Health Maintenance Results * Hematoxylin and Eosin Stain (12/30/2024 3:48 PM EDT) 12/30/2024 3:48 PM EDT 01/02/2025 7:12 AM EST [facility] - 01/03/2025 10:57 AM EST ----- ------- Name: Ever John Age/Sex: 54/F : 1970 [id number] Unit#: [id number] Attend Dr: Duc Cazares MD Re12/30/24 Status: [facility] REF Location: [facility] Disch: ----- ------- SPEC : [id number] RECD: 01/02/25 STATUS: SYLVIA MINMonique NUM: [id number] GOSIA: 12/30/24-1548 [facility] DR: Duc Cazares MD ENTERED: 01/02/25 SP TYPE: Surgical OTHR DR: Alaina Mendieta MD ORDERED: HE Stain/2, Gross Micro L4 Diagnosis Endometrium, biopsy: Superficial strips of benign endometrium and endocervical epithelium, mucoinflammatory material and blood; no atypia identified. Clinical History AUB Microscopic Description Microscopic sections reviewed. Material Received EMB Gross Description A. Received in formalin are multiple caballero-white soft tissue fragments mixed with blood and mucus forming a 0.5 cc aggregate, totally submitted in cassette A1. (OWR) IHC S/NG Disclaimer NOTE: Unless otherwise stated, all tissue is formalin-fixed and paraffin-embedded. Some or all of the immunohistochemical tests reported herein may have been developed and their performance characteristics determined by [facility]. They have not been cleared or approved by the U.S. Food and Drug Administration (FDA). However, the FDA has determined that such clearance or approval is not necessary. This laboratory is certified under the Clinical Laboratory Improvement Amendments of 1988 (CLIA) as qualified to perform high complexity clinical laboratory testing. Copies To: Alaina Mendieta MD [address] [address] Duc Cazares MD [facility] Women's Services [address] [place] [address] Drive [address] [place] [address] CONTINUED ON NEXT PAGE ----- ------- Name: Ever John Age/Sex: 54/F : 1970 Unit#: [id number] Attend Dr: Duc Cazares MD Re12/30/24 Status: [facility] RISA Location: [facility] Disch: ----- ------- SPEC : [id number] RECD: 01/02/25 STATUS: SYLVIA DIEGO NUM: [id number] GOSIA: 12/30/24-1548 [facility] DR: Duc Cazares MD ENTERED: 01/02/25 SP TYPE: Surgical OTHR DR: Alaina Mendieta MD ORDERED: VIOLETA Jefferson/2, Elvin Micro L4 ----- ------- Signed (signature on file) Lance Bueno MD 01/03/25 1057 ----- ------- END OF REPORT Generic External Data Provider LAB BLOOD ORDERAB LES Final Result Performing Organization Address [facility] de Phone Number [facility] [address] [place] [phone] * TSH with Reflex to Free T4 (12/01/2024 4:25 PM EDT) Pathologist [facility] TSH reflex Free T4 0.90 0.32 - 4.0 uIU/mL [facility] 12/01/2024 4:25 PM EDT 12/01/2024 4:25 PM EDT Generic External Data Provider LAB BLOOD ORDERAB LES Final Result Performing Organization Address [facility] de Phone Number [facility] [address] [place] [phone] * Hepatitis C Viral RNA, Quantitative, Real-Time PCR (12/01/2024 4:25 PM EDT) Pathologist [facility] Hepatitis C Viral Load <15 NOT DETECTED NOT DETECTED IU/mL [facility] HCV Log PCR <1.18 NOT DETECTED NOT DETECTED Log IU/mL [facility] Comment:For additional infor marita, please refer tohttp://education.TwoF/faq/BMU15e5(This link is being provided for informational/educational purposes only.)THIS TEST WAS PERFORMED AT:[facility] [place] [id number] BLAKE MD 12/01/2024 4:25 PM EDT 12/02/2024 9:24 AM EDT us Generic External Data Provider LAB BLOOD ORDERAB LES Final Result Performing Organization Address [facility]/ZIP Co de Phone Number [facility] [address] [place] [address] [phone] * (ABNORMAL) Hepatitis C Antibody with Reflex to HCV, RNA, Quantitative, Real- Time PCR (12/01/2024 4:25 PM EDT) Hepatitis C Antibody Reactive( A) Nonreactive [facility] Comment:Presumptive evidence of antibodies to HCV. Blood Venous blood specimen / Unknown 12/01/2024 4:25 PM EDT 12/01/2024 4:25 PM EDT Maribell Alanis WIRE COMMUNICATIONS ENGINEER LAB BLOOD ORDERABLES Final Res ult Performing Organization Address [facility] Co de Phone Number [facility] [address] [place] [address] [phone] * (ABNORMAL) Sed Rate by Modified Bhavaniren (12/01/2024 4:25 PM EDT) Erythrocyte Sedimentation Rate 34(H) 0 - 20 MM/HR [facility] Comment:Patients with polycy themia and many hemoglobin abnormalitiesmay have depressed sed rates whereas patients with anemiamay have elevated sed rates. Blood Venous blood specimen / Unknown 12/01/2024 4:25 PM EDT 12/01/2024 4:25 PM EDT Maribell Alanis WIRE COMMUNICATIONS ENGINEER LAB BLOOD ORDERABLES Final Res ult Performing Organization Address [facility]/ZIP Co de Phone Number [facility] [address] [place] [address] [phone] * (ABNORMAL) CBC (12/01/2024 4:25 PM EDT) White Blood Count 6.1 4.8 - 10.8 X10*3/uL [facility] Red Blood Count 4.07(L) 4.20 - 5.50 X10*6/uL [facility] Hemoglobin 11.3(L) 12.0 - 16.0 g/dl [facility] Hematocrit 34.1(L) 37.0 - 47.0 % [facility] Mean Corpuscular Volume 83.8 80.0 - 98.0 fL [facility] Mean Corpuscular Hemoglobin 27.8 27.0 - 33.0 pg [facility] Mean Corpuscular HGB Conc 33.1 31.0 - 35.0 g/dl [facility] Red Cell Distribution Width 14.0 11.0 - 16.0 % [facility] Platelet Count 343 160 - 400 X10*3/uL [facility] Mean Platelet Volume 11.2 9.4 - 12.3 fL [facility] NRBC Pct Auto 0.0 0.0 - 0.2 /100WBC [facility] NRBC Abs Auto 0.000 0.0 - 0.012 X10*3/uL [facility] 12/01/2024 4:25 PM EDT 12/01/2024 4:25 PM EDT us Generic External Data Provider LAB BLOOD ORDERAB LES Final Result [facility] [address] [place] [phone] * Rheumatoid Factor (12/01/2024 4:25 PM EDT) Pathologist [facility] Rheumatoid Factor <13.0 <15.0 IU/mL [facility] Blood Venous blood specimen / Unknown 12/01/2024 4:25 PM EDT 12/01/2024 4:25 PM EDT us Maribell Alanis WIRE COMMUNICATIONS ENGINEER LAB BLOOD ORDERABLES Final Res ult Performing Organization Address [facility]/ZIP Co de Phone Number [facility] [address] [place] [address] [phone] * C-reactive Protein (12/01/2024 4:25 PM EDT) Pathologist [facility] C Reactive Protein 0.13 < or = 0.50 mg/dL [facility] Blood Venous blood specimen / Unknown 12/01/2024 4:25 PM EDT 12/01/2024 4:25 PM EDT Maribell Alanis WIRE COMMUNICATIONS ENGINEER LAB BLOOD ORDERABLES Final Res ult Performing Organization Address [facility] Co de Phone Number [facility] [address] [place] [address] [phone] * TAN Screen,IFA, with Reflex to Titer and Pattern (12/01/2024 4:25 PM EDT) Pathologist [facility] Anti Nuclear Antibody Screen NEGATIVE NEGATIVE [facility] Comment:TAN IFA is a first l [...] clinicallysuspected inflammatory myopathies.AC-0: NegativeInternational Consensus on TAN Patterns(https://doi.org/10.1515/zqdj-7397-9411)For additional information, please refer tohttp://education.[employer].3TEN8/faq/QZZ521(This link is being provided for informational/educational purposes only.)THIS TEST WAS PERFORMED AT:[facility] [place] [id number] BLAKE MD TAN Titer TNP [facility] TAN Pattern TNP [facility] TAN Titer 2 TNP [facility] TAN Pattern 2 [facility] TAN TITER 3 [facility] TAN PATTERN 3 [facility] Blood Venous blood specimen / Unknown 12/01/2024 4:25 PM EDT 12/01/2024 4:25 PM EDT Maribell Alanis WIRE COMMUNICATIONS ENGINEER LAB BLOOD ORDERABLES Final Res ult Performing Organization Address City/[facility]/ZIP Co de Phone Number [facility] [address] [place] [address] [phone] * hCG, Total, Quantitative (12/01/2024 4:25 PM EDT) HCG Quantitative <2 mIU/mL [facility] Comment:Weeks post LMP Appro ximate hCG(Last Menstrual Period) Range (mIU/ml)3 - 4 weeks 9 - 1304 - 5 weeks 75 - 2,6005 - 6 weeks 850 - 20,8006 - 7 weeks 4000 - 100,2007 - 12 weeks 11,500 - 289,87178 - 16 weeks 18,300 - 137,50034 - 29 weeks (2nd trimester) 1,400 - 53,95986 - 41 weeks (3rd trimester) 940 - [...] ORDERAB LES Final Result Performing Organization Address City/[facility]/ZIP Co de Phone Number [facility] [address] [place] [address] [phone] * LH (12/01/2024 4:25 PM EDT) Lutenizing Hormone 31.8 mIU/mL [facility] Comment:Reference Range Foll icular Phase 1.9-12.5 Mid-Cycle Peak 8.7-76.3 Luteal Phase 0.5-16.9 Postmenopausal 10.0-54.7THIS TEST WAS PERFORMED AT:[email or web address] [address] [phone] BLAKE MD 12/01/2024 4:25 PM EDT 12/01/2024 4:25 PM EDT Generic External Data Provider LAB BLOOD ORDERAB LES Final Result Performing Organization Address [facility] Co de Phone Number [facility] [address] [place] [phone] * FSH (12/01/2024 4:25 PM EDT) [facility] Follicle Stimulating Hormone 52.5 mIU/mL [facility] Comment:Reference Range Foll icular Phase 2.5-10.2 Mid-cycle Peak 3.1-17.7 Luteal Phase 1.5- 9.1 Postmenopausal 23.0-116.3THIS TEST WAS PERFORMED AT:[email or web address] [address] [phone] BLAKE MD 12/01/2024 4:25 PM EDT 12/01/2024 4:25 PM EDT Generic External Data Provider LAB BLOOD ORDERAB LES Final Result Performing Organization Address [facility] de Phone Number [facility] [address] [place] [phone] * Chlamydia/N. Gonorrhoeae RNA, TMA, Urogenitial (12/01/2024 3:03 PM EDT) [facility] CT PCR NOT DETECTED Not Detect. [facility] Comment:A not detected test result does [...] psychologicalconsequences. NG PCR NOT DETECTED Not Detect. [facility] Comment:A not detected test result does [...] LAB MICROBIOLOGY - GENERAL ORDERABLES Final Result [facility] [address] [place] [phone] * Helicobacter pylori, Urea Breath Test (11/30/2024 2:45 PM EDT) H. pylori Breath Test Positive Negative [facility] Comment:Antimicrobials, prot on pump inhibitors and bismuthpreparations are known to suppress H. pylori. Ingestingthese medications within two weeks prior to performing thebreath test may produce negative test results. A positiveresult is still clinically valid. 11/30/2024 2:45 PM EDT 12/01/2024 12:35 PM EDT us Generic External Data Provider LAB BODY FLUIDS A ND STOOLS ORDERABLES Final Result [facility] [address] [place] [address] [phone] * BI US Breast Limited Right (10/05/2024 1:22 PM EDT) Anatomical Region Laterality Modality Breast Right Ultrasound 10/05/2024 1:22 PM EDT Narrative 10/05/2024 1:46 PM EDT [address] [place] [address] Ultrasound Report Signed Patient: Ever John MR#: [id number] 1 : 1970 Acct:[id number] Age/Sex: 54 / F ADM Date: 10/05/24 Loc: [facility] Attending Dr: Jamee Oden DO Ordering Physician: Jamee Oden DO Date of Service: 10/05/24 Procedure(s): US breast RT limited mamm only Accession Number(s): [id number] cc: Alaina Mendieta MD; Jamee Oden DO [...] 10/05/24 1343 DD/ 1322 TD/TT: 10/05/24 1338 Sow Farm Technician: Procedure Note Donotuseinterpreter, Image - 10/05/2024 [facility] [address] [place], [place] [address] Ultrasound Report Signed Patient: Beau John#: [id number] 1 : 1970Acct:[id number] Age/Sex: 54 / FADM Date: 10/05/24 Loc: [facility] Attending Dr: Jamee Oden DO Ordering Physician: Jamee Oden DO Date of Service: 10/05/24 Procedure(s): US breast RT limited mamm only Accession Number(s): [id number] cc: Alaina Mendieta MD; Jaeme Oden DO EXAMINATION: US DIAGNOSTIC ULTRASOUND BREAST, [...] 10/05/24 1343 DD/ 1322 TD/TT: 10/05/24 1338 Sow Farm Technician: us Jamee Oden DO IMG US PROCEDURES Final Resu lt * Pap Smear (05/14/2023 2:15 PM EDT) 05/14/2023 2:15 PM EDT 05/15/2023 9:00 AM EDT [facility] - 05/26/2023 10:17 AM EDT ----- ------- Name: Ever John Age/Sex: 53/F : 1970 Unit#: [id number] Attend Dr: Duc Cazares MD Re05/14/23 Status: DEP REF Location: HO.LNP Disch: ----- ------- SPEC : [id number] RECD: 05/15/23-899 STATUS: SYLVIA DIEGO NUM: [id number] GOSIA: 05/14/23-2305 [facility] DR: Duc Cazares MD ENTERED: 05/15/23 SP [...] 59, 66, 68) HPV testing performed by [facility], [place], [place]. See reference laboratory portion of the EMR for entire report. Clinical Information LMP: Unknown date Previous PAP test: 2018, Unknown findings Other history: Abnormal uterine and vaginal bleeding Material Received ThinPrep-Cervical Copies To: Maribell Alanis WIRE COMMUNICATIONS ENGINEER [address] [place] [address] Duc Cazares MD [address] [place], [place] [address]Yaritza [address] [address] ----- ------- Signed (signature on file) ROMÁN Joaquin (ASCP) 05/26/23 1017 ----- ------- END OF REPORT us Generic External Data Provider LAB CYTOLOGY ALAINA DOMINGUEZ Final Result [facility] [address] [place] [phone] * (ABNORMAL) HPV mRNA E6/E7 (12/15/2017 2:12 PM EDT) HPV mRNA E6/E7 DETECTED (AA) NOT DETECTED [facility] Comment: This test was performed using the APTIMA(R) HPV Assay ([employer] This assay detects E6/E7 viral messenger RNA (mRNA) from 14 high-risk HPV types (16,18,31,33,35,39,45,51, 52,56,58,59,66,68). For additional information please refer to: http://education.TwoF/faq/AJG424e8 (This link is being provided for informational/ educational purposes only.) The analytical performance characteristics of this assay have been determined by [employer] [place], [place]. The modifications have not been cleared or approved by the FDA. This assay has been validated pursuant to the CLIA regulations and is used for clinical purposes. Test Performed by [employer] [place], [facility], [address] [place] [address] Brodie Koenig M.D., Ph.D., Director of Laboratories , CLIA [id number] Please note: Effective 11/12/2015, HPV testing will be performed using [employer]'s APTIMA test which targets mRNA. Detecting mRNA instead of DNA, as in older methods, offers significant improvements in specificity. 12/15/2017 2:12 PM EDT us Lesia Ramon CNM HISTORICAL/NON ORDERABLE LABS Final Result [facility] [address] from Last 3 Months or Most Recently Relevant to Health Maintenance Insurance [place] C[place] [facility] MEDICAID STAND ADULT Care Teams Buyer Renter Relationship Specialty Start Date End Date Maribell Alanis FNP [address] [place], [place] PCP - General Family Medicine 08/14/21
--- OUTSIDE RECORDS SUMMARY | 2025-01-20 15:00 | XMS_ITS | Encounter Summary ---
Author Organization [employer] Address [address] [facility] [address] [place] [address] Care Team Providers Care Asset Administrator Name Role Phone Maribell Alanis Primary Care Provider [phone] Reason for Visit * Reason Onset Date Comments Appointment Request 12/04/2023 Encounter Details Date Type Department Care Team ([facility] Contact Info) Description 12/04/2023 Telephone [facility] [address] [place] [address] Maribell Alanis FNP [address] [place] [address] Appointment Request Social History Tobacco Use Types [...] documented as of this encounter Care Teams Asset Administrator Relationship Specialty Start Date End Date Maribell Alanis FNP [address] [place] [phone] PCP - General Family Medicine 08/14/21 documented as of this encounter
== END 2025-01-20 14:46 | disposition home or self-care (01) ==
LOC: HO.US 14:45
PROVIDERS: PCP Internal Medicine; Visit Provider Obstetrics & Gynecology
DX: G89.29 Other chronic pain (principal); N93.9 Abnormal uterine and vaginal bleeding, unspecified; M54.50 Low back pain, unspecified
CPT/HCPCS: 72100; 76830; 76856

== ENCOUNTER → 2025-01-20 14:47 | Outpatient (BNV) | payer MEDICAID, SELFPAY | PROVIDERS: PCP Internal Medicine; Visit Provider Radiology Diagnostic Ultrasound | DX: N93.9 Abnormal uterine and vaginal bleeding, unspecified (principal); M47.816 Spondylosis without myelopathy or radiculopathy, lumbar region | CPT/HCPCS: 72100; 76830; 76856 ==

== ENCOUNTER 2025-02-20 07:35 | Outpatient (AMB) | payer MEDICAID, SELFPAY ==
--- OUTSIDE RECORDS SUMMARY | 2025-02-20 07:38 | XMS_ITS | Encounter Summary ---
Author Organization [employer] Address [address] [facility] [address] [place] [address] Care Team Providers Care Painting Contractor Name Role Phone Maribell Alanis Primary Care Provider [phone] Reason for Visit * Reason Onset Date Comments Appointment Request 12/04/2023 Encounter Details Date Type Department Care Team ([facility] Contact Info) Description 12/04/[address] [facility] MEDICINE [address] [place] [address] Maribell Alanis FNP [address] [place] [address] Appointment Request Social History Tobacco Use Types [...] documented as of this encounter Care Teams Painting Contractor Relationship Specialty Start Date End Date Maribell Alanis FNP [address] [place] [phone] PCP - General Family Medicine 08/14/21 documented as of this encounter
--- OUTSIDE RECORDS SUMMARY | 2025-02-20 07:38 | XMS_ITS | Encounter Summary ---
Author Organization [employer] Address [address] [facility] 7[address] [place] [address] Care Team Providers Care Perfume Compounder Name Role Phone Maribell Alanis Primary Care Provider [phone] Encounter Details Date Type Department Care Team ([facility] Contact Info) Description 12/02/2024 Orders Only [facility] CHC MED & PEDS [address] [place], [place] [phone] Maribell Alanis FNP [address] [place], [place] [phone] Social History Tobacco Use Types Packs/Day Years [...] documented as of this encounter Care Teams Perfume Compounder Relationship Specialty Start Date End Date Maribell Alanis FNP [address] [place] [id number] PCP - General Family Medicine 08/14/21 documented as of this encounter
--- OUTSIDE RECORDS SUMMARY | 2025-02-20 07:38 | XMS_ITS | Encounter Summary ---
Author Organization [employer] Address [address] [facility] [address] [place] [address] Care Team Providers Care Buildings And Grounds Superintendent Name Role Phone Maribell Alanis JARRETT Primary Care Provider Encounter Details Date Type Department Care Team ([facility] Contact Info) Description 09/16/2024 Orders Only [facility] CHC MED & PEDS [address] [place], [place] [phone] Alaina Mendieta MD [address] [place] [address] Social History Tobacco Use Types Packs/Day Years [...] documented as of this encounter Care Teams Buildings And Grounds Superintendent Relationship Specialty Start Date End Date Maribell Alanis FNP [address] [place] [id number] PCP - General Family Medicine 08/14/21 documented as of this encounter
--- OUTSIDE RECORDS SUMMARY | 2025-02-20 07:38 | XMS_ITS | Encounter Summary ---
Author Organization [employer] Address [address] [facility] [address] [place] [address] Care Team Providers Care Health Safety Coordinator Name Role Phone Maribell Alanis Primary Care Provider [phone] Reason for Visit * Reason Comments Med Refill Encounter Details Date Type Department Care Team ([facility] Contact Info) Description 09/11/2022 Refill [facility] MEDICINE [address] [place] [address] Maribell Alanis FNP [address] [place] [address] Social History Tobacco Use Types Packs/Day Years [...] as of this encounter Care Teams Health Safety Coordinator Relationship Specialty Start Date End Date Maribell Alanis FNP [address] [place] [phone] PCP - General Family Medicine 08/14/21 documented as of this encounter
--- OUTSIDE RECORDS SUMMARY | 2025-02-20 07:38 | XMS_ITS | Encounter Summary ---
Author Organization [employer] Address [address] [facility] 7[address] [place] [address] Care Team Providers Care Gis Software Developer Name Role Phone Maribell Alanis JARRETT Primary Care Provider [phone] Reason for Visit * Reason Comments Med Refill Encounter Details Date Type Department Care Team ([facility] Contact Info) Description 08/24/2023 Refill [facility] MEDICINE [address] [place] [address] Name, MD Varun [address] [place] [address] Insomnia, unspecified type Social History Tobacco Use [...] documented as of this encounter Care Teams Gis Software Developer Relationship Specialty Start Date End Date Maribell Alanis FNP [address] [place] [phone] PCP - General Family Medicine 08/14/21 documented as of this encounter
--- OUTSIDE RECORDS SUMMARY | 2025-02-20 07:38 | XMS_ITS | Encounter Summary ---
Author Organization [employer] Address [address] [facility] [address] [place] [address] Care Team Providers Care School Transportation Supervisor Name Role Phone Maribell Alanis JARRETT Primary Care Provider [phone] Encounter Details Date Type Department Care Team ([facility] Contact Info) Description 01/03/2025 Results Follow-Up [facility] CHC MED & PEDS [address] [place], [place] [phone] Alaina Mendieta MD [address] [place] [address] Hematoxylin and Eosin Stain Social History Tobacco [...] documented as of this encounter Care Teams School Transportation Supervisor Relationship Specialty Start Date End Date Maribell Alanis FNP [address] [place] [id number] PCP - General Family Medicine 08/14/21 documented as of this encounter
--- OUTSIDE RECORDS SUMMARY | 2025-02-20 07:39 | XMS_ITS ---
Acct:[id number] Age/Sex: 54 / F ADM Date: 01/20/25 Loc: HO.US Attending Dr: Duc Cazares MD Ordering Physician: Silvia Gonzalez NP Date of Service: 01/20/25 Procedure(s): XR lumbar spine 2-3V Accession Number(s): [id number] cc: Alaina Mendieta MD; Silvia Gonzalez NP Reason for Exam: chronic back pain EXAMINATION: XR LUMBOSACRAL SPINE CLINICAL INFORMATION: chronic back pain COMPARISON: None available. TECHNIQUE: Three views of the lumbosacral spine. FINDINGS: 5 lumbar type vertebral bodies. No evidence of acute fracture or subluxation. Vertebral body heights are maintained. No suspicious bony lesions. Multilevel endplate osteophytes. Disc spaces are relatively maintained. Facet degeneration in the lower lumbar spine. SI joints are symmetric, intact. Phleboliths in the pelvis. XR/XR lumbar spine 2-3V IMPRESSION: Mild lumbar spondylosis. Electronically signed by: Yeison Monahan MD 01/20/2025 05:03 PM [facility] Dictated By: Yeison Monahan MD Signed By: <Electronically signed by Yeison Monahan MD in OV> 01/20/25 1703 DD/ 1500 TD/TT: 01/20/25 1508 Wafer Machine Operator: MOE Procedure Note Donotuseinterpreter, Image - 01/20/2025 [place] [address] XRay Report Signed Patient: Beau John#: [id number] 1 : 1970Acct:[id number] Age/Sex: 54 / FADM Date: 01/20/25 Loc: .US Attending Dr: Duc Cazares MD Ordering Physician: Silvia Gonzalez NP Date of Service: 01/20/25 Procedure(s): XR lumbar spine 2-3V Accession Number(s): [id number] cc: Alaina Mendieta MD; Silvia Gonzalez NP Reason for Exam: chronic back pain EXAMINATION: XR LUMBOSACRAL SPINE CLINICAL INFORMATION: chronic back pain COMPARISON: None available. TECHNIQUE: Three views of the lumbosacral spine. FINDINGS: 5 lumbar type vertebral bodies. No evidence of acute fracture or subluxation. Vertebral body heights are maintained. No suspicious bony lesions. Multilevel endplate osteophytes. Disc spaces are relatively maintained. Facet degeneration in the lower lumbar spine. SI joints are symmetric, intact. Phleboliths in the pelvis. XR/XR lumbar spine 2-3V IMPRESSION: Mild lumbar spondylosis. Electronically signed by: Yeison Monahan MD 01/20/2025 05:03 PM EST RP Dictated By: Yeison Monahan MD Signed By: <Electronically signed by Yeison Monahan MD in OV> 01/20/25 1703 DD/ 1500 TD/TT: 01/20/25 1508 Wafer Machine Operator: MOE Silvia Gonzalez NP IMG XR PROCEDURES Final Result * Hematoxylin and Eosin Stain (12/30/2024 3:48 PM EDT) 12/30/2024 3:48 PM EDT 01/02/2025 7:12 AM EST [facility] LABS - 01/03/2025 10:57 AM EST ----- ------- Name: Ever John Age/Sex: 54/F : 1970 Unit#: [id number] Attend Dr: Duc Cazares MD Re12/30/24 Status: DEP REF Location: [facility] Disch: ----- ------- SPEC : [id number] RECD: 01/02/25 STATUS: SYLVIA DIEGO NUM: [id number] GOSIA: 12/30/24 [facility] DR: Duc Cazares MD ENTERED: 01/02/25 SP [...] developed and their performance characteristics determined by [facility]. They have not been cleared or approved by the U.S. Food and Drug Administration (FDA). However, the FDA has determined that such clearance or approval is not necessary. This laboratory is certified under the Clinical Laboratory Improvement Amendments of 1988 (CLIA) as qualified to perform high complexity clinical laboratory testing. Copies To: Alaina Mendieta MD [address] [id number] Duc Cazares MD [facility] [address] [place] [address] Drive [address] [place], [place] [phone] CONTINUED ON NEXT PAGE ----- ------- Name: Ever John Age/Sex: 54/F : 1970 Unit#: [id number] Attend Dr: Duc Cazares MD Re12/30/24 Status: DEP REF Location: HO.LNP Disch: ----- ------- SPEC : [id number] RECD: 01/02/25 STATUS: SYLVIA DIEGO NUM: [id number] GOSIA: 12/30/24-1548 [facility] DR: Duc Cazares MD ENTERED: 01/02/25 SP TYPE: Surgical OTHR DR: Alaina Mendieta MD ORDERED: VIOLETA Jefferson/2, Elvin [employer] L4 ----- ------- Signed (signature on file) Lance Bueno MD 01/03/25 1057 ----- ------- END OF REPORT us Generic External Data Provider LAB BLOOD ORDERAB LES Final Result [facility] [address] [place] [address] [phone] * TSH with Reflex to Free T4 (12/01/2024 4:25 PM EDT) [facility] TSH reflex Free T4 0.90 0.32 - 4.0 uIU/mL [facility] 12/01/2024 4:25 PM EDT 12/01/2024 4:25 PM EDT us Generic External Data Provider LAB BLOOD ORDERAB LES Final Result Performing Organization Address [facility] de Phone Number [facility] [address] [place] [phone] * Hepatitis C Viral RNA, Quantitative, Real-Time PCR (12/01/2024 4:25 PM EDT) [facility] Hepatitis C Viral Load <15 NOT DETECTED NOT DETECTED IU/mL [facility] HCV Log PCR <1.18 NOT DETECTED NOT DETECTED Log IU/mL [facility] Comment:For additional infor mation, please refer tohttp://education.PandaBed/faq/BRZ08m1(This link is being provided for informational/educational purposes only.)THIS TEST WAS PERFORMED AT:[facility] [place] [phone] BLAKE MD 12/01/2024 4:25 PM EDT 12/02/2024 9:24 AM EDT us Generic External Data Provider LAB BLOOD ORDERAB LES Final Result Performing Organization Address [facility] Co de Phone Number [facility] [address] [place] [phone] * (ABNORMAL) Hepatitis C Antibody with Reflex to HCV, RNA, Quantitative, Real- Time PCR (12/01/2024 4:25 PM EDT) [facility] Hepatitis C Antibody Reactive( A) Nonreactive [facility] Comment:Presumptive evidence of antibodies to HCV. Blood Venous blood specimen / Unknown 12/01/2024 4:25 PM EDT 12/01/2024 4:25 PM EDT Maribell Alanis PERSONAL DEVELOPMENT COACH LAB BLOOD ORDERABLES Final Res ult Performing Organization Address [facility] Co de Phone Number [facility] [address] [place] [phone] * (ABNORMAL) Sed Rate by Modified Westergren (12/01/2024 4:25 PM EDT) Erythrocyte Sedimentation Rate 34(H) 0 - 20 MM/HR [facility] Comment:Patients with polycy themia and many hemoglobin abnormalitiesmay have depressed sed rates whereas patients with anemiamay have elevated sed rates. Blood Venous blood specimen / Unknown 12/01/2024 4:25 PM EDT 12/01/2024 4:25 PM EDT Maribell Alanis PERSONAL DEVELOPMENT COACH LAB BLOOD ORDERABLES Final Res ult Performing Organization Address [facility] de Phone Number [facility] [address] [place] [phone] * (ABNORMAL) CBC (12/01/2024 4:25 PM EDT) White Blood Count 6.1 4.8 - 10.8 X10*3/uL [facility] Red Blood Count 4.07(L) 4.20 - 5.50 X10*6/uL [facility] Hemoglobin 11.3(L) 12.0 - 16.0 g/dl [facility] Hematocrit 34.1(L) 37.0 - 47.0 % [facility] Mean Corpuscular Volume 83.8 80.0 - 98.0 fL [facility] Mean Corpuscular Hemoglobin 27.8 27.0 - 33.0 pg [facility] Mean Corpuscular HGB Conc 33.1 31.0 - 35.0 g/dl [facility] Red Cell Distribution Width 14.0 11.0 - 16.0 % [facility] Platelet Count 343 160 - 400 X10*3/uL [facility] Mean Platelet Volume 11.2 9.4 - 12.3 fL [facility] NRBC Pct Auto 0.0 0.0 - 0.2 /100WBC [facility] NRBC Abs Auto 0.000 0.0 - 0.012 X10*3/uL [facility] 12/01/2024 4:25 PM EDT 12/01/2024 4:25 PM EDT us Generic External Data Provider LAB BLOOD ORDERAB LES Final Result Performing Organization Address [facility]/ZIP Co de Phone Number [facility] [address] [place] [phone] * Rheumatoid Factor (12/01/2024 4:25 PM EDT) Rheumatoid Factor <13.0 <15.0 IU/mL [facility] Blood Venous blood specimen / Unknown 12/01/2024 4:25 PM EDT 12/01/2024 4:25 PM EDT us Maribell Alanis PERSONAL DEVELOPMENT COACH LAB BLOOD ORDERABLES Final Res ult Performing Organization Address City/[facility]/ZIP Co de Phone Number [facility] [address] [place] [phone] * C-reactive Protein (12/01/2024 4:25 PM EDT) C Reactive Protein 0.13 < or = 0.50 mg/dL [facility] Blood Venous blood specimen / Unknown 12/01/2024 4:25 PM EDT 12/01/2024 4:25 PM EDT us Maribell Phalen PERSONAL DEVELOPMENT COACH LAB BLOOD ORDERABLES Final Res ult Performing Organization Address City/[facility]/ZIP Co de Phone Number [facility] [address] [place] [phone] * TAN Screen,IFA, with Reflex to Titer and Pattern (12/01/2024 4:25 PM EDT) Anti Nuclear Antibody Screen NEGATIVE NEGATIVE [facility] Comment:TAN IFA is a first [...] clinicallysuspected inflammatory myopathies.AC-0: NegativeInternational Consensus on TAN Patterns(https://doi.org/10.1515/pbrr-5314-9433)For additional information, please refer tohttp://education.OrthoPediactrics/faq/ESZ905(This link is being provided for informational/educational purposes only.)THIS TEST WAS PERFORMED AT:[facility] [place] [id number] BLAKE MD TAN Titer [facility] TAN Pattern [facility] TAN Titer 2 [facility] TAN Pattern 2 [facility] TAN TITER 3 [facility] TAN PATTERN 3 [facility] Blood Venous blood specimen / Unknown 12/01/2024 4:25 PM EDT 12/01/2024 4:25 PM EDT Maribell DOWELLP LAB BLOOD ORDERABLES Final Res ult Performing Organization Address City/[facility]/ZIP Co de Phone Number [facility] [address] [place] [address] [phone] * hCG, Total, Quantitative (12/01/2024 4:25 PM EDT) HCG Quantitative <2 mIU/mL [facility] Comment:Weeks post LMP Appro ximate hCG(Last Menstrual Period) Range (mIU/ml)3 - 4 weeks 9 - 1304 - 5 weeks 75 - 2,6005 - 6 weeks 850 - 20,8006 - 7 weeks 4000 - 100,2007 - 12 weeks 11,500 - 289,29213 - 16 weeks 18,300 - 137,73278 - 29 weeks (2nd trimester) 1,400 - 53,80411 - 41 weeks (3rd trimester) 940 - [...] Provider LAB BLOOD ORDERAB LES Final Result [facility] [address] [place] [phone] * LH (12/01/2024 4:25 PM EDT) Pathologist [facility] Lutenizing Hormone 31.8 mIU/mL [facility] Comment:Reference Range Foll icular Phase 1.9-12.5 Mid-Cycle Peak 8.7-76.3 Luteal Phase 0.5-16.9 Postmenopausal 10.0-54.7THIS TEST WAS PERFORMED AT:[facility] [place] [id number] BLAKE MD 12/01/2024 4:25 PM EDT 12/01/2024 4:25 PM EDT us Generic External Data Provider LAB BLOOD ORDERAB LES Final Result Performing Organization Address City/[facility]/ZIP Co de Phone Number [facility] [address] [place] [phone] * FSH (12/01/2024 4:25 PM EDT) Pathologist [facility] Follicle Stimulating Hormone 52.5 mIU/mL [facility] Comment:Reference Range Foll icular Phase 2.5-10.2 Mid-cycle Peak 3.1-17.7 Luteal Phase 1.5- 9.1 Postmenopausal 23.0-116.3THIS TEST WAS PERFORMED AT:[facility] [place] [id number] BLAKE MD 12/01/2024 4:25 PM EDT 12/01/2024 4:25 PM EDT us Generic External Data Provider LAB BLOOD ORDERAB LES Final Result [facility] [address] [place] [address] [phone] * Chlamydia/N. Gonorrhoeae RNA, TMA, Urogenitial (12/01/2024 3:03 PM EDT) Pathologist [facility] CT PCR NOT DETECTED Not Detect. [facility] Comment:A not detected test result [...] psychologicalconsequences. NG PCR NOT DETECTED Not Detect. [facility] Comment:A not detected test result [...] 3:03 PM EDT 12/01/2024 4:43 PM EDT Generic External Data Provider LAB MICROBIOLOGY - GENERAL ORDERABLES Final Result Performing Organization Address [facility] Co de Phone Number [facility] [address] [place] [phone] * Helicobacter pylori, Urea Breath Test (11/30/2024 2:45 PM EDT) H. pylori Breath Test Positive Negative [facility] Comment:Antimicrobials, prot on pump inhibitors and bismuthpreparations are known to suppress H. pylori. Ingestingthese medications within two weeks prior to performing thebreath test may produce negative test results. A positiveresult is still clinically valid. 11/30/2024 2:45 PM EDT 12/01/2024 12:35 PM EDT Generic External Data Provider LAB BODY FLUIDS A ND STOOLS ORDERABLES Final Result Performing Organization Address [facility] Co de Phone Number [facility] [address] [place] [phone] * BI US Breast Limited Right (10/05/2024 1:22 PM EDT) Anatomical Region Laterality Modality Breast Right Ultrasound 10/05/2024 1:22 PM EDT Narrative 10/05/2024 1:46 PM EDT [facility] [address] [place] [address] Ultrasound Report Signed Patient: Ever John MR#: [id number] 1 : 1970 Acct:[id number] Age/Sex: 54 / F ADM Date: 10/05/24 Loc: HO.MAMMO Attending Dr: Jamee Oden DO Ordering Physician: Jamee Oden DO Date of Service: 10/05/24 Procedure(s): US breast RT limited mamm only Accession Number(s): [id number] cc: Alaina Mendieta MD; Jamee Oden DO [...] 10/05/24 1343 DD/ 1322 TD/TT: 10/05/24 1338 Wafer Machine Operator: Procedure Note Donotuseinterpreter, Image - 10/05/2024 [facility] [address] [place] [address] Ultrasound Report Signed Patient: Beau John#: [id number] 1 : 1970Acct:[id number] Age/Sex: 54 / FADM Date: 10/05/24 Loc: NICOLE Attending Dr: Jamee Oden DO Ordering Physician: Jamee Oden DO Date of Service: 10/05/24 Procedure(s): US breast RT limited mamm only Accession Number(s): [id number] cc: Alaina Mendieta MD; Jamee Oden DO [...] 10/05/24 1343 DD/ 1322 TD/TT: 10/05/24 1338 Wafer Machine Operator: us Jamee Oden DO IMG US PROCEDURES Final Resu lt * Pap Smear (05/14/2023 2:15 PM EDT) 05/14/2023 2:15 PM EDT 05/15/2023 9:00 AM EDT [facility]S - 05/26/2023 10:17 AM EDT ----- ------- Name: Ever John Age/Sex: 53/F : 1970 Unit#: [id number] Attend Dr: Duc Cazares MD Re05/14/23 Status: DEP REF Location: [facility] Disch: ----- ------- SPEC : [id number] RECD: 05/15/23 STATUS: SYLVIA DIEGO NUM: [id number] GOSIA: 05/14/23-1415 [facility] DR: Duc Cazares MD ENTERED: 05/15/23 SP TYPE: Pap Smr OT DR: Maribell Alanis PERSONAL DEVELOPMENT COACH ORDERED: Pap Smear Interpretation Satisfactory for evaluation. No endocervical cells seen. Fungal organisms consistent with [place] species. Moderate inflammation. Negative for intraepithelial lesion or malignancy. HPV mRNA E6/E7: NOT DETECTED This assay detects E6/E7 viral messenger RNA (mRNA) from 14 high-risk HPV types (16, 18, 31, 33, 35, 39, 45, 51, 52, 56, 58, 59, 66, 68) HPV testing performed by [facility], [place], [place]. See reference laboratory portion of the EMR for entire report. Clinical Information LMP: Unknown date Previous PAP test: 2017, Unknown findings Other history: Abnormal uterine and vaginal bleeding Material Received ThinPrep-Cervical Copies To: Maribell Alanis PERSONAL DEVELOPMENT COACH [address] [place] [address] Duc Cazares MD [address] [place] [address] [place] [address] ----- ------- Signed (signature on file) ROMÁN Joaquin (ASCP) 05/26/23 1017 ----- ------- END OF REPORT Generic External Data Provider LAB CYTOLOGY ALAINA DOMINGUEZ Final Result [facility] [address] [place] [address] [phone] * (ABNORMAL) HPV mRNA E6/E7 (12/15/2017 2:12 PM EDT) HPV mRNA E6/E7 DETECTED (AA) NOT DETECTED [facility] Comment: This test was performed using the APTIMA(R) HPV Assay ([employer] This assay detects E6/E7 viral messenger RNA (mRNA) from 14 high-risk HPV types (16,18,31,33,35,39,45,51, 52,56,58,59,66,68). For additional information please refer to: http://education.BuzzStream.QlikTech/faq/HRV479k8 (This link is being provided for informational/ educational purposes only.) The analytical performance characteristics of this assay have been determined by [facility] [place], [place]. The modifications have not been cleared or approved by the FDA. This assay has been validated pursuant to the CLIA regulations and is used for clinical purposes. Test Performed by [facility], [facility], [address] [place], [place] Brodie Koenig M.D., Ph.D., Director of Laboratories , CLIA [id number] Please note: Effective 11/12/2015, HPV testing will be performed using [employer] APTIMA test which targets mRNA. Detecting mRNA instead of DNA, as in older methods, offers significant improvements in specificity. 12/15/2017 2:12 PM EDT Lesia Ramon CNM HISTORICAL/NON ORDERABLE LABS Final Result [facility] [address] from Last 3 Months or Most Recently Relevant to Health Maintenance Insurance [facility] C3 DENTAL-[facility] MEDICAID STAND ADULT Care Teams Rn Internal Medicine Relationship Specialty Start Date End Date Maribell Alanis FNP [address] [place] [address] PCP - General Family Medicine 08/14/21 Clinical Summary Created on: February 20, 2025 JohnEver polanco : 1970 Sex: Female Author Organization [employer] Address [address] [place] [address] Care Team Providers Care Rn Internal Medicine Name Role Phone Maribell Alanis Primary Care Provider [phone] Allergies Active Allergy Reactions Criticality Noted Date [...] Microscopic hematuria 11/06/2024 Overview (11/06/2024): Following with [facility] - IT PROGRAMMER ANALYST Crystal Urine cytology neg for high-grade urothelial carcinoma June 2024: normal/unremarkable renal US July 2024: US Bladder -normal bilateral ureteral jets seen. No echogenic stones or wall thickening. 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 Cazares Pelvic US 06/03/23 that [...] Plan (07/22/2023 6:20 AM EDT): Following with [facility] Ortho Per consult in Mar 2023, plan for physical therapy and NSAIDs, declined injection Anemia 07/22/2023 Overview (07/22/2023): Following with [facility] Heme/Onc for normocytic normochromic anemia with iron deficiency Assessment & Plan (11/06/2024 7:18 PM EDT): - Consult August 2024 - plan for repeat IV iron. Encouraged to check with RESAW MACHINE OPERATOR if endometrial ablation is an option. - Referred to RESAW MACHINE OPERATOR for eval menorrhagia and GI for screening colonoscopy Assessment & Plan (10/22/2023 7:39 AM EDT): - Recieved IV Iron, stopped PO iron - Referred to RESAW MACHINE OPERATOR for eval menorrhagia and GI for screening colonoscopy - Recent HMB, will check current levels Assessment & Plan (07/25/2023 11:34 AM EDT): - Started IV Iron, stopped PO iron - Referred to RESAW MACHINE OPERATOR for eval menorrhagia and GI for screening colonoscopy Vitreomacular adhesion, left eye 03/12/2023 Complex renal cyst 02/21/2023 Overview (08/24/2024): Following with [facility] (EDIS Rojas) June 2024: no renal [...] visualization. Healthcare maintenance 09/28/2022 Overview (11/06/2024): Optometry: [facility] Pap: 05/14/23 NILM, HPV neg (Dr. Caazres) Mammo: BIRADS 3 in Sep 2024, due for repeat in 6 mo Colonoscopy: referral to GI placed 10/21/23 Dental: referral to [facility] Dental placed 07/22/23 Assessment & Plan [...] therapy and recommended and gave contact information HC for OP therapy. Provided education around integrated medicine and the options of follow up BE's as needed. Provided contact information should questions or concerns arise. Plan: Ever will engage in effective coping mechanisms discussed in session. She will be also referred to Ind. Therapy in [facility]. I encouraged her to reach out [...] MH services. PLAN: 1. Follow up with [facility] [...] organization. Date Type Department Care Team Description 01/22/2025 Results Follow-Up [address] [address] Silvia Gonzalez NP XR Lumbar Spine 2-3 Views 01/06/[address] [address] Hali Carrillo LPN Error (VOID this visit) 01/04/[address] [address] Maribell Alanis FNP 01/03/2025 Results Follow-Up [facility] [address] [place] [address] Alaina Mendieta MD Hematoxylin and Eosin Stain 12/30/2024 Orders Only GENERIC EXTERNAL DATA DEPARTMENT Provider, Generic External Data 12/23/2024 1:45 PM EDT Office Visit [address] [address] Silvia Gonzalez NP Rash of multiple digits of both hands (Primary Dx); Chronic right-sided low back pain without sciatica; Depression with anxiety; Dietary counseling; Exercise counseling 12/23/[address] [address] Silvia Gonzalez NP Xray order faxed to [facility] 12/23/2024 Travel 12/22/[address] [address] Maribell Alanis FNP CHARTPREP 12/07/2024 Results Follow-Up [facility] [address] [place] [address] Alaina Mendieta MD CBC, TSH with Reflex to Free T4, hCG, Total, Quantitative, Additional followed-up results: 4 12/06/2024 Telephone [facility] [address] [place] [address] Ana Duque, GIL 12/05/2024 Results Follow-Up [facility] [address] [place] [address] Alaina Mendieta MD Rheumatoid Factor, C-reactive Protein, Sed Rate by Modified Westergren, Additional followed-up results: 2 12/02/2024 Results Follow-Up [facility] [address] [place] [address] Melba Hoover RN Helicobacter pylori, Urea Breath Test 12/02/2024 Orders Only [facility] [address] [place], [place] [phone] Maribell Alanis FNP 12/01/2024 Orders Only GENERIC EXTERNAL DATA DEPARTMENT Provider, Generic External Data 11/30/2024 Orders Only GENERIC EXTERNAL DATA DEPARTMENT Provider, Generic External Data 11/22/2024 Refill [facility] [address] [place], [place] [phone] Maribell Alanis FNP Knuckle pads on dorsal aspect of multiple metacarpophalangeal and interphalangeal joints from Last 3 Months Immunizations Immunization Administration [...] your housing situation today? I have abbie davon 10/21/[address] you li [...] of 2) 2021 COVID-19 Vaccine (1 - 2024- season) 2024 Influenza Vaccine (#1) 2024 Diagnostic Breast Imaging 04/07/20252024, 04/04/2024, 02/04/2022, Additional history exists Mammogram 04/07/2025 10/05/2024, 04/2024, 04/04/2024, Additional history exists SDOH Screening [...] Name Priority Date/Time Associated Diagnosis Comments US PELVIS TRANSVAGINAL Routine 01/20/2025 3:16 PM EST XR LUMBAR SPINE 2-3 VIEWS Routine 01/20/2025 3:00 PM EST Chronic right-sided low back pain without sciatica HEMATOXYLIN AND EOSIN STAIN Routine 12/30/2024 3:48 [...] Relevant to Health Maintenance Results * US Pelvis Transvaginal (01/20/2025 3:16 PM EST) Anatomical Region Laterality Modality Pelvis Ultrasound 01/20/2025 3:16 PM EST Narrative 01/20/2025 4:58 PM EST [place] [address] Ultrasound Report Signed Patient: Ever John MR#: [id number] 1 : 1970 Acct:[id number] Age/Sex: 54 / F ADM Date: 01/20/25 Loc: HO.US Attending Dr: Duc Cazares MD Ordering Physician: Duc Cazares MD Date of Service: 01/20/25 Procedure(s): US pelvic and transvaginal Accession Number(s): [id number] cc: Alaina Mendieta MD; Duc Cazares MD Reason for Exam: N93.9 - Abnormal uterine and vaginal bleeding, unspecified EXAMINATION: US PELVIS, COMPLETE CLINICAL INFORMATION: N93.9 - Abnormal uterine and vaginal bleeding, unspecified COMPARISON: Ultrasound 08/05/2023 TECHNIQUE: Transabdominal and transvaginal imaging was performed. FINDINGS: LMP: October Uterus is anteverted and anteflexed , measuring 6.7 x 2.5 x 4.8 cm. No focal uterine lesion. Nabothian cysts in the cervix. Endometrial thickness 0.3 cm. Right ovary measures 1.9 x 1.3 x 1.4 cm. Volume 1.8 mL. Left ovary measures 2 x 1.4 x 1.5 cm. Volume 2.2 mL. Bilateral ovaries appear unremarkable on the transabdominal evaluation. The ovaries were only visualized on the transabdominal evaluation. No significant free fluid in the cul-de-sac. US/US pelvic and transvaginal IMPRESSION: No significant abnormality demonstrated by pelvic ultrasound. Electronically signed by: Yeison Monahan MD 01/20/2025 04:55 PM EST Dictated By: Yeison Monahan MD Signed By: <Electronically signed by Yeison Monahan MD in OV> 01/20/25 1655 DD/ 1516 TD/TT: 01/20/25 1536 Wafer Machine Operator: Procedure Note Donotuseinterpreter, Image - 01/20/2025 [place] [address] Ultrasound Report Signed Patient: Beau John#: [id number] 1 : 1970Acct:[id number] Age/Sex: 54 / FADM Date: 01/20/25 Loc: HO.US Attending Dr: Duc Cazares MD Ordering Physician: Duc Cazares MD Date of Service: 01/20/25 Procedure(s): US pelvic and transvaginal Accession Number(s): [id number] cc: Alaina Mendieta MD; Duc Cazares MD Reason for Exam: N93.9 - Abnormal uterine and vaginal bleeding,unspecified EXAMINATION: US PELVIS, COMPLETE CLINICAL INFORMATION: N93.9 - Abnormal uterine and vaginal bleeding, unspecified COMPARISON: Ultrasound 08/05/2023 TECHNIQUE: Transabdominal and transvaginal imaging was performed. FINDINGS: LMP: October Uterus is anteverted and anteflexed , measuring 6.7 x 2.5 x 4.8 cm. No focal uterine lesion. Nabothian cysts in the cervix. Endometrial thickness 0.3 cm. Right ovary measures 1.9 x 1.3 x 1.4 cm. Volume 1.8 mL. Left ovary measures 2 x 1.4 x 1.5 cm. Volume 2.2 mL. Bilateral ovaries appear unremarkable on the transabdominal evaluation. The ovaries were only visualized on the transabdominal evaluation. No significant free fluid in the cul-de-sac. US/US pelvic and transvaginal IMPRESSION: No significant abnormality demonstrated by pelvic ultrasound. Electronically signed by: Yeison Monahan MD 01/20/2025 04:55 PM EST RP Dictated By: Yeison Monahan MD Signed By: <Electronically signed by Yeison Monahan MD in OV> 01/20/25 1655 DD/ 1516 TD/TT: 01/20/25 1536 Wafer Machine Operator: MOE us [facility] External Provider IMG US PROCEDURES Final Result * XR Lumbar Spine 2-3 Views (01/20/2025 3:00 PM EST) Anatomical Region Laterality Modality Spine, L-spine Radiographic Jayne ging 01/20/2025 3:00 PM EST Narrative 01/20/2025 5:06 PM EST [address] [address] XRay Report Signed Patient: Ever John MR#: [id number] 1 : 1970
--- NOTE | 2025-02-20 07:40 | A.OFFVIS_ITS ---
Vital Signs 02/20/25 07:43 Height 5 ft 2 in Weight 164 lb BMI 30.0 BP 110/66 Intake Visit Reasons: ultrasound and EMB results Plate Glass Polisher Required: Yes Plate Glass Polisher Language: House Wirer Helper Services: Plate Glass Polisher Present (in person) Plate Glass Polisher Name: Michelle LAINEZ Information Interpreted: non-clinical & clinical Accompanied by: Self / Same As Patient Allergies tizanidine Adverse Reaction (Unknown, Verified 02/20/25 07:46) Involuntary Spasms Post menopausal: Yes HPI Comments Details: The patient is presenting for follow-up to discuss the results of her abnormal uterine bleeding workup and options of treatment. The following workup was done.: H&H= 11.1/34.8 FSH/LH 52.5/31.8 TSH, hCG, GC and chlamydia were negative. Endometrial biopsy pathology showed the following: Superficial strips of benign endometrium and endocervical epithelium, mucoinflammatory material and blood; no atypia identified Co testing was done was negative. 04/26 Mammogram was BI-RADS 3, followed by breast ultrasound in 10/24 was BI-RADS 3, repeat in six-months Pelvic ultrasound showed the following: IMPRESSION: No significant abnormality demonstrated by pelvic ultrasound. [facility] Medical History GERD (gastroesophageal reflux disease) Fibroadenoma Hx of tendinitis High cholesterol Surgical History Hx of tubal ligation Family History Father Prostate cancer Social History Household Members: Family Alcohol intake: never Patient Tobacco Use Status: Never used Tobacco service: No Current occupational status: unemployed Female Reproductive History Menstrual Age of Menarche: 12 Review of Systems Const All systems reviewed & are unremarkable except as noted in HPI and below Reports as per HPI and Reports no additional complaints GI Reports no additional complaints Reports no additional complaints Physical Exam Vital Signs: Last Vital Signs BP 110/66 02/20/25 07:43 BMI result Body Mass Index 30.0 Assessment & Plan Assessment & Plan (1) Abnormal uterine bleeding (AUB): Comment: Elevated FSH/LH Code(s): N93.9 - Abnormal uterine and vaginal bleeding, unspecified Category: Medical Plan: Discussed with the patient the results of the work up done and options of treatment including Lysteda, BCP's, Mirena IUD, endometrial ablation and hysterectomy. All pros, cons, risks and benefits if each option was discussed with the patient and the patient decided to think about it and get back to us. All questions answered the patient verbalized understanding. Coding Level of Care Code Est Pt Level 3 (79131) Diagnoses Abnormal uterine bleeding (AUB) N93.9
[2025-02-20 07:43] VITALS: BP 110/66
== END 2025-02-20 07:55 | disposition home or self-care (01) ==
LOC: HO.HWS 07:35
PROVIDERS: PCP Internal Medicine; Visit Provider Obstetrics & Gynecology
DX: N93.9 Abnormal uterine and vaginal bleeding, unspecified (principal)
CPT/HCPCS: 99213

== ENCOUNTER → 2025-02-20 07:35 | Outpatient (BNVA) | payer MEDICAID, SELFPAY | PROVIDERS: PCP Internal Medicine; Visit Provider Obstetrics & Gynecology | DX: N93.9 Abnormal uterine and vaginal bleeding, unspecified (principal); Z98.51 Tubal ligation status | CPT/HCPCS: 99212 ==

== ENCOUNTER 2025-03-01 09:17 | Outpatient (AMB) | payer MEDICAID, SELFPAY ==
--- NOTE | 2025-03-01 09:19 | A.OFFVIS_ITS ---
Vital Signs 03/01/25 09:27 Height 5 ft 2 in Weight 165 lb BMI 30.2 BP 98/76 Blood Pressure Location Rt brachial Position Sitting Pulse 70 Pulse Source Pulse Oximeter Pulse Oximetry (%) 97 Oxygen Delivery Method Room Air Intake Visit Reasons: s/p double Intake Note: Est pt for mgmt of GERD + CIC. S/P Double CC; C/O chronic sx persistence due to not taking Rx'd therapies x1 month. Pt reports her recently and she has been battling significant depression since then. She also was unable to complete the abx as rx'd due to severe side effects including N+V w/ abd pain. Only took abx x2 days. Senior Cognos Developer Required: Yes Senior Cognos Developer Services: Senior Cognos Developer Present Senior Cognos Developer Name: Tee [id number] + Dickson (GI) Information Interpreted: clinical only Accompanied by: Self / Same As Patient Allergies tizanidine Adverse Reaction (Unknown, Verified 03/01/25 09:20) Involuntary Spasms HPI HPI s/p double: Details: LAST VISIT: Screen for colon cancer GERD (gastroesophageal reflux disease) Postprandial epigastric pain Plan Patient denies any cardiac or respiratory symptoms.? Patient reports acid reflux, will check for H pylori. Reports also epigastric pain sometimes severe. Patient is declining any PPI or H2 satish at this time. Will send patient for endoscopy to rule out gastritis, duodenitis, esophagitis, H pylori, Preston's. Denies any issues with anesthesia in the past.? Denies any history of sleep apnea.? No history infectious diseases in the past or present.? Not on any anticoagulation therapy.? No family or personal history of colon cancer or polyps.? Patient denies melena, hematochezia, unintentional weight loss or ribbon like stools.? Discussed at length the pre-procedure,? prep, diet & medications as well as what to expect prior, during and after the procedure.?? Stressed the importance of good bowel prep.? Recommended the use of Vaseline or Calmoseptine OTC & baby wipes with bowel movements to promote comfort.? ?Patient verbalizes understanding and agrees to plan of care.? She was given the opportunity to ask questions and all questions answered.? We will see her after the procedure.? Orders H Pylori Breath Test Today K21.9 Referrals GI Procedure Notification K21.9, Z12.11 New bisacodyl (Dulcolax (bisacodyl)) 10 mg (2 x 5 mg) PO BEDTIME 180 tabs 4RF polyethylene glycol 3350 (Miralax) As directed by gastro[facility]ology department at [facility] 238 grams PO ONCE 238 grams 0RF Z12.11 TODAY'S VISIT Patient is here today for follow-up. Patient never end up going for endoscopy and colonoscopy. Patient reports that her and she has been depressed for the past couple months. Patient reports never taking antibiotics only for 2 days after being diagnosed. Patient reported epigastric pain nausea and vomiting. Patient also reported diarrhea after taking the medications. Patient currently is not taking any PPIs. Pain in epigastric area no matter what she eats. Patient reports pain with just drinking water. Patient reports that she is constipated. She only uses Dulcolax as needed. Recently has not tried anything to help her move her bowels. Patient reports dyspepsia with occasional dysphagia without odynophagia. Patient denies melena, hematochezia, unintentional weight loss or ribbon like stools. [facility] Medical History (Updated 03/01/25 @ 09:49 by Martine Duvall, [facility]) Helicobacter pylori (H. pylori) GERD (gastroesophageal reflux disease) Fibroadenoma Hx of tendinitis High cholesterol Surgical History Hx of tubal ligation Family History Father Prostate cancer Social History Household Members: Family Alcohol intake: never Patient Tobacco Use Status: Never used Tobacco service: No Current occupational status: unemployed Female Reproductive History Menstrual Age of Menarche: 12 Review of Systems Const Denies weight gain and Denies weight loss ENT Reports no additional complaints, Denies dysphagia and Denies odynophagia Card Reports no additional complaints Resp Reports no additional complaints GI Reports abdominal pain (Epigastric), Denies belching, Denies melena, Reports bloating, Denies change in bowel habits, Reports constipation (Occasional), Denies dysphagia, Denies excessive flatus, Denies dyspepsia, Reports heartburn, Denies diarrhea, Denies loose stools, Denies nausea, Denies odynophagia and Denies vomiting Reports no additional complaints Musc Reports no additional complaints Neuro Reports no additional complaints Psych Reports no additional complaints Endo Reports no additional complaints Physical Exam Vital Signs: Last Vital Signs Pulse 70 03/01/25 09:27 BP 98/76 03/01/25 09:27 Pulse Ox 97 03/01/25 09:27 Oxygen Delivery Method Room Air 03/01/25 09:27 BMI result Body Mass Index 30.2 Const General: healthy appearing and no acute distress Nutritional Appearance: obese Orientation/consciousness: patient oriented x3 Resp Effort & Inspection: normal respiratory effort, able to speak in complete sentences, no tracheal deviation and symmetric chest movement Auscultation: clear to auscultation bilaterally Cardio Rate: regular rate GI Inspection: Yes normal to inspection, No distended and Yes obesity Palpation (GI): Soft to palpation, not firm, nontender and No hepatosplenomegaly present Auscultation: normal bowel sounds General: Yes no CVA tenderness Back/Spine/Pelvis Back: no CVA tenderness Skin General skin exam: elasticity normal, turgor normal and dry skin Neuro General: patient oriented x3 Psych Appearance: grossly normal Mental Status: mental status grossly normal Assessment & Plan Assessment & Plan (1) GERD (gastroesophageal reflux disease): Code(s): K21.9 - Gastro-esophageal reflux disease without esophagitis Category: Medical Qualifiers: Esophagitis presence: esophagitis presence not specified Qualified Code(s): K21.9 - Gastro-esophageal reflux disease without esophagitis (2) Encounter for screening for malignant neoplasm of colon: Code(s): Z12.11 - Encounter for screening for malignant neoplasm of colon (3) Postprandial epigastric pain: Code(s): R10.13 - Epigastric pain (4) Helicobacter pylori (H. pylori): Code(s): A04.8 - Other specified bacterial intestinal infections Category: Medical Plan Will do H pylori testing today. Patient was educated about the importance of completing the antibiotics. Discussed with patient that if she takes antibiotics she will receive also Zofran and she can take it hour before taking the antibiotics. Discussed with her that she should take antibiotics with food. Patient was encouraged to avoid dietary triggers and late night snacking. Staying upright for minimal 3 hours after meals discussed with patient. Patient was encouraged to increase fluid intake and activity to promote bowel motility. Patient was encouraged to take Dulcolax daily to help her move her bowels better. Call placed to surgical schedulers to try to book procedure for patient. Patient will be seen after the procedure. What to expect before during and after procedure discussed with patient. Stressed the importance of good bowel prep and clear liquid diet. Patient is agreeable to current plan of care and verbalizes understanding of instructions. She was given the opportunity to ask questions and all questions answered. Thank you for allowing me to participate in her care Orders: Orders H Pylori Breath Test 03/01/25 K21.9 - Gastro-esophageal reflux disease without esophagitis Coding Level of Care Code Est Pt Level 4 (94745) Add On Problem Visit Only Diagnoses Gastroesophageal reflux disease, unspecified whether esophagitis present K21.9 Esophagitis presence: esophagitis presence not specified Encounter for screening for malignant neoplasm of colon Z12.11 Postprandial epigastric pain R10.13 Helicobacter pylori (H. pylori) A04.8 Time Spent (min) 40 Comment 25 minutes spent with patient and additional 15 minutes spent reviewing her records
[2025-03-01 09:27] VITALS: BP 98/76; PULSE 70; O2SAT 97; BMI 30.2
--- OUTSIDE RECORDS SUMMARY | 2025-03-01 09:30 | XMS_ITS | Encounter Summary ---
Author Organization [employer] Address [address] [facility] 7t [place] [address] Care Team Providers Care Scudding Inspector Name Role Phone Maribell Alanis Primary Care Provider [phone] Encounter Details Date Type Department Care Team ([facility] Contact Info) Description 12/02/2024 Orders Only [facility] CHC MED & PEDS [address] [place], [place] [phone] Maribell Alanis FNP [address] [place], [place] [phone] Social History Tobacco Use Types Packs/Day Years [...] Care Team (Late st Contact Info) Description 07/27/2025 1:00 PM EDT Office Visit [facility] OPTOMETRY [address] [place] [address] Shae Boogie, OD [address] [place] [address] documented as of this encounter Visit Diagnoses Not on filedocumented in this encounter Additional Health Concerns Assessment Noted Time PHQ-9 Depression Total Score: 8 07/22/19 24 9:06 AM EDT documented as of this encounter Care Teams Scudding Inspector Relationship Specialty Start Date End Date Maribell Alanis FNP [address] [place] [address] PCP - General Family Medicine 08/14/21 documented as of this encounter
--- OUTSIDE RECORDS SUMMARY | 2025-03-01 09:30 | XMS_ITS | Encounter Summary ---
Author Organization [employer] Address [address] [facility] [address] [place] [address] Care Team Providers Care Fire Equipment Inspector Name Role Phone Maribell Alanis JARRETT Primary Care Provider [phone] Encounter Details Date Type Department Care Team ([facility] Contact Info) Description 01/03/2025 Results Follow-Up [facility] CHC MED & PEDS [address] [place], [place] [phone] Alaina Mendieta MD [address] [place] [address] Hematoxylin and Eosin Stain Social History Tobacco [...] Description 07/27/2025 1:00 PM EDT Office Visit [facility] OPTOMETRY [address] [place] [address] Keagan, Shae, OD [address] [place] [address] documented as of this encounter Visit Diagnoses Not on filedocumented in this encounter Additional Health Concerns Assessment Noted Time PHQ-9 Depression Total Score: 11 025 1:53 PM EDT documented as of this encounter Care Teams Fire Equipment Inspector Relationship Specialty Start Date End Date Maribell Alanis FNP [address] [place] [address] PCP - General Family Medicine 08/14/21 documented as of this encounter
--- OUTSIDE RECORDS SUMMARY | 2025-03-01 09:30 | XMS_ITS | Encounter Summary ---
Author Organization [employer] Address [address] [facility] [address] [place] [address] Care Team Providers Care Service Provider Name Role Phone Maribell Alanis Primary Care Provider [phone] Reason for Visit * Reason Comments Med Refill Encounter Details Date Type Department Care Team ([facility] Contact Info) Description 09/11/2022 Refill [facility] MEDICINE [address] [place] [address] Maribell Alanis FNP [address] [place] [address] Social History Tobacco Use Types Packs/Day Years [...] Upcoming Encounters Date Type Department Care Team ([facility] Contact Info) Description 07/27/2025 1:00 PM EDT Office Visit [facility] OPTOMETRY [address] [place] [address] Shae Boogie, LIS[place] [address] [place] [address] documented as of this encounter Visit Diagnoses Not on filedocumented in this encounter Additional Health Concerns Assessment Noted Time PHQ-9 Depression Total Score: 14 023 9:20 AM EDT documented as of this encounter Care Teams Service Provider Relationship Specialty Start Date End Date Maribell Alanis FNP [address] [place] [address] PCP - General Family Medicine 08/14/21 documented as of this encounter
--- OUTSIDE RECORDS SUMMARY | 2025-03-01 09:30 | XMS_ITS | Encounter Summary ---
Author Organization [employer] Address [address] [facility] [address] [place] [address] Care Team Providers Care Transportation Job Titles Name Role Phone Maribell Alanis Primary Care Provider [phone] Reason for Visit * Reason Onset Date Comments Appointment Request 12/04/2023 Encounter Details Date Type Department Care Team ([facility] Contact Info) Description 12/04/2023 Telephone [facility] MEDICINE [address] [place] [address] Maribell Alanis FNP [address] [place] [address] Appointment Request Social History Tobacco Use Types [...] Description 07/27/2025 1:00 PM EDT Office Visit [facility] OPTOMETRY [address] [place] [address] Keagan, Shae, OD [address] [place] [address] documented as of this encounter Visit Diagnoses Not on filedocumented in this encounter Additional Health Concerns Assessment Noted Time PHQ-9 Depression Total Score: 8 07/22/19 24 9:06 AM EDT documented as of this encounter Care Teams Transportation Job Titles Relationship Specialty Start Date End Date Maribell Alanis FNP [address] [place] [address] PCP - General Family Medicine 08/14/21 documented as of this encounter
--- OUTSIDE RECORDS SUMMARY | 2025-03-01 09:30 | XMS_ITS | Encounter Summary ---
Author Organization [employer] Address [address] [facility] [address] [place] [address] Care Team Providers Care Renewals Representative Name Role Phone Maribell Alanis JARRETT Primary Care Provider [phone] Reason for Visit * Reason Comments Med Refill Encounter Details Date Type Department Care Team ([facility] Contact Info) Description 08/24/2023 Refill [facility] MEDICINE [address] [place] [address] Name, MD Varun [address] [place] [address] Insomnia, unspecified type Social History Tobacco Use [...] Description 07/27/2025 1:00 PM EDT Office Visit [facility] OPTOMETRY [address] [place] [address] Keagan, Shae, OD [address] [place] [address] documented as of this encounter Visit Diagnoses Diagnosis Insomnia, unspecified type documented in this encounter Additional Health Concerns Assessment Noted Time PHQ-9 Depression Total Score: 8 07/22/19 24 9:06 AM EDT documented as of this encounter Care Teams Renewals Representative Relationship Specialty Start Date End Date Maribell Alanis FNP [address] [place] [address] PCP - General Family Medicine 08/14/21 documented as of this encounter
--- OUTSIDE RECORDS SUMMARY | 2025-03-01 09:30 | XMS_ITS | Encounter Summary ---
Author Organization [employer] Address [address] [facility] [address] [address] Care Team Providers Care Record Searcher Name Role Phone Maribell Alanis JARRETT Primary Care Provider [phone] Encounter Details Date Type Department Care Team ([facility] Contact Info) Description 09/16/2024 Orders Only [facility] CHC MED & PEDS [address] [place], [place] [phone] Alaina Mendieta MD [address] [place] [address] Social History Tobacco Use Types Packs/Day Years [...] Description 07/27/2025 1:00 PM EDT Office Visit [facility] OPTOMETRY [address] [place] [address] Shae Boogie, OD [address] [place] [address] documented as of this encounter Visit Diagnoses Not on filedocumented in this encounter Additional Health Concerns Assessment Noted Time PHQ-9 Depression Total Score: 8 07/22/19 24 9:06 AM EDT documented as of this encounter Care Teams Record Searcher Relationship Specialty Start Date End Date Maribell Alanis FNP [address] [place] [address] PCP - General Family Medicine 08/14/21 documented as of this encounter
--- OUTSIDE RECORDS SUMMARY | 2025-03-01 09:31 | XMS_ITS | Clinical Summary ---
Author Organization [employer] Address [address] [place] [address] Care Team Providers Care Supervisor Filter Assembly Name Role Phone EvaMaribell cabrera JARRETT Primary Care Provider Allergies Active Allergy Reactions Criticality Noted Date [...] Microscopic hematuria 11/06/2024 Overview (11/06/2024): Following with [facility] Urology - HAMMAD Rojas Urine cytology neg for high-grade urothelial carcinoma June 2024: normal/unremarkable renal US July 2024: US Bladder -normal bilateral ureteral jets seen. No echogenic stones or wall thickening. 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 Cazares Pelvic US 06/03/23 that [...] Plan (07/22/2023 6:20 AM EDT): Following with [facility] Ortho Per consult in Mar 2023, plan for physical therapy and NSAIDs, declined injection Anemia 07/22/2023 Overview (07/22/2023): Following with [facility] Heme/Onc for normocytic normochromic anemia with iron deficiency Assessment & Plan (11/06/2024 7:18 PM EDT): - Consult August 2024 - plan for repeat IV iron. Encouraged to check with FLOOR PLAN ADJUSTER if endometrial ablation is an option. - Referred to FLOOR PLAN ADJUSTER for eval menorrhagia and GI for screening colonoscopy Assessment & Plan (10/22/2023 7:39 AM EDT): - Recieved IV Iron, stopped PO iron - Referred to FLOOR PLAN ADJUSTER for eval menorrhagia and GI for screening colonoscopy - Recent B, will check current levels Assessment & Plan (07/25/2023 11:34 AM EDT): - Started IV Iron, stopped PO iron - Referred to FLOOR PLAN ADJUSTER for eval menorrhagia and GI for screening colonoscopy Vitreomacular adhesion, left eye 03/12/2023 Complex renal cyst 02/21/2023 Overview (08/24/2024): Following with [facility] Urology (EDIS Rojas) June 2024: no [...] visualization. Healthcare maintenance 09/28/2022 Overview (11/06/2024): Optometry: [facility] Eye Care [...] be also referred to Ind. Therapy in [facility]. I encouraged her to reach out [...] in services. PLAN: 1. Follow up with [facility]: Not recommended for follow-up 2. Patient goal [...] Department Care Team Description 01/22/2025 Results Follow-Up [address] [address] Silvia Gonzalez NP XR Lumbar Spine 2-3 Views 01/06/[address] [address] Hali Carrillo LPN Error (VOID this visit) 01/04/[address] [address] Maribell Alanis FNP 01/03/2025 Results Follow-Up [facility] [address] [place] [address] Alaina Mendieta MD Hematoxylin and Eosin Stain 12/30/2024 Orders Only GENERIC EXTERNAL DATA DEPARTMENT Provider, Generic External Data 12/23/2024 1:45 PM EDT Office Visit [address] [address] Silvia Gonzalez NP Rash of multiple digits of both hands (Primary Dx); Chronic right-sided low back pain without sciatica; Depression with anxiety; Dietary counseling; Exercise counseling 12/23/[address] [address] Silvia Gonzalez NP Xray order faxed to [facility] 12/23/2024 Travel 12/22/2024 Telephone [facility] MEDICINE [address] [place], [place] [phone] Maribell Alanis FNP CHARTPREP 12/07/2024 Results Follow-Up [facility] [address] [place] [address] Alaina Mendieta MD CBC, TSH with Reflex to Free T4, hCG, Total, Quantitative, Additional followed-up results: 4 12/06/2024 Telephone [facility] [address] [place], [place] [phone] Ana Duque RN 12/05/2024 Results Follow-Up [facility] [address] [place] [address] Alaina Mendieta MD Rheumatoid Factor, C-reactive Protein, Sed Rate by Modified Westergren, Additional followed-up results: 2 12/02/2024 Results Follow-Up [facility] [address] [place] [address] Melba Hoover RN Helicobacter pylori, Urea Breath Test 12/02/2024 Orders Only [facility] [address] [place] [address] Maribell Alanis FNP 12/01/2024 Orders Only GENERIC EXTERNAL DATA DEPARTMENT Provider, Generic External Data 11/30/2024 Orders Only GENERIC EXTERNAL DATA DEPARTMENT Provider, Generic External Data from Last 3 Months Immunizations Immunization Administration [...] 12/23/2024 1:50 PM EDT Plan of Treatment Upcoming Encounters Date Type Department Care Team ([facility] st Contact Info) Description 07/27/2025 1:00 PM EDT Office Visit [facility] OPTOMETRY [address] [place] [address] Shae Boogie, OD [address] [place] [address] Health Maintenance Due Date Last Done Comments [...] PM EST Narrative 01/20/2025 4:58 PM EST [address] [address] Ultrasound Report Signed Patient: Ever John MR#: [id number] 1 : 1970 Acct:[id number] Age/Sex: 54 / F ADM Date: 01/20/25 Loc: HO.US Attending Dr: Duc Cazares MD Ordering Physician: Duc Cazares MD Date of Service: 01/20/25 Procedure(s): US pelvic and transvaginal Accession Number(s): [id number] cc: Alaina Mendieta MD; Duc Cazares MD Reason for Exam: N93.9 - Abnormal uterine and vaginal bleeding, unspecified EXAMINATION: US PELVIS, COMPLETE CLINICAL INFORMATION: N93.9 - Abnormal uterine and vaginal bleeding, unspecified COMPARISON: Ultrasound 08/05/2023 TECHNIQUE: Transabdominal and transvaginal imaging was performed. FINDINGS: LMP: Kennedi Uterus is anteverted and anteflexed , measuring [...] 01/20/25 1655 DD/ 1516 TD/TT: 01/20/25 1536 Mortuary Technician: Procedure Note Donotuseinterpreter, Image - 01/20/[address] [address] Ultrasound Report Signed Patient: Beau John#: [id number] 1 : 1970Acct:[id number] Age/Sex: 54 / FADM Date: 01/20/25 Loc: .US Attending Dr: Duc Cazares MD Ordering Physician: Duc Cazares MD Date of Service: 01/20/25 Procedure(s): US pelvic and transvaginal Accession Number(s): [id number] cc: Alaina Mendieta MD; Duc Cazares MD [...] 01/20/25 1655 DD/ 1516 TD/TT: 01/20/25 1536 Mortuary Technician: MOE us [facility] External Provider IMG US PROCEDURES Final Result * XR Lumbar Spine 2-3 Views (01/20/2025 3:00 PM EST) Anatomical Region Laterality Modality Spine, L-spine Radiographic Jayne ging 01/20/2025 3:00 PM EST Narrative 01/20/2025 5:06 PM EST [address] [address] XRay Report Signed Patient: Ever John MR#: [id number] 1 : 1970 Acct:[id number] Age/Sex: 54 / F ADM Date: 01/20/25 Loc: HO.US Attending Dr: Duc Cazares MD Ordering Physician: Silvia Gonzalez NP Date of Service: 01/20/25 Procedure(s): XR lumbar spine 2-3V Accession Number(s): [id number] cc: Alaina Mendieta MD; Silvia Gonzalez NP [...] by: Yeison Monahan MD 01/20/2025 05:03 PM [facility] Dictated By: Yeison Monahan MD Signed By: <Electronically signed by Yeison Monahan MD in OV> 01/20/25 1703 DD/ 1500 TD/TT: 01/20/25 1508 Mortuary Technician: MOE Procedure Note Donotuseinterpreter, Image - 01/20/[address] [address] XRay Report Signed Patient: Beau John#: [id number] 1 : 1970Acct:[id number] Age/Sex: 54 / FADM Date: 01/20/25 Loc: HO.US Attending Dr: Duc Cazares MD Ordering Physician: Silvia Gonzalez NP Date of Service: 01/20/25 Procedure(s): XR lumbar spine 2-3V Accession Number(s): [id number] cc: Alaina Mendieta MD; Silvia Gonzalez NP [...] Yeison Monahan MD 01/20/2025 05:03 PM EST Dictated By: Yeison Monahan MD Signed By: <Electronically signed by Yeison Monahan MD in OV> 01/20/25 1703 DD/ 1500 TD/TT: 01/20/25 1508 Mortuary Technician: MOE Silvia Gonzalez NP IMG XR PROCEDURES Final Result * Hematoxylin and Eosin Stain (12/30/2024 3:48 PM EDT) 12/30/2024 3:48 PM EDT 01/02/2025 7:12 AM EST [facility] LABS - 01/03/2025 10:57 AM EST ----- ------- Name: Ever John Age/Sex: 54/F : 1970 Unit#: [id number] Attend Dr: Duc Cazares MD Re12/30/24 Status: DEP REF Location: HO.LNP Disch: ----- ------- SPEC : [id number] RECD: 01/02/25 STATUS: SYLVIA DIEGO NUM: [id number] GOSIA: 12/30/241548 [facility] DR: Duc Cazares MD ENTERED: 01/02/25 SP [...] developed and their performance characteristics determined by [facility]. They have not been cleared or approved by the U.S. Food and Drug Administration (FDA). However, the FDA has determined that such clearance or approval is not necessary. This laboratory is certified under the Clinical Laboratory Improvement Amendments of 1988 (CLIA) as qualified to perform high complexity clinical laboratory testing. Copies To: Alaina Mendieta MD [address] [address] Duc Cazares MD [facility] Women's Services [address] [place] [address] [address] [place] [phone] CONTINUED ON NEXT PAGE ----- ------- Name: AlvaroEver Age/Sex: 54/F : 1970 Unit#: [id number] Attend Dr: Duc Cazares MD Re12/30/24 Status: DEP REF Location: EILEEN Disch: ----- ------- SPEC : [id number] RECD: 01/02/25 STATUS: SYLVIA DIEGO NUM: [id number] GOSIA: 12/30/[address] [facility] [address]: Duc Cazares MD ENTERED: 01/02/25 SP TYPE: Surgical OTHR DR: Alaina Mendieta MD ORDERED: VIOLETA Jefferson/2, Gross Micro L4 ----- ------- Signed (signature on file) Lance Bueno MD 01/03/25 1057 ----- ------- END OF REPORT us Generic External Data Provider LAB BLOOD ORDERAB LES Final Result [facility] [address] [place] [phone] * TSH with Reflex to Free T4 (12/01/2024 4:25 PM EDT) [facility] TSH reflex Free T4 0.90 0.32 - 4.0 uIU/mL [facility] 12/01/2024 4:25 PM EDT 12/01/2024 4:25 PM EDT Generic External Data Provider LAB BLOOD ORDERAB LES Final Result Performing Organization Address [facility] Co de Phone Number [facility] [address] [place] [address] [phone] * Hepatitis C Viral RNA, Quantitative, Real-Time PCR (12/01/2024 4:25 PM EDT) [facility] Hepatitis C Viral Load <15 NOT DETECTED NOT DETECTED IU/mL [facility] HCV Log PCR <1.18 NOT DETECTED NOT DETECTED Log IU/mL [facility] Comment:For additional infor mation, please refer tohttp://education.Jott/faq/BXW80o2(This link is being provided for informational/educational purposes only.)THIS TEST WAS PERFORMED AT:[email or web address] [place] [phone] BLAKE MD 12/01/2024 4:25 PM EDT 12/02/2024 9:24 AM EDT Generic External Data Provider LAB BLOOD ORDERAB LES Final Result Performing Organization Address [facility] Co de Phone Number [facility] [address] [place] [address] [phone] * (ABNORMAL) Hepatitis C Antibody with Reflex to HCV, RNA, Quantitative, Real- Time PCR (12/01/2024 4:25 PM EDT) [facility] Hepatitis C Antibody Reactive( A) Nonreactive [facility] Comment:Presumptive evidence of antibodies to HCV. Blood Venous blood specimen / Unknown 12/01/2024 4:25 PM EDT 12/01/2024 4:25 PM EDT Maribell Alanis REFINERY OPERATOR [employer] UNIT LAB BLOOD ORDERABLES Final Res ult Performing Organization Address [facility] Co de Phone Number [facility] [address] [place] [address] [phone] * (ABNORMAL) Sed Rate by Modified Westergren (12/01/2024 4:25 PM EDT) Erythrocyte Sedimentation Rate 34(H) 0 - 20 MM/HR [facility] Comment:Patients with polycy themia and many hemoglobin abnormalitiesmay have depressed sed rates whereas patients with anemiamay have elevated sed rates. Blood Venous blood specimen / Unknown 12/01/2024 4:25 PM EDT 12/01/2024 4:25 PM EDT Maribell Alanis REFINERY OPERATOR [employer] LAB BLOOD ORDERABLES Final Res ult Performing Organization Address [facility] Co de Phone Number [facility] [address] [place] [address] [phone] * (ABNORMAL) CBC (12/01/2024 4:25 PM EDT) White Blood Count 6.1 4.8 - 10.8 X10*3/uL [facility] Red Blood Count 4.07(L) 4.20 - 5.50 X10*6/uL [facility] Hemoglobin 11.3(L) 12.0 - 16.0 g/dl [facility] Hematocrit 34.1(L) 37.0 - 47.0 % [facility] Mean Corpuscular Volume 83.8 80.0 - 98.0 fL [facility] Mean Corpuscular Hemoglobin 27.8 27.0 - 33.0 pg [facility] Mean Corpuscular HGB Conc 33.1 31.0 - 35.0 g/dl [facility] Red Cell Distribution Width 14.0 11.0 - 16.0 % [facility] Platelet Count 343 160 - 400 X10*3/uL [facility] Mean Platelet Volume 11.2 9.4 - 12.3 fL [facility] NRBC Pct Auto 0.0 0.0 - 0.2 /100WBC [facility] NRBC Abs Auto 0.000 0.0 - 0.012 X10*3/uL [facility] 12/01/2024 4:25 PM EDT 12/01/2024 4:25 PM EDT us Generic External Data Provider LAB BLOOD ORDERAB LES Final Result Performing Organization Address [facility] Co de Phone Number [facility] [address] [place] [phone] * Rheumatoid Factor (12/01/2024 4:25 PM EDT) Rheumatoid Factor <13.0 <15.0 IU/mL [facility] Blood Venous blood specimen / Unknown 12/01/2024 4:25 PM EDT 12/01/2024 4:25 PM EDT us Maribell Alanis REFINERY OPERATOR [employer] LAB BLOOD ORDERABLES Final Res ult Performing Organization Address [facility] Co de Phone Number [facility] [address] [place] [phone] * C-reactive Protein (12/01/2024 4:25 PM EDT) C Reactive Protein 0.13 < or = 0.50 mg/dL [facility] Blood Venous blood specimen / Unknown 12/01/2024 4:25 PM EDT 12/01/2024 4:25 PM EDT us Maribell Phalen REFINERY OPERATOR [employer] LAB BLOOD ORDERABLES Final Res ult Performing Organization Address [facility] Co de Phone Number [facility] [address] [place] [phone] * TAN Screen,IFA, with Reflex to Titer and Pattern (12/01/2024 4:25 PM EDT) Pathologist [facility] Anti Nuclear Antibody Screen NEGATIVE NEGATIVE [facility] Comment:TAN IFA is a first l [...] clinicallysuspected inflammatory myopathies.AC-0: NegativeInternational Consensus on TAN Patterns(https://doi.org/10.1515/rhlh-0842-1162)For additional information, please refer tohttp://education.Imaginatik/faq/TFE528(This link is being provided for informational/educational purposes only.)THIS TEST WAS PERFORMED AT:[email or web address] [place] [phone] BLAKE MD TAN Titer TNP [facility] TAN Pattern [facility] T[facility] TAN Pattern 2 [facility] TAN TITER 3 [facility] TAN PATTERN [facility] Blood Venous blood specimen / Unknown 12/01/2024 4:25 PM EDT 12/01/2024 4:25 PM EDT us Maribell Alanis REFINERY OPERATOR [employer] LAB BLOOD ORDERABLES Final Res ult [facility] [address] [place] [phone] * hCG, Total, Quantitative (12/01/2024 4:25 PM EDT) Pathologist [facility] HCG Quantitative <2 mIU/mL [facility] Comment:Weeks post LMP Appr oximate hCG(Last Menstrual Period) Range (mIU/ml)3 - 4 weeks 9 - 1304 - 5 weeks 75 - 2,6005 - 6 weeks 850 - 20,8006 - 7 weeks 4000 - 100,2007 - 12 weeks 11,500 - 289,13636 - 16 weeks 18,300 - 137,71218 - 29 weeks (2nd trimester) 1,400 - 53,11852 - 41 weeks (3rd trimester) 940 - [...] ORDERAB LES Final Result Performing Organization Address City/[facility]/ZIP Co de Phone Number [facility] [address] [place] [phone] * LH (12/01/2024 4:25 PM EDT) Lutenizing Hormone 31.8 mIU/mL [facility] Comment:Reference Range Foll icular Phase 1.9-12.5 Mid-Cycle Peak 8.7-76.3 Luteal Phase 0.5-16.9 Postmenopausal 10.0-54.7THIS TEST WAS PERFORMED AT:[email or web address] [place] [phone] BLAKE MD 12/01/2024 4:25 PM EDT 12/01/2024 4:25 PM EDT us Generic External Data Provider LAB BLOOD ORDERAB LES Final Result Performing Organization Address City/[facility]/ZIP Co de Phone Number [facility] [address] [place] [phone] * FSH (12/01/2024 4:25 PM EDT) [facility] Follicle Stimulating Hormone 52.5 mIU/mL [facility] Comment:Reference Range Foll icular Phase 2.5-10.2 Mid-cycle Peak 3.1-17.7 Luteal Phase 1.5- 9.1 Postmenopausal 23.0-116.3THIS TEST WAS PERFORMED AT:[email or web address] [place] [phone] BLAKE MD 12/01/2024 4:25 PM EDT 12/01/2024 4:25 PM EDT us Generic External Data Provider LAB BLOOD ORDERAB LES Final Result [facility] [address] [place] [phone] * Chlamydia/N. Gonorrhoeae RNA, TMA, Urogenitial (12/01/2024 3:03 PM EDT) [facility] CT PCR NOT DETECTED Not Detect. [facility] Comment:A not detected test result does [...] psychologicalconsequences. NG PCR NOT DETECTED Not Detect. [facility] Comment:A not detected test result does [...] ORDERABLES Final Result Performing Organization Address [facility] Co de Phone Number [facility] [address] [place] [phone] * Helicobacter pylori, Urea Breath Test (11/30/2024 2:45 PM EDT) H. pylori Breath Test Positive Negative [facility] Comment:Antimicrobials, prot on pump inhibitors and bismuthpreparations are known to suppress H. pylori. Ingestingthese medications within two weeks prior to performing thebreath test may produce negative test results. A positiveresult is still clinically valid. 11/30/2024 2:45 PM EDT 12/01/2024 12:35 PM EDT Generic External Data Provider LAB BODY FLUIDS A ND STOOLS ORDERABLES Final Result Performing Organization Address [facility] Co de Phone Number [facility] [address] [place] [phone] * BI US Breast Limited Right (10/05/2024 1:22 PM EDT) Anatomical Region Laterality Modality Breast Right Ultrasound 10/05/2024 1:22 PM EDT Narrative 10/05/2024 1:46 PM EDT [facility] [address] [place] [address] Ultrasound Report Signed Patient: Ever John MR#: [id number] 1 : 1970 Acct:[id number] Age/Sex: 54 / F ADM Date: 10/05/24 Loc: HO.MAMMO Attending Dr: Jamee Oden DO Ordering Physician: Jamee Oden DO Date of Service: 10/05/24 Procedure(s): US breast RT limited mamm only Accession Number(s): [id number] cc: Alaina Mendieta MD; Jamee Oden DO [...] 10/05/24 1343 DD/ 1322 TD/TT: 10/05/24 1338 Mortuary Technician: Procedure Note Donotuseinterpreter, Image - 10/05/20[facility] [address] [place] [address] Ultrasound Report Signed Patient: Beau John#: [id number] 1 : 1970Acct:[id number] Age/Sex: 54 / FADM Date: 10/05/24 Loc: HO.MAMMO Attending Dr: Jamee Oden DO Ordering Physician: Jamee Oden DO Date of Service: 10/05/24 Procedure(s): US breast RT limited mamm only Accession Number(s): [id number] cc: Alaina Mendieta MD; Jamee Oden DO [...] 10/05/24 1343 DD/ 1322 TD/TT: 10/05/24 1338 Mortuary Technician: us Jamee Oden DO IMG US PROCEDURES Final Resu lt * Pap Smear (05/14/2023 2:15 PM EDT) 05/14/2023 2:15 PM EDT 05/15/2023 9:00 AM EDT [facility] - 05/26/2023 10:17 AM EDT ----- ------- Name: Ever John Age/Sex: 53/F : 1970 Unit#: [id number] Attend Dr: Duc Cazares MD Re05/14/23 Status: [facility] REF Location: [facility] Disch: ----- ------- SPEC : [id number] RECD: 05/15/23-899 STATUS: SYLVIA DIEGO NUM: [id number] GOSIA: 05/14/23-[address] [facility] [address]: Duc Cazares MD ENTERED: 05/15/23-946 SP TYPE: Pap Smr OTHR DR: Maribell [...] 59, 66, 68) HPV testing performed by Whelse, Brenham, MD. See reference laboratory portion of the EMR for entire report. Clinical Information LMP: Unknown date Previous PAP test: 2018, Unknown findings Other history: Abnormal uterine and vaginal bleeding Material Received ThinPrep-Cervical Copies To: Maribell Alanis [address] [place] [address] Duc Cazares MD [address] [place] [address] [place] [id number] ----- ------- Signed (signature on file) ROMÁN Joaquin ([facility]) 05/26/23 1017 ----- ------- END OF REPORT Generic External Data Provider LAB CYTOLOGY ALAINA DOMINGUEZ Final Result [facility] [address] [place] [address] [phone] * (ABNORMAL) HPV mRNA E6/E7 (12/15/2017 2:12 PM EDT) Pathologist [facility] HPV mRNA E6/E7 DETECTED (AA) NOT DETECTED [facility] Comment: This test was performed using the APTIMA(R) HPV Assay ([employer] This assay detects E6/E7 viral messenger RNA (mRNA) from 14 high-risk HPV types (16,18,31,33,35,39,45,51, 52,56,58,59,66,68). For additional information please refer to: http://education.Jott/faq/DUH378g6 (This link is being provided for informational/ educational purposes only.) The analytical performance characteristics of this assay have been determined by [facility] [place], [place]. The modifications have not been cleared or approved by the FDA. This assay has been validated pursuant to the CLIA regulations and is used for clinical purposes. Test Performed by Sekal ASJames, [facility] [place], [address] [place] [address] Brodie Koenig M.D., Ph.D., Director of Laboratories , CLIA [id number] Please note: Effective 11/12/2015, HPV testing will be performed using [employer]'s APTIMA test which targets mRNA. Detecting mRNA instead of DNA, as in older methods, offers significant improvements in specificity. 12/15/2017 2:12 PM EDT us Lesia Ramon CNM HISTORICAL/NON ORDERABLE LABS Final Result [facility] [address] from Last 3 Months or Most Recently Relevant to Health Maintenance Insurance [facility] C[place] AD[place] Care Teams Supervisor Filter Assembly Relationship Specialty Start Date End Date Maribell Alanis FNP [address] [place] [phone] PCP - General Family Medicine 08/14/21
== END 2025-03-01 10:26 | disposition home or self-care (01) ==
LOC: HO.HGI 09:18
PROVIDERS: PCP Internal Medicine; Visit Provider Nurse Practitioner Family
DX: K21.9 Gastro-esophageal reflux disease without esophagitis (principal); R10.13 Epigastric pain; A04.8 Other specified bacterial intestinal infections
CPT/HCPCS: 99214

== ENCOUNTER 2025-03-01 09:17 | Outpatient (REF) | payer MEDICAID, SELFPAY ==
--- OUTSIDE RECORDS SUMMARY | 2025-03-02 07:53 | XMS_ITS | Clinical Summary ---
Author Organization [employer] Address [address] [facility] 7t [place] [address] Care Team Providers Care Bond Runner Name Role Phone EvaMaribell cabrera JARRETT Primary Care Provider [phone] Allergies Active Allergy Reactions Criticality Noted Date [...] Microscopic hematuria 11/06/2024 Overview (11/06/2024): Following with [facility] Urology - HAMMAD Rojas Urine cytology neg for high-grade urothelial carcinoma June 2024: normal/unremarkable renal US July 2024: US Bladder -normal bilateral ureteral jets seen. No echogenic stones or wall thickening. 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 Cazares Pelvic US 06/03/23 that [...] Plan (07/22/2023 6:20 AM EDT): Following with [facility] Ortho Per consult in Mar 2023, plan for physical therapy and NSAIDs, declined injection Anemia 07/22/2023 Overview (07/22/2023): Following with [facility] Heme/Onc for normocytic normochromic anemia with iron deficiency Assessment & Plan (11/06/2024 7:18 PM EDT): - Consult August 2024 - plan for repeat IV iron. Encouraged to check with CIRCULAR KNIFE CUTTER MACHINE if endometrial ablation is an option. - Referred to [facility]CULAR KNIFE CUTTER MACHINE for eval menorrhagia and GI for screening colonoscopy Assessment & Plan (10/22/2023 7:39 AM EDT): - Recieved IV Iron, stopped PO iron - Referred to CIRCULAR KNIFE CUTTER MACHINE for eval menorrhagia and GI for screening colonoscopy - Recent B, will check current levels Assessment & Plan (07/25/2023 11:34 AM EDT): - Started IV Iron, stopped PO iron - Referred to CIRCULAR KNIFE CUTTER MACHINE for eval menorrhagia and GI for screening colonoscopy Vitreomacular adhesion, left eye 03/12/2023 Complex renal cyst 02/21/2023 Overview (08/24/2024): Following with [facility] Urology (EDIS Rojas) June 2024: no renal [...] visualization. Healthcare maintenance 09/28/2022 Overview (11/06/2024): Optometry: [facility] Pap: 05/14/23 NILM, HPV neg (Dr. Cazares) Mammo: BIRADS 3 in Sep 2024, due for repeat in 6 mo Colonoscopy: referral to GI placed 10/21/23 Dental: referral to [facility] Dental placed 07/22/23 Assessment & Plan [...] be also referred to Ind. Therapy in [facility]. I encouraged her to reach out [...] in services. PLAN: 1. Follow up with [facility]: Not recommended for follow-up 2. [...] Department Care Team Description 01/22/2025 Results Follow-Up [address] [address] Silvia Gonzalez NP XR Lumbar Spine 2-3 Views 01/06/[address] [address] Hali Carrillo LPN Error (VOID this visit) 01/04/[address] [address] Maribell Alanis FNP 01/03/2025 Results Follow-Up [facility] [address] [place] [address] Alaina Mendieta MD Hematoxylin and Eosin Stain 12/30/2024 Orders Only GENERIC EXTERNAL DATA DEPARTMENT Provider, Generic External Data 12/23/2024 1:45 PM EDT Office Visit [address] [address] Silvia Gonzalez NP Rash of multiple digits of both hands (Primary Dx); Chronic right-sided low back pain without sciatica; Depression with anxiety; Dietary counseling; Exercise counseling 12/23/[address] [address] Silvia Gonzalez NP Xray order faxed to [facility] 12/23/2024 Travel 12/22/2024 Telephone [facility] [address] [place], [place] [phone] Maribell Alanis FNP CHARTPREP 12/07/2024 Results Follow-Up [facility] [address] [place] [address] Alaina Mendieta MD CBC, TSH with Reflex to Free T4, hCG, Total, Quantitative, Additional followed-up results: 4 12/06/2024 Telephone [facility] [address] [place], [place] [phone] Ana Duque RN 12/05/2024 Results Follow-Up [facility] [address] [place] [address] Alaina Mendieta MD Rheumatoid Factor, C-reactive Protein, Sed Rate by Modified Westergren, Additional followed-up results: 2 12/02/2024 Results Follow-Up [facility] [address] [place] [address] Melba Hoover RN Helicobacter pylori, Urea Breath Test 12/02/2024 Orders Only [facility] [address] [place] [address] Maribell Alanis FNP 12/01/2024 Orders Only GENERIC [...] Upcoming Encounters Date Type Department Care Team ([facility] st Contact Info) Description 07/27/2025 1:00 PM EDT Office Visit [facility] OPT[facility] [address] [place] [address] Shae Boogie, OD [address] [place] [address] Health Maintenance Due Date Last Done Comments [...] PM EST Narrative 01/20/2025 4:58 PM EST [address] [address] Ultrasound Report Signed Patient: Ever John MR#: [id number] 1 : 1970 Acct:[id number] Age/Sex: 54 / F ADM Date: 01/20/25 Loc: HO.US Attending Dr: Duc Cazares MD Ordering Physician: Duc Cazares MD Date of Service: 01/20/25 Procedure(s): US pelvic and transvaginal Accession Number(s): [id number] cc: Alaina Mendieta MD; Duc Cazares MD [...] 01/20/25 1655 DD/ 1516 TD/TT: 01/20/25 1536 Learning Technologist: Procedure Note Donotuseinterpreter, Image - 01/20/[address] [address] Ultrasound Report Signed Patient: Beau John#: [id number] 1 : 1970Acct:[id number] Age/Sex: 54 / FADM Date: 01/20/25 Loc: .US Attending Dr: Duc Cazares MD Ordering Physician: Duc Cazares MD Date of Service: 01/20/25 Procedure(s): US pelvic and transvaginal Accession Number(s): [id number] cc: Alaina Mendieta MD; Duc Cazares MD [...] 01/20/25 1655 DD/ 1516 TD/TT: 01/20/25 1536 Learning Technologist: MOE us [facility] External Provider IMG US PROCEDURES Final Result * XR Lumbar Spine 2-3 Views (01/20/2025 3:00 PM EST) Anatomical Region Laterality Modality Spine, L-spine Radiographic Jayne ging 01/20/2025 3:00 PM EST Narrative 01/20/2025 5:06 PM EST [address] [address] XRay Report Signed Patient: Ever John MR#: [id number] 1 : 1970 Acct:[id number] Age/Sex: 54 / F ADM Date: 01/20/25 Loc: HO.US Attending Dr: Duc Cazares MD Ordering Physician: Silvia Gonzalez NP Date of Service: 01/20/25 Procedure(s): XR lumbar spine 2-3V Accession Number(s): [id number] cc: Alaina Mendieta MD; Silvia Gonzalez NP [...] by: Yeison Monahan MD 01/20/2025 05:03 PM [facility] Dictated By: Yeison Monahan MD Signed By: <Electronically signed by Yeison Monahan MD in OV> 01/20/25 1703 DD/ 1500 TD/TT: 01/20/25 1508 Learning Technologist: MOE Procedure Note Donotuseinterpreter, Image - 01/20/[address] [address] XRay Report Signed Patient: Beau John#: [id number] 1 : 1970Acct:[id number] Age/Sex: 54 / FADM Date: 01/20/25 Loc: HO.US Attending Dr: Duc Cazares MD Ordering Physician: Silvia Gonzalez NP Date of Service: 01/20/25 Procedure(s): XR lumbar spine 2-3V Accession Number(s): [id number] cc: Alaina Mendieta MD; Silvia Gonzalez NP [...] 01/20/25 1703 DD/ 1500 TD/TT: 01/20/25 1508 Learning Technologist: MOE Silvia Gonzalez NP IMG XR PROCEDURES Final Result * Hematoxylin and Eosin Stain (12/30/2024 3:48 PM EDT) 12/30/2024 3:48 PM EDT 01/02/2025 7:12 AM EST [facility] - 01/03/2025 10:57 AM EST ----- ------- Name: Ever John Age/Sex: 54/F : 1970 Unit#: [id number] Attend Dr: Duc Cazares MD Re12/30/24 Status: DEP REF Location: HO.LNP Disch: ----- ------- SPEC : [id number] RECD: 01/02/25 STATUS: SYLVIA DIEGO NUM: [id number] GOSIA: 12/30/241548 [facility] DR: Duc Cazares MD ENTERED: 01/02/25 [...] developed and their performance characteristics determined by [facility]. They have not been cleared or approved by the U.S. Food and Drug Administration (FDA). However, the FDA has determined that such clearance or approval is not necessary. This laboratory is certified under the Clinical Laboratory Improvement Amendments of 1988 (CLIA) as qualified to perform high complexity clinical laboratory testing. Copies To: Alaina Mendieta MD [address] [address] Duc Cazares MD [facility] Women's Services [address] [place] [address] [address] [place] [phone] CONTINUED ON NEXT PAGE ----- ------- Name: AlvaroEver Age/Sex: 54/F : 1970 Unit#: [id number] Attend Dr: Duc Cazares MD Re12/30/24 Status: DEP REF Location: EILEEN Disch: ----- ------- SPEC : [id number] RECD: 01/02/25 STATUS: SYLVIA DIEGO NUM: [id number] GOSIA: 12/30/[address] [facility] [address]: Duc Cazares MD ENTERED: 01/02/25 SP TYPE: Surgical OTHR DR: Alaina Mendieta MD ORDERED: VIOLETA Jefferson/2, Gross Micro L4 ----- ------- Signed (signature on file) Lance Bueno MD 01/03/25 1057 ----- ------- END OF REPORT us Generic External Data Provider LAB BLOOD ORDERAB LES Final Result [facility] [address] [place] [phone] * TSH with Reflex to Free T4 (12/01/2024 4:25 PM EDT) [facility] TSH reflex Free T4 0.90 0.32 - 4.0 uIU/mL [facility] 12/01/2024 4:25 PM EDT 12/01/2024 4:25 PM EDT Generic External Data Provider LAB BLOOD ORDERAB LES Final Result Performing Organization Address [facility] Co de Phone Number [facility] [address] [place] [address] [phone] * Hepatitis C Viral RNA, Quantitative, Real-Time PCR (12/01/2024 4:25 PM EDT) [facility] Hepatitis C Viral Load <15 NOT DETECTED NOT DETECTED IU/mL [facility] HCV Log PCR <1.18 NOT DETECTED NOT DETECTED Log IU/mL [facility] Comment:For additional infor mation, please refer tohttp://education.[employer] [place]/faq/UJS10r8(This link is being provided for informational/educational purposes only.)THIS TEST WAS PERFORMED AT:[facility] [place] [id number] BLAKE MD 12/01/2024 4:25 PM EDT 12/02/2024 9:24 AM EDT Generic External Data Provider LAB BLOOD ORDERAB LES Final Result Performing Organization Address [facility] Co de Phone Number [facility] [address] [place] [address] [phone] * (ABNORMAL) Hepatitis C Antibody with Reflex to HCV, RNA, Quantitative, Real- Time PCR (12/01/2024 4:25 PM EDT) [facility] Hepatitis C Antibody Reactive( A) Nonreactive [facility] Comment:Presumptive evidence of antibodies to HCV. Blood Venous blood specimen / Unknown 12/01/2024 4:25 PM EDT 12/01/2024 4:25 PM EDT Maribell Alanis CERTIFIED REGISTERED NURSE ANESTHETIST LAB BLOOD ORDERABLES Final Res ult Performing Organization Address [facility] Co de Phone Number [facility] [address] [place] [address] [phone] * (ABNORMAL) Sed Rate by Modified Westergren (12/01/2024 4:25 PM EDT) Erythrocyte Sedimentation Rate 34(H) 0 - 20 MM/HR [facility] Comment:Patients with polycy themia and many hemoglobin abnormalitiesmay have depressed sed rates whereas patients with anemiamay have elevated sed rates. Blood Venous blood specimen / Unknown 12/01/2024 4:25 PM EDT 12/01/2024 4:25 PM EDT Maribell Alanis CERTIFIED REGISTERED NURSE ANESTHETIST LAB BLOOD ORDERABLES Final Res ult Performing Organization Address [facility] Co de Phone Number [facility] [address] [place] [address] [phone] * (ABNORMAL) CBC (12/01/2024 4:25 PM EDT) White Blood Count 6.1 4.8 - 10.8 X10*3/uL [facility] Red Blood Count 4.07(L) 4.20 - 5.50 X10*6/uL [facility] Hemoglobin 11.3(L) 12.0 - 16.0 g/dl [facility] Hematocrit 34.1(L) 37.0 - 47.0 % [facility] Mean Corpuscular Volume 83.8 80.0 - 98.0 fL [facility] Mean Corpuscular Hemoglobin 27.8 27.0 - 33.0 pg [facility] Mean Corpuscular HGB Conc 33.1 31.0 - 35.0 g/dl [facility] Red Cell Distribution Width 14.0 11.0 - 16.0 % [facility] Platelet Count 343 160 - 400 X10*3/uL [facility] Mean Platelet Volume 11.2 9.4 - 12.3 fL [facility] NRBC Pct Auto 0.0 0.0 - 0.2 /100WBC [facility] NRBC Abs Auto 0.000 0.0 - 0.012 X10*3/uL [facility] 12/01/2024 4:25 PM EDT 12/01/2024 4:25 PM EDT us Generic External Data Provider LAB BLOOD ORDERAB LES Final Result Performing Organization Address [facility] Co de Phone Number [facility] [address] [place] [phone] * Rheumatoid Factor (12/01/2024 4:25 PM EDT) Rheumatoid Factor <13.0 <15.0 IU/mL [facility] Blood Venous blood specimen / Unknown 12/01/2024 4:25 PM EDT 12/01/2024 4:25 PM EDT us Maribell Alanis CERTIFIED REGISTERED NURSE ANESTHETIST LAB BLOOD ORDERABLES Final Res ult Performing Organization Address [facility] Co de Phone Number [facility] [address] [place] [phone] * C-reactive Protein (12/01/2024 4:25 PM EDT) C Reactive Protein 0.13 < or = 0.50 mg/dL [facility] Blood Venous blood specimen / Unknown 12/01/2024 4:25 PM EDT 12/01/2024 4:25 PM EDT us Maribell Phalen CERTIFIED REGISTERED NURSE ANESTHETIST LAB BLOOD ORDERABLES Final Res ult Performing Organization Address [facility] Co de Phone Number [facility] [address] [place] [phone] * TAN Screen,IFA, with Reflex to Titer and Pattern (12/01/2024 4:25 PM EDT) Pathologist [facility] Anti Nuclear Antibody Screen NEGATIVE NEGATIVE [facility] Comment:TAN IFA is a first [...] clinicallysuspected inflammatory myopathies.AC-0: NegativeInternational Consensus on TAN Patterns(https://doi.org/10.1515/ubxo-4270-8522)For additional information, please refer tohttp://education.Mix[employer]/faq/ZFC086(This link is being provided for informational/educational purposes only.)THIS TEST WAS PERFORMED AT:[facility] [place] [phone] BLAKE MD TAN Titer TNP [facility] TAN Pattern [facility] TAN Titer 2 [facility] TAN Pattern 2 [facility] TAN TITER 3 [facility] TAN PATTERN 3 [facility] Blood Venous blood specimen / Unknown 12/01/2024 4:25 PM EDT 12/01/2024 4:25 PM EDT us Maribell Alanis CERTIFIED REGISTERED NURSE ANESTHETIST LAB BLOOD ORDERABLES Final Res ult [facility] [address] [place] [phone] * hCG, Total, Quantitative (12/01/2024 4:25 PM EDT) Pathologist [facility] HCG Quantitative <2 mIU/mL [facility] Comment:Weeks post LMP Appr oximate hCG(Last Menstrual Period) Range (mIU/ml)3 - 4 weeks 9 - 1304 - 5 weeks 75 - 2,6005 - 6 weeks 850 - 20,8006 - 7 weeks 4000 - 100,2007 - 12 weeks 11,500 - 289,08979 - 16 weeks 18,300 - 137,14055 - 29 weeks (2nd trimester) 1,400 - 53,92475 - 41 weeks (3rd trimester) 940 - [...] ORDERAB LES Final Result Performing Organization Address City/[facility]/ZIP Co de Phone Number [facility] [address] [place] [phone] * LH (12/01/2024 4:25 PM EDT) Lutenizing Hormone 31.8 mIU/mL [facility] Comment:Reference Range Foll icular Phase 1.9-12.5 Mid-Cycle Peak 8.7-76.3 Luteal Phase 0.5-16.9 Postmenopausal 10.0-54.7THIS TEST WAS PERFORMED AT:[facility] [place] [phone] BLAKE MD 12/01/2024 4:25 PM EDT 12/01/2024 4:25 PM EDT us Generic External Data Provider LAB BLOOD ORDERAB LES Final Result Performing Organization Address City/[facility]/ZIP Co de Phone Number [facility] [address] [place] [phone] * FSH (12/01/2024 4:25 PM EDT) [facility] Follicle Stimulating Hormone 52.5 mIU/mL [facility] Comment:Reference Range Foll icular Phase 2.5-10.2 Mid-cycle Peak 3.1-17.7 Luteal Phase 1.5- 9.1 Postmenopausal 23.0-116.3THIS TEST WAS PERFORMED AT:[facility] [place] [phone] BLAKE MD 12/01/2024 4:25 PM EDT 12/01/2024 4:25 PM EDT us Generic External Data Provider LAB BLOOD ORDERAB LES Final Result [facility] [address] [place] [phone] * Chlamydia/N. Gonorrhoeae RNA, TMA, Urogenitial (12/01/2024 3:03 PM EDT) [facility] CT PCR NOT DETECTED Not Detect. [facility] Comment:A not detected test result [...] psychologicalconsequences. NG PCR NOT DETECTED Not Detect. [facility] Comment:A not detected test result [...] GENERAL ORDERABLES Final Result Performing Organization Address [facility] Co de Phone Number [facility] [address] [place] [phone] * Helicobacter pylori, Urea Breath Test (11/30/2024 2:45 PM EDT) H. pylori Breath Test Positive Negative [facility] Comment:Antimicrobials, prot on pump inhibitors and bismuthpreparations are known to suppress H. pylori. Ingestingthese medications within two weeks prior to performing thebreath test may produce negative test results. A positiveresult is still clinically valid. 11/30/2024 2:45 PM EDT 12/01/2024 12:35 PM EDT Generic External Data Provider LAB BODY FLUIDS A ND STOOLS ORDERABLES Final Result Performing Organization Address [facility] Co de Phone Number [facility] [address] [place] [phone] * BI US Breast Limited Right (10/05/2024 1:22 PM EDT) Anatomical Region Laterality Modality Breast Right Ultrasound 10/05/2024 1:22 PM EDT Narrative 10/05/2024 1:46 PM EDT [facility] [address] [place] [address] Ultrasound Report Signed Patient: Ever John MR#: [id number] 1 : 1970 Acct:[id number] Age/Sex: 54 / F ADM Date: 10/05/24 Loc: HO.MAMMO Attending Dr: Jamee Oden DO Ordering Physician: Jamee Oden DO Date of Service: 10/05/24 Procedure(s): US breast RT limited mamm only Accession Number(s): [id number] cc: Alaina Mendieta MD; Jamee Oden DO [...] 10/05/24 1343 DD/ 1322 TD/TT: 10/05/24 1338 Learning Technologist: Procedure Note Donotuseinterpreter, Image - 10/05/2024 [facility] [address] [place] [address] Ultrasound Report Signed Patient: Beau John#: [id number] 1 : 1970Acct:[id number] Age/Sex: 54 / FADM Date: 10/05/24 Loc: HO.MAMMO Attending Dr: Jamee Oden DO Ordering Physician: Jamee Oden DO Date of Service: 10/05/24 Procedure(s): US breast RT limited mamm only Accession Number(s): [id number] cc: Alaina Mendieta MD; Jamee Oden DO [...] 10/05/24 1343 DD/ 1322 TD/TT: 10/05/24 1338 Learning Technologist: us Jamee Oden DO IMG US PROCEDURES Final Resu lt * Pap Smear (05/14/2023 2:15 PM EDT) 05/14/2023 2:15 PM EDT 05/15/2023 9:00 AM EDT [facility] - 05/26/2023 10:17 AM EDT ----- ------- Name: Ever John Age/Sex: 53/F : 1970 Unit#: [id number] Attend Dr: Duc Cazares MD Re05/14/23 Status: [facility] REF Location: [facility] Disch: ----- ------- SPEC : [id number] RECD: 05/15/23-899 STATUS: SYLVIA DIEGO NUM: [id number] GOSIA: 05/14/23-[address] [facility] [address]: Duc Cazares MD ENTERED: 05/15/23-946 SP [...] 59, 66, 68) HPV testing performed by [employer] [facility], [place], [place]. See reference laboratory portion of the EMR for entire report. Clinical Information LMP: Unknown date Previous PAP test: 2018, Unknown findings Other history: Abnormal uterine and vaginal bleeding Material Received ThinPrep-Cervical Copies To: Maribell Alanis [address] [place] [address] Duc Cazares MD [address] [place] [address] [place] [address] ----- ------- Signed (signature on file) ROMÁN Joaquin ([facility]) 05/26/23 1017 ----- ------- END OF REPORT Generic External Data Provider LAB CYTOLOGY ALAINA DOMINGUEZ Final Result [facility] [address] [place] [address] [phone] * (ABNORMAL) HPV mRNA E6/E7 (12/15/2017 2:12 PM EDT) Pathologist [facility] HPV mRNA E6/E7 DETECTED (AA) NOT DETECTED [facility] Comment: This test was performed using the APTIMA(R) HPV Assay ([employer] This assay detects E6/E7 viral messenger RNA (mRNA) from 14 high-risk HPV types (16,18,31,33,35,39,45,51, 52,56,58,59,66,68). For additional information please refer to: http://education.[employer] Local [place]/faq/SAO011h9 (This link is being provided for informational/ educational purposes only.) The analytical performance characteristics of this assay have been determined by [facility] [place], [place]. The modifications have not been cleared or approved by the FDA. This assay has been validated pursuant to the CLIA regulations and is used for clinical purposes. Test Performed by [facility], [place], [address] [place] [address] Brodie Koenig M.D., Ph.D., Director of Laboratories , CLIA [id number] Please note: Effective 11/12/2015, HPV testing will be performed using [employer]'s APTIMA test which targets mRNA. Detecting mRNA instead of DNA, as in older methods, offers significant improvements in specificity. 12/15/2017 2:12 PM EDT us Lesia Ramon CNM HISTORICAL/NON ORDERABLE LABS Final Result [facility] Anywhere [address] from Last 3 Months or Most Recently Relevant to Health Maintenance Insurance [facility] [place] ADULT Care Teams Bond Runner Relationship Specialty Start Date End Date Maribell Alanis FNP [address] [place] [phone] PCP - General Family Medicine 08/14/21
--- OUTSIDE RECORDS SUMMARY | 2025-03-02 07:53 | XMS_ITS | Encounter Summary ---
Author Organization [employer] Address [address] [facility] 7t [place] [address] Care Team Providers Care Freelance [address] Stenographer Name Role Phone Maribell Alanis JARRETT Primary Care Provider [phone] Encounter Details Date Type Department Care Team ([facility] st Contact Info) Description 09/16/2024 Orders Only [facility] [address], [place] [phone] Alaina Mendieta MD [address] [place] [address] Social History Tobacco Use Types Packs/Day Years [...] Description 07/27/2025 1:00 PM EDT Office Visit [facility] OPTOMETRY [address] [place] [address] Shae Boogie, OD [address] [place] [address] documented as of this encounter Visit Diagnoses Not on filedocumented in this encounter Additional Health Concerns Assessment Noted Time PHQ-9 Depression Total Score: 8 07/22/19 24 9:06 AM EDT documented as of this encounter Care Teams Freelance Court Stenographer Relationship Specialty Start Date End Date Maribell Alanis FNP [address] [place] [address] PCP - General Family Medicine 08/14/21 documented as of this encounter
--- OUTSIDE RECORDS SUMMARY | 2025-03-02 07:53 | XMS_ITS | Encounter Summary ---
Author Organization [employer] Address [address] [facility] [address] [place] [address] Care Team Providers Care Gaming Pit Boss Name Role Phone Maribell Alanis Primary Care Provider [phone] Reason for Visit * Reason Onset Date Comments Appointment Request 12/04/2023 Encounter Details Date Type Department Care Team ([facility] Contact Info) Description 12/04/2023 Telephone [facility] MEDICINE [address] [place] [address] Maribell Alanis FNP [address] [place] [address] Appointment Request Social History Tobacco Use Types [...] Description 07/27/2025 1:00 PM EDT Office Visit [facility] OPTOMETRY [address] [place] [address] Keagan, Shae, OD [address] [place] [address] documented as of this encounter Visit Diagnoses Not on filedocumented in this encounter Additional Health Concerns Assessment Noted Time PHQ-9 Depression Total Score: 8 07/22/19 24 9:06 AM EDT documented as of this encounter Care Teams Gaming Pit Boss Relationship Specialty Start Date End Date Maribell Alanis FNP [address] [place] [address] PCP - General Family Medicine 08/14/21 documented as of this encounter
--- OUTSIDE RECORDS SUMMARY | 2025-03-02 07:53 | XMS_ITS | Encounter Summary ---
Author Organization [employer] Address [address] [facility] [address] [place] [address] Care Team Providers Care Wharf Laborer Name Role Phone Maribell Alanis JARRETT Primary Care Provider [phone] Reason for Visit * Reason Comments Med Refill Encounter Details Date Type Department Care Team ([facility] Contact Info) Description 08/24/2023 Refill [facility] MEDICINE [address] [place] [address] Name, MD Varun [address] [place] [address] Insomnia, unspecified type Social History Tobacco Use [...] Description 07/27/2025 1:00 PM EDT Office Visit [facility] OPTOMETRY [address] [place] [address] Keagan, Shae, OD [address] [place] [address] documented as of this encounter Visit Diagnoses Diagnosis Insomnia, unspecified type documented in this encounter Additional Health Concerns Assessment Noted Time PHQ-9 Depression Total Score: 8 07/22/19 24 9:06 AM EDT documented as of this encounter Care Teams Wharf Laborer Relationship Specialty Start Date End Date Maribell Alanis FNP [address] [place] [address] PCP - General Family Medicine 08/14/21 documented as of this encounter
--- OUTSIDE RECORDS SUMMARY | 2025-03-02 07:53 | XMS_ITS | Encounter Summary ---
Author Organization [employer] Address [address] [facility] [address] [place] [address] Care Team Providers Care Impact Retail Service Merchandiser Name Role Phone Maribell Alanis Primary Care Provider Reason for Visit * Reason Comments Med Refill Encounter Details Date Type Department Care Team ([facility] Contact Info) Description 09/11/2022 Refill [facility] MEDICINE [address] [place] [address] Maribell Alanis FNP [address] [place] [address] Social History Tobacco Use Types Packs/Day Years [...] Upcoming Encounters Date Type Department Care Team ([facility] Contact Info) Description 07/27/2025 1:00 PM EDT Office Visit [facility] OPTOMETRY [address] [place] [address] Shae Boogie, LISSETTE [address] [place] [address] documented as of this encounter Visit Diagnoses Not on filedocumented in this encounter Additional Health Concerns Assessment Noted Time PHQ-9 Depression Total Score: 14 023 9:20 AM EDT documented as of this encounter Care Teams Impact Retail Service Merchandiser Relationship Specialty Start Date End Date Maribell Alanis FNP [address] [place] [address] PCP - General Family Medicine 08/14/21 documented as of this encounter
--- OUTSIDE RECORDS SUMMARY | 2025-03-02 07:53 | XMS_ITS | Encounter Summary ---
Author Organization [employer] Address [address] [facility] [address] [place] [address] Care Team Providers Care Plywood Matcher Name Role Phone Maribell Alanis JARRETT Primary Care Provider Encounter Details Date Type Department Care Team ([facility] Contact Info) Description 01/03/2025 Results Follow-Up [facility] MED & PEDS [address] [place], [place] [phone] Alaina Mendieta MD [address] [place] [address] Hematoxylin and Eosin Stain Social History Tobacco [...] Description 07/27/2025 1:00 PM EDT Office Visit [facility] OPTOMETRY [address] [place] [address] Keagan, Shae, OD [address] [place] [address] documented as of this encounter Visit Diagnoses Not on filedocumented in this encounter Additional Health Concerns Assessment Noted Time PHQ-9 Depression Total Score: 11 025 1:53 PM EDT documented as of this encounter Care Teams Plywood Matcher Relationship Specialty Start Date End Date Maribell Alanis FNP [address] [place] [address] PCP - General Family Medicine 08/14/21 documented as of this encounter
--- OUTSIDE RECORDS SUMMARY | 2025-03-02 07:53 | XMS_ITS | Encounter Summary ---
Author Organization [employer] Address [address] [facility] [address] [place] [address] Care Team Providers Care Architectural Associate Name Role Phone Maribell Alanis Primary Care Provider Encounter Details Date Type Department Care Team ([facility] Contact Info) Description 12/02/2024 Orders Only [facility]C MED & PEDS [address] [place], [place] [phone] Maribell Alanis FNP [address] [place], [place] [phone] Social History Tobacco Use Types Packs/Day Years [...] Description 07/27/2025 1:00 PM EDT Office Visit [facility] OPTOMETRY [address] [place] [address] Shae Boogie, OD [address] [place] [address] documented as of this encounter Visit Diagnoses Not on filedocumented in this encounter Additional Health Concerns Assessment Noted Time PHQ-9 Depression Total Score: 8 07/22/19 24 9:06 AM EDT documented as of this encounter Care Teams Architectural Associate Relationship Specialty Start Date End Date Maribell Alanis FNP [address] [place] [address] PCP - General Family Medicine 08/14/21 documented as of this encounter
== END 2025-03-01 09:18 | disposition home or self-care (01) ==
LOC: HO.LNP 09:17
PROVIDERS: PCP Internal Medicine; Visit Provider Nurse Practitioner Family
DX: K21.9 Gastro-esophageal reflux disease without esophagitis (principal); Z12.11 Encounter for screening for malignant neoplasm of colon; A04.8 Other specified bacterial intestinal infections; R10.13 Epigastric pain
CPT/HCPCS: 83013; 99212